=== PATIENT | female | born 1955 | race Caucasian/White ===

== ENCOUNTER 2016-12-23 12:11 | Emergency (ER) | payer SELFPAY ==
[~2016-12-23] VITALS: Ht 177.8 cm; Wt 65.0 kg
[2016-12-23 12:13] VITALS: BP 161/121; PULSE 94; RESP 25; TEMP 98.2; O2SAT 96
[2016-12-23 12:14] VITALS: BP 142/84; PULSE 91; RESP 19; TEMP 98.2; O2SAT 97
[2016-12-23] MEDS ORDERED: TETANUS/DIPHTHERIA TOXOID ADULT 0.5 ML VIAL IM ONE (13:30)
[2016-12-23] MEDS ORDERED: KETOROLAC TROMETHAMINE 60 MG/2 ML (IM) VIAL IM ONE (13:30)
[2016-12-23] MEDS ORDERED: CLIN1CAP5 PO (13:40)
[2016-12-23] MEDS ORDERED: IBUP800T23 PO (13:40)
--- NOTE | 2016-12-23 13:42 | PD ---
HPI Chief Complaint: Injury Time Seen by Provider: 13:31 Travel History International Travel<30 days: No Contact w/Intl Traveler<30days: No Traveled to known affect area: No History of Present Illness HPI 61-year-old female presents to the emergency Department with complaint of right knee pain and right ankle pain after tripping over a curb yesterday and falling for. She denies hitting her head or loss of consciousness. Denies neck pain or back pain. She said she fell forward and landed on all fours. Denies anticoagulants. Complains of a scrape to her right knee. Reports feeling numbness and tingling in her right foot. Denies loss of sensation. Reports decreased range of motion to the right knee secondary to pain. Did ambulate on the extremity yesterday after the fall, but has not today. Denies fever, chills , nausea, vomiting. Took ibuprofen last yesterday with some relief of pain. Pain is aggravated with movement and palpation. Allergies to sulfa. Denies being up-to-date on tetanus vaccination. No other modifying factors or associated signs and symptoms. PFSH Past Medical History ?: Not Social History Tobacco Use: No Allergies-Medications (Allergen,Severity, Reaction): Coded Allergies: Sulfa (Verified Allergy, Intermediate, Hives, 12/23/16) Reported Meds & Prescriptions Reported Meds & Active Scripts Active Ibuprofen 800 Mg Tab 800 Mg PO Q6HR PRN Clindamycin (Clindamycin HCl) 150 Mg Cap 450 Mg PO Q6H 10 Days Review of Systems Except as stated in HPI: all other systems reviewed are Neg Physical Exam Narrative GENERAL: Well-nourished, well-developed female patient, in no acute distress SKIN: Warm and dry. Scabbed abrasion noted to the upper right trevino; the area is surrounded by erythema and is warm to touch; consistent with cellulitis; no drainage noted. HEAD: Atraumatic. Normocephalic. EYES: Pupils equal and round. No scleral icterus. No injection or drainage. ENT: Mucosa pink and moist. Airway patent. NECK: Trachea midline. CARDIOVASCULAR: Regular rate. RESPIRATORY: No accessory muscle use. GASTROINTESTINAL: Flat. MUSCULOSKELETAL: Right knee is edematous and non-erythematous; with tenderness on palpation to the patellar, medial, lateral aspect; no obvious deformity; minimal flexion at the knee; unable to assess range of motion secondary to patient guarding and pain. Right ankle is without erythema, edema; with tenderness on palpation to the mid foot zone; no obvious deformity. Right lower extremity supple and non-tense with 2+ pedal pulse and sensory intact; less than 3 second cap refill and toes are pink and warm. No erythema. No clubbing. No cyanosis. NEUROLOGICAL: Awake and alert. Oriented 3. No obvious cranial nerve deficits. Motor grossly within normal limits. Normal speech. PSYCHIATRIC: Appropriate mood and affect; insight and judgment normal. Data Data Last Documented VS Vital Signs Date Time Temp Pulse Resp B/P Pulse Ox O2 Delivery O2 Flow Rate FiO2 12/23/16 12:14 98.2 91 19 142/84 97 Room Air Orders Ankle, Complete (Afe9liv) (12/23/16 13:24) Knee, Complete (4vws) (12/23/16 13:24) Ice/Cold Pack (12/23/16 13:24) Tetanus/Diphtheria Tox Adult (Tetanus/Di (12/23/16 13:30) Ketorolac Inj (Toradol Inj) (12/23/16 13:30) Splint Or Brace Apply/Monitor (12/23/16 15:45) Splint Or Brace Apply/Monitor (12/23/16 15:45) Crutches (12/23/16 15:45) Mandatory Outpatient Referral (12/23/16 15:46) MDM Medical Decision Making Medical Screen Exam Complete: Yes Emergency Medical Condition: Yes Medical Record Reviewed: Yes Differential Diagnosis Fall, fracture, sprain, cellulitis, abrasion Narrative Course 61-year-old female with right knee injury, right ankle injury, and an abrasion surrounded by an area of cellulitis to the right upper trevino after a mechanical fall yesterday. The patient denies hitting her head or loss of consciousness. Denies anticoagulants. Patient afebrile nontoxic appearing. Right lower extremity supple and non-tense with 2+ pedal pulse and sensory intact. Toradol ordered. Right knee x-ray, right ankle x-ray ordered. Tetanus updated in the ER. Ice pack ordered. 1544: Right knee x-ray with small effusion and no acute findings. Right ankle x-ray with no acute findings. Godwin bandage applied to knee. Velcro ankle splint applied for support. Crutches provided for support. Ibuprofen and clindamycin prescribed for home. Instructed patient to follow up with orthopedics. Outpatient management referral entered as patient does not have insurance. Patient verbalized understanding and agreement for treatment plan. Patient is medically cleared and stable for discharge. Discussed reasons to return to the emergency department. Instructed patient to follow up with primary care provider. Patient agrees with treatment plan. The patients vital signs are stable and the patient is stable for outpatient follow-up and treatment. Patient discharged home, stable and in no acute distress. Diagnosis Primary Impression: Fall Qualified Code: W19.XXXA - Fall, initial encounter Additional Impressions: Abrasion of skin with infection Strain of right knee Qualified Code: S86.911A - Strain of right knee, initial encounter Right ankle sprain Qualified Code: S93.401A - Sprain of right ankle, unspecified ligament, initial encounter Referrals: Primary Care Physician Patient Instructions: Ankle Sprain (ED), Cellulitis (ED), Fall Prevention (ED) , General Instructions, Knee Sprain (ED) Additional Instructions: Antibiotics as prescribed for skin infection; complete full course; clindamycin is on the $4 list at [facility], otherwise try [facility] Tylenol or ibuprofen as needed and as directed to reduce pain and inflammation Rest, ice, compress, and elevate extremity to decrease pain and inflammation Knee Brace and ankle brace for for support Crutches for support Avoid aggravating activity; increase activity as tolerated Follow-up with primary care provider Return to the emergency department immediately with worsening symptoms Med/Other Pt SpecificInfo: Prescription(s) given Scripts Ibuprofen 800 Mg [id number] Mg PO Q6HR PRN (PAIN) #30 TAB Ref 0 Prov:Aurelia Gonzalez 12/23/16 Clindamycin 150 Mg [id number] Mg PO Q6H 10 Days Ref 0 Prov:Aurelia Gonzalez 12/23/16 Disposition: DISCHARGE HOME Condition: Stable Aurelia Gonzalez Dec 23, 2016 13:42
--- NOTE | 2016-12-23 15:27 | RADRPT ---
EXAM DATE/TIME: 12/23/2016 14:32 [facility] COMPARISON: No previous studies available for comparison. INDICATIONS : Right ankle pain Swelling MEDICAL HISTORY : None. SURGICAL HISTORY : None. ENCOUNTER: Initial ACUITY: 1 day PAIN SCORE: 10/10 LOCATION: Right ankle FINDINGS: Three view exam was performed of the right ankle. The bony structures are in normal alignment. No e vidence of fracture, dislocation, or soft tissue swelling. The ankle mortise is intact. No radiopaq ue foreign bodies are seen. Bony mineralization is normal. CONCLUSION: 1. No acute findings. Mild degenerative change at the right ankle. Sina Winchester MD on December 23, 2016 at 15:24 Board Certified Radiologist. This report was verified electronically.
--- NOTE | 2016-12-23 15:29 | RADRPT ---
EXAM DATE/TIME: 12/23/2016 14:35 [facility] COMPARISON: No previous studies available for comparison. INDICATIONS : Right knee pain MEDICAL HISTORY : None. SURGICAL HISTORY : None. ENCOUNTER: Initial ACUITY: 1 day PAIN SCORE: 10/10 LOCATION: Right knee FINDINGS: Four view examination of the right knee demonstrates no evidence of fracture or dislocation. Bony mi neralization is normal. There is a small right knee joint effusion. CONCLUSION: 1. Small right knee joint effusion. No acute bony abnormalities. Sina Winchester MD on December 23, 2016 at 15:26 Board Certified Radiologist. This report was verified electronically.
== END 2016-12-23 16:28 | disposition home or self-care (01) ==
LOC: NEPB 12:11
DX: S93.401A Sprain of unspecified ligament of right ankle, initial encounter (principal); S80.211A Abrasion, right knee, initial encounter; S86.911A Strain of unspecified muscle(s) and tendon(s) at lower leg level, right leg, initial encounter; L03.115 Cellulitis of right lower limb; Z23 Encounter for immunization; W10.1XXA Fall (on)(from) sidewalk curb, initial encounter; Y93.9 Activity, unspecified; Y92.9 Unspecified place or not applicable; Y99.9 Unspecified external cause status
CPT/HCPCS: 73564; 73610; 90471; 90714; 96372; 99283; E0113; J1885; L1906

== ENCOUNTER 2017-01-07 13:37 | Emergency (ER) | payer SELFPAY ==
[~2017-01-07 13:37] MED LIST: CLIN1CAP5 PO; IBUP800T23 PO
[2017-01-07 13:43] VITALS: BP 118/78; PULSE 114; RESP 20; TEMP 97.6; O2SAT 95
[2017-01-07] MEDS ORDERED: diphenhydrAMINE HCL 50 MG/ML VIAL IM ONE (15:00)
[2017-01-07] MEDS ORDERED: methylPREDNISolone SOD SUCC 125 MG/2 ML VIAL IM ONE (15:00)
--- NOTE | 2017-01-07 15:22 | PD ---
HPI Chief Complaint: Allergic/Adverse Reaction Time Seen by Provider: 15:00 Travel History International Travel<30 days: No Contact w/Intl Traveler<30days: No Traveled to known affect area: No History of Present Illness HPI Patient is a 61-year-old female presenting to emergency Department for evaluation of a rash. Patient states it started on Saturday, at that time it was confined to her bilateral forearms when she woke up on Saturday her whole body was covered in hives. She denies any shortness of breath or wheezing. She thinks it could be related to clindamycin which she was taking for an infection. Patient has not taken any clindamycin since Saturday. She took 2 Benadryl last night with no significant relief of symptoms. Patient is taken any medication today as the Benadryl makes her sleepy. She also reports using a new detergent to wash her clothes and several days prior to the breakout. PFSH Past Medical History Medical History: Denies Significant Hx Past Surgical History Appendectomy: Yes Other Surgery: Yes (eye surgery) Social History Tobacco Use: No Allergies-Medications (Allergen,Severity, Reaction): Coded Allergies: Sulfa (Verified Allergy, Intermediate, Hives, 12/23/16) Reported Meds & Prescriptions Reported Meds & Active Scripts Active Ibuprofen 800 Mg Tab 800 Mg PO Q6HR PRN Clindamycin (Clindamycin HCl) 150 Mg Cap 450 Mg PO Q6H 10 Days Review of Systems Except as stated in HPI: all other systems reviewed are Neg Cardiovascular: No: Chest Pain or Discomfort Respiratory: No: Shortness of Breath Gastrointestinal: No: Abdominal Pain Skin: Positive Rash, Positive Itching, Positive Hives Physical Exam Narrative GENERAL: Well-developed, well-nourished, alert female. SKIN: Warm and dry. Scattered hyperpigmented macular papular rash, nonblanching diffusely on abdomen, anterior chest wall, bilateral upper extremities, back, and face HEAD: Atraumatic. Normocephalic. EYES: Pupils equal and round. No scleral icterus. No injection or drainage. ENT: No nasal bleeding or discharge. Mucous membranes pink and moist. NECK: Trachea midline. No JVD. CARDIOVASCULAR: Regular rate and rhythm. No murmur appreciated. RESPIRATORY: No accessory muscle use. Clear to auscultation. Breath sounds equal bilaterally. GASTROINTESTINAL: Abdomen soft, non-tender, nondistended. Hepatic and splenic margins not palpable. MUSCULOSKELETAL: No obvious deformities. No clubbing. No cyanosis. No edema. NEUROLOGICAL: Awake and alert. No obvious cranial nerve deficits. Motor grossly within normal limits. Normal speech. PSYCHIATRIC: Appropriate mood and affect; insight and judgment normal. Data Data Last Documented VS Vital Signs Date Time Temp Pulse Resp B/P Pulse Ox O2 Delivery O2 Flow Rate FiO2 01/07/17 13:43 97.6 114 20 118/78 95 Room Air Orders Methylprednisolone So Succ Inj (Solumedr (01/07/17 15:00) Diphenhydramine Inj (Benadryl Inj) (01/07/17 15:00) Complete Blood Count With Diff (01/07/17 14:55) Basic Metabolic Panel (Bmp) (01/07/17 14:55) MDM Medical Decision Making Medical Screen Exam Complete: Yes Emergency Medical Condition: Yes Interpretation(s) Vital Signs Date Time Temp Pulse Resp B/P Pulse Ox O2 Delivery O2 Flow Rate FiO2 01/07/17 13:43 97.6 114 20 118/78 95 Room Air Differential Diagnosis Viral exanthems versus allergic reaction versus contact dermatitis versus other Narrative Course Patient is a 7-year-old female presented to him or to primary for evaluation of a possible allergic reaction. He is vital signs are stable, airway patent. No wheezing noted. Reaction appears to be only affecting her skin at this time. Care of patient transferred to provider when medical bed is available. Maria C Kamara Jan 07, 2017 15:22
[2017-01-07] MEDS ORDERED: FAMOTIDINE 20 MG/2 ML VIAL IV PUSH SCH (15:45)
[2017-01-07] MEDS ORDERED: diphenhydrAMINE HCL 50 MG/ML VIAL IV PUSH ONE (15:45)
[2017-01-07] MEDS ORDERED: methylPREDNISolone SOD SUCC 125 MG/2 ML VIAL IV PUSH ONE (15:45)
[2017-01-07 16:27] VITALS: BP 143/75; PULSE 101; RESP 20; TEMP 98.8; O2SAT 96
[2017-01-07 16:55] LABS: AUTOMATED NEUTROPHIL # 4.9 TH/MM3 (1.8-7.7); BASOPHIL % 0.3 % (0.0-2.0); EOSINOPHIL # 0.1 TH/MM3 (0-0.4); HEMATOCRIT 38.1 % (35.0-46.0); LYMPH % 3.9 % (9.0-44.0); LYMPHOCYTE # 0.2 TH/MM3 (1.0-4.8); MEAN CELL VOLUME 102.1 FL (80.0-100.0); MEAN CORPUSCULAR HEMOGLOBIN 35.7 PG (27.0-34.0); MONO % 9.2 % (0.0-8.0); NEUT % 84.6 % (16.0-70.0); RED BLOOD COUNT 3.73 MIL/MM3 (4.00-5.30); RED CELL DISTRIBUTION WIDTH 13.2 % (11.6-17.2); WHITE BLOOD COUNT 5.8 TH/MM3 (4.0-11.0)
[2017-01-07 17:02] LABS: HEMO FLAGS AUTO DIFF
[2017-01-07 17:04] LABS: BICARBONATE 27.4 MEQ/L (21.0-32.0); POTASSIUM 4.1 MEQ/L (3.5-5.1)
[2017-01-07 17:34] LABS: PLATELET COUNT 92 TH/MM3 (150-450); SCAN/DIFF AUTO DIFF CONFIRMED
[2017-01-07] MEDS ORDERED: PRED20 PO (17:38)
[2017-01-07] MEDS ORDERED: ZANT150T2 PO (17:38)
[2017-01-07] MEDS ORDERED: VIST50CA PO (17:38)
--- NOTE | 2017-01-07 17:45 | PD ---
Physical Exam Date Seen by Provider: Jan 07, 2017 Time Seen by Provider: 17:41 Narrative 61-year-old female that presents to the ED for evaluation of allergic rash. Patient was seen by Maria C VIZCARRA. Please refer to her note. Patient was basically waiting on treatment as well as labs. Patient complains of an early rash to her body likely from clindamycin. Data Data Last Documented VS Vital Signs Date Time Temp Pulse Resp B/P Pulse Ox O2 Delivery O2 Flow Rate FiO2 01/07/17 16:27 98.8 101 20 143/75 96 Room Air Orders Methylprednisolone So Succ Inj (Solumedr (01/07/17 15:00) Diphenhydramine Inj (Benadryl Inj) (01/07/17 15:00) Complete Blood Count With Diff (01/07/17 14:55) Basic Metabolic Panel (Bmp) (01/07/17 14:55) Methylprednisolone So Succ Inj (Solumedr (01/07/17 15:45) Diphenhydramine Inj (Benadryl Inj) (01/07/17 15:45) Famotidine Inj (Pepcid Inj) (01/07/17 15:45) Labs Laboratory Tests Test 01/07/17 16:03 White Blood Count 5.8 TH/MM3 Red Blood Count 3.73 MIL/MM3 Hemoglobin 13.3 GM/DL Hematocrit 38.1 % Mean Corpuscular Volume 102.1 FL Mean Corpuscular Hemoglobin 35.7 PG Mean Corpuscular Hemoglobin 35.0 % Concent Red Cell Distribution Width 13.2 % Platelet Count 92 TH/MM3 Mean Platelet Volume 7.6 FL Neutrophils (%) (Auto) 84.6 % Lymphocytes (%) (Auto) 3.9 % Monocytes (%) (Auto) 9.2 % Eosinophils (%) (Auto) 2.0 % Basophils (%) (Auto) 0.3 % Neutrophils # (Auto) 4.9 TH/MM3 Lymphocytes # (Auto) 0.2 TH/MM3 Monocytes # (Auto) 0.5 TH/MM3 Eosinophils # (Auto) 0.1 TH/MM3 Basophils # (Auto) 0.0 TH/MM3 CBC Comment AUTO DIFF Differential Comment AUTO DIFF CONFIRMED Sodium Level 134 MEQ/L Potassium Level 4.1 MEQ/L Chloride Level 97 MEQ/L Carbon Dioxide Level 27.4 MEQ/L Anion Gap 10 MEQ/L Blood Urea Nitrogen 7 MG/DL Creatinine 0.69 MG/DL Estimat Glomerular Filtration 87 ML/MIN Rate Random Glucose 98 MG/DL Calcium Level 8.8 MG/DL [facility] Medical Record Reviewed: Yes Supervised Visit with RUSS: No Interpretation(s) CBC & BMP Diagram 01/07/17 16:03 Differential Diagnosis Allergic dermatitis versus reaction to medication versus less likely anaphylaxis Narrative Course 61-year-old female that presents to the ED for evaluation of unclear reaction. Patient was properly examined and was found to have signs and symptoms very consistent with a reaction to the clindamycin. Clindamycin was added to her medication allergy list. Patient was told to discontinue this medication. Patient was given Benadryl, Pepcid, Solu-Medrol here in the ED. Patient has no sign of anaphylaxis at this time. Case was discussed in my attending Dr. enriquez who evaluated the patient with me and agrees with plan. Patient will be discharged home with Zantac, Vistaril, prednisone. Told to take medications as needed. Ice or warm compresses to the areas of itch. Close follow-up with PCP. See ED for any worsening symptoms. Labs were essentially unremarkable. Diagnosis Primary Impression: Allergic reaction to drug Qualified Code: T78.40XA - Allergic reaction to drug, initial encounter Patient Instructions: General Instructions Additional Instruction: Take medications as prescribed. Never take clindamycin again. Follow-up with PCP. Ice to the areas. See ED for any worsening symptoms. Rash itself should get better in the next 3-7 days. Rash or completely go away after a week or 2. Med/Other Pt SpecificInfo: Prescription(s) given Scripts Ranitidine (Zantac)150 Mg [id number] Mg PO BID PRN (PAIN SCALE 1 TO 10) #20 TAB Prov:Dread Jensen MD 01/07/17 Hydroxyzine Pamoate (Vistaril)50 Mg Cap50 Mg PO TID PRN (ITCHING) #20 CAP Ref 0 Prov:Dread Jensen MD 01/07/17 Prednisone 20 Mg Tab20 Mg PO BID #10 TAB Prov:Dread Jensen MD 01/07/17 Disposition: 01 DISCHARGE HOME Condition: Stable Bo Lamar Jan 07, 2017 17:45
== END 2017-01-07 18:53 | disposition home or self-care (01) ==
LOC: NEPC 13:37
DX: T36.8X5A Adverse effect of other systemic antibiotics, initial encounter (principal); Y92.009 Unspecified place in unspecified non-institutional (private) residence as the place of occurrence of the external cause
CPT/HCPCS: 80048; 85025; 96374; 96375; 99283; J1200; J2930

== ENCOUNTER 2017-08-06 11:35 | Emergency (ER) | payer SELFPAY ==
[~2017-08-06] VITALS: Ht 177.8 cm; Wt 70.0 kg
[~2017-08-06 11:35] MED LIST changes: +PRED20 PO; +VIST50CA PO; +ZANT150T2 PO
[2017-08-06 11:41] VITALS: BP 120/64; PULSE 85; RESP 16; TEMP 98.4; O2SAT 99
[2017-08-06] MEDS ORDERED: ORPHENADRINE INJ 60 MG/2 ML AMP IM ONE (12:15)
[2017-08-06] MEDS ORDERED: KETOROLAC TROMETHAMINE 60 MG/2 ML (IM) VIAL IM ONE (12:15)
--- NOTE | 2017-08-06 12:19 | PD ---
HPI Chief Complaint: Back/ Neck Pain or Injury Time Seen by Provider: 12:04 Travel History International Travel<30 days: No Contact w/Intl Traveler<30days: No Traveled to known affect area: No History of Present Illness HPI 62-year-old female presents to the emergency Department with complaint of lower back pain that has been severe for about the past week. Denies new or recent injury. Back pain has been on and off for the past 3 months with worsening over the past week, and has been unable to relieve the back pain. Has history of disc herniation with surgery of L4 and L5 15 years ago. Followed neurosurgery in [place] and just recently moved here and does not have care at this time. Denies encopresis, incontinence, saddle anesthesia. Denies IV drug use or cancer. Denies fever, vomiting, abdominal pain, dysuria. Denies difficulty urinating or stooling. Reports being ambulatory. Reports occasional radiation of pain down the back of her legs, but not now. Has been taking Advil for symptom management. Pain is aggravated with movement, walking , palpation. No known relieving factors. Symptoms are moderate in severity. Has no other medical complaints. Allergies to sulfa and clindamycin. No other modifying factors or associated signs and symptoms. PFSH Past Medical History Musculoskeletal: Yes (cbp) Tetanus Vaccination: < 5 Years Influenza Vaccination: No Past Surgical History Appendectomy: Yes Other Surgery: Yes (eye surgery) Social History Alcohol Use: Yes (1 glass of wine per day) Tobacco Use: No Substance Use: No Allergies-Medications (Allergen,Severity, Reaction): Coded Allergies: Sulfa (Sulfonamide Antibiotics) (Unverified Allergy, Intermediate, Hives, 08/06/17) clindamycin (Unverified Allergy, Intermediate, rash, 08/06/17) Reported Meds & Prescriptions Reported Meds & Active Scripts Active No Active Prescriptions or Reported Medications Review of Systems Except as stated in HPI: all other systems reviewed are Neg Physical Exam Narrative GENERAL: Well-nourished, well-developed female patient, in no acute distress; afebrile, nontoxic-appearing SKIN: Warm and dry. Midline, lumbar spine surgical scar noted. HEAD: Atraumatic. Normocephalic. EYES: Pupils equal and round. No scleral icterus. No injection or drainage. ENT: Mucosa pink and moist. Airway patent. NECK: Trachea midline. CARDIOVASCULAR: Regular rate. RESPIRATORY: No accessory muscle use. GASTROINTESTINAL: Rounded. MUSCULOSKELETAL: Bilateral lower extremities supple and non-tense with 2+ pedal pulses and sensory intact; with full range of motion and 5/5 strength. 2 + DTRs bilaterally. Active dorsiflexion and extension of bilateral feet. Bilateral straight leg raise is negative for low back pain. Ambulatory in room with guarded gait. Sitting up in bed at 90. No obvious deformities. No clubbing. No cyanosis. No edema. BACK: Midline point tenderness on palpation of the lumbar spine. Tenderness on palpation of left lumbar iliosacral area. No obvious deformities. NEUROLOGICAL: Awake and alert. Oriented 3. No obvious cranial nerve deficits. Motor grossly within normal limits. Normal speech. Moves all extremities. 5/5 strength to all extremities. Sensory intact. PSYCHIATRIC: Appropriate mood and affect; insight and judgment normal. Data Data Last Documented VS Vital Signs Date Time Temp Pulse Resp B/P (MAP) Pulse Ox O2 Delivery O2 Flow Rate FiO2 08/06/17 11:41 98.4 85 16 120/64 (82) 99 Orders Orders Ketorolac Inj (Toradol Inj) (08/06/17 12:15) Orphenadrine Inj (Norflex Inj) (08/06/17 12:15) Ct Lumb Spine W/O Contrast (08/06/17 ) MDM Medical Decision Making Medical Screen Exam Complete: Yes Emergency Medical Condition: Yes Medical Record Reviewed: Yes Differential Diagnosis Acute exacerbation of chronic low back pain, disc herniation, sciatica, less likely cauda equina syndrome Narrative Course 62-year-old female with history of L4-L5 herniation with surgical repair 15 years ago, with excruciating low back pain for approximately one week. Intermittent low back pain for the past 3 months with recent worsening. Denies new or recent injury. Denies IV drug use or cancer. Denies encopresis, incontinence, saddle anesthesias. Neuro exam is unremarkable. Patient has guarded gait in the room. Midline tenderness on palpation of the lumbar spine. I spoke with Dr. Gallegos, my attending physician, and he recommended CT of the lumbar spine. Toradol, Norflex, CT lumbar spine ordered. 1316: CT lumbar spine concludes: Last 24 hours Impressions Lum[address] Spine CT 08/06/17 0000 Signed Impressions: Service Date/Time: Sunday, August 06, 2017 12:45 - CONCLUSION: 1. No acute fracture or spondylolisthesis. 2. At L4-5 is a broad-based disc protrusion and facet arthropathy resulting in moderate central canal and lateral recess stenosis. 3. Mild bilateral foraminal stenosis at L4-5-S1. Sina Winchester MD Discussed the findings with Dr. Gallegos and he recommended outpatient follow-up with neurosurgery. Lortab, Robaxin, ibuprofen prescribed for home. Instructed patient to follow up with neurosurgeon. Discussed reasons to return to the emergency department and patient verbalized understanding and agreement. Instructed patient to follow up with primary care provider. Patient verbalizes understanding and agreement with treatment plan. Patient is medically cleared and stable for discharge. Discussed reasons to return to the emergency department. Patient agrees with treatment plan. The patients vital signs are stable and the patient is stable for outpatient follow-up and treatment. Patient discharged home, stable and in no acute distress. Diagnosis Primary Impression: Low back pain Qualified Codes: M54.5 - Low back pain Referrals: Neville Izaguirre MD Neurosurgeon Primary Care Physician Patient Instructions: Acute Low Back Pain (ED), General Instructions Departure Forms: Tests/Procedures, Work Release Enter return to work date: Aug 12, 2017 Additional Instructions: Tylenol or ibuprofen as directed and as needed for pain Robaxin as prescribed and as needed for muscle spasms Heating pad and/or ice to affected area to reduce pain Avoid aggravating activities; increase activity as tolerated Follow-up with primary care provider Follow-up with neurosurgery; Dr. Izaguirre is a neurosurgeon for [place] and his information has been provided a near discharge instructions Return to emergency department immediately with worsening of symptoms Med/Other Pt SpecificInfo: Prescription(s) given Scripts Ibuprofen (Ibuprofen) 800 Mg Tab 800 MG PO Q8H Y for PAIN SCALE 1 TO 10, #30 TAB 0 Refills Prov: Aurelia GonzalezP 08/06/17 Methocarbamol (Robaxin) 500 Mg Tab 500 MG PO QID Y for MUSCLE SPASM, #30 TAB 0 Refills Prov: Aurelia GonzalezP 08/06/17 Hydrocodone-Acetaminophen (Lortab) 5-325 Mg Tab 1 TAB PO Q4H Y for PAIN, #10 TAB 0 Refills Prov: Aurelia Gonzalez 08/06/17 Disposition: 01 DISCHARGE HOME Condition: Stable Aurelia Gonzalez Aug 06, 2017 12:19
--- NOTE | 2017-08-06 13:04 | RADRPT ---
EXAM DATE/TIME: 08/06/2017 12:45 [facility] COMPARISON: No previous studies available for comparison. INDICATIONS : Low back pain for 3 months RADIATION DOSE: 35.86 CTDIvol (mGy) MEDICAL HISTORY : None SURGICAL HISTORY : None. ENCOUNTER: Initial ACUITY: 3 months PAIN SCALE: 8/10 LOCATION: low back TECHNIQUE: Volumetric scanning of the lumbar spine was performed. Multiplanar reconstructions in the sagittal, coronal and oblique axial planes were performed. Using automated exposure control and adjustment of the mA and/or kV according to patient size, radiation dose was kept as low as reasonably achievable t o obtain optimal diagnostic quality images. DICOM format image data is available electronically for review and comparison. FINDINGS: VERTEBRAE: Normal vertebral body height. ALIGNMENT: No evidence of subluxation. T12-L1: The thecal sac has a normal diameter. No evidence of disc bulge or protrusion. The neural foramina are patent bilaterally. L1-L2: The thecal sac has a normal diameter. No evidence of disc bulge or protrusion. The neural foramina are patent bilaterally. L2-L3: Disc bulge without stenosis. L3-L4: Disc bulge without significant stenosis L4-L5: Broad-based posterior disc protrusion and facet arthropathy with at least moderate central canal late ral recess stenosis and mild bilateral foraminal stenosis. L5-S1: This chest reading with mild foraminal and lateral recess stenosis. CONCLUSION: 1. No acute fracture or spondylolisthesis. 2. At L4-5 is a broad-based disc protrusion and facet arthropathy resulting in moderate central canal and lateral recess stenosis. 3. Mild bilateral foraminal stenosis at L4-5-S1. Sina Winchester MD on August 06, 2017 at 13:00 Board Certified Radiologist. This report was verified electronically.
[2017-08-06] MEDS ORDERED: IBUP800T23 PO (13:15)
[2017-08-06] MEDS ORDERED: ROBA500T PO (13:15)
[2017-08-06] MEDS ORDERED: HYDR-3533 PO (13:15)
== END 2017-08-06 13:37 | disposition home or self-care (01) ==
LOC: NEPK 11:35
DX: M48.07 Spinal stenosis, lumbosacral region (principal); M48.06 Spinal stenosis, lumbar region; Z88.2 Allergy status to sulfonamides; Z88.1 Allergy status to other antibiotic agents
CPT/HCPCS: 72131; 96372; 99285; J1885; J2360

== ENCOUNTER 2017-08-14 12:27 | Emergency (ER) | payer SELFPAY ==
[~2017-08-14] VITALS: Ht 177.8 cm; Wt 70.0 kg
[~2017-08-14 12:27] MED LIST changes: -CLIN1CAP5 PO; +HYDR-3533 PO; -PRED20 PO; +ROBA500T PO; -VIST50CA PO; -ZANT150T2 PO
[2017-08-14 12:28] VITALS: BP 115/97; PULSE 88; RESP 16; TEMP 97.6; O2SAT 99
--- NOTE | 2017-08-14 12:32 | PD ---
Physical Exam Time Seen by Provider: 12:32 Narrative 62 y/o female here for evaluation of lower back pain shooting down the legs with numbness in the feet. Symptoms started 1-2 weeks ago. Vital signs reviewed. Seen at triage desk. Awaiting bed placement. Data Data Last Documented VS Vital Signs Date Time Temp Pulse Resp B/P (MAP) Pulse Ox O2 Delivery O2 Flow Rate FiO2 08/14/17 12:28 97.6 88 16 115/97 (103) 99 Room Air [facility] Medical Record Reviewed: Yes Supervised Visit with RUSS: Asim Sheffield Aug 14, 2017 12:32
--- NOTE | 2017-08-14 14:14 | PD ---
HPI Chief Complaint: Back/ Neck Pain or Injury Time Seen by Provider: 13:47 Travel History International Travel<30 days: No Contact w/Intl Traveler<30days: No Traveled to known affect area: No History of Present Illness HPI 62-year-old female presents to the emergency Department with complaint of lower back pain x 2 weeks. Denies new or recent injury. Back pain has been on and off for the past 3 months with worsening over the past 2 week, and has been unable to relieve the back pain. I saw this patient on 03/06/20 same complaint. Has history of disc herniation with surgery of L4 and L5 15 years ago. Followed neurosurgery in [place] and just recently moved here and does not have care at this time. Denies encopresis, incontinence, saddle anesthesia. Denies IV drug use or cancer. Denies fever, vomiting, abdominal pain, dysuria. Denies difficulty urinating or stooling. Reports being ambulatory. Reports occasional radiation of pain down the back of her legs, but not now. Has been taking ibuprofen for symptom management. She was given muscle relaxers at her last visit and she has not filled the prescription or taken them. Pain is aggravated with movement, walking, palpation. Pain is decreased with lying flat and lying in a reclining chair. Symptoms are mild in severity. Has no other medical complaints. Allergies to sulfa and clindamycin. No other modifying factors or associated signs and symptoms. PFSH Past Medical History Musculoskeletal: Yes (cbp) Past Surgical History Appendectomy: Yes Other Surgery: Yes (eye surgery) Social History Alcohol Use: Yes (1 glass of wine per day) Tobacco Use: No Substance Use: No Allergies-Medications (Allergen,Severity, Reaction): Coded Allergies: Sulfa (Sulfonamide Antibiotics) (Unverified Allergy, Intermediate, Hives, 08/14/17) clindamycin (Unverified Allergy, Intermediate, rash, 08/14/17) Reported Meds & Prescriptions Reported Meds & Active Scripts Active Ibuprofen 800 Mg Tab 800 Mg PO Q8H PRN Robaxin (Methocarbamol) 500 Mg Tab 500 Mg PO QID PRN Lortab (Hydrocodone-Acetaminophen) 5-325 Mg Tab 1 Tab PO Q4H PRN Review of Systems Except as stated in HPI: all other systems reviewed are Neg Physical Exam Narrative GENERAL: Well-nourished, well-developed female patient, in no acute distress; afebrile, nontoxic-appearing SKIN: Warm and dry. HEAD: Atraumatic. Normocephalic. EYES: Pupils equal and round. No scleral icterus. No injection or drainage. ENT: Mucosa pink and moist. Airway patent. NECK: Trachea midline. CARDIOVASCULAR: Regular rate. RESPIRATORY: No accessory muscle use. GASTROINTESTINAL: Abdomen soft, non-tender, nondistended. Positive bowel sounds. No hepato-splenomegaly, or palpable masses. No guarding. MUSCULOSKELETAL: Bilateral lower extremities supple and non-tense with 2+ pedal pulses and sensory intact; with full range of motion and 5/5 strength. 2 + DTRs bilaterally. Active dorsiflexion and extension of bilateral feet. Bialteral straight leg raise is negative for low back pain. Ambulatory in room with guarded gait. Sitting up in bed at 90. No obvious deformities. No clubbing. No cyanosis. No edema. BACK: Midline point tenderness on palpation of the lumbar spine. Tenderness on palpation of bilateral lumbar iliosacral area. No obvious deformities. NEUROLOGICAL: Awake and alert. Oriented 3. No obvious cranial nerve deficits. Motor grossly within normal limits. Normal speech. Moves all extremities. 5/5 strength to all extremities. Sensory intact. PSYCHIATRIC: Appropriate mood and affect; insight and judgment normal. Data Data Last Documented VS Vital Signs Date Time Temp Pulse Resp B/P (MAP) Pulse Ox O2 Delivery O2 Flow Rate FiO2 08/14/17 17:09 97.8 78 16 120/81 (94) 99 08/14/17 12:28 Room Air Orders Orders Urinalysis - C+S If Indicated (08/14/17 13:46) Ketorolac Inj (Toradol Inj) (08/14/17 15:30) Orphenadrine Inj (Norflex Inj) (08/14/17 15:30) Labs Laboratory Tests Test 08/14/17 15:30 Urine Color YELLOW Urine Turbidity CLEAR Urine pH 7.0 Urine Specific [place] 1.015 Urine Protein TRACE mg/dL Urine Glucose (UA) NEG mg/dL Urine Ketones NEG mg/dL Urine Occult Blood NEG Urine Nitrite NEG Urine Bilirubin NEG Urine Urobilinogen 2.0 MG/DL Urine Leukocyte Esterase MOD Urine RBC 1 /hpf Urine WBC 7 /hpf Urine Squamous Epithelial Cells 1 /hpf Microscopic Urinalysis Comment CULT NOT INDICATED MDM Medical Decision Making Medical Screen Exam Complete: Yes Emergency Medical Condition: Yes Medical Record Reviewed: Yes Differential Diagnosis Chronic low back pain, sciatica, lumbar radiculopathy Narrative Course This 62-year-old female with history of chronic low back pain that is constant or 19th same complaint. Denies encopresis incontinence, saddle anesthesias. Denies IV drug use or cancer. CT of the lumbar spine was done at her last visit on August 06 and concluded . No acute fracture or spondylolisthesis. 2. At L4-5 is a broad-based disc protrusion and facet arthropathy resulting in moderate central canal and lateral recess stenosis. 3. Mild bilateral foraminal stenosis at L4-5-S1. The patient has had no change of symptoms since she was last seen. She is ambulatory in the hallway with a guarded gait. I will check a urinalysis to rule out UTI/pyelonephritis. Urinalysis ordered. Toradol and Norflex administered in the ER. 1701: Urinalysis without signs of infection. Patient has prescription for Robaxin that she did not fill and has not taken. Instructed patient to take ibuprofen or Tylenol as directed and as needed for continued back pain. Patient provided information for his health clinic. Instructed patient to follow up with neurosurgeon as she was advised from her last visit. Instructed patient to follow up with primary care provider. Patient verbalizes understanding and agreement with treatment plan. Patient is medically cleared and stable for discharge. Discussed reasons to return to the emergency department. Patient agrees with treatment plan. The patients vital signs are stable and the patient is stable for outpatient follow-up and treatment. Patient discharged home, stable and in no acute distress. Diagnosis Primary Impression: Low back pain Qualified Codes: M54.5 - Low back pain Referrals: [facility] Primary Care Physician Patient Instructions: Chronic Back Pain (ED), General Instructions Additional Instructions: Tylenol or ibuprofen as directed and as needed for pain Robaxin as prescribed and as needed for muscle spasms Heating pad and/or ice to affected area to reduce pain Avoid aggravating activities; increase activity as tolerated Follow-up with primary care provider Return to emergency department immediately with worsening of symptoms Med/Other Pt SpecificInfo: No Change to Meds, No Meds Exist/No RX given Disposition: DISCHARGE HOME Condition: Stable Aurelia Gonzalez Aug 14, 2017 14:14
[2017-08-14] MEDS ORDERED: KETOROLAC TROMETHAMINE 60 MG/2 ML (IM) VIAL IM ONE (15:30)
[2017-08-14] MEDS ORDERED: ORPHENADRINE INJ 60 MG/2 ML AMP IM ONE (15:30)
[2017-08-14 15:52] LABS: BLOOD, URINE NEG (NEG); COMMENT (UR) CULT NOT INDICATED; CULTURE IF INDICATED CULT NOT INDICATED; GLUCOSE,URINE NEG (NEG); KETONE, URINE NEG (NEG); NITRITE,URINE NEG (NEG); SQUAMOUS EPITHELIAL CELL URINE 1 /hpf (0-5); URINE COLOR YELLOW (YELLW/STRAW)
[2017-08-14 16:30] VITALS: RESP 16
[2017-08-14 17:09] VITALS: BP 120/81; TEMP 97.8
== END 2017-08-14 17:10 | disposition home or self-care (01) ==
LOC: NEPD 12:27
DX: M54.5 Low back pain (principal); M48.07 Spinal stenosis, lumbosacral region; Z79.899 Other long term (current) drug therapy; Z88.2 Allergy status to sulfonamides; Z88.8 Allergy status to other drugs, medicaments and biological substances
CPT/HCPCS: 81001; 96372; 99284; J1885; J2360

== ENCOUNTER 2018-01-22 12:40 | Inpatient (IN) | payer SELFPAY ==
[~2018-01-22] VITALS: Ht 177.8 cm; Wt 75.7 kg
[2018-01-22] VITALS (17 sets, daily range): BP systolic 66–106; BP diastolic 41–60; PULSE 85–95; RESP 14–22; TEMP 97.4–99.1; O2SAT 93–100
[~2018-01-22 12:40] MED LIST changes: +IBUP1TAB7 PO; -IBUP800T23 PO
[2018-01-22] MEDS ORDERED: SODIUM CHLOR 0.9% 1000 ML INJ 1,000 ML IV SCH (13:43)
[2018-01-22] MEDS ORDERED: MORPHINE SULFATE 4 MG/ML INJ IV PUSH ONE (13:45)
[2018-01-22] MEDS ORDERED: SODIUM CHLORIDE 0.9% FLUSH 10 ML FLUSH IV FLUSH PRN ×2 (13:45→17:15)
[2018-01-22] MEDS ORDERED: ONDANSETRON HCL 4 MG/2 ML VIAL IVP ONE (13:45)
--- NOTE | 2018-01-22 13:45 | PD ---
HPI Chief Complaint: Abdominal Pain Time Seen by Provider: 13:28 Travel History International Travel<30 days: No Contact w/Intl Traveler<30days: No Traveled to known affect area: No History of Present Illness HPI 62-year-old female presents to the emergency department for evaluation of upper abdominal pain that started on Saturday, but worsened today. Patient states she went to the [facility] and was referred to the emergency department. She rates her pain 10/10 to left upper quadrant that radiates across the abdomen and down to the right lower quadrant. On exam, the patient' s abdomen is distended. She states this started Saturday as well. When asked how much alcohol the patient drinks, she responds with "too much". She admits to drinking daily, but will not elaborate. Patient also smokes approximately three-quarter pack of cigarettes daily. She denies any illicit drug use. Patient states she has been nauseated. She was vomiting on Saturday, but has not vomited since. No diarrhea or constipation. Patient denies any chronic medical problems and takes no prescribed medications. However, she does not follow up with a primary care physician. She denies any fevers. No chest pain or shortness of breath. No exacerbating or alleviating factors. Moderate severity. PFSH Past Medical History Medical History: Denies Significant Hx Diminished Hearing: No Musculoskeletal: Yes Tetanus Vaccination: < 5 Years Influenza Vaccination: No ?: Not Past Surgical History Appendectomy: Yes Hysterectomy: Yes Other Surgery: Yes (eye surgery) Social History Alcohol Use: Yes (1 glass of wine per day) Tobacco Use: Yes (1/2 ppd) Substance Use: No Allergies-Medications (Allergen,Severity, Reaction): Coded Allergies: Sulfa (Sulfonamide Antibiotics) (Unverified Allergy, Intermediate, Hives, 01/22/18) clindamycin (Unverified Allergy, Intermediate, rash, 01/22/18) Reported Meds & Prescriptions Reported Meds & Active Scripts Active No Active Prescriptions or Reported Medications Review of Systems Except as stated in HPI: all other systems reviewed are Neg Physical Exam Narrative GENERAL: Well-nourished, well-developed female patient, afebrile. SKIN: Focused skin assessment warm/dry. HEAD: Normocephalic. EYES: No injection or drainage. NECK: Supple, trachea midline. No JVD or lymphadenopathy. CARDIOVASCULAR: Regular rate and rhythm without murmurs, gallops, or rubs. RESPIRATORY: Breath sounds equal bilaterally. No accessory muscle use. Lungs sounds clear to auscultation. GASTROINTESTINAL: Abdomen distended, tender to palpation over left upper and right upper quadrants. MUSCULOSKELETAL: No cyanosis, or edema. BACK: Nontender without obvious deformity. No CVA tenderness. Data Data Last Documented VS Vital Signs Date Time Temp Pulse Resp B/P (MAP) Pulse Ox O2 Delivery O2 Flow Rate FiO2 01/22/18 15:22 87 15 90/55 (67) 99 Room Air 01/22/18 13:21 99.1 Orders Orders Complete Blood Count With Diff (01/22/18 13:43) Comprehensive Metabolic Panel (01/22/18 13:43) Lipase (01/22/18 13:43) Lactic Acid (01/22/18 13:43) Prothrombin Time / Inr (Pt) (01/22/18 13:43) Act Partial Throm Time (Ptt) (01/22/18 13:43) Urinalysis - C+S If Indicated (01/22/18 13:43) Iv Access Insert/Monitor (01/22/18 13:43) Ecg Monitoring (01/22/18 13:43) Oximetry (01/22/18 13:43) Morphine Inj (Morphine Inj) (01/22/18 13:45) Ondansetron Inj (Zofran Inj) (01/22/18 13:45) Sodium Chlor 0.9% 1000 Ml Inj (Ns 1000 M (01/22/18 13:43) Sodium Chloride 0.9% Flush (Ns Flush) (01/22/18 13:45) Electrocardiogram (01/22/18 13:43) Ammonia (01/22/18 13:43) Chest, Single Ap (01/22/18 ) Blood Culture (01/22/18 14:27) Type And Screen (01/22/18 14:27) Red Blood Cells (Rbc) (01/22/18 14:27) Blood Product Administration (01/22/18 14:27) Sodium Chlor 0.9% 250 Ml Inj (Ns 250 Ml (01/22/18 14:30) Pantoprazole Inj (Protonix Inj) (01/22/18 14:30) Ct Abd/Pel W/O Iv Contrast (01/22/18 ) Azithromycin Inj (Zithromax Inj) (01/22/18 15:00) Ceftriaxone Inj (Rocephin Inj) (01/22/18 15:00) Lactic Acid Sepsis Protocol (01/22/18 16:14) Admit Order (Ed Use Only) (01/22/18 16:31) Labs Laboratory Tests Test 01/22/18 13:50 01/22/18 16:00 White Blood Count 15.8 TH/MM3 Red Blood Count 3.11 MIL/MM3 Hemoglobin 6.7 GM/DL Hematocrit 22.6 % Mean Corpuscular Volume 72.7 FL Mean Corpuscular Hemoglobin 21.5 PG Mean Corpuscular Hemoglobin Concent 29.6 % Red Cell Distribution Width 23.2 % Platelet Count 371 TH/MM3 Mean Platelet Volume 7.5 FL Neutrophils (%) (Auto) 88.9 % Lymphocytes (%) (Auto) 5.5 % Monocytes (%) (Auto) 5.4 % Eosinophils (%) (Auto) 0.0 % Basophils (%) (Auto) 0.2 % Neutrophils # (Auto) 14.0 TH/MM3 Lymphocytes # (Auto) 0.9 TH/MM3 Monocytes # (Auto) 0.8 TH/MM3 Eosinophils # (Auto) 0.0 TH/MM3 Basophils # (Auto) 0.0 TH/MM3 CBC Comment AUTO DIFF Differential Comment AUTO DIFF CONFIRMED Platelet Estimate NORMAL Platelet Morphology Comment NORMAL Target Cells 1+ Tear Drop Cells 1+ Ovalocytes 1+ Stomatocytes 1+ Prothrombin Time 17.1 SEC Prothromb Time International Ratio 1.7 RATIO Activated Partial Thromboplast Time 30.6 SEC Blood Urea Nitrogen 11 MG/DL Creatinine 1.58 MG/DL Random Glucose 96 MG/DL Total Protein 6.7 GM/DL Albumin 2.5 GM/DL Calcium Level 7.5 MG/DL Alkaline Phosphatase 151 U/L Aspartate Amino Transf (AST/SGOT) 122 U/L Alanine Aminotransferase (ALT/SGPT) 39 U/L Total Bilirubin 2.6 MG/DL Sodium Level 132 MEQ/L Potassium Level 3.4 MEQ/L Chloride Level 96 MEQ/L Carbon Dioxide Level 22.7 MEQ/L Anion Gap 13 MEQ/L Estimat Glomerular Filtration Rate 33 ML/MIN Lactic Acid Level 2.6 mmol/L Ammonia 12 MCMOL/L Lipase 573 U/L MDM Medical Decision Making Medical Screen Exam Complete: Yes Emergency Medical Condition: Yes Medical Record Reviewed: Yes Interpretation(s) Last Impressions Chest X-Ray 01/22/18 0000 Signed Impressions: Service Date/Time: Monday, January 22, 2018 14:39 - CONCLUSION: Left basilar atelectasis and effusion. Exam is concerning for an underlying pneumonia. Omar Alvarez MD CT abdomen/pelvis - CONCLUSION: Small shrunken fatty replaced liver with extensive ascites. Prominent gallbladder.. Differential Diagnosis liver cirrhosis vs. acute liver failure vs. pancreatitis vs. cholecystitis vs. diverticulitis Narrative Course 62-year-old female presents to the emergency department for evaluation of abdominal pain. On exam, the patient is distended and jaundice. She admits to drinking "too much" alcohol. EKG, CBC, CMP, lipase, lactic acid, ammonia level , PTT, PTT/INR, UA are ordered and pending. Chest x-ray and CT abdomen/pelvis with IV contrast is ordered and pending. Patient is given morphine 2 mg IV, Zofran 4 mg IV, normal saline 1 L IV bolus. CBC shows leukocytosis 15.8, anemia with hemoglobin 6.7, hematocrit 22.6. CMP shows creatinine 1.58, bilirubin 2.6, AST 122, click phosphatase 151. Lipase is 573. Lactic acid is 2.6. Ammonia is 12. PTT is 30.6. PT/INR is 17.1/1.7. UA is pending. CT shows Small shrunken fatty replaced liver with extensive ascites; Prominent gallbladder... Chest x-ray shows left basilar atelectasis and effusion, exam is concerning for an underlying pneumonia. Blood cultures x2, type and screen are ordered. Patient is given Protonix 40 mg IV. 2 units PRBCs are ordered and pending. Patient is given azithromycin 500 mg IV, Rocephin 1 g IV for pneumonia. Hospitalist is paged for admission. Dr. Kessler accepted admission. Sepsis Criteria SIRS Criteria (2 or more): Heart rate over 90, WBC > 59841, < 4000 or > 10% bands Sepsis Criteria (SIRS+source): Infect source susp/known Severe Sepsis (+one): Lactate >2 Diagnosis Primary Impression: GI bleed Qualified Codes: K92.2 - Gastrointestinal hemorrhage, unspecified Additional Impressions: Symptomatic anemia Pneumonia Qualified Codes: J18.1 - Lobar pneumonia, unspecified organism Sepsis Qualified Codes: A41.9 - Sepsis, unspecified organism Admitting Information Admitting Physician Requests: Admit Scripts No Active Prescriptions or Reported Meds Dalila Mazariegos Jan 22, 2018 13:45
[2018-01-22 14:17] LABS: BASOPHIL % 0.2 % (0.0-2.0); LYMPH % 5.5 % (9.0-44.0); LYMPHOCYTE # 0.9 TH/MM3 (1.0-4.8); MEAN CELL VOLUME 72.7 FL (80.0-100.0); MEAN CORPUSCULAR HEMOGLOBIN 21.5 PG (27.0-34.0); MEAN PLATELET VOLUME 7.5 FL (7.0-11.0); MONO % 5.4 % (0.0-8.0); MONOCYTE # 0.8 TH/MM3 (0-0.9); NEUT % 88.9 % (16.0-70.0); PLATELET COUNT 371 TH/MM3 (150-450); RED BLOOD COUNT 3.11 MIL/MM3 (4.00-5.30); RED CELL DISTRIBUTION WIDTH 23.2 % (11.6-17.2); WHITE BLOOD COUNT 15.8 TH/MM3 (4.0-11.0)
[2018-01-22 14:19] LABS: MEAN CORPUSCULAR HGB CONC 29.6 % (32.0-36.0)
[2018-01-22 14:23] LABS: HEMATOCRIT 22.6 % (35.0-46.0); HEMOGLOBIN 6.7 GM/DL (11.6-15.3)
[2018-01-22 14:26] LABS: INTERNATIONAL NORMALIZED RATIO 1.7 RATIO; PROTHROMBIN TIME - PATIENT 17.1 SEC (9.8-11.6)
[2018-01-22 14:28] LABS: ALBUMIN 2.5 GM/DL (3.4-5.0); ALT (GPT) 39 U/L (10-53); AST (GOT) 122 U/L (15-37); BICARBONATE 22.7 MEQ/L (21.0-32.0); BLOOD UREA NITROGEN 11 MG/DL (7-18); CALCIUM 7.5 MG/DL (8.5-10.1); CHLORIDE 96 MEQ/L (98-107); CREATININE 1.58 MG/DL (0.50-1.00); GLOMERULAR FILTRATION RATE 33 ML/MIN (>89); GLUCOSE,RANDOM 96 MG/DL (74-106); SODIUM (NA) 132 MEQ/L (136-145)
[2018-01-22] MEDS ORDERED: SODIUM CHLOR 0.9% 250 ML INJ 250 ML IV ONE (14:30)
[2018-01-22] MEDS ORDERED: PANTOPRAZOLE SODIUM 40 MG VIAL IV PUSH ONE (14:30)
[2018-01-22 14:31] LABS: ALKALINE PHOSPHATASE 151 U/L (45-117); TOTAL BILIRUBIN ADULT 2.6 MG/DL (0.2-1.0); TOTAL PROTEIN 6.7 GM/DL (6.4-8.2)
--- NOTE | 2018-01-22 14:51 | RADRPT ---
EXAM DATE/TIME: 01/22/2018 14:39 [facility] COMPARISON: KNEE RIGHT COMPLETE (4VWS), December 23, 2016, 14:35. INDICATIONS : Lower chest and upper abdomen pain. MEDICAL HISTORY : None. SURGICAL HISTORY : None. ENCOUNTER: Initial ACUITY: 2 days PAIN SCORE: 10/10 LOCATION: Bilateral chest FINDINGS: The exam demonstrates an area of atelectatic change at the left lung base. There is minimal left basi lar effusion. The right lung is clear. The heart is normal in size. The mediastinal contour is within normal limits. The visualized bony structures are grossly intact. CONCLUSION: Left basilar atelectasis and effusion. Exam is concerning for an underlying pneumonia. Omar Alvarez MD on January 22, 2018 at 14:49 Board Certified Radiologist. This report was verified electronically.
[2018-01-22 14:56] LABS: OVALOCYTES 1+ (NORMAL); STOMATOCYTES 1+ (NORMAL); TARGET CELLS 1+ (NORMAL); TEARDROP RBCS 1+ (NORMAL)
[2018-01-22] MEDS ORDERED: AZITHROMYCIN INJ 500 MG in SODIUM CHLOR 0.9% 250 ML INJ 250 ML IV ONE (15:00)
[2018-01-22] MEDS ORDERED: cefTRIAXone INJ 1,000 MG in SODIUM CHLORIDE 0.9% INJ 100 ML IV ONE (15:00)
--- NOTE | 2018-01-22 15:16 | PD ---
Physical Exam Date Seen by Provider: Jan 22, 2018 Time Seen by Provider: 15:15 Narrative I am seeing this patient with MARKOS Bender. This is a 62-year-old female history of alcohol abuse, presents today with complaints of abdominal pain with associated weakness. Patient has a history of heavy alcohol abuse and reports she drinks daily. The patient denies any previous history of alcohol abuse. She denies any hematemesis or hematochezia. Her hemoglobin was noted to be 6.7. Patient has no previous history of anemia. On rectal examination patient was heme positive. Data Data Last Documented VS Vital Signs Date Time Temp Pulse Resp B/P (MAP) Pulse Ox O2 Delivery O2 Flow Rate FiO2 01/22/18 14:01 99 Room Air 01/22/18 13:44 91 14 01/22/18 13:21 99.1 Orders Orders Complete Blood Count With Diff (01/22/18 13:43) Comprehensive Metabolic Panel (01/22/18 13:43) Lipase (01/22/18 13:43) Lactic Acid (01/22/18 13:43) Prothrombin Time / Inr (Pt) (01/22/18 13:43) Act Partial Throm Time (Ptt) (01/22/18 13:43) Urinalysis - C+S If Indicated (01/22/18 13:43) Iv Access Insert/Monitor (01/22/18 13:43) Ecg Monitoring (01/22/18 13:43) Oximetry (01/22/18 13:43) Morphine Inj (Morphine Inj) (01/22/18 13:45) Ondansetron Inj (Zofran Inj) (01/22/18 13:45) Sodium Chlor 0.9% 1000 Ml Inj (Ns 1000 M (01/22/18 13:43) Sodium Chloride 0.9% Flush (Ns Flush) (01/22/18 13:45) Electrocardiogram (01/22/18 13:43) Ammonia (01/22/18 13:43) Chest, Single Ap (01/22/18 ) Blood Culture (01/22/18 14:27) Type And Screen (01/22/18 14:27) Red Blood Cells (Rbc) (01/22/18 14:27) Blood Product Administration (01/22/18 14:27) Sodium Chlor 0.9% 250 Ml Inj (Ns 250 Ml (01/22/18 14:30) Pantoprazole Inj (Protonix Inj) (01/22/18 14:30) Ct Abd/Pel W/O Iv Contrast (01/22/18 ) Azithromycin Inj (Zithromax Inj) (01/22/18 15:00) Ceftriaxone Inj (Rocephin Inj) (01/22/18 15:00) Labs Laboratory Tests Test 01/22/18 13:50 White Blood Count 15.8 TH/MM3 Red Blood Count 3.11 MIL/MM3 Hemoglobin 6.7 GM/DL Hematocrit 22.6 % Mean Corpuscular Volume 72.7 FL Mean Corpuscular Hemoglobin 21.5 PG Mean Corpuscular Hemoglobin Concent 29.6 % Red Cell Distribution Width 23.2 % Platelet Count 371 TH/MM3 Mean Platelet Volume 7.5 FL Neutrophils (%) (Auto) 88.9 % Lymphocytes (%) (Auto) 5.5 % Monocytes (%) (Auto) 5.4 % Eosinophils (%) (Auto) 0.0 % Basophils (%) (Auto) 0.2 % Neutrophils # (Auto) 14.0 TH/MM3 Lymphocytes # (Auto) 0.9 TH/MM3 Monocytes # (Auto) 0.8 TH/MM3 Eosinophils # (Auto) 0.0 TH/MM3 Basophils # (Auto) 0.0 TH/MM3 CBC Comment AUTO DIFF Differential Comment AUTO DIFF CONFIRMED Platelet Estimate NORMAL Platelet Morphology Comment NORMAL Target Cells 1+ Tear Drop Cells 1+ Ovalocytes 1+ Stomatocytes 1+ Prothrombin Time 17.1 SEC Prothromb Time International Ratio 1.7 RATIO Activated Partial Thromboplast Time 30.6 SEC Blood Urea Nitrogen 11 MG/DL Creatinine 1.58 MG/DL Random Glucose 96 MG/DL Total Protein 6.7 GM/DL Albumin 2.5 GM/DL Calcium Level 7.5 MG/DL Alkaline Phosphatase 151 U/L Aspartate Amino Transf (AST/SGOT) 122 U/L Alanine Aminotransferase (ALT/SGPT) 39 U/L Total Bilirubin 2.6 MG/DL Sodium Level 132 MEQ/L Potassium Level 3.4 MEQ/L Chloride Level 96 MEQ/L Carbon Dioxide Level 22.7 MEQ/L Anion Gap 13 MEQ/L Estimat Glomerular Filtration Rate 33 ML/MIN Lactic Acid Level 2.6 mmol/L Ammonia 12 MCMOL/L Lipase 573 U/L [facility] Medical Record Reviewed: Yes Supervised Visit with RUSS: Yes Narrative Course 62-year-old female presents with left upper quadrant abdominal pain with associated weakness. Patient has history of heavy alcohol use. Patient is noted to have elevated BUN/creatinine. Patient also also noted to have a elevated lipase and liver enzymes. Patient appears to be hepatorenal secondary to alcohol abuse. Patient was also heme positive. She will be transfused and admitted to the hospital. Chest x-ray shows questionable left lower lobe infiltrate with a white count of 15.8. There is a call out to the hospitalist for admission. Scripts No Active Prescriptions or Reported Meds Audie Bonds MD Jan 22, 2018 15:16
--- NOTE | 2018-01-22 15:47 | RADRPT ---
EXAM DATE/TIME: 01/22/2018 15:07 [facility] COMPARISON: No previous studies available for comparison. INDICATIONS : Abominal pain ORAL CONTRAST: No oral contrast ingested. RADIATION DOSE: 6.88 CTDIvol (mGy) MEDICAL HISTORY : Pancreatitis. SURGICAL HISTORY : None. ENCOUNTER: Initial ACUITY: 4 - 6 days PAIN SCALE: 7/10 LOCATION: Left upper quadrant TECHNIQUE: Volumetric scanning of the abdomen and pelvis was performed. Using automated exposure control and ad justment of the mA and/or kV according to patient size, radiation dose was kept as low as reasonably achievable to obtain optimal diagnostic quality images. DICOM format image data is available electro nically for review and comparison. FINDINGS: Small bilateral pleural effusions with minimal bibasilar parenchymal changes. Moderate fatty replacement with small shrunken liver with marked ascites. Gallbladder prominent Pancreas and spleen unremarkable Right and left kidneys appear normal Mesenteric edema is evident. There is no free air Multiple diverticuli in sigmoid colon. Large amount of free fluid in the pelvis. Review of bone windows reveals significant degenerative changes in the lumbar spine. CONCLUSION: Small shrunken fatty replaced liver with extensive ascites. Prominent gallbladder.. Desmond Alvarez MD FACR on January 22, 2018 at 15:44 Board Certified Radiologist. This report was verified electronically.
[2018-01-22] MEDS ORDERED: NALOXONE HCL 0.4 MG/ML AMP IV PUSH PRN (17:15)
[2018-01-22] MEDS ORDERED: SODIUM CHLORID 0.9% 500 ML INJ 500 ML IV ONE (17:15)
--- NOTE | 2018-01-22 17:44 | HHI.HP ---
HPI Service [facility] Primary Care Physician No Primary Care Physician Admission Diagnosis GI bleed, symptomatic anemia, pneumonia, sepsis Diagnoses: Travel History International Travel<30 Days: No Contact w/Intl Traveler <30 Da: No Traveled to Known Affected Are: No History of Present Illness mid epigastric and left upper quadrant pain about 2-3 days had nasuea vomiting but this was a week ago- about 3 days duration, no black or red it has stopped for [facility] but she cant remeber she only has diclofenac bottle in purse had diarrhea bad after this thus doc at [facility] told her to get off antibiotics - 4 more days left no urine symtpoms has vaginal itching post antibiotics therapy never had paracentesis Review of Systems Except as stated in HPI: all other systems reviewed are Neg Past Family Social History Past Medical History RA asthma- was on prn inhalors, but never needed it Past Surgical History sinus surgery left maxilary toe sx back sx leg sx appendectomy hysterectomy lasik on left eye Allergies: Coded Allergies: Sulfa (Sulfonamide Antibiotics) (Unverified Allergy, Intermediate, Hives, 01/22/18) clindamycin (Unverified Allergy, Intermediate, rash, 01/22/18) Family History father- heart disease his entire family- dm eldest brother- juvenile dm 2nd eldest brother- dm mother- breast cancer Social History smokes half a pack to one pack a day drinks etoh about 6 glasses of wine no drugs Physical Exam Vital Signs Vital Signs Date Time Temp Pulse Resp B/P (MAP) Pulse Ox O2 Delivery O2 Flow Rate FiO2 01/22/18 17:20 97.6 89 15 66/41 99 01/22/18 17:00 87 15 83/54 (64) 99 Room Air 01/22/18 15:22 87 15 90/55 (67) 99 Room Air 01/22/18 14:01 99 Room Air 01/22/18 13:44 91 14 96/60 (72) 100 Room Air 01/22/18 13:21 99.1 95 18 86/54 (65) 99 Physical Exam GENERAL: This is a well-nourished, well-developed patient, in no apparent distress. SKIN: No rashes, ecchymoses or lesions. Cool and dry. HEAD: Atraumatic. Normocephalic. No temporal or scalp tenderness. EYES:scleral icterus. No injection or drainage. ENT: Nose without bleeding, purulent drainage or septal hematoma. Airway patent. NECK: Trachea midline. No JVD or lymphadenopathy. Supple, nontender, no meningeal signs. CARDIOVASCULAR: Regular rate and rhythm without murmurs, gallops, or rubs. RESPIRATORY: Clear to auscultation. Breath sounds equal bilaterally. No wheezes , rales, or rhonchi. GASTROINTESTINAL: Abdomen soft, tenderness at mid epigastrium, + fluid , no rebound No guarding. MUSCULOSKELETAL: Extremities without clubbing, cyanosis, or edema. No calf tenderness. NEUROLOGICAL: Awake and alert. Motor and sensory grossly within normal limits. Normal speech. Laboratory Laboratory Tests Test 01/22/18 13:50 01/22/18 16:00 White Blood Count 15.8 Red Blood Count 3.11 Hemoglobin 6.7 Hematocrit 22.6 Mean Corpuscular Volume 72.7 Mean Corpuscular Hemoglobin 21.5 Mean Corpuscular Hemoglobin Concent 29.6 Red Cell Distribution Width 23.2 Platelet Count 371 Mean Platelet Volume 7.5 Neutrophils (%) (Auto) 88.9 Lymphocytes (%) (Auto) 5.5 Monocytes (%) (Auto) 5.4 Eosinophils (%) (Auto) 0.0 Basophils (%) (Auto) 0.2 Neutrophils # (Auto) 14.0 Lymphocytes # (Auto) 0.9 Monocytes # (Auto) 0.8 Eosinophils # (Auto) 0.0 Basophils # (Auto) 0.0 CBC Comment AUTO DIFF Differential Comment AUTO DIFF CONFIRMED Platelet Estimate NORMAL Platelet Morphology Comment NORMAL Target Cells 1+ Tear Drop Cells 1+ Ovalocytes 1+ Stomatocytes 1+ Prothrombin Time 17.1 Prothromb Time International Ratio 1.7 Activated Partial Thromboplast Time 30.6 Blood Urea Nitrogen 11 Creatinine 1.58 Random Glucose 96 Total Protein 6.7 Albumin 2.5 Calcium Level 7.5 Alkaline Phosphatase 151 Aspartate Amino Transf (AST/SGOT) 122 Alanine Aminotransferase (ALT/SGPT) 39 Total Bilirubin 2.6 Sodium Level 132 Potassium Level 3.4 Chloride Level 96 Carbon Dioxide Level 22.7 Anion Gap 13 Estimat Glomerular Filtration Rate 33 Lactic Acid Level 2.6 1.9 Ammonia 12 Lipase 573 Date/Time Source Procedure Growth Status 01/22/18 14:40 Blood Peripheral Aerobic Blood Culture Pending Received 01/22/18 14:40 Blood Peripheral Anaerobic Blood Culture Pending Received Result Diagram: 01/22/18 1350 01/22/18 1350 Imaging Last 48 hours Impressions Chest X-Ray 01/22/18 0000 Signed Impressions: Service Date/Time: Monday, January 22, 2018 14:39 - CONCLUSION: Left basilar atelectasis and effusion. Exam is concerning for an underlying pneumonia. Omar Alvarez MD Abdomen/Pelvis CT 01/22/18 0000 Signed Impressions: Service Date/Time: Monday, January 22, 2018 15:07 - CONCLUSION: Small shrunken fatty replaced liver with extensive ascites. Prominent gallbladder.. Desmond Alvarez MD FACR Caprini VTE Risk Assessment Caprini VTE Risk Assessment: Mod/High Risk (score >= 2) Caprini Risk Assessment Model Point Value = 1 Point Value = 2 Point Value = 3 Point Value = 5 Age 41-60 Minor surgery BMI > 25 kg/m2 Swollen legs Varicose veins or History of unexplained or recurrent spontaneous Oral contraceptives or hormone replacement Sepsis (< 1 month) Serious lung disease, including pneumonia (< 1 month) Abnormal pulmonary function Acute myocardial infarction Congestive heart failure (< 1 month) History of inflammatory bowel disease Medical patient at bed rest Age 61-74 Arthroscopic surgery Major open surgery (> 45 min) Laparoscopic surgery (> 45 min) Malignancy Confined to bed (> 72 hours) Immobilizing plaster cast Central venous access Age >= 75 History of VTE Family history of VTE Factor V Leiden Prothrombin [id number] Lupus anticoagulant Anticardiolipin antibodies Elevated serum homocysteine Heparin-induced thrombocytopenia Other congenital or acquired thrombophilia Stroke (< 1 month) Elective arthroplasty Hip, pelvis, or leg fracture Acute spinal cord injury (< 1 month) Prophylaxis Regimen Total Risk Factor Score Risk Level Prophylaxis Regimen 0-1 Low Early ambulation 2 Moderate Order ONE of the following: *Sequential Compression Device (SCD) *Heparin 5000 units SQ BID 3-4 Higher Order ONE of the following medications: *Heparin 5000 units SQ TID *Enoxaparin/Lovenox 40 mg SQ daily (WT < 150 kg, CrCl > 30 mL/min) *Enoxaparin/Lovenox 30 mg SQ daily (WT < 150 kg, CrCl > 10-29 mL/min) *Enoxaparin/Lovenox 30 mg SQ BID (WT < 150 kg, CrCl > 30 mL/min) AND/OR *Sequential Compression Device (SCD) 5 or more Highest Order ONE of the following medications: *Heparin 5000 units SQ TID (Preferred with Epidurals) *Enoxaparin/Lovenox 40 mg SQ daily (WT < 150 kg, CrCl > 30 mL/min) *Enoxaparin/Lovenox 30 mg SQ daily (WT < 150 kg, CrCl > 10-29 mL/min) *Enoxaparin/Lovenox 30 mg SQ BID (WT < 150 kg, CrCl > 30 mL/min) AND *Sequential Compression Device (SCD) Assessment and Plan Assessment and Plan Impression: hypotension impending septic shock - pneumonia, sbp, check urine impending hemorrhagic shock gi bleed- positive guiac massive ascites possible sbp anemia- acute blood loss acute pancreatitis Plan: pt received 500cc fluid bolus total receiving her first unit of PRBC BP was 64/39 on recheck 74/46 HR 80s saturating 100% on RA admit to ICU for close monitoring / possible need of vasopressors will treat BP with Blood transfusions rather than fluids asymptomatic start on levofloaxacin and flagyl to cover for pneumonia/ sbp US guided paracentesis for therapeutic and diagnostic protonix iv drip gi consult ciwa protocol dvt prophylaxis with scd critical care 35min Discussed 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 In the case of services not specified as inpatient-only, they are appropriately provided as inpatient services in accordance with the 2-midnight benchmark. Estimated LOS (days): 4 days is the estimated time the patient will need to remain in the hospital, assuming treatment plan goals are met and no additional complications. Post-Hospital Plan: Home Sundar Kessler MD Jan 22, 2018 17:44
[2018-01-22] MEDS: metroNIDAZOLE 500 MG INJ 100 ML IV SCH (20:00)
[2018-01-22] MEDS: SODIUM CHLORIDE 0.9% FLUSH 10 ML FLUSH IV FLUSH SCH (21:00)
[2018-01-22 22:43] LABS: TOTAL PROTEIN 6.4 GM/DL (6.4-8.2)
[2018-01-22] MEDS: LEVOFLOXACIN 750 MG PREMIX INJ 150 ML IV SCH (22:56)
[2018-01-22] MEDS: PANTOPRAZOLE INJ 80 MG in SODIUM CHLORIDE 0.9% INJ 100 ML IV SCH (22:56)
[2018-01-22] MEDS ORDERED: POTASSIUM CHLORIDE 20 MEQ CONTROLLED RELEASE TAB PO ONE (23:00)
[2018-01-23] VITALS (34 sets, daily range): BP systolic 81–101; BP diastolic 53–70; PULSE 80–100; RESP 22–32; TEMP 97.5–98.3; O2SAT 90–100
[2018-01-23 00:18] LABS: HEMATOCRIT 26.9 % (35.0-46.0); HEMOGLOBIN 8.6 GM/DL (11.6-15.3)
[2018-01-23] MEDS: metroNIDAZOLE 500 MG INJ 100 ML IV SCH ×4 (03:13→20:03)
[2018-01-23] MEDS ORDERED: SODIUM CHLORID 0.9% 500 ML INJ 500 ML IV ONE (03:15)
[2018-01-23] MEDS ORDERED: PHENYLEPHRINE INJ 40 MG in DEXTROSE 5% IN WATE 500 ML INJ 496 ML IV PRN ×2 (04:30)
[2018-01-23] MEDS ORDERED: TERBUTALINE INJ 1 MG/ML AMP SQ PRN (04:30)
[2018-01-23 05:16] LABS: AUTOMATED NEUTROPHIL # 11.7 TH/MM3 (1.8-7.7); BASOPHIL # 0.1 TH/MM3 (0-0.2); BASOPHIL % 0.6 % (0.0-2.0); EOSINOPHIL % 0.1 % (0.0-4.0); HEMATOCRIT 26.6 % (35.0-46.0); HEMOGLOBIN 8.6 GM/DL (11.6-15.3); LYMPH % 5.1 % (9.0-44.0); LYMPHOCYTE # 0.7 TH/MM3 (1.0-4.8); MEAN CELL VOLUME 76.8 FL (80.0-100.0); MEAN CORPUSCULAR HEMOGLOBIN 24.7 PG (27.0-34.0); MEAN CORPUSCULAR HGB CONC 32.2 % (32.0-36.0); MEAN PLATELET VOLUME 7.4 FL (7.0-11.0); MONOCYTE # 0.8 TH/MM3 (0-0.9); NEUT % 88.2 % (16.0-70.0); PLATELET COUNT 220 TH/MM3 (150-450); RED BLOOD COUNT 3.47 MIL/MM3 (4.00-5.30); RED CELL DISTRIBUTION WIDTH 21.9 % (11.6-17.2); WHITE BLOOD COUNT 13.2 TH/MM3 (4.0-11.0)
[2018-01-23 05:44] LABS: ALBUMIN 1.8 GM/DL (3.4-5.0); BICARBONATE 22.7 MEQ/L (21.0-32.0); CALCIUM-PROTEIN CORRECTED 8.2 MG/DL (8.5-10.1); CREATININE 1.33 MG/DL (0.50-1.00); TOTAL PROTEIN 4.9 GM/DL (6.4-8.2)
[2018-01-23] MEDS ORDERED: FLUMAZENIL 0.5 MG/5 ML VIAL IV PUSH PRN (08:15)
[2018-01-23] MEDS ORDERED: LORazepam 2 MG/ML VIAL IV PUSH PRN ×2 (08:15)
[2018-01-23] MEDS ORDERED: LORazepam 1 MG TAB PO PRN (08:15)
[2018-01-23] MEDS ORDERED: LORazepam 2 MG TAB PO PRN (08:15)
[2018-01-23] MEDS: PANTOPRAZOLE INJ 80 MG in SODIUM CHLORIDE 0.9% INJ 100 ML IV SCH ×2 (08:58→17:11)
[2018-01-23] MEDS: SODIUM CHLORIDE 0.9% FLUSH 10 ML FLUSH IV FLUSH SCH ×2 (08:59→20:03)
[2018-01-23] MEDS ORDERED: LIDOCAINE HCL 1% 20 ML VIAL ONE (11:34)
--- NOTE | 2018-01-23 12:54 | RADRPT ---
EXAM DATE/TIME: 01/23/2018 07:52 [place] COMPARISON: No previous studies available for comparison. INDICATIONS : Ascites. MEDICAL HISTORY : Pancreatitis. SURGICAL HISTORY : Appendectomy. Hysterectomy. ENCOUNTER: Subsequent ACUITY: 1 day PAIN SCORE: 0/10 LOCATION: Left lower quadrant FLUID: Total volume of 6,600 cc of clear, yellow fluid was removed. Fluid was sent to lab for ordered studies. Post procedure scanning reveals no hematoma or other complication. TECHNIQUE: 1. Ultrasound guidance for abdominal paracentesis. 2. Paracentesis. The risks, benefits, and alternatives to ultrasound guided paracentesis were explained to the patient in detail including the risk of bleeding and infection. Written and verbal informed consent was obt ained. With the patient on the ultrasound table, ultrasound imaging was used to select the most appropriate approach for paracentesis. Overlying skin was prepped and draped in the usual sterile fashion and wi th a local anesthetic, a dermatotomy was made with an 11 blade scalpel. A 6 Greek [id number] ca theter was introduced into the peritoneal cavity and fluid was collected. The patient tolerated the procedure well and left the ultrasound suite in stable condition. CONCLUSION: Uncomplicated ultrasound guided paracentesis. Luis Lewis MD on January 23, 2018 at 12:53 Board Certified Radiologist. This report was verified electronically.
[2018-01-23 13:17] LABS: TOTAL PROTEIN,PERITONEAL FLUID 1.1 GM/DL
[2018-01-23 13:22] LABS: PERITONEAL RBC 51 /MM3 (0-0)
[2018-01-23 13:25] LABS: PERITONEAL HISTIOCYTES 23 %; PERITONEAL LYMPHS 40 %; PERITONEAL MESOTHELIAL 3 %; PERITONEAL MONOS 18 %; PERITONEAL POLYS(SEGS) 16 %
--- NOTE | 2018-01-23 14:36 | HHI.PR ---
Subjective Remarks Follow-up for alcoholic liver disease, ascites, epigastric, left upper quadrant abdominal pain. Patient was seen after paracentesis today. She is currently resting in bed. No active concerns. No chest pain, shortness of breath, fever or chills. Objective Vitals Vital Signs Date Time Temp Pulse Resp B/P (MAP) Pulse Ox O2 Delivery O2 Flow Rate FiO2 01/23/18 09:17 98.3 80 22 100/66 100 01/23/18 09:00 82 31 98/67 (77) 95 01/23/18 08:50 80 27 98/61 (73) 97 01/23/18 08:41 84 24 101/68 (79) 97 01/23/18 08:30 83 24 101/70 (80) 94 01/23/18 08:20 81 24 97/69 (78) 96 01/23/18 08:10 80 25 96/68 (77) 97 01/23/18 08:00 83 23 97/64 (75) 97 01/23/18 07:18 95 Nasal Cannula 2.00 01/23/18 06:00 85 01/23/18 04:00 99 01/23/18 03:59 96 Nasal Cannula 2.00 01/23/18 03:00 98.3 84 22 89/60 (70) 90 01/23/18 02:00 83 01/23/18 00:00 97.6 85 23 81/53 (62) 91 01/23/18 00:00 85 01/22/18 23:00 98.1 86 19 80/51 (61) 93 01/22/18 22:10 97.8 88 20 106/56 (73) 98 01/22/18 21:48 98.4 88 16 98/60 01/22/18 21:31 85 16 78/49 (59) 100 01/22/18 19:28 98.4 88 20 82/53 98 01/22/18 19:08 97.5 86 22 81/53 100 01/22/18 19:02 97.5 85 20 71/47 99 01/22/18 19:01 85 16 71/47 (55) 98 01/22/18 18:00 89 16 77/50 (59) 98 Room Air 01/22/18 17:35 97.4 89 17 72/44 99 01/22/18 17:20 97.6 89 15 66/41 99 01/22/18 17:00 87 15 83/54 (64) 99 Room Air 01/22/18 16:15 86 14 90/56 (67) 98 Room Air 01/22/18 15:22 87 15 90/55 (67) 99 Room Air I/O 01/22/18 01/22/18 01/22/18 01/23/18 01/23/18 01/23/18 07:00 15:00 23:00 07:00 15:00 23:00 Intake Total 1000 ml 1650 ml 275 ml 1530 ml Output Total 0 ml Balance 1000 ml 1650 ml 275 ml 1530 ml Intake IV Total 1000 ml 850 ml 250 ml 600 ml Packed Cells 800 ml 800 ml Blood Product IV Normal Saline Flush 25 ml 130 ml Output Urine Total 0 ml Stool Total 0 ml Result Diagram: 01/23/18 0455 01/23/18 0455 Imaging Last Impressions Cyst Biopsy Asp-Paracentesis US 01/23/18 0000 Signed Impressions: Service Date/Time: January 07:52 - CONCLUSION: Uncomplicated ultrasound guided paracentesis. Luis Lewis MD Chest X-Ray 01/22/18 0000 Signed Impressions: Service Date/Time: Monday, January 22, 2018 14:39 - CONCLUSION: Left basilar atelectasis and effusion. Exam is concerning for an underlying pneumonia. Omar Alvarez MD Abdomen/Pelvis CT 01/22/18 0000 Signed Impressions: Service Date/Time: Monday, January 22, 2018 15:07 - CONCLUSION: Small shrunken fatty replaced liver with extensive ascites. Prominent gallbladder.. Desmond Alvarez MD FACR Objective Remarks GENERAL: Alert, NAD. SKIN: Warm and dry. HEAD: Normocephalic. EYES: No scleral icterus. No injection or drainage. NECK: Supple, trachea midline. No JVD or lymphadenopathy. CARDIOVASCULAR: Regular rate and rhythm without murmurs, gallops, or rubs. RESPIRATORY: Breath sounds equal bilaterally. No accessory muscle use. GASTROINTESTINAL: Abdomen soft, tenderness over left and right upper quadrant, nondistended. MUSCULOSKELETAL: No cyanosis, or edema. BACK: Nontender without obvious deformity. No CVA tenderness. Procedures Paracentesis 01/23/2018. A/P Problem List: (1) Alcoholic liver disease ICD Code: K70.9 - Alcoholic liver disease, unspecified (2) Pneumonia ICD Code: J18.9 - Pneumonia, unspecified organism Status: Acute (3) Symptomatic anemia ICD Code: D64.9 - Anemia, unspecified Status: Acute Assessment and Plan Ms. Marie is a 62-year-old female with a history of alcohol abuse who presented to the emergency department on 01/22/2018 due to abdominal pain and weakness. She was found to have hemoglobin 6.7. Hemoccult was positive. Patient denied any hematemesis or hematocrit initially patient was hypotensive and required fluid resuscitation. Patient was admitted to the ICU and started on Levaquin and Flagyl. -Alcoholic liver disease -Symptomatic anemia likely related to probable GI bleed -Patient received 4 units of PRBCs. GI consulted. EGD is scheduled for tomorrow. -Patient does not have any active upper GI bleed that would require Protonix drip. -We will switch to Protonix 40 mg p.o. twice daily. -Possible pneumonia -Chest x-ray was suggestive of possible pneumonia. -There was also concern over SBP. -For pneumonia continue Levaquin. We will transfer (downgrade) patient to med -surg floor. -For SBP Levaquin or ceftriaxone should be enough. However, paracentesis does not indicate SBP. - Alcohol abuse - continue CIWA protocol. Counselled regarding alcohol cessation. Full code. SCDs. Problem Qualifiers (1) Pneumonia: Qualified Codes: J18.1 - Lobar pneumonia, unspecified organism Judit Umanzor DO Jan 23, 2018 14:36
--- NOTE | 2018-01-23 14:42 | PD.CONS ---
HPI History of Present Illness This is a 62 year old F with PMH significant for RA and asthma. Pt presented to the ER yesterday with complaints of epigastric/LUQ abdominal pain under her breast for the past week and a half, worse over the past couple days prior to admission. Pt reports a week ago she had three days of nausea and vomiting, denies hematemesis and coffee ground emesis. Also reports having diarrhea a little over a week ago after taking abx for a skin infection after a fall, she thinks possibly clindamycin. Now she has been unable to eat due to pain and has not had a BM in approx four days. Pt denies any fever, chills, sick contacts with similar symptoms. Pt was found to have elevated LFTs and lipase in the ER as well as severe anemia and she is now in ICU. Given pts history LFT elevation most likely secondary to ETOH dependence, reports 4-5 glasses of wine a night. She states she has been told in the past that her liver enzymes were elevated but was just told to cut back on the drinking. Has also been noticing some increased abdominal swelling over the past couple weeks, denies history of paracentesis. Denies history of pancreatitis, lipase on admission 573. Has never had extensive liver work up. Pt is unsure about history of anemia, no obvious source of GIB. H/H on admission 6.7/22.6, now S/P 4 U PRBCs , currently 8.6/26.6. States last EGD and colonoscopy were 15-20 years ago and she thinks both exams were normal. Denies history of GIB. Has been taking Diclofenac since a fall few weeks ago. Smokes 1/2 pack to 3/4 pack of cigarettes a day. (Toshia Schofield) PFSH Past Medical History RA asthma- was on prn inhalors, but never needed it Past Surgical History sinus surgery left maxilary toe sx back sx leg sx appendectomy hysterectomy lasik on left eye (Toshia Schofield) Coded Allergies: Sulfa (Sulfonamide Antibiotics) (Unverified Allergy, Intermediate, Hives, 01/22/18) clindamycin (Unverified Allergy, Intermediate, rash, 01/22/18) Family History father- heart disease his entire family- dm eldest brother- juvenile dm 2nd eldest brother- dm mother- breast cancer Social History smokes half a pack to one pack a day drinks etoh about 6 glasses of wine no drugs (Toshia Schofield) Review of Systems Gastrointestinal: COMPLAINS OF: Abdominal pain, Swelling of Abdomen, DENIES: Black stools, Bloody stools, Constipation, Diarrhea, Nausea, Vomiting, Difficulty Swallowing, Odynophagia, Heartburn, Hematemesis (Toshia Schofield ) GI Exam Vitals I&O Vital Signs Date Time Temp Pulse Resp B/P (MAP) Pulse Ox O2 Delivery O2 Flow Rate FiO2 01/23/18 09:17 98.3 80 22 100/66 100 01/23/18 09:00 82 31 98/67 (77) 95 01/23/18 08:50 80 27 98/61 (73) 97 01/23/18 08:41 84 24 101/68 (79) 97 01/23/18 08:30 83 24 101/70 (80) 94 01/23/18 08:20 81 24 97/69 (78) 96 01/23/18 08:10 80 25 96/68 (77) 97 01/23/18 08:00 83 23 97/64 (75) 97 01/23/18 07:18 95 Nasal Cannula 2.00 01/23/18 06:00 85 01/23/18 04:00 99 01/23/18 03:59 96 Nasal Cannula 2.00 01/23/18 03:00 98.3 84 22 89/60 (70) 90 01/23/18 02:00 83 01/23/18 00:00 97.6 85 23 81/53 (62) 91 01/23/18 00:00 85 01/22/18 23:00 98.1 86 19 80/51 (61) 93 01/22/18 22:10 97.8 88 20 106/56 (73) 98 01/22/18 21:48 98.4 88 16 98/60 01/22/18 21:31 85 16 78/49 (59) 100 01/22/18 19:28 98.4 88 20 82/53 98 01/22/18 19:08 97.5 86 22 81/53 100 01/22/18 19:02 97.5 85 20 71/47 99 01/22/18 19:01 85 16 71/47 (55) 98 01/22/18 18:00 89 16 77/50 (59) 98 Room Air 01/22/18 17:35 97.4 89 17 72/44 99 01/22/18 17:20 97.6 89 15 66/41 99 01/22/18 17:00 87 15 83/54 (64) 99 Room Air 01/22/18 16:15 86 14 90/56 (67) 98 Room Air 01/22/18 15:22 87 15 90/55 (67) 99 Room Air I/O 01/22/18 01/22/18 01/22/18 01/23/18 01/23/18 01/23/18 06:59 14:59 22:59 06:59 14:59 22:59 Intake Total 2650 ml 275 ml 1530 ml Output Total 0 ml Balance 2650 ml 275 ml 1530 ml Intake IV Total 1850 ml 250 ml 600 ml Packed Cells 800 ml 800 ml Blood Product IV Normal Saline Flush 25 ml 130 ml Output Urine Total 0 ml Stool Total 0 ml Imaging Last Impressions Cyst Biopsy Asp-Paracentesis US 01/23/18 0000 Signed Impressions: Service Date/Time: January 07:52 - CONCLUSION: Uncomplicated ultrasound guided paracentesis. Luis Lewis MD Chest X-Ray 01/22/18 0000 Signed Impressions: Service Date/Time: Monday, January 22, 2018 14:39 - CONCLUSION: Left basilar atelectasis and effusion. Exam is concerning for an underlying pneumonia. Omar Alvarez MD Abdomen/Pelvis CT 01/22/18 0000 Signed Impressions: Service Date/Time: Monday, January 22, 2018 15:07 - CONCLUSION: Small shrunken fatty replaced liver with extensive ascites. Prominent gallbladder.. Desmond Alvarez MD FACR Laboratory Test 01/22/18 16:00 01/22/18 23:36 01/23/18 04:55 01/23/18 11:50 Lactic Acid Level 1.9 mmol/L Hemoglobin 8.6 GM/DL 8.6 GM/DL Hematocrit 26.9 % 26.6 % White Blood Count 13.2 TH/MM3 Red Blood Count 3.47 MIL/MM3 Mean Corpuscular Volume 76.8 FL Mean Corpuscular Hemoglobin 24.7 PG Mean Corpuscular Hemoglobin Concent 32.2 % Red Cell Distribution Width 21.9 % Platelet Count 220 TH/MM3 Mean Platelet Volume 7.4 FL Neutrophils (%) (Auto) 88.2 % Lymphocytes (%) (Auto) 5.1 % Monocytes (%) (Auto) 6.0 % Eosinophils (%) (Auto) 0.1 % Basophils (%) (Auto) 0.6 % Neutrophils # (Auto) 11.7 TH/MM3 Lymphocytes # (Auto) 0.7 TH/MM3 Monocytes # (Auto) 0.8 TH/MM3 Eosinophils # (Auto) 0.0 TH/MM3 Basophils # (Auto) 0.1 TH/MM3 CBC Comment DIFF FINAL Differential Comment Blood Urea Nitrogen 12 MG/DL Creatinine 1.33 MG/DL Random Glucose 80 MG/DL Total Protein 4.9 GM/DL Albumin 1.8 GM/DL Calcium Level 7.0 MG/DL Alkaline Phosphatase 113 U/L Aspartate Amino Transf (AST/SGOT) 116 U/L Alanine Aminotransferase (ALT/SGPT) 32 U/L Total Bilirubin 4.0 MG/DL Sodium Level 134 MEQ/L Potassium Level 3.4 MEQ/L Chloride Level 102 MEQ/L Carbon Dioxide Level 22.7 MEQ/L Anion Gap 9 MEQ/L Estimat Glomerular Filtration Rate 41 ML/MIN Protein Corrected Calcium 8.2 MG/DL Peritoneal Fluid WBC 133 /MM3 Peritoneal Fluid RBC 51 /MM3 Peritoneal Fluid Neutrophils 16 % Peritoneal Fluid Lymphocytes 40 % Peritoneal Fluid Monocytes 18 % Peritoneal Fluid Histiocytes 23 % Peritoneal Fluid Mesothelial Cells 3 % Peritoneal Fluid Total Protein 1.1 GM/DL Peritoneal Fluid Albumin 0.5 G/DL Peritoneal Fluid LDH 37 U/L Peritoneal Fluid Glucose 91 MG/DL Date/Time Source Procedure Growth Status 01/22/18 14:40 Blood Peripheral Aerobic Blood Culture - Preliminary NO GROWTH IN 1 DAY Resulted 01/22/18 14:40 Blood Peripheral Anaerobic Blood Culture - Preliminary NO GROWTH IN 1 DAY Resulted 01/23/18 11:50 Fluid Peritoneal Fluid Gram Stain Pending Received 01/23/18 11:50 Fluid Peritoneal Fluid Body Fluid Culture Pending Received Physical Examination HEENT: Normocephalic; atraumatic (+) icterus CHEST: Even/unlabored CARDIAC: RRR ABDOMEN: Distended, soft, TTP, bowel sounds active. S/P paracentesis with 6.6 L removed EXTREMITIES: No clubbing, cyanosis, or edema. SKIN: Normal; no rash; no jaundice. COMMISSIONER OF INTERNAL REVENUE: No focal deficits; alert and oriented times three. (Toshia Schofield) Assessment and Plan Plan Assessment: - Transaminitis- likely secondary to ETOH, given history of 4-5 glasses of wine daily. Reports known history of elevated LFTs, has been told by PCP in the past to stop drinking. Has never had extensive liver work up. Labs currently: AST-116 ALT-32 T bili-4 Ammonia-12. DF-27 - Elevated lipase- denies history of pancreatitis. - Ascites- S/P Paracentesis with 6.6 L removed. SAAG-1.3 Peritoneal WBC-133. Pt on Levaquin. - Anemia- H/H 6.7/22.6 on admission, now S/P 4 U PRBCs currently 8.6/26.6. - NICOLASA- GFR 41 - Leukocytosis- WBC-13.2 Pt on Levaquin and Flagyl CT abdomen and pelvis W/O IV contrast (01/22) --> Small shrunken fatty replaced liver with extensive ascites. Prominent gallbladder Plan: EGD tomorrow Obtain consent NPO after MN Liver WEEKS Monitor H/H Notify GI of active bleeding Protonix gtt Peritoneal fluid culture pending Further recommendations to follow based on findings of above Pt has been seen and examined by myself and Dr. Jones and this note is written on his behalf (Toshia Schofield) Physician Comments Seen and examined, plan as above. EGD in AM. Thank you for the consult. (Chapis Jones MD) Toshia Schofield Jan 23, 2018 14:42 Chapis Jones MD Jan 24, 2018 06:17
[2018-01-23 16:16] LABS: % SATURATION IRON PROFILE 56.7 % (20-50); IRON (FE) 135 MCG/DL (50-170); TOTAL IRON BINDING CAPACITY 238 MCG/DL (250-450)
[2018-01-23 16:17] LABS: HEMATOCRIT 38.5 % (35.0-46.0)
[2018-01-23 16:20] LABS: FERRITIN 48 NG/ML (8-252)
[2018-01-23] MEDS: ACETAMINOPHEN 500 MG CPLT PO PRN (20:02)
[2018-01-23] MEDS: CLOTRIMAZOLE 1% VAG CREAM 45 GM TUBE VAGINAL SCH (20:03)
[2018-01-23] MEDS: LORazepam 2 MG/ML VIAL IV PUSH PRN (20:03)
[2018-01-23] MEDS: PANTOPRAZOLE SOD 40 MG DELAYED RELEASE TAB PO SCH (21:40)
--- NOTE | 2018-01-23 21:45 | EKG ---
Date Performed: 01/22/2018 Time Performed: 14:14:58 PTAGE: 62 years EKG: Sinus rhythm WITH SINUS ARRHYTHMIA ST/T-WAVE ABNORMALITY, CONSIDER ANTEROLATERAL ISCHEMIA ST T-WAVE ABNORMALITY, CONSIDER INFERIOR ISCHEMIA ABNORMAL ECG NO PREVIOUS TRACING DOCTOR: Luiz Reid Interpretating Date/Time 01/23/2018 21:44:11
[2018-01-24] VITALS (9 sets, daily range): BP systolic 89–162; BP diastolic 58–81; PULSE 84–101; RESP 23–34; TEMP 97.5–98.5; O2SAT 83–99
[2018-01-24] MEDS: PANTOPRAZOLE SOD 40 MG DELAYED RELEASE TAB PO SCH ×2 (09:08→20:01)
[2018-01-24] MEDS: SODIUM CHLORIDE 0.9% FLUSH 10 ML FLUSH IV FLUSH SCH ×2 (09:10→20:01)
--- NOTE | 2018-01-24 11:01 | GIPROC ---
[facility] [address] [facility]. [facility], [address] EGD PROCEDURE REPORT EXAM DATE: 01/24/2018 PATIENT NAME: Kathy Marie MR #: [id number] BIRTHDATE: 1955 ATTENDING: Chapis Jones MD ORDER #: [id number] CARDIO CLINICIAN: Rula Pagan Preston, Sarah, and Starr Hendrix STATUS: inpatient INDICATIONS: The patient is a 62 yr old female here for an EGD due to anemia and hematemesis PROCEDURE PERFORMED: EGD w/ biopsy MEDICATIONS: None and Per Anesthesia. TOPICAL ANESTHETIC: none CONSENT: The patient understands the risks and benefits of the procedure and understands that these risks include, but are not limited to: sedation, allergic reaction, infection, perforation and/or bleeding. Alternative means of evaluation and treatment include, among others: physical exam, x-rays, and/or surgical intervention. The patient elects to proceed with this endoscopic procedure. medical equipment was checked for proper function. Hand hygiene and appropriate measures for infection prevention was taken. After the risks, benefits and alternatives of the procedure were thoroughly explained, Informed consent was verified, confirmed and timeout was successfully executed by the treatment team. The patient was anesthetized with topical anesthesia and the Pentax [id number] endoscope was introduced through the mouth and advanced to the second portion of the duodenum. Retroflexion was performed and was normal The gastroscope was then slowly withdrawn and removed. ESOPHAGUS: There were 2 columns of small varices. Multiple biopsies were performed using cold forceps. Sample sent for histology. STOMACH: Mild portal hypertensive gastropathy was found in the entire examined stomach. DUODENUM: The duodenal mucosa appeared normal in the bulb and second portion of the duodenum. ADVERSE EVENTS: There were no complications. IMPRESSIONS: 1. 2 Columns of Esophageal Varices ( small) and no stigmata of active or recent bleeding. 2. Portal hypertensive gastropathy was found in the entire examined stomach , biopsies taken 3. Normal duodenal mucosa in the bulb and second portion of the duodenum 4. Retroflexion was performed and was normal RECOMMENDATIONS: 1. Await biopsy results. Biopsy results will not be ready for 7-10 days. If you don't hear from us in two weeks, call our office for biopsy results. 2. Follow-up: GI clinic 15 day(s) PATIENT CONDITION: stable DISPOSITION: Observation REPEAT EXAM: Return 3 months EGD Chapis Jones MD eSigned: Chapis Jones MD 01/24/2018 11:01 AM cc: PATIENT NAME: Kathy Marie MR#: [id number]
[2018-01-24] MEDS ORDERED: DO NOT ADM ANY ANTICOAGULANT DRUGS PRN (11:04)
[2018-01-24] MEDS ORDERED: SODIUM CHLOR 0.9% 1000 ML INJ 1,000 ML IV ONE ×2 (11:45)
[2018-01-24] MEDS ORDERED: SODIUM CHLOR 0.9% 1000 ML INJ 400 ML IV ONE (11:45)
[2018-01-24] MEDS ORDERED: LIDOCAINE HCL 1% PF 5 ML SYRINGE OTHER ONE (12:00)
[2018-01-24] MEDS ORDERED: PROPOFOL 200 MG/20 ML AMP IV ONE (12:00)
[2018-01-24 12:31] LABS: AUTOMATED NEUTROPHIL # 13.6 TH/MM3 (1.8-7.7); BASOPHIL # 0.1 TH/MM3 (0-0.2); BASOPHIL % 0.6 % (0.0-2.0); EOSINOPHIL % 0.1 % (0.0-4.0); HEMATOCRIT 39.7 % (35.0-46.0); HEMOGLOBIN 12.9 GM/DL (11.6-15.3); LYMPH % 5.1 % (9.0-44.0); LYMPHOCYTE # 0.8 TH/MM3 (1.0-4.8); MEAN CELL VOLUME 79.4 FL (80.0-100.0); MEAN CORPUSCULAR HEMOGLOBIN 25.7 PG (27.0-34.0); MEAN CORPUSCULAR HGB CONC 32.4 % (32.0-36.0); MEAN PLATELET VOLUME 7.2 FL (7.0-11.0); MONO % 5.9 % (0.0-8.0); MONOCYTE # 0.9 TH/MM3 (0-0.9); NEUT % 88.3 % (16.0-70.0); PLATELET COUNT 215 TH/MM3 (150-450); RED BLOOD COUNT 5.01 MIL/MM3 (4.00-5.30); RED CELL DISTRIBUTION WIDTH 21.7 % (11.6-17.2); WHITE BLOOD COUNT 15.4 TH/MM3 (4.0-11.0)
[2018-01-24] MEDS ORDERED: LACTATED RINGER'S 1000 ML INJ 1,000 ML ONE (12:31)
--- NOTE | 2018-01-24 12:40 | RADRPT ---
EXAM DATE/TIME: 01/24/2018 11:58 [facility] COMPARISON: CHEST SINGLE AP, January 22, 2018, 14:39. INDICATIONS : Short of breath, abdominal pain MEDICAL HISTORY : Pancreatitis. acites SURGICAL HISTORY : Appendectomy. Hysterectomy. ENCOUNTER: Subsequent ACUITY: 1 day PAIN SCORE: 6/10 LOCATION: Bilateral chest FINDINGS: There is bilateral mostly basilar airspace consolidation of the lungs. No pneumothorax. There is also linear atelectasis at the left base. Old right rib fracture. CONCLUSION: 1. Basilar airspace disease, slightly increased from January 22. Sina Winchester MD on January 24, 2018 at 12:34 Board Certified Radiologist. This report was verified electronically.
[2018-01-24 12:53] LABS: CALCIUM 7.4 MG/DL (8.5-10.1); CREATININE 0.86 MG/DL (0.50-1.00)
[2018-01-24 13:11] LABS: CALCIUM-PROTEIN CORRECTED 8.6 MG/DL (8.5-10.1); TOTAL PROTEIN 4.9 GM/DL (6.4-8.2)
[2018-01-24 13:57] LABS: SMOOTH MUSCLE TOTAL AUTOABS Negative (Negative)
--- NOTE | 2018-01-24 13:57 | HHI.PR ---
Subjective Remarks Follow-up for pneumonia, hypotension, and anemia, alcoholic liver disease. Patient returned from PACU after GI procedure. She feels weak but no specific concerns. Denies any chest pain, shortness of breath, fever or chills. Her blood pressure has been on the lower side. Per nurse from PACU, patient's blood pressure was 79 systolic but improved 219 after small fluid bolus of about 200 mL. Objective Vitals Vital Signs Date Time Temp Pulse Resp B/P (MAP) Pulse Ox O2 Delivery O2 Flow Rate FiO2 01/24/18 11:30 97.4 78 14 91/64 (73) 93 01/24/18 11:15 86 14 119/71 (87) 92 01/24/18 11:10 94 01/24/18 11:00 97.9 86 14 79/50 (60) 87 01/24/18 08:00 97.5 91 23 94/65 (75) 95 01/24/18 08:00 91 01/24/18 04:00 93 01/24/18 04:00 93 33 89/67 (74) 83 01/24/18 00:00 92 01/24/18 00:00 92 31 95/58 (70) 95 01/23/18 21:33 22 01/23/18 20:12 97 21 01/23/18 20:00 100 01/23/18 20:00 100 32 96/62 (73) 100 01/23/18 18:00 89 01/23/18 16:00 84 27 97 01/23/18 16:00 84 01/23/18 16:00 84 27 97 01/23/18 14:00 85 I/O 01/23/18 01/23/18 01/23/18 01/24/18 01/24/18 01/24/18 06:59 14:59 22:59 06:59 14:59 22:59 Intake Total 275 ml 1530 ml 340 ml 100 ml 200 ml Output Total 0 ml 600 ml 0 ml Balance 275 ml 1530 ml -260 ml 100 ml 200 ml Intake Oral 240 ml 100 ml IV Total 250 ml 600 ml 100 ml Packed Cells 800 ml Blood Product IV Normal Saline Flush 25 ml 130 ml Other 200 ml Output Urine Total 0 ml 600 ml 0 ml Stool Total 0 ml 0 ml # Bowel Movements 1 Result Diagram: 01/24/18 1215 01/24/18 1215 Imaging Last Impressions Chest X-Ray 01/24/18 0000 Signed Impressions: Service Date/Time: Wednesday, January 24, 2018 11:58 - CONCLUSION: 1. Basilar airspace disease, slightly increased from January 22. Sina Winchester MD Cyst Biopsy Asp-Paracentesis US 01/23/18 0000 Signed Impressions: Service Date/Time: January 07:52 - CONCLUSION: Uncomplicated ultrasound guided paracentesis. Luis Lewis MD Abdomen/Pelvis CT 01/22/18 0000 Signed Impressions: Service Date/Time: Monday, January 22, 2018 15:07 - CONCLUSION: Small shrunken fatty replaced liver with extensive ascites. Prominent gallbladder.. Desmond Alvarez MD FACR Objective Remarks GENERAL: Alert, feels somewhat weak. SKIN: Warm and dry. HEAD: Normocephalic. EYES: No scleral icterus. No injection or drainage. NECK: Supple, trachea midline. No JVD or lymphadenopathy. CARDIOVASCULAR: Regular rate and rhythm without murmurs, gallops, or rubs. RESPIRATORY: Breath sounds equal bilaterally. No accessory muscle use. GASTROINTESTINAL: Abdomen soft, tenderness over left and right upper quadrant, nondistended. MUSCULOSKELETAL: No cyanosis, or edema. BACK: Nontender without obvious deformity. No CVA tenderness. Procedures Paracentesis 01/23/2018. A/P Problem List: (1) Alcoholic liver disease ICD Code: K70.9 - Alcoholic liver disease, unspecified (2) Pneumonia ICD Code: J18.9 - Pneumonia, unspecified organism Status: Acute (3) Symptomatic anemia ICD Code: D64.9 - Anemia, unspecified Status: Acute Assessment and Plan Ms. Marie is a 62-year-old female with a history of alcohol abuse who presented to the emergency department on 01/22/2018 due to abdominal pain and weakness. She was found to have hemoglobin 6.7. Hemoccult was positive. Patient denied any hematemesis or hematocrit initially patient was hypotensive and required fluid resuscitation. Patient was admitted to the ICU and started on Levaquin and Flagyl. -Alcoholic liver disease -Symptomatic anemia likely related to probable GI bleed -Patient received 4 units of PRBCs. GI consulted. EGD completed on 2017. EGD shows columns of esophageal pheresis but no active bleeding. -Continue Protonix 40 mg p.o. twice daily. -INR 1.7 platelet indicates liver disease. -Bilateral pneumonia -Hypotension -Chest x-ray was suggestive of possible pneumonia. -Patient is status post paracentesis. Peritoneal fluid analysis does not indicate SBP. -Patient has been receiving Levaquin IV. However due to concern over pneumonia and hypotension, we will initiate ceftriaxone 2 g every 24 hours as well. -Cancel transfer to the floor. -We will obtain CBC, BMP, lactic acid, chest x-ray, urinalysis. -We will also provide fluid bolus up to 3 L. If no improvement noted, we will consider consulting critical care for pressors. - Alcohol abuse - continue CIIN protocol. Counselled regarding alcohol cessation. Full code. SCDs. Although patient's INR is 1.7 which is due to liver disease, this does not indicate patient is anticoagulated. However due to concern of her GI bleed, will hold off using any anticoagulation for DVT prophylaxis. Update: CBC returned. WBC increased from 13.2 to 15.4. Hemoglobin 12.9 (on admission it was 6.7). Lactic acid 1.8. Chest x-ray shows increased bilateral infiltrates, images reviewed by me. Urinalysis and BMP pending. Total critical care time 40 minutes. Problem Qualifiers (1) Pneumonia: Qualified Codes: J18.1 - Lobar pneumonia, unspecified organism Judit Umanzor DO Jan 24, 2018 1:56 pm
[2018-01-24 14:27] LABS: ALPHA-1-ANTITRYPSIN 229 mg/dL (100 - 190)
[2018-01-24 15:01] LABS: HEPATITIS A AB IGM NEGATIVE (NEGATIVE); HEPATITIS B CORE AB IGM NEGATIVE (NEGATIVE)
[2018-01-24] MEDS: cefTRIAXone INJ 2,000 MG in SODIUM CHLORIDE 0.9% INJ 100 ML IV SCH (17:21)
[2018-01-24] MEDS: CLOTRIMAZOLE 1% VAG CREAM 45 GM TUBE VAGINAL SCH (20:01)
[2018-01-24] MEDS: LEVOFLOXACIN 750 MG PREMIX INJ 150 ML IV SCH (20:01)
[2018-01-24 20:09] LABS: ANA SCREEN NEG (NEG)
[2018-01-24] MEDS: ACETAMINOPHEN 500 MG CPLT PO PRN (20:12)
[2018-01-24 20:33] LABS: BILIRUBIN, URINE SMALL (NEG); BLOOD, URINE NEG (NEG); GLUCOSE,URINE NEG (NEG); HYALINE CAST, URINE 18 /lpf (RARE); KETONE, URINE NEG (NEG); NITRITE,URINE NEG (NEG); SQUAMOUS EPITHELIAL CELL URINE 1 /hpf (0-5); URINE LEUKOCYTE ESTERASE NEG (NEG)
[2018-01-24 20:35] LABS: URINE COLOR DARK-YELLOW (YELLW/STRAW)
[2018-01-25] VITALS (8 sets, daily range): BP systolic 91–121; BP diastolic 62–68; PULSE 39–100; RESP 24–33; TEMP 97.8–98.8; O2SAT 92–98
[2018-01-25] MEDS: PANTOPRAZOLE SOD 40 MG DELAYED RELEASE TAB PO SCH ×2 (09:43→21:24)
[2018-01-25] MEDS: SODIUM CHLORIDE 0.9% FLUSH 10 ML FLUSH IV FLUSH SCH ×2 (09:43→21:22)
--- NOTE | 2018-01-25 11:25 | HHI.PR ---
Subjective Remarks This is a pleasant 62 y/o Female with Pneumonia, Hypotension, and anemia, alcoholic liver disease, status post Paracentesis, had to be placed a kemp cath due to Urinary obstruction, developed Oliguria and was given IV fluids. Objective Vital Signs Date Time Temp Pulse Resp B/P (MAP) Pulse Ox O2 Delivery O2 Flow Rate FiO2 01/25/18 07:44 Nasal Cannula 3.00 01/25/18 04:00 98.6 100 33 94/68 (77) 97 01/25/18 04:00 39 01/25/18 02:00 99 01/25/18 00:00 98.8 100 33 94/68 (77) 97 01/25/18 00:00 100 01/24/18 22:00 101 01/24/18 20:00 98.5 98 34 102/63 (76) 97 01/24/18 20:00 98 01/24/18 19:48 97 Nasal Cannula 3.00 01/24/18 16:00 98.0 84 28 99/66 (77) 99 01/24/18 16:00 84 01/24/18 12:00 86 01/24/18 12:00 97.5 86 26 162/81 (108) 92 01/24/18 11:30 97.4 78 14 91/64 (73) 93 I/O 01/24/18 01/24/18 01/24/18 01/25/18 01/25/18 01/25/18 07:00 15:00 23:00 07:00 15:00 23:00 Intake Total 100 ml 200 ml 3010 ml 150 ml Output Total 0 ml 425 ml 300 ml Balance 100 ml 200 ml 2585 ml -150 ml Intake Oral 100 ml 360 ml 150 ml IV Total 2650 ml Other 200 ml Output Urine Total 0 ml 425 ml 300 ml Stool Total 0 ml # Voids 1 # Bowel Movements 1 1 1 Result Diagram: 01/24/18 1215 01/24/18 1215 Imaging Last Impressions Chest X-Ray 01/24/18 0000 Signed Impressions: Service Date/Time: Wednesday, January 24, 2018 11:58 - CONCLUSION: 1. Basilar airspace disease, slightly increased from January 22. Sina Winchester MD Cyst Biopsy Asp-Paracentesis US 01/23/18 0000 Signed Impressions: Service Date/Time: January 07:52 - CONCLUSION: Uncomplicated ultrasound guided paracentesis. Luis Lewis MD Abdomen/Pelvis CT 01/22/18 0000 Signed Impressions: Service Date/Time: Monday, January 22, 2018 15:07 - CONCLUSION: Small shrunken fatty replaced liver with extensive ascites. Prominent gallbladder.. Desmond Alvarez MD FACR Procedures Paracentesis 01/23/2018. Other Results Laboratory Tests Test 01/22/18 13:50 01/23/18 04:55 01/23/18 11:50 01/23/18 15:13 Platelet Estimate NORMAL Platelet Morphology Comment NORMAL Target Cells 1+ Tear Drop Cells 1+ Ovalocytes 1+ Stomatocytes 1+ Prothrombin Time 17.1 SEC Prothromb Time International Ratio 1.7 RATIO Activated Partial Thromboplast Time 30.6 SEC Ammonia 12 MCMOL/L Lactate Dehydrogenase 189 U/L Lipase 573 U/L Blood Urea Nitrogen 12 MG/DL Creatinine 1.33 MG/DL Random Glucose 80 MG/DL Total Protein 4.9 GM/DL Albumin 1.8 GM/DL Calcium Level 7.0 MG/DL Alkaline Phosphatase 113 U/L Aspartate Amino Transf (AST/SGOT) 116 U/L Alanine Aminotransferase (ALT/SGPT) 32 U/L Total Bilirubin 4.0 MG/DL Sodium Level 134 MEQ/L Potassium Level 3.4 MEQ/L Chloride Level 102 MEQ/L Carbon Dioxide Level 22.7 MEQ/L Peritoneal Fluid WBC 133 /MM3 Peritoneal Fluid RBC 51 /MM3 Peritoneal Fluid Neutrophils 16 % Peritoneal Fluid Lymphocytes 40 % Peritoneal Fluid Monocytes 18 % Peritoneal Fluid Histiocytes 23 % Peritoneal Fluid Mesothelial Cells 3 % Peritoneal Fluid Total Protein 1.1 GM/DL Peritoneal Fluid Albumin 0.5 G/DL Peritoneal Fluid LDH 37 U/L Peritoneal Fluid Glucose 91 MG/DL Iron Level 135 MCG/DL Total Iron Binding Capacity 238 MCG/DL Percent Iron Saturation 56.7 % Ferritin 48 NG/ML [id number] 229 mg/dL Anti-Nuclear Antibody Screen NEG Anti-Smooth Muscle Antibody Negative Hepatitis A IgM Antibody NEGATIVE Hepatitis B Surface Antigen NEGATIVE Hepatitis B Core IgM Antibody NEGATIVE Hepatitis C Antibody NEGATIVE Test 01/24/18 12:15 01/24/18 17:45 White Blood Count 15.4 TH/MM3 Red Blood Count 5.01 MIL/MM3 Hemoglobin 12.9 GM/DL Hematocrit 39.7 % Mean Corpuscular Volume 79.4 FL Mean Corpuscular Hemoglobin 25.7 PG Mean Corpuscular Hemoglobin Concent 32.4 % Red Cell Distribution Width 21.7 % Platelet Count 215 TH/MM3 Mean Platelet Volume 7.2 FL Neutrophils (%) (Auto) 88.3 % Lymphocytes (%) (Auto) 5.1 % Monocytes (%) (Auto) 5.9 % Eosinophils (%) (Auto) 0.1 % Basophils (%) (Auto) 0.6 % Neutrophils # (Auto) 13.6 TH/MM3 Lymphocytes # (Auto) 0.8 TH/MM3 Monocytes # (Auto) 0.9 TH/MM3 Eosinophils # (Auto) 0.0 TH/MM3 Basophils # (Auto) 0.1 TH/MM3 CBC Comment DIFF FINAL Differential Comment Blood Urea Nitrogen 12 MG/DL Creatinine 0.86 MG/DL Random Glucose 98 MG/DL Total Protein 4.9 GM/DL Calcium Level 7.4 MG/DL Sodium Level 134 MEQ/L Potassium Level 3.4 MEQ/L Chloride Level 101 MEQ/L Carbon Dioxide Level 23.0 MEQ/L Anion Gap 10 MEQ/L Estimat Glomerular Filtration Rate 67 ML/MIN Lactic Acid Level 1.8 mmol/L Protein Corrected Calcium 8.6 MG/DL Urine Color DARK-YELLOW Urine Turbidity HAZY Urine pH 6.0 Urine Specific Hewitt 1.025 Urine Protein 30 mg/dL Urine Glucose (UA) NEG mg/dL Urine Ketones NEG mg/dL Urine Occult Blood NEG Urine Nitrite NEG Urine Bilirubin SMALL Urine Urobilinogen 2.0 MG/DL Urine Leukocyte Esterase NEG Urine WBC 1 /hpf Urine Squamous Epithelial Cells 1 /hpf Urine Hyaline Casts 18 /lpf Urine Granular Casts 3 /lpf Urine Yeast (Budding) RARE Microscopic Urinalysis Comment CULT NOT INDICATED Objective Remarks GENERAL: Alert, feels somewhat weak. SKIN: Warm and dry. HEAD: Normocephalic. EYES: No scleral icterus. No injection or drainage. NECK: Supple, trachea midline. No JVD or lymphadenopathy. CARDIOVASCULAR: Regular rate and rhythm without murmurs, gallops, or rubs. RESPIRATORY: Breath sounds equal bilaterally. No accessory muscle use. GASTROINTESTINAL: Abdomen soft, tenderness over left and right upper quadrant, nondistended. MUSCULOSKELETAL: No cyanosis, or edema. BACK: Nontender without obvious deformity. No CVA tenderness. Medications and IVs Current Medications Medications (Trade) Dose Ordered Sig/Ralph Route Start Time Stop Time Status Last Admin (NS Flush) 2 ml UNSCH PRN IV FLUSH 01/22/18 17:15 (NS Flush) 2 ml BID IV FLUSH 01/22/18 21:00 01/25/18 09:43 (Narcan Inj) 0.4 mg UNSCH PRN IV PUSH 01/22/18 17:15 Levofloxacin/ Dextrose 150 ml @ 100 mls/hr Q48H IV 01/22/18 20:00 01/24/18 20:01 Phenylephrine HCl 40 mg/Dextrose 500 ml @ 30 mls/hr TITRATE PRN IV 01/23/18 04:30 (Brethine Inj) 1 mg UNSCH PRN SQ 01/23/18 04:30 (Romazicon Inj) 0.2 mg Q1M PRN IV PUSH 01/23/18 08:15 (Ativan) 1 mg Q4H PRN PO 01/23/18 08:15 (Ativan Inj) 1 mg Q4H PRN IV PUSH 01/23/18 08:15 01/23/18 20:03 (Ativan) 2 mg Q2H PRN PO 01/23/18 08:15 (Ativan Inj) 2 mg Q2H PRN IV PUSH 01/23/18 08:15 (Ativan Inj) 2 mg Q1H PRN IV PUSH 01/23/18 08:15 (Ativan Inj) 2 mg Q15M PRN IV PUSH 01/23/18 08:15 (Tylenol) 500 mg Q6H PRN PO 01/23/18 08:30 01/24/18 20:12 (Gyne Lotrimin 7 1% Vag Cream) 1 appl HS VAGINAL 01/23/18 21:00 01/30/18 20:59 01/24/18 20:01 (Protonix) 40 mg Q12HR PO 01/23/18 21:00 01/25/18 09:43 Ceftriaxone Sodium 2000 mg/ Sodium Chloride 100 ml @ 200 mls/hr Q24H IV 01/24/18 11:45 01/24/18 17:21 A/P Assessment and Plan (1) Alcoholic liver disease ICD Code: K70.9 - Alcoholic liver disease, unspecified (2) Pneumonia ICD Code: J18.9 - Pneumonia, unspecified organism Status: Acute (3) Symptomatic anemia ICD Code: D64.9 - Anemia, unspecified Status: Acute Ms. Marie is a 62-year-old female with a history of alcohol abuse who presented to the emergency department on 01/22/2018 due to abdominal pain and weakness. She was found to have hemoglobin 6.7. Hemoccult was positive. Patient denied any hematemesis or hematocrit initially patient was hypotensive and required fluid resuscitation. Patient was admitted to the ICU and started on Levaquin and Flagyl. -Alcoholic liver disease -Symptomatic anemia likely related to probable GI bleed -Patient received 4 units of PRBCs. GI consulted. EGD completed on 2017. EGD shows columns of esophageal pheresis but no active bleeding. -Continue Protonix 40 mg p.o. twice daily. -INR 1.7 platelet indicates liver disease. status post Paracentesis -Bilateral pneumonia on Levaquin, bronchodilator, Mucolytic and incentive spirometry. -Hypotension -Chest x-ray was suggestive of possible pneumonia. -Patient is status post paracentesis. Peritoneal fluid analysis does not indicate SBP. -Patient has been receiving Levaquin IV. However due to concern over pneumonia and hypotension, we will initiate ceftriaxone 2 g every 24 hours as well. -Cancel transfer to the floor. -We will obtain CBC, BMP, lactic acid, chest x-ray, urinalysis. -urinary retention status post Kemp Cath placement -Oliguria no known reason, asked for stat CMP, Kidney Ultrasound, Lasix. Albumin. Improving. - Alcohol abuse - continue CIWA protocol. Counselled regarding alcohol cessation. Full code. SCDs. Although patient's INR is 1.7 which is due to liver disease, this does not indicate patient is anticoagulated. However due to concern of her GI bleed, will hold off using any anticoagulation for DVT prophylaxis. Update: CBC returned. WBC increased from 13.2 to 15.4. Hemoglobin 12.9 (on admission it was 6.7). Lactic acid 1.8. Chest x-ray shows increased bilateral infiltrates, images reviewed by me. Urinalysis and BMP pending. Discharge Planning Expected in the next one to two days. Prashanth Blanchard MD Jan 25, 2018 11:25
[2018-01-25] MEDS: cefTRIAXone INJ 2,000 MG in SODIUM CHLORIDE 0.9% INJ 100 ML IV SCH (12:49)
[2018-01-25] MEDS ORDERED: SODIUM CHLOR 0.9% 1000 ML INJ 1,000 ML IV ONE (14:45)
[2018-01-25 15:23] LABS: AMYLASE BODY FLUID 29 U/L; AMYLASE BODY FLUID TYPE PERITONEAL
[2018-01-25] MEDS: SODIUM CHLOR 0.9% 1000 ML INJ 1,000 ML IV SCH ×2 (15:36→21:24)
[2018-01-25] MEDS: CLOTRIMAZOLE 1% VAG CREAM 45 GM TUBE VAGINAL SCH (21:00)
[2018-01-25] MEDS: LORazepam 2 MG/ML VIAL IV PUSH PRN (21:22)
[2018-01-26] VITALS (8 sets, daily range): BP systolic 100–135; BP diastolic 68–86; PULSE 92–101; RESP 20–24; TEMP 98–98.8; O2SAT 92–96
[2018-01-26] MEDS: PANTOPRAZOLE SOD 40 MG DELAYED RELEASE TAB PO SCH ×2 (09:53→20:17)
[2018-01-26] MEDS: SODIUM CHLOR 0.9% 1000 ML INJ 1,000 ML IV SCH ×2 (09:53→18:41)
[2018-01-26] MEDS: SODIUM CHLORIDE 0.9% FLUSH 10 ML FLUSH IV FLUSH SCH ×2 (09:54→20:18)
[2018-01-26] MEDS: cefTRIAXone INJ 2,000 MG in SODIUM CHLORIDE 0.9% INJ 100 ML IV SCH (12:43)
[2018-01-26] MEDS ORDERED: SODIUM CHLORID 0.9% 500 ML INJ 500 ML IV ONE (13:30)
[2018-01-26] MEDS ORDERED: FUROSEMIDE 40 MG/4 ML VIAL IV PUSH ONE (14:00)
[2018-01-26 14:35] LABS: AUTOMATED NEUTROPHIL # 12.4 TH/MM3 (1.8-7.7); BASOPHIL # 0.1 TH/MM3 (0-0.2); BASOPHIL % 0.4 % (0.0-2.0); HEMATOCRIT 43.3 % (35.0-46.0); HEMOGLOBIN 13.8 GM/DL (11.6-15.3); LYMPH % 5.2 % (9.0-44.0); LYMPHOCYTE # 0.7 TH/MM3 (1.0-4.8); MEAN CELL VOLUME 81.8 FL (80.0-100.0); MEAN CORPUSCULAR HGB CONC 31.8 % (32.0-36.0); MEAN PLATELET VOLUME 7.3 FL (7.0-11.0); MONO % 7.5 % (0.0-8.0); MONOCYTE # 1.1 TH/MM3 (0-0.9); NEUT % 86.9 % (16.0-70.0); PLATELET COUNT 212 TH/MM3 (150-450); RED BLOOD COUNT 5.29 MIL/MM3 (4.00-5.30); RED CELL DISTRIBUTION WIDTH 22.7 % (11.6-17.2); WHITE BLOOD COUNT 14.3 TH/MM3 (4.0-11.0)
[2018-01-26] MEDS: ALBUMIN 25% INJ 50 ML IV SCH (14:46)
--- NOTE | 2018-01-26 15:15 | RADRPT ---
EXAM DATE/TIME: 01/26/2018 14:43 [facility] COMPARISON: No previous studies available for comparison. INDICATIONS : Abnormal labs. MEDICAL HISTORY : Abdomen pain. SURGICAL HISTORY : Hysterectomy. Appendectomy. Left foot surgery. Back surgery. Eye surgery. ENCOUNTER: Initial ACUITY: 1 day PAIN SCORE: 4/10 LOCATION: Bilateral flank MEASUREMENTS: RIGHT KIDNEY: 11.1 x 4.5 x 5.9 cm LEFT KIDNEY: 7.3 x 4.5 x 5.3 cm FINDINGS: RIGHT KIDNEY: Renal cortex is normal in thickness and echotexture. No hydronephrosis, stone, or mass. LEFT KIDNEY: Renal cortex is normal in thickness and echotexture. No hydronephrosis, stone, or mass. BLADDER: Decompressed by Torres. CONCLUSION: 1. Unremarkable renal ultrasound. Bladder decompressed by Torres. Ascites. Sina Winchester MD on January 26, 2018 at 15:12 Board Certified Radiologist. This report was verified electronically.
[2018-01-26 15:30] LABS: ALBUMIN 1.8 GM/DL (3.4-5.0); ALKALINE PHOSPHATASE 133 U/L (45-117); ALT (GPT) 23 U/L (10-53); AST (GOT) 92 U/L (15-37); BICARBONATE 17.6 MEQ/L (21.0-32.0); BLOOD UREA NITROGEN 9 MG/DL (7-18); CALCIUM 7.5 MG/DL (8.5-10.1); CHLORIDE 108 MEQ/L (98-107); CREATININE 0.59 MG/DL (0.50-1.00); GLOMERULAR FILTRATION RATE 104 ML/MIN (>89); GLUCOSE,RANDOM 97 MG/DL (74-106); MAGNESIUM 1.5 MG/DL (1.5-2.5); PHOSPHORUS 2.2 MG/DL (2.5-4.9); SODIUM (NA) 136 MEQ/L (136-145); TOTAL PROTEIN 5.4 GM/DL (6.4-8.2)
[2018-01-26 15:40] LABS: OVALOCYTES 1+ (NORMAL); TEARDROP RBCS 1+ (NORMAL)
--- NOTE | 2018-01-26 18:24 | HHI.PR ---
Subjective Remarks This is a pleasant 62 y/o Female with Pneumonia, Hypotension, and anemia, alcoholic liver disease, status post Paracentesis, had to be placed a kemp cath due to Urinary obstruction, developed Oliguria and was given IV fluids. 01/26; seen with nurse Miss Tadeo patient worsening her Oliguria. asked for Albumin, Lasix given IV fluids bolus given and improving condition. No nausea, vomit or diarrhea. Objective Vital Signs Date Time Temp Pulse Resp B/P (MAP) Pulse Ox O2 Delivery O2 Flow Rate FiO2 01/26/18 16:00 98.8 94 24 135/86 (102) 93 01/26/18 12:00 98.7 101 24 120/82 (95) 92 01/26/18 08:05 Nasal Cannula 01/26/18 08:00 98.6 97 24 118/82 (94) 93 01/26/18 04:50 94 01/26/18 04:00 98.0 93 24 104/69 (81) 92 01/26/18 00:00 100 01/26/18 00:00 92 20 100/68 (79) 96 01/25/18 20:00 98.4 97 121/67 (85) 95 01/25/18 20:00 95 01/25/18 19:01 93 21 I/O 01/25/18 01/25/18 01/25/18 01/26/18 01/26/18 01/26/18 07:00 15:00 23:00 07:00 15:00 23:00 Intake Total 150 ml 100 ml 1550 ml 2264 ml Output Total 300 ml 50 ml 200 ml Balance -150 ml 100 ml 1500 ml 2064 ml Intake Oral 150 ml 300 ml 920 ml IV Total 100 ml 1250 ml 1344 ml Output Urine Total 300 ml 50 ml 200 ml # Bowel Movements 1 3 3 Result Diagram: 01/26/18 1409 01/26/18 1409 Imaging Last Impressions Renal Ultrasound 01/26/18 0000 Signed Impressions: Service Date/Time: Friday, January 26, 2018 14:43 - CONCLUSION: 1. Unremarkable renal ultrasound. Bladder decompressed by Kemp. Ascites. Sina Winchester MD Chest X-Ray 01/24/18 0000 Signed Impressions: Service Date/Time: Wednesday, January 24, 2018 11:58 - CONCLUSION: 1. Basilar airspace disease, slightly increased from January 22. Sina Winchester MD Cyst Biopsy Asp-Paracentesis US 01/23/18 0000 Signed Impressions: Service Date/Time: January 07:52 - CONCLUSION: Uncomplicated ultrasound guided paracentesis. Luis Lewis MD Abdomen/Pelvis CT 01/22/18 0000 Signed Impressions: Service Date/Time: Monday, January 22, 2018 15:07 - CONCLUSION: Small shrunken fatty replaced liver with extensive ascites. Prominent gallbladder.. Desmond Alvarez MD FACR Procedures Paracentesis 01/23/2018. Other Results Laboratory Tests Test 01/22/18 13:50 01/23/18 11:50 01/23/18 15:13 01/24/18 12:15 Platelet Estimate NORMAL Platelet Morphology Comment NORMAL Target Cells 1+ Stomatocytes 1+ Prothrombin Time 17.1 SEC Prothromb Time International Ratio 1.7 RATIO Activated Partial Thromboplast Time 30.6 SEC Ammonia 12 MCMOL/L Lactate Dehydrogenase 189 U/L Lipase 573 U/L Body Fluid Amylase Source PERITONEAL Body Fluid Amylase 29 U/L Peritoneal Fluid WBC 133 /MM3 Peritoneal Fluid RBC 51 /MM3 Peritoneal Fluid Neutrophils 16 % Peritoneal Fluid Lymphocytes 40 % Peritoneal Fluid Monocytes 18 % Peritoneal Fluid Histiocytes 23 % Peritoneal Fluid Mesothelial Cells 3 % Peritoneal Fluid Total Protein 1.1 GM/DL Peritoneal Fluid Albumin 0.5 G/DL Peritoneal Fluid LDH 37 U/L Peritoneal Fluid Glucose 91 MG/DL Iron Level 135 MCG/DL Total Iron Binding Capacity 238 MCG/DL Percent Iron Saturation 56.7 % Ferritin 48 NG/ML Quhen-5-[id number] 229 mg/dL Anti-Nuclear Antibody Screen NEG Anti-Smooth Muscle Antibody Negative Hepatitis A IgM Antibody NEGATIVE Hepatitis B Surface Antigen NEGATIVE Hepatitis B Core IgM Antibody NEGATIVE Hepatitis C Antibody NEGATIVE Lactic Acid Level 1.8 mmol/L Protein Corrected Calcium 8.6 MG/DL Test 01/24/18 17:45 01/26/18 14:09 Urine Color DARK-YELLOW Urine Turbidity HAZY Urine pH 6.0 Urine Specific Cas[place] 1.025 Urine Protein 30 mg/dL Urine Glucose (UA) NEG mg/dL Urine Ketones NEG mg/dL Urine Occult Blood NEG Urine Nitrite NEG Urine Bilirubin SMALL Urine Urobilinogen 2.0 MG/DL Urine Leukocyte Esterase NEG Urine WBC 1 /hpf Urine Squamous Epithelial Cells 1 /hpf Urine Hyaline Casts 18 /lpf Urine Granular Casts 3 /lpf Urine Yeast (Budding) RARE Microscopic Urinalysis Comment CULT NOT INDICATED White Blood Count 14.3 TH/MM3 Red Blood Count 5.29 MIL/MM3 Hemoglobin 13.8 GM/DL Hematocrit 43.3 % Mean Corpuscular Volume 81.8 FL Mean Corpuscular Hemoglobin 26.0 PG Mean Corpuscular Hemoglobin Concent 31.8 % Red Cell Distribution Width 22.7 % Platelet Count 212 TH/MM3 Mean Platelet Volume 7.3 FL Neutrophils (%) (Auto) 86.9 % Lymphocytes (%) (Auto) 5.2 % Monocytes (%) (Auto) 7.5 % Eosinophils (%) (Auto) 0.0 % Basophils (%) (Auto) 0.4 % Neutrophils # (Auto) 12.4 TH/MM3 Lymphocytes # (Auto) 0.7 TH/MM3 Monocytes # (Auto) 1.1 TH/MM3 Eosinophils # (Auto) 0.0 TH/MM3 Basophils # (Auto) 0.1 TH/MM3 CBC Comment AUTO DIFF Differential Comment AUTO DIFF CONFIRMED Tear Drop Cells 1+ Ovalocytes 1+ Blood Urea Nitrogen 9 MG/DL Creatinine 0.59 MG/DL Random Glucose 97 MG/DL Total Protein 5.4 GM/DL Albumin 1.8 GM/DL Calcium Level 7.5 MG/DL Phosphorus Level 2.2 MG/DL Magnesium Level 1.5 MG/DL Alkaline Phosphatase 133 U/L Aspartate Amino Transf (AST/SGOT) 92 U/L Alanine Aminotransferase (ALT/SGPT) 23 U/L Total Bilirubin 2.0 MG/DL Sodium Level 136 MEQ/L Potassium Level 3.7 MEQ/L Chloride Level 108 MEQ/L Carbon Dioxide Level 17.6 MEQ/L Anion Gap 10 MEQ/L Estimat Glomerular Filtration Rate 104 ML/MIN Objective Remarks GENERAL: Alert, feels somewhat weak. SKIN: Warm and dry. HEAD: Normocephalic. EYES: No scleral icterus. No injection or drainage. NECK: Supple, trachea midline. No JVD or lymphadenopathy. CARDIOVASCULAR: Regular rate and rhythm without murmurs, gallops, or rubs. RESPIRATORY: Breath sounds equal bilaterally. No accessory muscle use. GASTROINTESTINAL: Abdomen soft, tenderness over left and right upper quadrant, nondistended. MUSCULOSKELETAL: No cyanosis, or edema. BACK: Nontender without obvious deformity. No CVA tenderness. Medications and IVs Current Medications Medications (Trade) Dose Ordered Sig/Ralph Route Start Time Stop Time Status Last Admin (NS Flush) 2 ml UNSCH PRN IV FLUSH 01/22/18 17:15 (NS Flush) 2 ml BID IV FLUSH 01/22/18 21:00 01/26/18 09:54 (Narcan Inj) 0.4 mg UNSCH PRN IV PUSH 01/22/18 17:15 Levofloxacin/ Dextrose 150 ml @ 100 mls/hr Q48H IV 01/22/18 20:00 01/24/18 20:01 Phenylephrine HCl 40 mg/Dextrose 500 ml @ 30 mls/hr TITRATE PRN IV 01/23/18 04:30 (Brethine Inj) 1 mg UNSCH PRN SQ 01/23/18 04:30 (Romazicon Inj) 0.2 mg Q1M PRN IV PUSH 01/23/18 08:15 (Ativan) 1 mg Q4H PRN PO 01/23/18 08:15 (Ativan Inj) 1 mg Q4H PRN IV PUSH 01/23/18 08:15 01/23/18 20:03 (Ativan) 2 mg Q2H PRN PO 01/23/18 08:15 (Ativan Inj) 2 mg Q2H PRN IV PUSH 01/23/18 08:15 01/25/18 21:22 (Ativan Inj) 2 mg Q1H PRN IV PUSH 01/23/18 08:15 (Ativan Inj) 2 mg Q15M PRN IV PUSH 01/23/18 08:15 (Tylenol) 500 mg Q6H PRN PO 01/23/18 08:30 01/24/18 20:12 (Gyne Lotrimin 7 1% Vag Cream) 1 appl HS VAGINAL 01/23/18 21:00 01/30/18 20:59 01/24/18 20:01 (Protonix) 40 mg Q12HR PO 01/23/18 21:00 01/26/18 09:53 Ceftriaxone Sodium 2000 mg/ Sodium Chloride 100 ml @ 200 mls/hr Q24H IV 01/24/18 11:45 01/26/18 12:43 Sodium Chloride 1,000 ml @ 125 mls/hr Q8H IV 01/25/18 14:45 01/26/18 09:53 Albumin Human 50 ml @ 60 mls/hr Q12H IV 01/26/18 13:30 01/26/18 14:46 A/P Assessment and Plan (1) Alcoholic liver disease ICD Code: K70.9 - Alcoholic liver disease, unspecified (2) Pneumonia ICD Code: J18.9 - Pneumonia, unspecified organism Status: Acute (3) Symptomatic anemia ICD Code: D64.9 - Anemia, unspecified Status: Acute Ms. Marie is a 62-year-old female with a history of alcohol abuse who presented to the emergency department on 01/22/2018 due to abdominal pain and weakness. She was found to have hemoglobin 6.7. Hemoccult was positive. Patient denied any hematemesis or hematocrit initially patient was hypotensive and required fluid resuscitation. Patient was admitted to the ICU and started on Levaquin and Flagyl. -Alcoholic liver disease -Symptomatic anemia likely related to probable GI bleed -Patient received 4 units of PRBCs. GI consulted. EGD completed on 2017. EGD shows columns of esophageal pheresis but no active bleeding. -Continue Protonix 40 mg p.o. twice daily. -INR 1.7 platelet indicates liver disease. status post Paracentesis -Bilateral pneumonia on Levaquin, bronchodilator, Mucolytic and incentive spirometry. -Hypotension -Chest x-ray was suggestive of possible pneumonia. -Patient is status post paracentesis. Peritoneal fluid analysis does not indicate SBP. -Patient has been receiving Levaquin IV. However due to concern over pneumonia and hypotension, we will initiate ceftriaxone 2 g every 24 hours as well. -Cancel transfer to the floor. -We will obtain CBC, BMP, lactic acid, chest x-ray, urinalysis. -urinary retention status post Kemp Cath placement -Oliguria no known reason, asked for stat CMP, Kidney Ultrasound, Lasix. Albumin. Improving. - Alcohol abuse - continue CIWA protocol. Counselled regarding alcohol cessation. Full code. SCDs. Although patient's INR is 1.7 which is due to liver disease, this does not indicate patient is anticoagulated. However due to concern of her GI bleed, will hold off using any anticoagulation for DVT prophylaxis. Update: CBC returned. WBC increased from 13.2 to 15.4. Hemoglobin 12.9 (on admission it was 6.7). Lactic acid 1.8. Chest x-ray shows increased bilateral infiltrates, images reviewed by me. Urinalysis and BMP pending. Discharge Planning Expected in the next one to two days. Prashanth Blanchard MD Jan 26, 2018 18:24
[2018-01-26] MEDS ORDERED: SODIUM CHLOR 0.9% 1000 ML INJ 1,000 ML IV ONE (18:30)
[2018-01-26] MEDS: MAGNESIUM SULFATE 1 GM PREMIX 100 ML IV SCH ×2 (18:41→20:17)
[2018-01-26] MEDS: ACETAMINOPHEN 500 MG CPLT PO PRN (18:57)
[2018-01-26] MEDS: guaiFENesin E.R. 600 MG TAB PO SCH (20:17)
[2018-01-26] MEDS: CLOTRIMAZOLE 1% VAG CREAM 45 GM TUBE VAGINAL SCH (20:18)
[2018-01-26] MEDS: LEVOFLOXACIN 750 MG PREMIX INJ 150 ML IV SCH (20:18)
[2018-01-26] MEDS: RESP: ALBUTEROL 2.5 MG/IPRATROPIUM 0.5 MG NEB (SCH) NEB (20:50)
[2018-01-27] VITALS (13 sets, daily range): BP systolic 101–127; BP diastolic 60–81; PULSE 9–121; RESP 30–48; TEMP 97.4–98.8; O2SAT 91–97
[2018-01-27] MEDS: RESP: ALBUTEROL 2.5 MG/IPRATROPIUM 0.5 MG NEB (SCH) NEB ×7 (00:32→23:45)
[2018-01-27] MEDS: ALBUMIN 25% INJ 50 ML IV SCH ×2 (01:30→14:42)
[2018-01-27] MEDS: SODIUM CHLORIDE 0.9% FLUSH 10 ML FLUSH IV FLUSH SCH ×2 (08:54→21:44)
[2018-01-27] MEDS: PANTOPRAZOLE SOD 40 MG DELAYED RELEASE TAB PO SCH ×2 (08:54→21:44)
[2018-01-27] MEDS: guaiFENesin E.R. 600 MG TAB PO SCH ×2 (08:54→21:44)
[2018-01-27 11:52] LABS: CERULOPLASMIN 26 mg/dL (18-53)
--- NOTE | 2018-01-27 11:56 | HHI.GIFU ---
Subjective Remarks Pt distended, c/o abd discomfort. No bleeding. (Jacqueline Babb) Objective Vitals I&O Vital Signs Date Time Temp Pulse Resp B/P (MAP) Pulse Ox O2 Delivery O2 Flow Rate FiO2 01/27/18 08:25 97 Nasal Cannula 2.00 01/27/18 04:00 86 01/27/18 04:00 98.0 96 38 113/77 (89) 92 01/27/18 04:00 95 36 122/79 (93) 95 01/27/18 01:00 95 Nasal Cannula 2.00 01/27/18 00:00 90 34 101/70 (80) 92 01/27/18 00:00 90 01/26/18 20:15 94 Nasal Cannula 2.00 01/26/18 20:00 95 01/26/18 16:00 98.8 94 24 135/86 (102) 93 01/26/18 12:00 98.7 101 24 120/82 (95) 92 I/O 01/26/18 01/26/18 01/26/18 01/27/18 01/27/18 01/27/18 07:00 15:00 23:00 07:00 15:00 23:00 Intake Total 2264 ml 150 ml 2450 ml 1791 ml Output Total 200 ml 1300 ml 300 ml Balance 2064 ml 150 ml 1150 ml 1491 ml Intake Oral 920 ml 600 ml 480 ml IV Total 1344 ml 150 ml 1850 ml 1311 ml Output Urine Total 200 ml 1300 ml 300 ml # Bowel Movements 3 3 0 Laboratory Laboratory Tests Test 01/26/18 14:09 White Blood Count 14.3 Red Blood Count 5.29 Hemoglobin 13.8 Hematocrit 43.3 Mean Corpuscular Volume 81.8 Mean Corpuscular Hemoglobin 26.0 Mean Corpuscular Hemoglobin Concent 31.8 Red Cell Distribution Width 22.7 Platelet Count 212 Mean Platelet Volume 7.3 Neutrophils (%) (Auto) 86.9 Lymphocytes (%) (Auto) 5.2 Monocytes (%) (Auto) 7.5 Eosinophils (%) (Auto) 0.0 Basophils (%) (Auto) 0.4 Neutrophils # (Auto) 12.4 Lymphocytes # (Auto) 0.7 Monocytes # (Auto) 1.1 Eosinophils # (Auto) 0.0 Basophils # (Auto) 0.1 CBC Comment AUTO DIFF Differential Comment AUTO DIFF CONFIRMED Tear Drop Cells 1+ Ovalocytes 1+ Blood Urea Nitrogen 9 Creatinine 0.59 Random Glucose 97 Total Protein 5.4 Albumin 1.8 Calcium Level 7.5 Phosphorus Level 2.2 Magnesium Level 1.5 Alkaline Phosphatase 133 Aspartate Amino Transf (AST/SGOT) 92 Alanine Aminotransferase (ALT/SGPT) 23 Total Bilirubin 2.0 Sodium Level 136 Potassium Level 3.7 Chloride Level 108 Carbon Dioxide Level 17.6 Anion Gap 10 Estimat Glomerular Filtration Rate 104 Date/Time Source Procedure Growth Status 01/22/18 14:40 Blood Peripheral Aerobic Blood Culture - Final NO GROWTH IN 5 DAYS Complete 01/22/18 14:40 Blood Peripheral Anaerobic Blood Culture - Final NO GROWTH IN 5 DAYS Complete 01/23/18 11:50 Fluid Peritoneal Fluid Gram Stain - Final Complete 01/23/18 11:50 Fluid Peritoneal Fluid Body Fluid Culture - Final NO GROWTH IN 72 HRS.--AEROBICALLY OR ... Complete Imaging Last Impressions Renal Ultrasound 01/26/18 0000 Signed Impressions: Service Date/Time: Friday, January 26, 2018 14:43 - CONCLUSION: 1. Unremarkable renal ultrasound. Bladder decompressed by Torres. Ascites. Sina Winchester MD Chest X-Ray 01/24/18 0000 Signed Impressions: Service Date/Time: Wednesday, January 24, 2018 11:58 - CONCLUSION: 1. Basilar airspace disease, slightly increased from January 22. Sina Winchester MD Cyst Biopsy Asp-Paracentesis US 01/23/18 0000 Signed Impressions: Service Date/Time: January 07:52 - CONCLUSION: Uncomplicated ultrasound guided paracentesis. Luis Lewis MD Abdomen/Pelvis CT 01/22/18 0000 Signed Impressions: Service Date/Time: Monday, January 22, 2018 15:07 - CONCLUSION: Small shrunken fatty replaced liver with extensive ascites. Prominent gallbladder.. Desmond Alvarez MD FACR Physical Exam HEENT: PERRL; normocephalic; atraumatic; no jaundice. CHEST: tachypneic, shallow respirations CTA CARDIAC: RRR ABDOMEN: firm, distended, diffuse TTP; no hepatosplenomegaly; bowel sounds faint EXTREMITIES: No clubbing, cyanosis, or edema. SKIN: Normal; no rash; no jaundice. HEALTH UNDERWRITER: No focal deficits; alert and oriented times three. (Jacqueline Babb) Assessment and Plan Plan Assessment: - Transaminitis- likely secondary to ETOH, given history of 4-5 glasses of wine daily. Reports known history of elevated LFTs, has been told by PCP in the past to stop drinking. Has never had extensive liver work up. Labs currently: AST-116 ALT-32 T bili-4 Ammonia-12. DF-27 - Elevated lipase- denies history of pancreatitis. - Ascites- S/P Paracentesis with 6.6 L removed. SAAG-1.3 Peritoneal WBC-133. Pt on Levaquin. - Anemia- H/H 6.7/22.6 on admission, now S/P 4 U PRBCs currently 8.6/26.6. - NICOLASA- GFR 41 - Leukocytosis- WBC-13.2 Pt on Levaquin and Flagyl CT abdomen and pelvis W/O IV contrast (01/22) --> Small shrunken fatty replaced liver with extensive ascites. Prominent gallbladder 01/27/18 - s/p EGD found small esophageal varices, no bleeding, portal gastropathy. She is c/o abd pain, is distended and somewhat tense today. renal US 01/26 showed ascites did have paracentesis 01/23/18. cx no growth 72h, cytology benign. HH improving. liver w/u so far unremarkable Plan: consider repeat paracentesis await rest of Liver WEEKS Monitor H/H Notify GI of active bleeding Protonix gtt Pt has been seen and examined by myself and Dr. Jones and this note is written on his behalf (Jacqueline Babb) Physician Comments Agree with above assessment and plan. Will follow up with you. (Chapis Jones MD) Jacqueline Babb Jan 27, 2018 11:56 Chapis Jones MD Jan 27, 2018 14:52
--- NOTE | 2018-01-27 12:10 | RADRPT ---
EXAM DATE/TIME: 01/27/2018 10:51 [facility] COMPARISON: CHEST SINGLE AP, January 24, 2018, 11:58. INDICATIONS : Short of breath MEDICAL HISTORY : None. SURGICAL HISTORY : Hysterectomy. Appendectomy. ENCOUNTER: Subsequent ACUITY: 2 days PAIN SCORE: 0/10 LOCATION: chest FINDINGS: There is mild to moderate pulmonary edema pattern with bilateral pleural effusions. Heart size enlarg ed. No pneumothorax. No acute bony abnormalities. CONCLUSION: 1. Increase in perihilar and basilar airspace disease since January 24 characteristic of pulmonary edema . Also development of small pleural effusions. Sina Winchester MD on January 27, 2018 at 12:06 Board Certified Radiologist. This report was verified electronically.
[2018-01-27] MEDS: cefTRIAXone INJ 2,000 MG in SODIUM CHLORIDE 0.9% INJ 100 ML IV SCH (12:17)
--- NOTE | 2018-01-27 14:07 | HHI.PR ---
Subjective Remarks This is a pleasant 62 y/o Female with Pneumonia, Hypotension, and anemia, alcoholic liver disease, status post Paracentesis, had to be placed a kemp cath due to Urinary obstruction, developed Oliguria and was given IV fluids. 01/26; seen with nurse Miss Tadeo patient worsening her Oliguria. asked for Albumin, Lasix given IV fluids bolus given and improving condition. 01/27: Stable in her bedroom, continue with Oliguria, asked for Urology specialist evaluation. also has new Chest X ray with worsening, compromise, probable volume overload asked for BNP awaiting for result. continue IV fluids at this time. No nausea, vomit or diarrhea. Objective Vital Signs Date Time Temp Pulse Resp B/P (MAP) Pulse Ox O2 Delivery O2 Flow Rate FiO2 01/27/18 12:00 105 01/27/18 12:00 97.6 105 41 121/78 (92) 93 01/27/18 10:00 100 01/27/18 08:25 97 Nasal Cannula 2.00 01/27/18 08:00 98 01/27/18 08:00 97.4 98 30 118/75 (89) 95 01/27/18 04:00 86 01/27/18 04:00 98.0 96 38 113/77 (89) 92 01/27/18 04:00 95 36 122/79 (93) 95 01/27/18 01:00 95 Nasal Cannula 2.00 01/27/18 00:00 90 34 101/70 (80) 92 01/27/18 00:00 90 01/26/18 20:15 94 Nasal Cannula 2.00 01/26/18 20:00 95 01/26/18 16:00 98.8 94 24 135/86 (102) 93 I/O 01/26/18 01/26/18 01/26/18 01/27/18 01/27/18 01/27/18 07:00 15:00 23:00 07:00 15:00 23:00 Intake Total 2264 ml 150 ml 2450 ml 1791 ml Output Total 200 ml 1300 ml 300 ml Balance 2064 ml 150 ml 1150 ml 1491 ml Intake Oral 920 ml 600 ml 480 ml IV Total 1344 ml 150 ml 1850 ml 1311 ml Output Urine Total 200 ml 1300 ml 300 ml # Bowel Movements 3 3 0 Result Diagram: 01/26/18 1409 01/26/18 1409 Imaging Last Impressions Chest X-Ray 01/27/18 0700 Signed Impressions: Service Date/Time: Saturday, January 27, 2018 10:51 - CONCLUSION: 1. Increase in perihilar and basilar airspace disease since January 24 characteristic of pulmonary edema. Also development of small pleural effusions. Sina Winchester MD Renal Ultrasound 01/26/18 0000 Signed Impressions: Service Date/Time: Friday, January 26, 2018 14:43 - CONCLUSION: 1. Unremarkable renal ultrasound. Bladder decompressed by Kemp. Ascites. Sina Winchester MD Cyst Biopsy Asp-Paracentesis US 01/23/18 0000 Signed Impressions: Service Date/Time: January 07:52 - CONCLUSION: Uncomplicated ultrasound guided paracentesis. Luis Lewis MD Abdomen/Pelvis CT 01/22/18 0000 Signed Impressions: Service Date/Time: Monday, January 22, 2018 15:07 - CONCLUSION: Small shrunken fatty replaced liver with extensive ascites. Prominent gallbladder.. Desmond Alvarez MD FACR Procedures Paracentesis 01/23/2018. Other Results Laboratory Tests Test 01/22/18 13:50 01/23/18 11:50 01/23/18 15:13 01/24/18 12:15 Platelet Estimate NORMAL Platelet Morphology Comment NORMAL Target Cells 1+ Stomatocytes 1+ Prothrombin Time 17.1 SEC Prothromb Time International Ratio 1.7 RATIO Activated Partial Thromboplast Time 30.6 SEC Ammonia 12 MCMOL/L Lactate Dehydrogenase 189 U/L Lipase 573 U/L Body Fluid Amylase Source PERITONEAL Body Fluid Amylase 29 U/L Peritoneal Fluid WBC 133 /MM3 Peritoneal Fluid RBC 51 /MM3 Peritoneal Fluid Neutrophils 16 % Peritoneal Fluid Lymphocytes 40 % Peritoneal Fluid Monocytes 18 % Peritoneal Fluid Histiocytes 23 % Peritoneal Fluid Mesothelial Cells 3 % Peritoneal Fluid Total Protein 1.1 GM/DL Peritoneal Fluid Albumin 0.5 G/DL Peritoneal Fluid LDH 37 U/L Peritoneal Fluid Glucose 91 MG/DL Iron Level 135 MCG/DL Total Iron Binding Capacity 238 MCG/DL Percent Iron Saturation 56.7 % Ferritin 48 NG/ML [id number] 229 mg/dL Ceruloplasmin 26 mg/dL Anti-Nuclear Antibody Screen NEG Anti-Smooth Muscle Antibody Negative Hepatitis A IgM Antibody NEGATIVE Hepatitis B Surface Antigen NEGATIVE Hepatitis B Core IgM Antibody NEGATIVE Hepatitis C Antibody NEGATIVE Lactic Acid Level 1.8 mmol/L Protein Corrected Calcium 8.6 MG/DL Test 01/24/18 17:45 01/26/18 14:09 Urine Color DARK-YELLOW Urine Turbidity HAZY Urine pH 6.0 Urine Specific [place] 1.025 Urine Protein 30 mg/dL Urine Glucose (UA) NEG mg/dL Urine Ketones NEG mg/dL Urine Occult Blood NEG Urine Nitrite NEG Urine Bilirubin SMALL Urine Urobilinogen 2.0 MG/DL Urine Leukocyte Esterase NEG Urine WBC 1 /hpf Urine Squamous Epithelial Cells 1 /hpf Urine Hyaline Casts 18 /lpf Urine Granular Casts 3 /lpf Urine Yeast (Budding) RARE Microscopic Urinalysis Comment CULT NOT INDICATED White Blood Count 14.3 TH/MM3 Red Blood Count 5.29 MIL/MM3 Hemoglobin 13.8 GM/DL Hematocrit 43.3 % Mean Corpuscular Volume 81.8 FL Mean Corpuscular Hemoglobin 26.0 PG Mean Corpuscular Hemoglobin Concent 31.8 % Red Cell Distribution Width 22.7 % Platelet Count 212 TH/MM3 Mean Platelet Volume 7.3 FL Neutrophils (%) (Auto) 86.9 % Lymphocytes (%) (Auto) 5.2 % Monocytes (%) (Auto) 7.5 % Eosinophils (%) (Auto) 0.0 % Basophils (%) (Auto) 0.4 % Neutrophils # (Auto) 12.4 TH/MM3 Lymphocytes # (Auto) 0.7 TH/MM3 Monocytes # (Auto) 1.1 TH/MM3 Eosinophils # (Auto) 0.0 TH/MM3 Basophils # (Auto) 0.1 TH/MM3 CBC Comment AUTO DIFF Differential Comment AUTO DIFF CONFIRMED Tear Drop Cells 1+ Ovalocytes 1+ Blood Urea Nitrogen 9 MG/DL Creatinine 0.59 MG/DL Random Glucose 97 MG/DL Total Protein 5.4 GM/DL Albumin 1.8 GM/DL Calcium Level 7.5 MG/DL Phosphorus Level 2.2 MG/DL Magnesium Level 1.5 MG/DL Alkaline Phosphatase 133 U/L Aspartate Amino Transf (AST/SGOT) 92 U/L Alanine Aminotransferase (ALT/SGPT) 23 U/L Total Bilirubin 2.0 MG/DL Sodium Level 136 MEQ/L Potassium Level 3.7 MEQ/L Chloride Level 108 MEQ/L Carbon Dioxide Level 17.6 MEQ/L Anion Gap 10 MEQ/L Estimat Glomerular Filtration Rate 104 ML/MIN Objective Remarks GENERAL: Alert, feels somewhat weak. SKIN: Warm and dry. HEAD: Normocephalic. EYES: No scleral icterus. No injection or drainage. NECK: Supple, trachea midline. No JVD or lymphadenopathy. CARDIOVASCULAR: Regular rate and rhythm without murmurs, gallops, or rubs. RESPIRATORY: Decreased breath sounds bilateral, no wheezing or crackles. GASTROINTESTINAL: Abdomen soft, tenderness over left and right upper quadrant, nondistended. MUSCULOSKELETAL: No cyanosis, or edema. BACK: Nontender without obvious deformity. No CVA tenderness. Medications and IVs Current Medications Medications (Trade) Dose Ordered Sig/Ralph Route Start Time Stop Time Status Last Admin (NS Flush) 2 ml UNSCH PRN IV FLUSH 01/22/18 17:15 01/27/18 08:54 (NS Flush) 2 ml BID IV FLUSH 01/22/18 21:00 01/27/18 08:54 (Narcan Inj) 0.4 mg UNSCH PRN IV PUSH 01/22/18 17:15 Levofloxacin/ Dextrose 150 ml @ 100 mls/hr Q48H IV 01/22/18 20:00 01/26/18 20:18 Phenylephrine HCl 40 mg/Dextrose 500 ml @ 30 mls/hr TITRATE PRN IV 01/23/18 04:30 (Brethine Inj) 1 mg UNSCH PRN SQ 01/23/18 04:30 (Romazicon Inj) 0.2 mg Q1M PRN IV PUSH 01/23/18 08:15 (Ativan) 1 mg Q4H PRN PO 01/23/18 08:15 (Ativan Inj) 1 mg Q4H PRN IV PUSH 01/23/18 08:15 01/23/18 20:03 (Ativan) 2 mg Q2H PRN PO 01/23/18 08:15 01/26/18 20:17 (Ativan Inj) 2 mg Q2H PRN IV PUSH 01/23/18 08:15 01/25/18 21:22 (Ativan Inj) 2 mg Q1H PRN IV PUSH 01/23/18 08:15 (Ativan Inj) 2 mg Q15M PRN IV PUSH 01/23/18 08:15 (Tylenol) 500 mg Q6H PRN PO 01/23/18 08:30 01/26/18 18:57 (Gyne Lotrimin 7 1% Vag Cream) 1 appl HS VAGINAL 01/23/18 21:00 01/30/18 20:59 01/26/18 20:18 (Protonix) 40 mg Q12HR PO 01/23/18 21:00 01/27/18 08:54 Ceftriaxone Sodium 2000 mg/ Sodium Chloride 100 ml @ 200 mls/hr Q24H IV 01/24/18 11:45 01/27/18 12:17 Sodium Chloride 1,000 ml @ 125 mls/hr Q8H IV 01/25/18 14:45 01/26/18 18:41 Albumin Human 50 ml @ 60 mls/hr Q12H IV 01/26/18 13:30 01/27/18 01:30 (Duoneb Neb) 1 ampule Q4HR NEB NEB 01/26/18 20:00 01/27/18 11:31 (Mucinex Er) 600 mg BID PO 01/26/18 21:00 01/27/18 08:54 (Flomax) 0.4 mg DAILY PO 01/27/18 14:15 UNV A/P Assessment and Plan (1) Alcoholic liver disease ICD Code: K70.9 - Alcoholic liver disease, unspecified (2) Pneumonia ICD Code: J18.9 - Pneumonia, unspecified organism Status: Acute (3) Symptomatic anemia ICD Code: D64.9 - Anemia, unspecified Status: Acute Ms. Marie is a 62-year-old female with a history of alcohol abuse who presented to the emergency department on 01/22/2018 due to abdominal pain and weakness. She was found to have hemoglobin 6.7. Hemoccult was positive. Patient denied any hematemesis or hematocrit initially patient was hypotensive and required fluid resuscitation. Patient was admitted to the ICU and started on Levaquin and Flagyl. -Alcoholic liver disease -Symptomatic anemia likely related to probable GI bleed -Patient received 4 units of PRBCs. GI consulted. EGD completed on 2017. EGD shows columns of esophageal pheresis but no active bleeding. -Continue Protonix 40 mg p.o. twice daily. -INR 1.7 platelet indicates liver disease. status post Paracentesis last hemoglobin 13.3 -Bilateral pneumonia on Levaquin, bronchodilator, Mucolytic and incentive spirometry. worsening imaging studies may be related to worsening pneumonia asked for BNP she is been having IV fluids bolus. will follow results. -Hypotension stable but had the need to continue IV fluids bolus. today will place on hold IV fluids due to -Chest x-ray was suggestive of possible pneumonia. -Patient is status post paracentesis. Peritoneal fluid analysis does not indicate SBP. -Patient has been receiving Levaquin IV. However due to concern over pneumonia and hypotension, we will initiate ceftriaxone 2 g every 24 hours as well. -Cancel transfer to the floor. -urinary retention status post Kemp Cath placement Urology specialist consult. -Oliguria no known reason, asked for stat CMP, Kidney Ultrasound, Lasix. Albumin. asked for Urology specialist consult. - Alcohol abuse - continue CIWA protocol. Counselled regarding alcohol cessation. Full code. SCDs. Although patient's INR is 1.7 which is due to liver disease, this does not indicate patient is anticoagulated. However due to concern of her GI bleed, will hold off using any anticoagulation for DVT prophylaxis. Discharge Planning Continue present care patient worsening condition. Prashanth Blanchard MD Jan 27, 2018 14:07
[2018-01-27] MEDS: TAMSULOSIN HCL 0.4 MG CAP PO SCH (14:42)
[2018-01-27] MEDS: SODIUM CHLOR 0.9% 1000 ML INJ 1,000 ML IV SCH (14:45)
[2018-01-27] MEDS: CLOTRIMAZOLE 1% VAG CREAM 45 GM TUBE VAGINAL SCH (21:00)
[2018-01-27] MEDS: LORazepam 2 MG/ML VIAL IV PUSH PRN (21:55)
[2018-01-27] MEDS ORDERED: FUROSEMIDE 40 MG/4 ML VIAL IV PUSH ONE (23:15)
[2018-01-27] MEDS ORDERED: MORPHINE SULFATE 2 MG/ML INJ IV PUSH ONE (23:15)
[2018-01-28] VITALS (19 sets, daily range): BP systolic 100–124; BP diastolic 68–82; PULSE 92–119; RESP 16–47; TEMP 97.3–98.8; O2SAT 91–100
[2018-01-28] MEDS: LORazepam 2 MG/ML VIAL IV PUSH PRN ×3 (02:22→12:27)
[2018-01-28] MEDS: ALBUMIN 25% INJ 50 ML IV SCH ×2 (02:22→12:28)
[2018-01-28] MEDS: RESP: ALBUTEROL 2.5 MG/IPRATROPIUM 0.5 MG NEB (SCH) NEB ×7 (03:48→23:37)
[2018-01-28 07:05] LABS: AUTOMATED NEUTROPHIL # 9.8 TH/MM3 (1.8-7.7); BASOPHIL # 0.1 TH/MM3 (0-0.2); BASOPHIL % 0.5 % (0.0-2.0); EOSINOPHIL % 0.1 % (0.0-4.0); HEMATOCRIT 35.7 % (35.0-46.0); HEMOGLOBIN 11.5 GM/DL (11.6-15.3); LYMPH % 5.8 % (9.0-44.0); LYMPHOCYTE # 0.7 TH/MM3 (1.0-4.8); MEAN CELL VOLUME 82.3 FL (80.0-100.0); MEAN CORPUSCULAR HEMOGLOBIN 26.4 PG (27.0-34.0); MEAN PLATELET VOLUME 7.6 FL (7.0-11.0); MONOCYTE # 0.9 TH/MM3 (0-0.9); NEUT % 85.6 % (16.0-70.0); PLATELET COUNT 183 TH/MM3 (150-450); RED BLOOD COUNT 4.34 MIL/MM3 (4.00-5.30); RED CELL DISTRIBUTION WIDTH 22.9 % (11.6-17.2); WHITE BLOOD COUNT 11.4 TH/MM3 (4.0-11.0)
[2018-01-28 07:28] LABS: BICARBONATE 18.6 MEQ/L (21.0-32.0); CALCIUM 7.9 MG/DL (8.5-10.1); CREATININE 0.75 MG/DL (0.50-1.00); MAGNESIUM 1.6 MG/DL (1.5-2.5)
[2018-01-28 07:29] LABS: PHOSPHORUS 2.9 MG/DL (2.5-4.9)
[2018-01-28] MEDS: TAMSULOSIN HCL 0.4 MG CAP PO SCH ×2 (09:00→10:45)
[2018-01-28] MEDS: PANTOPRAZOLE SOD 40 MG DELAYED RELEASE TAB PO SCH ×2 (09:00→10:45)
[2018-01-28] MEDS: SODIUM CHLORIDE 0.9% FLUSH 10 ML FLUSH IV FLUSH SCH ×3 (10:45→20:34)
[2018-01-28] MEDS: guaiFENesin E.R. 600 MG TAB PO SCH (10:45)
--- NOTE | 2018-01-28 11:31 | PD.CONS ---
HPI Service Urology Consult Requested By Dr. Gaurang Bassett Reason for Consult Urinary retention Primary Care Physician No Primary Care Physician Diagnosis: (1) Alcoholic liver disease ICD Code: K70.9 - Alcoholic liver disease, unspecified (2) Pneumonia ICD Code: J18.9 - Pneumonia, unspecified organism (3) Symptomatic anemia ICD Code: D64.9 - Anemia, unspecified History of Present Illness 62-year-old female with history of alcohol abuse who was admitted with nausea, vomiting epigastric and left upper quadrant pain. Patient presented to the emergency room and was noted to be markedly hypotensive and anemic. A CT scan study of the abdomen was performed that demonstrated a small shrunken liver with fatty replacement as well as generalized ascites. Patient underwent ultrasound-guided paracentesis and a Torres catheter was placed with evacuation of only 30 cc of urine. Patient was admitted to the intensive care unit for aggressive medical management. Since being in the intensive care unit the patient has had improvement in her urine output and was given a voiding trial which was unsuccessful. A Torres catheter was replaced and a urology consult ordered. Patient has not been ambulatory since her admission. Upon further questioning, she denied any problems urinating prior to her present hospitalization. History was limited as the patient is presently on BiPAP. Review of Systems ROS Limitations: Speech Impaired Except as stated in HPI: all other systems reviewed are Neg Past Family Social History Past Medical History Alcohol abuse Asthma Rheumatoid arthritis Past Surgical History Status post sinus surgery Status post hysterectomy Status post appendectomy Status post back surgery Status post LASIK procedure left eye Reported Medications Refer to EMR Allergies: Coded Allergies: Sulfa (Sulfonamide Antibiotics) (Unverified Allergy, Intermediate, Hives, 01/22/18) clindamycin (Unverified Allergy, Intermediate, rash, 01/22/18) Active Ordered Medications Refer to EMR Family History Heart disease Diabetes mellitus Breast CA Social History Chronic alcohol use Smoker one half pack per day Denies illicit drug abuse Physical Exam Vital Signs Date Time Temp Pulse Resp B/P (MAP) Pulse Ox O2 Delivery O2 Flow Rate FiO2 01/28/18 10:00 108 33 107/77 (87) 94 01/28/18 10:00 108 01/28/18 08:10 94 40 01/28/18 08:00 97.7 102 38 100/70 (80) 91 01/28/18 08:00 102 01/28/18 06:00 103 01/28/18 04:41 93 50 01/28/18 04:00 98.5 109 28 106/74 (85) 94 01/28/18 04:00 109 01/28/18 02:00 119 01/28/18 02:00 95 50 01/28/18 00:00 98.8 118 36 111/73 (86) 92 01/28/18 00:00 118 01/27/18 22:10 92 Venturi Mask 6.00 50 01/27/18 22:00 117 01/27/18 20:49 93 Nasal Cannula 5.00 01/27/18 20:00 107 01/27/18 20:00 98.8 107 36 108/60 (76) 93 01/27/18 16:00 121 01/27/18 16:00 98.0 121 48 127/81 (96) 91 01/27/18 14:00 115 01/27/18 12:00 105 01/27/18 12:00 97.6 105 41 121/78 (92) 93 Physical Exam GENERAL: Appears stated age, not in any acute distress SKIN: No rashes, ecchymoses or lesions. Cool and dry. HEAD: Atraumatic. Normocephalic. No temporal or scalp tenderness. EYES: Pupils equal round and reactive. Extraocular motions intact. No scleral icterus. No injection or drainage. ENT: Nose without bleeding, purulent drainage or septal hematoma. NECK: Trachea midline. No JVD or lymphadenopathy. Supple, nontender, no meningeal signs. GASTROINTESTINAL: Abdomen soft, non-tender, nondistended. No hepato-splenomegaly , or palpable masses. No guarding. GENITOURINARY: Bladder not distended, indwelling Torres catheter draining clear yellow urine MUSCULOSKELETAL: Extremities without clubbing, cyanosis, or edema. No joint tenderness, effusion, or edema noted. NEUROLOGICAL: Awake and alert. Cranial nerves II through XII intact. Motor and sensory grossly within normal limits. Lab results reviewed: Yes Laboratory Tests Test 01/27/18 17:55 01/28/18 06:30 B-Type Natriuretic Peptide 105 White Blood Count 11.4 Red Blood Count 4.34 Hemoglobin 11.5 Hematocrit 35.7 Mean Corpuscular Volume 82.3 Mean Corpuscular Hemoglobin 26.4 Mean Corpuscular Hemoglobin Concent 32.0 Red Cell Distribution Width 22.9 Platelet Count 183 Mean Platelet Volume 7.6 Neutrophils (%) (Auto) 85.6 Lymphocytes (%) (Auto) 5.8 Monocytes (%) (Auto) 8.0 Eosinophils (%) (Auto) 0.1 Basophils (%) (Auto) 0.5 Neutrophils # (Auto) 9.8 Lymphocytes # (Auto) 0.7 Monocytes # (Auto) 0.9 Eosinophils # (Auto) 0.0 Basophils # (Auto) 0.1 CBC Comment DIFF FINAL Differential Comment Blood Urea Nitrogen 8 Creatinine 0.75 Random Glucose 122 Calcium Level 7.9 Phosphorus Level 2.9 Magnesium Level 1.6 Sodium Level 140 Potassium Level 3.2 Chloride Level 110 Carbon Dioxide Level 18.6 Anion Gap 11 Estimat Glomerular Filtration Rate 79 Date/Time Source Procedure Growth Status 01/22/18 14:40 Blood Peripheral Aerobic Blood Culture - Final NO GROWTH IN 5 DAYS Complete 01/22/18 14:40 Blood Peripheral Anaerobic Blood Culture - Final NO GROWTH IN 5 DAYS Complete 01/23/18 11:50 Fluid Peritoneal Fluid Gram Stain - Final Complete 01/23/18 11:50 Fluid Peritoneal Fluid Body Fluid Culture - Final NO GROWTH IN 72 HRS.--AEROBICALLY OR ... Complete Result Diagram: 01/28/18 0630 01/28/18 0630 Personally reviewed images: Yes Imaging Last Impressions Chest X-Ray 01/27/18 0700 Signed Impressions: Service Date/Time: Saturday, January 27, 2018 10:51 - CONCLUSION: 1. Increase in perihilar and basilar airspace disease since January 24 characteristic of pulmonary edema. Also development of small pleural effusions. Sina Winchester MD Renal Ultrasound 01/26/18 0000 Signed Impressions: Service Date/Time: Friday, January 26, 2018 14:43 - CONCLUSION: 1. Unremarkable renal ultrasound. Bladder decompressed by Torres. Ascites. Sina Winchester MD Cyst Biopsy Asp-Paracentesis US 01/23/18 0000 Signed Impressions: Service Date/Time: January 07:52 - CONCLUSION: Uncomplicated ultrasound guided paracentesis. Luis Lewis MD Abdomen/Pelvis CT 01/22/18 0000 Signed Impressions: Service Date/Time: Monday, January 22, 2018 15:07 - CONCLUSION: Small shrunken fatty replaced liver with extensive ascites. Prominent gallbladder.. Desmond Alvarez MD FACR Assessment and Plan Assessment and Plan Urologic impression: 1. Resolving oliguria 2. Urinary retention of likely transient nature. Recommendations: 1. Continue with Torres catheter to gravity drainage 2. Discontinue Torres catheter for voiding trial when overall medical condition improved and patient ambulating 3. Will be available as needed during present hospitalization Problem Qualifiers (1) Pneumonia: Qualified Codes: J18.1 - Lobar pneumonia, unspecified organism Tanner Mcgill MD Jan 28, 2018 11:31
--- NOTE | 2018-01-28 11:44 | HHI.GIFU ---
Subjective Remarks Pt now on bipap. Indicates abd pain has improved. (Jacqueline Bbab) Objective Vitals I&O Vital Signs Date Time Temp Pulse Resp B/P (MAP) Pulse Ox O2 Delivery O2 Flow Rate FiO2 01/28/18 10:00 108 33 107/77 (87) 94 01/28/18 10:00 108 01/28/18 08:10 94 40 01/28/18 08:00 97.7 102 38 100/70 (80) 91 01/28/18 08:00 102 01/28/18 06:00 103 01/28/18 04:41 93 50 01/28/18 04:00 98.5 109 28 106/74 (85) 94 01/28/18 04:00 109 01/28/18 02:00 119 01/28/18 02:00 95 50 01/28/18 00:00 98.8 118 36 111/73 (86) 92 01/28/18 00:00 118 01/27/18 22:10 92 Venturi Mask 6.00 50 01/27/18 22:00 117 01/27/18 20:49 93 Nasal Cannula 5.00 01/27/18 20:00 107 01/27/18 20:00 98.8 107 36 108/60 (76) 93 01/27/18 16:00 121 01/27/18 16:00 98.0 121 48 127/81 (96) 91 01/27/18 14:00 115 01/27/18 12:00 105 01/27/18 12:00 97.6 105 41 121/78 (92) 93 I/O 01/27/18 01/27/18 01/27/18 01/28/18 01/28/18 01/28/18 07:00 15:00 23:00 07:00 15:00 23:00 Intake Total 1791 ml 230 ml 454 ml Output Total 300 ml 300 ml 775 ml Balance 1491 ml -70 ml -321 ml Intake Oral 480 ml 230 ml IV Total 1311 ml 454 ml Output Urine Total 300 ml 300 ml 775 ml # Bowel Movements 0 1 0 Laboratory Laboratory Tests Test 01/27/18 17:55 01/28/18 06:30 B-Type Natriuretic Peptide 105 White Blood Count 11.4 Red Blood Count 4.34 Hemoglobin 11.5 Hematocrit 35.7 Mean Corpuscular Volume 82.3 Mean Corpuscular Hemoglobin 26.4 Mean Corpuscular Hemoglobin Concent 32.0 Red Cell Distribution Width 22.9 Platelet Count 183 Mean Platelet Volume 7.6 Neutrophils (%) (Auto) 85.6 Lymphocytes (%) (Auto) 5.8 Monocytes (%) (Auto) 8.0 Eosinophils (%) (Auto) 0.1 Basophils (%) (Auto) 0.5 Neutrophils # (Auto) 9.8 Lymphocytes # (Auto) 0.7 Monocytes # (Auto) 0.9 Eosinophils # (Auto) 0.0 Basophils # (Auto) 0.1 CBC Comment DIFF FINAL Differential Comment Blood Urea Nitrogen 8 Creatinine 0.75 Random Glucose 122 Calcium Level 7.9 Phosphorus Level 2.9 Magnesium Level 1.6 Sodium Level 140 Potassium Level 3.2 Chloride Level 110 Carbon Dioxide Level 18.6 Anion Gap 11 Estimat Glomerular Filtration Rate 79 Date/Time Source Procedure Growth Status 01/22/18 14:40 Blood Peripheral Aerobic Blood Culture - Final NO GROWTH IN 5 DAYS Complete 01/22/18 14:40 Blood Peripheral Anaerobic Blood Culture - Final NO GROWTH IN 5 DAYS Complete 01/23/18 11:50 Fluid Peritoneal Fluid Gram Stain - Final Complete 01/23/18 11:50 Fluid Peritoneal Fluid Body Fluid Culture - Final NO GROWTH IN 72 HRS.--AEROBICALLY OR ... Complete Imaging Last Impressions Chest X-Ray 01/27/18 0700 Signed Impressions: Service Date/Time: Saturday, January 27, 2018 10:51 - CONCLUSION: 1. Increase in perihilar and basilar airspace disease since January 24 characteristic of pulmonary edema. Also development of small pleural effusions. Sina Winchester MD Renal Ultrasound 01/26/18 0000 Signed Impressions: Service Date/Time: Friday, January 26, 2018 14:43 - CONCLUSION: 1. Unremarkable renal ultrasound. Bladder decompressed by Torres. Ascites. Sina Winchester MD Cyst Biopsy Asp-Paracentesis US 01/23/18 0000 Signed Impressions: Service Date/Time: January 07:52 - CONCLUSION: Uncomplicated ultrasound guided paracentesis. Luis Lewis MD Abdomen/Pelvis CT 01/22/18 0000 Signed Impressions: Service Date/Time: Monday, January 22, 2018 15:07 - CONCLUSION: Small shrunken fatty replaced liver with extensive ascites. Prominent gallbladder.. Desmond Alvarez MD FACR Physical Exam HEENT: PERRL; normocephalic; atraumatic; no jaundice. CHEST: diminished. on bipap CARDIAC: tachy ABDOMEN: semifirm, distended,nontender; no hepatosplenomegaly; bowel sounds faint EXTREMITIES: No clubbing, cyanosis, or edema. SKIN: Normal; no rash; no jaundice. HORTICULTURAL SPECIALTY GROWER: alert (Jacqueline Babb) Assessment and Plan Plan Assessment: - Transaminitis- likely secondary to ETOH, given history of 4-5 glasses of wine daily. Reports known history of elevated LFTs, has been told by PCP in the past to stop drinking. Has never had extensive liver work up. Labs currently: AST-116 ALT-32 T bili-4 Ammonia-12. DF-27 - Elevated lipase- denies history of pancreatitis. - Ascites- S/P Paracentesis with 6.6 L removed. SAAG-1.3 Peritoneal WBC-133. Pt on Levaquin. - Anemia- H/H 6.7/22.6 on admission, now S/P 4 U PRBCs currently 8.6/26.6. - NICOLASA- GFR 41 - Leukocytosis- WBC-13.2 Pt on Levaquin and Flagyl CT abdomen and pelvis W/O IV contrast (01/22) --> Small shrunken fatty replaced liver with extensive ascites. Prominent gallbladder 01/27/18 - s/p EGD found small esophageal varices, no bleeding, portal gastropathy. She is c/o abd pain, is distended and somewhat tense today. renal US 01/26 showed ascites did have paracentesis 01/23/18. cx no growth 72h, cytology benign. HH improving. liver w/u so far unremarkable 01/28/18 abd pain improved. HH mild decrease today, hgb 11.5 no obvious bleeding. pt on bipap now. liver w/u unremarkable thus far gastric antrum path benign Plan: await AMA Monitor H/H Notify GI of active bleeding no etoh Protonix Pt has been seen and examined by myself and Dr. Jones and this note is written on his behalf (Jacqueline Babb) Physician Comments Seen and examined, plan as above. Further recommendations to follow. (Chapis Jones MD) Jacqueline Babb Jan 28, 2018 11:44 Chapis Jones MD Jan 28, 2018 13:40
[2018-01-28] MEDS: cefTRIAXone INJ 2,000 MG in SODIUM CHLORIDE 0.9% INJ 100 ML IV SCH (12:28)
[2018-01-28] MEDS ORDERED: Vancomycin Consult Pharmacy 1 EA OTHER SCH (14:00)
[2018-01-28] MEDS: MAGNESIUM SULFATE 1 GM PREMIX 100 ML IV SCH ×4 (14:06→20:33)
[2018-01-28] MEDS: POTASSIUM CHLOR 20 MEQ PREMIX 100 ML IV SCH ×2 (14:06→16:03)
[2018-01-28] MEDS ORDERED: SODIUM CHLORID 0.9% 500 ML INJ 500 ML IV ONE ×2 (14:15→21:00)
--- NOTE | 2018-01-28 14:18 | HHI.PR ---
Subjective Remarks This is a pleasant 62 y/o Female with Pneumonia, Hypotension, and anemia, alcoholic liver disease, status post Paracentesis, had to be placed a kemp cath due to Urinary obstruction, developed Oliguria and was given IV fluids. 01/26; seen with nurse Miss Tadeo patient worsening her Oliguria. asked for Albumin, Lasix given IV fluids bolus given and improving condition. 01/27: Stable in her bedroom, continue with Oliguria, asked for Urology specialist evaluation. also has new Chest X ray with worsening, compromise, probable volume overload asked for BNP awaiting for result. continue IV fluids at this time. 01/28: Patient seen in her bedroom, worsening respiratory bearden, she has worsening imaging studies but her BNP was 105, has also newly diagnosed Atrial fibrillation, will get new Chest X ray, at this time on BiPAP not eating or drinking today given again IV fluid bolus, continue Normal saline at 100 ml per hour. was seen by Urology specialist recommended to continue Kemp cath. follow lactic acid, asked for youth care specialist consult and medical lab specialist consult. has Leukocytosis but improving in reference to January 26 2018, will start Cardizem Drip. switch antibiotics to Vancomycin, Levofloxacin and Cefepime. Seen during the afternoon with Doctor Sujata dhillon, the patient currently in sinus rhythm, nurse asked for client solutions specialist Evaluation and was intubated. Objective Vital Signs Date Time Temp Pulse Resp B/P (MAP) Pulse Ox O2 Delivery O2 Flow Rate FiO2 01/28/18 12:18 97 40 01/28/18 12:00 98.2 110 33 114/79 (91) 95 01/28/18 12:00 110 01/28/18 10:00 108 33 107/77 (87) 94 01/28/18 10:00 108 01/28/18 08:10 94 40 01/28/18 08:00 97.7 102 38 100/70 (80) 91 01/28/18 08:00 102 01/28/18 06:00 103 01/28/18 04:41 93 50 01/28/18 04:00 98.5 109 28 106/74 (85) 94 01/28/18 04:00 109 01/28/18 02:00 119 01/28/18 02:00 95 50 01/28/18 00:00 98.8 118 36 111/73 (86) 92 01/28/18 00:00 118 01/27/18 22:10 92 Venturi Mask 6.00 50 01/27/18 22:00 117 01/27/18 20:49 93 Nasal Cannula 5.00 01/27/18 20:00 107 01/27/18 20:00 98.8 107 36 108/60 (76) 93 01/27/18 16:00 121 01/27/18 16:00 98.0 121 48 127/81 (96) 91 I/O 01/27/18 01/27/18 01/27/18 01/28/18 01/28/18 01/28/18 06:59 14:59 22:59 06:59 14:59 22:59 Intake Total 1791 ml 230 ml 454 ml 100 ml Output Total 300 ml 300 ml 775 ml Balance 1491 ml -70 ml -321 ml 100 ml Intake Oral 480 ml 230 ml IV Total 1311 ml 454 ml 100 ml Output Urine Total 300 ml 300 ml 775 ml # Bowel Movements 0 1 0 Result Diagram: 01/28/18 0630 01/28/18 0630 Imaging Last Impressions Chest X-Ray 01/27/18 0700 Signed Impressions: Service Date/Time: Saturday, January 27, 2018 10:51 - CONCLUSION: 1. Increase in perihilar and basilar airspace disease since January 24 characteristic of pulmonary edema. Also development of small pleural effusions. Sina Winchester MD Renal Ultrasound 01/26/18 0000 Signed Impressions: Service Date/Time: Friday, January 26, 2018 14:43 - CONCLUSION: 1. Unremarkable renal ultrasound. Bladder decompressed by Kemp. Ascites. Sina Winchester MD Cyst Biopsy Asp-Paracentesis US 01/23/18 0000 Signed Impressions: Service Date/Time: January 07:52 - CONCLUSION: Uncomplicated ultrasound guided paracentesis. Luis Lewis MD Abdomen/Pelvis CT 01/22/18 0000 Signed Impressions: Service Date/Time: Monday, January 22, 2018 15:07 - CONCLUSION: Small shrunken fatty replaced liver with extensive ascites. Prominent gallbladder.. Desmond Alvarez MD FACR Procedures Paracentesis 01/23/2018. Other Results Laboratory Tests Test 01/22/18 13:50 01/23/18 11:50 01/23/18 15:13 01/24/18 12:15 Platelet Estimate NORMAL Platelet Morphology Comment NORMAL Target Cells 1+ Stomatocytes 1+ Prothrombin Time 17.1 SEC Prothromb Time International Ratio 1.7 RATIO Activated Partial Thromboplast Time 30.6 SEC Ammonia 12 MCMOL/L Lactate Dehydrogenase 189 U/L Lipase 573 U/L Body Fluid Amylase Source PERITONEAL Body Fluid Amylase 29 U/L Peritoneal Fluid WBC 133 /MM3 Peritoneal Fluid RBC 51 /MM3 Peritoneal Fluid Neutrophils 16 % Peritoneal Fluid Lymphocytes 40 % Peritoneal Fluid Monocytes 18 % Peritoneal Fluid Histiocytes 23 % Peritoneal Fluid Mesothelial Cells 3 % Peritoneal Fluid Total Protein 1.1 GM/DL Peritoneal Fluid Albumin 0.5 G/DL Peritoneal Fluid LDH 37 U/L Peritoneal Fluid Glucose 91 MG/DL Iron Level 135 MCG/DL Total Iron Binding Capacity 238 MCG/DL Percent Iron Saturation 56.7 % Ferritin 48 NG/ML Ndego-2-Jtmmzigssmn 229 mg/dL Ceruloplasmin 26 mg/dL Anti-Nuclear Antibody Screen NEG Anti-Smooth Muscle Antibody Negative Hepatitis A IgM Antibody NEGATIVE Hepatitis B Surface Antigen NEGATIVE Hepatitis B Core IgM Antibody NEGATIVE Hepatitis C Antibody NEGATIVE Lactic Acid Level 1.8 mmol/L Protein Corrected Calcium 8.6 MG/DL Test 01/24/18 17:45 01/26/18 14:09 01/27/18 17:55 01/28/18 06:30 Urine Color DARK-YELLOW Urine Turbidity HAZY Urine pH 6.0 Urine Specific [place] 1.025 Urine Protein 30 mg/dL Urine Glucose (UA) NEG mg/dL Urine Ketones NEG mg/dL Urine Occult Blood NEG Urine Nitrite NEG Urine Bilirubin SMALL Urine Urobilinogen 2.0 MG/DL Urine Leukocyte Esterase NEG Urine WBC 1 /hpf Urine Squamous Epithelial Cells 1 /hpf Urine Hyaline Casts 18 /lpf Urine Granular Casts 3 /lpf Urine Yeast (Budding) RARE Microscopic Urinalysis Comment CULT NOT INDICATED Tear Drop Cells 1+ Ovalocytes 1+ Blood Urea Nitrogen 9 MG/DL 8 MG/DL Creatinine 0.59 MG/DL 0.75 MG/DL Random Glucose 97 MG/DL 122 MG/DL Total Protein 5.4 GM/DL Albumin 1.8 GM/DL Calcium Level 7.5 MG/DL 7.9 MG/DL Phosphorus Level 2.2 MG/DL 2.9 MG/DL Magnesium Level 1.5 MG/DL 1.6 MG/DL Alkaline Phosphatase 133 U/L Aspartate Amino Transf (AST/SGOT) 92 U/L Alanine Aminotransferase (ALT/SGPT) 23 U/L Total Bilirubin 2.0 MG/DL Sodium Level 136 MEQ/L 140 MEQ/L Potassium Level 3.7 MEQ/L 3.2 MEQ/L Chloride Level 108 MEQ/L 110 MEQ/L Carbon Dioxide Level 17.6 MEQ/L 18.6 MEQ/L B-Type Natriuretic Peptide 105 PG/ML White Blood Count 11.4 TH/MM3 Red Blood Count 4.34 MIL/MM3 Hemoglobin 11.5 GM/DL Hematocrit 35.7 % Mean Corpuscular Volume 82.3 FL Mean Corpuscular Hemoglobin 26.4 PG Mean Corpuscular Hemoglobin Concent 32.0 % Red Cell Distribution Width 22.9 % Platelet Count 183 TH/MM3 Mean Platelet Volume 7.6 FL Neutrophils (%) (Auto) 85.6 % Lymphocytes (%) (Auto) 5.8 % Monocytes (%) (Auto) 8.0 % Eosinophils (%) (Auto) 0.1 % Basophils (%) (Auto) 0.5 % Neutrophils # (Auto) 9.8 TH/MM3 Lymphocytes # (Auto) 0.7 TH/MM3 Monocytes # (Auto) 0.9 TH/MM3 Eosinophils # (Auto) 0.0 TH/MM3 Basophils # (Auto) 0.1 TH/MM3 CBC Comment DIFF FINAL Differential Comment Anion Gap 11 MEQ/L Estimat Glomerular Filtration Rate 79 ML/MIN Objective Remarks GENERAL: Alert, feels somewhat weak, respiratory distress SKIN: Warm and dry. HEAD: Normocephalic. EYES: No scleral icterus. No injection or drainage. NECK: Supple, trachea midline. No JVD or lymphadenopathy. CARDIOVASCULAR: Regular rate and rhythm without murmurs, gallops, or rubs. RESPIRATORY: Decreased breath sounds bilateral, no wheezing or crackles. GASTROINTESTINAL: Abdomen soft, tenderness over left and right upper quadrant, nondistended. MUSCULOSKELETAL: No cyanosis, or edema. BACK: Nontender without obvious deformity. No CVA tenderness. Medications and IVs Current Medications Medications (Trade) Dose Ordered Sig/Ralph Route Start Time Stop Time Status Last Admin (NS Flush) 2 ml UNSCH PRN IV FLUSH 01/22/18 17:15 01/27/18 08:54 (NS Flush) 2 ml BID IV FLUSH 01/22/18 21:00 3/13/18 10:45 (Narcan Inj) 0.4 mg UNSCH PRN IV PUSH 01/22/18 17:15 Levofloxacin/ Dextrose 150 ml @ 100 mls/hr Q48H IV 01/22/18 20:00 01/26/18 20:18 Phenylephrine HCl 40 mg/Dextrose 500 ml @ 30 mls/hr TITRATE PRN IV 01/23/18 04:30 (Brethine Inj) 1 mg UNSCH PRN SQ 01/23/18 04:30 (Romazicon Inj) 0.2 mg Q1M PRN IV PUSH 01/23/18 08:15 (Ativan) 1 mg Q4H PRN PO 01/23/18 08:15 (Ativan Inj) 1 mg Q4H PRN IV PUSH 01/23/18 08:15 01/28/18 12:27 (Ativan) 2 mg Q2H PRN PO 01/23/18 08:15 01/26/18 20:17 (Ativan Inj) 2 mg Q2H PRN IV PUSH 01/23/18 08:15 01/28/18 07:53 (Ativan Inj) 2 mg Q1H PRN IV PUSH 01/23/18 08:15 (Ativan Inj) 2 mg Q15M PRN IV PUSH 01/23/18 08:15 (Tylenol) 500 mg Q6H PRN PO 01/23/18 08:30 01/26/18 18:57 (Gyne Lotrimin 7 1% Vag Cream) 1 appl HS VAGINAL 01/23/18 21:00 01/30/18 20:59 01/26/18 20:18 (Protonix) 40 mg Q12HR PO 01/23/18 21:00 01/27/18 21:44 Ceftriaxone Sodium 2000 mg/ Sodium Chloride 100 ml @ 200 mls/hr Q24H IV 01/24/18 11:45 01/28/18 12:28 Albumin Human 50 ml @ 60 mls/hr Q12H IV 01/26/18 13:30 01/28/18 12:28 (Duoneb Neb) 1 ampule Q4HR NEB NEB 01/26/18 20:00 01/28/18 08:14 (Mucinex Er) 600 mg BID PO 01/26/18 21:00 01/28/18 10:45 (Flomax) 0.4 mg DAILY PO 01/27/18 14:15 01/27/18 14:42 (Roxicodone) 5 mg Q6H PRN PO 01/27/18 15:45 01/27/18 21:45 Magnesium Sulfate/ Dextrose 100 ml @ 100 mls/hr Q1H IV 01/28/18 14:00 01/28/18 15:59 UNV Potassium Chloride 100 ml @ 50 mls/hr Q2H IV 01/28/18 14:00 01/28/18 17:59 UNV A/P Assessment and Plan (1) Alcoholic liver disease ICD Code: K70.9 - Alcoholic liver disease, unspecified (2) Pneumonia ICD Code: J18.9 - Pneumonia, unspecified organism Status: Acute (3) Symptomatic anemia ICD Code: D64.9 - Anemia, unspecified Status: Acute Ms. Marie is a 62-year-old female with a history of alcohol abuse who presented to the emergency department on 01/22/2018 due to abdominal pain and weakness. She was found to have hemoglobin 6.7. Hemoccult was positive. Patient denied any hematemesis or hematocrit initially patient was hypotensive and required fluid resuscitation. Patient was admitted to the ICU and started on Levaquin and Flagyl. -Alcoholic liver disease -Symptomatic anemia likely related to probable GI bleed -Patient received 4 units of PRBCs. GI consulted. EGD completed on 2017. EGD shows columns of esophageal pheresis but no active bleeding. -Continue Protonix 40 mg p.o. twice daily. -INR 1.7 platelet indicates liver disease. status post Paracentesis last hemoglobin 11.5 -Bilateral pneumonia on Levaquin, bronchodilator, Mucolytic and incentive spirometry. worsening imaging studies may be related to worsening pneumonia BNP 105 continued IV fluids given 1000 ml of normal saline. youth care specialist consult -Respiratory insufficiency status post Intubation by client solutions specialist. -Hypotension stable but had the need to continue IV fluids bolus. today will place on hold IV fluids due to -Chest x-ray was suggestive of possible pneumonia. -Patient is status post paracentesis. Peritoneal fluid analysis does not indicate SBP. -Patient has been receiving Levaquin IV. However due to concern over pneumonia and hypotension, switch antibiotics to Cefepime, Vancomycin Levaquin. -urinary retention status post Kemp Cath placement Urology specialist agree with Kemp cath and Flomax. -Oliguria status post Renal Ultrasound no pathology found, increased IV fluids and following. - Alcohol abuse - continue CIWA protocol. Counselled regarding alcohol cessation. Full code. SCDs. Although patient's INR is 1.7 which is due to liver disease, this does not indicate patient is anticoagulated. However due to concern of her GI bleed, will hold off using any anticoagulation for DVT prophylaxis. Discharge Planning Transferred to client solutions specialist Prashanth Blanchard MD Jan 28, 2018 14:18
[2018-01-28] MEDS ORDERED: VANCOMYCIN INJ 1,250 MG in SODIUM CHLOR 0.9% 250 ML INJ 250 ML IV ONE (15:00)
--- NOTE | 2018-01-28 15:11 | RADRPT ---
EXAM DATE/TIME: 01/28/2018 14:20 [place] COMPARISON: January 24, 2018 INDICATIONS : <<Pneumonia.>> MEDICAL HISTORY : Pancreatitis. ascites SURGICAL HISTORY : Hysterectomy. Appendectomy. ENCOUNTER: Initial ACUITY: 4 - 6 days PAIN SCORE: Non-responsive. LOCATION: Bilateral chest FINDINGS: A single view of the chest demonstrates bilateral mostly basilar airspace disease with pleural effusi ons. No pneumothorax. CONCLUSION: 1. Increasing basilar airspace disease and pleural effusion since January 24. Sina Winchester MD on January 28, 2018 at 14:49 Board Certified Radiologist. This report was verified electronically.
[2018-01-28] MEDS: CEFEPIME INJ 1,000 MG in SODIUM CHLORIDE 0.9% INJ 100 ML IV SCH ×2 (15:51→20:35)
[2018-01-28] MEDS: SODIUM CHLOR 0.9% 1000 ML INJ 1,000 ML IV SCH (15:51)
[2018-01-28] MEDS ORDERED: DILTIAZEM 125 MG/NS 100 ML IV PRN ×2 (16:00)
[2018-01-28] MEDS: VANCOMYCIN INJ 1,250 MG in SODIUM CHLOR 0.9% 250 ML INJ 250 ML IV SCH (16:00)
[2018-01-28] MEDS ORDERED: ROCURONIUM INJ 50 MG/5 ML VIAL ONE (16:09)
[2018-01-28] MEDS ORDERED: PROPOFOL 500 MG/50 ML INJ 50 ML ONE (16:13)
[2018-01-28] MEDS ORDERED: TERBUTALINE INJ 1 MG/ML AMP SQ PRN (16:15)
[2018-01-28] MEDS ORDERED: SODIUM CHLOR 0.9% 1000 ML INJ 1,000 ML IV ONE (16:15)
[2018-01-28] MEDS ORDERED: MIDAZOLAM 100 MG/100 ML INJ 100 ML IV PRN (16:15)
[2018-01-28] MEDS ORDERED: ROCURONIUM INJ 50 MG/5 ML VIAL IV ONE ×2 (16:15→18:30)
[2018-01-28] MEDS ORDERED: ETOMIDATE 40 MG/20 ML VIAL IV PUSH ONE (16:15)
[2018-01-28] MEDS ORDERED: SODIUM CHLORIDE 0.9% FLUSH 10 ML FLUSH IV FLUSH PRN (17:00)
--- NOTE | 2018-01-28 17:07 | PD.PROCEDR ---
Central Line Procedure REASON FOR PROCEDURE Central venous access PROCEDURE PERFORMED Central line placement: Left IJ CVL CONSENT Informed consent for procedure was not obtaining consent emergently due to lack of peripheral IV access in a intubated critically ill patient. The risks and benefits of the procedure were discussed to include but limited to bleeding, clot formation, infection, and even . ANESTHESIA Local injection of 1% Lidocaine DESCRIPTION OF THE PROCEDURE The patient was placed in supine, mild Trendelenburg position. The area was exposed and cleansed with ChloraPrep, times two. Large sterile drape was used to cover the patient, with the site exposed, under sterile conditions including cap, face mask, sterile gown, and sterile gloves. On single attempt, the introducer needle was inserted with negative pressure in syringe and venous flash was obtained. The guide wire was then advanced without any restriction and the needle was removed. The dilator was used without any complications. Using Seldinger technique the antibiotic coated triple lumen catheter was advanced over the guide wire to a depth of 20 centimeters. The guide wire was removed. All ports were aspirated with dark venous blood return and flushed easily with sterile saline. All ports were capped. Antibiotic disc was placed around central line at puncture site. The central line was secured to the skin with two interrupted 2.0 silk sutures. The area was bandaged with sterile see- through central line bandage. RADIOLOGICAL DATA Ultrasound guidance was used to locate left internal jugular vein. Doppler/ color flow was used to confirm venous flow. COMPLICATIONS: No apparent complications ESTIMATED BLOOD LOSS: Less than 1 cc. Garland Gregorio MD Jan 28, 2018 17:07
--- NOTE | 2018-01-28 17:08 | PD.PROCEDR ---
Procedure Note Procedure DATE: 01/28/2018 PROCEDURE: Orotracheal intubation INDICATION: Acute hypercapnic and hypoxic respiratory failure DETAILS OF PROCEDURE The patient was placed in optimal position and preoxygenated with 100% FiO2 via bag valve mask. At the start oxygen saturation was 100 %. The patient was administered 20 mg etomidate IV and 50 mg rocuronium IV. I entered the oropharynx with a size 4 GVL glidescope blade and obtained a grade 2 view of the airway. On single attempt a size 8.0 cuffed endotracheal tube was passed through the vocal cords. Correct tube location was confirmed with end tidal CO2 detector and by auscultating over bilateral lung arredondo. The endotracheal tube was secured with adhesive tape at a depth of 23 cm at the lips. The patient was connected to the ventilator. The patient tolerated the procedure well without any apparent complications. Oxygen saturations were maintained greater than 95% all times. STAT chest x-ray pending at time of dictation. Garland Gregorio MD Jan 28, 2018 17:08
[2018-01-28] MEDS ORDERED: ACETAMINOPHEN 650 MG/20.3 ML UDC OG-TUBE PRN (17:15)
[2018-01-28] MEDS ORDERED: GLUCAGON 1 MG/ML VIAL OTHER PRN (17:15)
[2018-01-28] MEDS ORDERED: RESP: ALBUTEROL 2.5 MG/3 ML NEB (PRN) NEB (17:15)
[2018-01-28] MEDS ORDERED: DEXTROSE 50% IN WATER 50 ML VIAL(D50) IV PUSH PRN (17:15)
--- NOTE | 2018-01-28 17:15 | PD.CONS ---
[facility] Service Critical Care Medicine Consult Requested By Dr. Merlos Reason for Consult Acute hypoxic hypercapnic respiratory failure Primary Care Physician No Primary Care Physician History of Present Illness This is a 62-year-old female. Date of admission 01/22/2018.. Date of consultation 01/28/2018. Past medical history includes EtOH, tobacco abuse, asthma and rheumatoid arthritis?. Patient presents to [facility] with a history of abdominal pain. Prior to admission diabetes and states placement on nonnarcotic pain medication antibiotics unknown type. Patient was admitted with gross abdominal ascites, likely community acquired pneumonia and GI bleeding. She was hypotensive and anemic. Patient is placed on broad-spectrum antibiotics including ceftriaxone and Levaquin. She was seen in consultation by gastroneurology performed an EGD of which revealed 2 columns of esophageal varices without active bleeding. Portal hypertension/gastropathy. Patient was placed on pantoprazole 40 mg IV twice daily. Patient seen by urology for urinary retention. Recommended placement of Torres catheter. Patient has had decreased urine output over the past 48 hours and has been in A. fib with RVR. Magnesium potassium both her lobes are currently BX sacrectomy currently notes sinus tachycardia. Patient was placed on BiPAP 12/5 at 40% with rates respirations in the 40s. Decision made to early intubated for impending respiratory failure with coarse crackles present bilaterally. Post intubation, large right pleural effusion and clopidogrel in place. Attempted to contact Birgit Santiago [phone] Sister with primary contact information. Voicemail that set up. Did not answer phone. Review of Systems ROS Limitations: Intubated Past Family Social History Allergies: Coded Allergies: Sulfa (Sulfonamide Antibiotics) (Unverified Allergy, Intermediate, Hives, 01/22/18) clindamycin (Unverified Allergy, Intermediate, rash, 01/22/18) Past Medical History 6 glasses of wine daily Ongoing tobaccoism Abdominal ascites Asthma Rheumatoid arthritis Past Surgical History Left eye Lasik Appendectomy Hysterectomy Left foot/toe/leg Laminectomy Left maxillary sinus surgery Reported Medications None Active Ordered Medications Reviewed in EMR Family History Father with heart disease and diabetes. Mother with breast cancer. Siblings with diabetes. Social History One half pack per day tobacco. 1-6 glasses of wine daily documented. No documentation of illicit drug use. Physical Exam Vital Signs Vital Signs Date Time Temp Pulse Resp B/P (MAP) Pulse Ox O2 Delivery O2 Flow Rate FiO2 01/28/18 14:00 111 01/28/18 12:18 97 40 01/28/18 12:00 98.2 110 33 114/79 (91) 95 01/28/18 12:00 110 01/28/18 10:00 108 33 107/77 (87) 94 01/28/18 10:00 108 01/28/18 08:10 94 40 01/28/18 08:00 97.7 102 38 100/70 (80) 91 01/28/18 08:00 102 01/28/18 06:00 103 01/28/18 04:41 93 50 01/28/18 04:00 98.5 109 28 106/74 (85) 94 01/28/18 04:00 109 01/28/18 02:00 119 01/28/18 02:00 95 50 01/28/18 00:00 98.8 118 36 111/73 (86) 92 01/28/18 00:00 118 01/27/18 22:10 92 Venturi Mask 6.00 50 01/27/18 22:00 117 01/27/18 20:49 93 Nasal Cannula 5.00 01/27/18 20:00 107 01/27/18 20:00 98.8 107 36 108/60 (76) 93 Physical Exam GENERAL: 62-year-old female currently orotracheally intubated SKIN: Warm and dry. No rash HEAD: Atraumatic. Normocephalic. EYES: Pupils equal and round. No scleral icterus. No injection or drainage. ENT: No nasal bleeding or discharge. Mucous membranes pink and moist. NECK: Trachea midline. No JVD. CARDIOVASCULAR: Tachycardic, RR. S1, S2 no S4. Without murmurs RESPIRATORY: Coarse crackles appreciated throughout lung arredondo right greater than left. No wheezing. Positive accessory muscle use prior to intubation GASTROINTESTINAL: Abdomen grossly distended, tender to palpation epigastric/ right upper quadrant. Unable to palpate hepatic or splenic margins due to gross distention MUSCULOSKELETAL: Extremities trace lower extremity edema. No obvious deformities. NEUROLOGICAL: Cranial nerves II through XII appear grossly intact prior to intubation. Moves all 4 extremities. Both 1-2 word sentences. Laboratory Laboratory Tests Test 01/27/18 17:55 01/28/18 06:30 01/28/18 15:53 B-Type Natriuretic Peptide 105 White Blood Count 11.4 Red Blood Count 4.34 Hemoglobin 11.5 Hematocrit 35.7 Mean Corpuscular Volume 82.3 Mean Corpuscular Hemoglobin 26.4 Mean Corpuscular Hemoglobin Concent 32.0 Red Cell Distribution Width 22.9 Platelet Count 183 Mean Platelet Volume 7.6 Neutrophils (%) (Auto) 85.6 Lymphocytes (%) (Auto) 5.8 Monocytes (%) (Auto) 8.0 Eosinophils (%) (Auto) 0.1 Basophils (%) (Auto) 0.5 Neutrophils # (Auto) 9.8 Lymphocytes # (Auto) 0.7 Monocytes # (Auto) 0.9 Eosinophils # (Auto) 0.0 Basophils # (Auto) 0.1 CBC Comment DIFF FINAL Differential Comment Blood Urea Nitrogen 8 Creatinine 0.75 Random Glucose 122 Calcium Level 7.9 Phosphorus Level 2.9 Magnesium Level 1.6 Sodium Level 140 Potassium Level 3.2 Chloride Level 110 Carbon Dioxide Level 18.6 Anion Gap 11 Estimat Glomerular Filtration Rate 79 Blood Gas Puncture Site RT BRACHIAL Blood Gas Patient Temperature 98.6 Blood Gas HCO3 16 Blood Gas Base Excess -6.9 Blood Gas Oxygen Saturation 89 Arterial Blood pH 7.44 Arterial Blood Partial Pressure CO2 24 Arterial Blood Partial Pressure O2 62 Arterial Blood Oxygen Content 14.4 Arterial Blood Carboxyhemoglobin 1.2 Arterial Blood Methemoglobin 1.1 Blood Gas Hemoglobin 11.5 Oxygen Delivery Device BIPAP Blood Gas Ventilator Setting EPAP 5/IPAP 12 Blood Gas Inspired Oxygen 40 Date/Time Source Procedure Growth Status 01/22/18 14:40 Blood Peripheral Aerobic Blood Culture - Final NO GROWTH IN 5 DAYS Complete 01/22/18 14:40 Blood Peripheral Anaerobic Blood Culture - Final NO GROWTH IN 5 DAYS Complete 01/23/18 11:50 Fluid Peritoneal Fluid Gram Stain - Final Complete 01/23/18 11:50 Fluid Peritoneal Fluid Body Fluid Culture - Final NO GROWTH IN 72 HRS.--AEROBICALLY OR ... Complete 01/28/18 14:47 Urine Clean Catch Streptococcus pneumoniae Antigen (M Pending Received Result Diagram: 01/28/1830 01/28/1830 Imaging Last Impressions Chest X-Ray 01/28/18 0000 Signed Impressions: Service Date/Time: Sunday, January 28, 2018 14:20 - CONCLUSION: 1. Increasing basilar airspace disease and pleural effusion since January 24. Sina Winchester MD Renal Ultrasound 01/26/18 0000 Signed Impressions: Service Date/Time: Friday, January 26, 2018 14:43 - CONCLUSION: 1. Unremarkable renal ultrasound. Bladder decompressed by Torres. Ascites. Sina Winchester MD Cyst Biopsy Asp-Paracentesis US 01/23/18 0000 Signed Impressions: Service Date/Time: January 07:52 - CONCLUSION: Uncomplicated ultrasound guided paracentesis. Luis Lewis MD Abdomen/Pelvis CT 01/22/18 0000 Signed Impressions: Service Date/Time: Monday, January 22, 2018 15:07 - CONCLUSION: Small shrunken fatty replaced liver with extensive ascites. Prominent gallbladder.. Desmond Alvarez MD FACR Septic Shock Reassessment Septic shock perfusion: reassessment completed Assessment and Plan Assessment and Plan Neuro/Psych: EtOH Patient placed on propofol/fentanyl drips for sedation/analgesia while intubated Goal RASS -2 Daily sedation vacation Thiamine, multivitamin folate daily Acetaminophen 650 mg by tube every 6 hours as needed fever CV: A. fib with RVR currently normal sinus rhythm Seen in consultation by Dr. Glass -cardiology 2D echocardiogram pending We will place on low-dose beta-angely metoprolol tartrate 25 mg twice daily Resp: Acute hypercapnic Hypoxic respiratory failure Bilateral pleural effusions Community acquired pneumonia PRVC 16/450/1/5/100 Ventilator bundle Albuterol/ipratropium aerosols every 4 hours with albuterol aerosols every 2 hours as needed dyspnea Budesonide 0.5/2 1 inhalation twice daily Likely will need chest tube right-sided secondary to large pleural effusion GI: Esophageal varices Portal gastropathy Elevated transaminases Pancreatitis Hypoalbuminemia CT abdomen/pelvis revealed shrunken liver, gross abdominal ascites. Status post paracentesis through 6.6 L and 01/23. White blood cell count 133. We will need paracentesis urgently now. Recheck transaminases and ammonia level ogt TO liws Lansoprazole 30 mg twice daily Docusate sodium/senna/1 tablet twice daily for bowel regimen Hepatitis panel negative. OMI, ASMA negative. Elevated alpha-1 antitrypsin. Negative ceruloplasmin : Urinary retention Evaluated by urology. Maintain Torres catheter Continue tamsulosin 0.4 mg by tube daily if able Endo: Sliding scale insulin with Accu-Cheks every 4 hours to maintain euglycemia with Novulin R Renal: Creatinine currently within normal limits Monitor urine output Accurate I's and O's Heme: Leukocytosis Normocytic anemia Elevated INR Monitor CBC daily. Follow trends. Follow coags pending ID: Severe sepsis Currently on vancomycin, cefepime and metronidazole Pertinent cultures 01/28 -urine Legionella pneumococcal antigen pending 01/23 -peritoneal fluid -no growth 01/22 -blood cultures 2 -no growth FEN: Hypokalemia Hypo-magnesium Replace electrolytes as clinically indicated per ICU electrolyte protocol MSK: PT evaluate and treat Access -Left IJ CVL day #1 placed 01/28 Prophylaxis -GI -pantoprazole -DVT -SCD/holding pharmacological prophylaxis in light of elevated INR/upper GI bleed Critical Care: The total critical care time was 35 minutes. Time to perform other separately billable procedures was not included in the critical care time. Code Status Full code Discussed Condition With Patient. Care plan discussed and all questions answered. Garland Gregorio MD Jan 28, 2018 17:15
[2018-01-28] MEDS ORDERED: THIAMINE INJ 100 MG in SODIUM CHLORIDE 0.9% INJ 100 ML IV ONE (17:30)
--- NOTE | 2018-01-28 17:37 | MB ---
cc: Maal Medeiros MD DATE OF CONSULT: REASON FOR CONSULTATION: Respiratory failure. HISTORY OF PRESENT ILLNESS: Ms. Marie is a 62-year-old female who was admitted with hypotension, sepsis and GI bleed. The patient drinks alcohol excessively, had acute pancreatitis upon presentation, felt to be in alcohol withdrawal with worsening respiratory distress. The patient is in the process of intubation to initiate mechanical ventilation as I am walking into her room. PAST MEDICAL HISTORY: That of rheumatoid arthritis, bronchial asthma, previous sinus surgery, back surgery, previous appendectomy, hysterectomy and Lasik left eye surgery. SOCIAL HISTORY: The patient smokes half to 1 pack of cigarettes a day and drinks 6 glasses of wine a day. Does not use drugs. No TB. No industrial exposure. FAMILY HISTORY: Noncontributory. SYSTEM REVIEW: A 12-point review of systems as per HPI and past history, otherwise negative. PHYSICAL EXAMINATION: GENERAL: Sedated for intubation at present. VITAL SIGNS: Temperature 98, pulse 90, respiration 18, blood pressure 114/80. HEENT: Unremarkable, Eyes without icterus. NECK: Without adenopathy or thyroid enlargement. CHEST: Few scattered rhonchi bilaterally. CARDIAC: PMI not appreciated. S1, S2 audible. No murmur, no rub. ABDOMEN: Lax, normal bowel sounds. EXTREMITIES: No clubbing, cyanosis or edema. LABORATORY DATA: White count 11,000, hemoglobin 11, hematocrit 35, platelets 183,000. Sodium 140, potassium 3.2, BUN 8, creatinine 0.7. ABG, pH 7.44, PCO2 of 24, PO2 of 62 on 40% inspired oxygen fraction. RADIOLOGIC DATA: Chest x-ray with bibasilar atelectasis, pneumonia, effusions. IMPRESSION: 1. Respiratory failure. 2. Sepsis. 3. Gastrointestinal bleed. 4. Alcohol withdrawal. PLAN: The patient will be intubated and mechanically ventilated. Arterial blood gases to be followed and the weaning process initiated when possible. Therapy for alcohol withdrawal will be undertaken as well as therapy for the patient's underlying sepsis. Will follow her course along with you and depending on progress, proceed further. I do thank you for asking me to partake in Ms. Marie' care. Mala Medeiros MD WWW/TRU , 04:42 PM , 05:36 PM
--- NOTE | 2018-01-28 17:39 | RADRPT ---
EXAM DATE/TIME: 01/28/2018 17:15 [facility] COMPARISON: CHEST SINGLE AP, January 28, 2018, 14:20. INDICATIONS : Short of breath. Central line placement. MEDICAL HISTORY : Pancreatitis. ascites SURGICAL HISTORY : Hysterectomy. Appendectomy ENCOUNTER: Subsequent ACUITY: 1 week PAIN SCORE: 0/10 LOCATION: Bilateral chest FINDINGS: The heart is mildly enlarged. There are bilateral effusions. Endotracheal tube and left jugular centr al line are in satisfactory position. There is diffuse infiltrate throughout the right lung. There is consolidation at the left lung base. CONCLUSION: 1. Support equipment satisfactory position. 2. Bilateral effusions. 3. Diffuse infiltrate throughout the right lung. 4. Consolidation in the left lower lobe. Omar Alvarez MD on January 28, 2018 at 17:36 Board Certified Radiologist. This report was verified electronically.
[2018-01-28 17:42] LABS: INTERNATIONAL NORMALIZED RATIO 1.7 RATIO; PROTHROMBIN TIME - PATIENT 17.5 SEC (9.8-11.6)
[2018-01-28] MEDS ORDERED: POTASSIUM PHOSPHATE INJ 30 MMOL in SODIUM CHLOR 0.9% 250 ML INJ 250 ML IV PRN (17:44)
[2018-01-28] MEDS ORDERED: POTASSIUM PHOSPHATE MONOBASIC 500 MG TAB PO/TUBE PRN (17:44)
[2018-01-28] MEDS ORDERED: POTASSIUM PHOSPHATE MONOBASIC 500 MG TAB PO PRN (17:45)
[2018-01-28] MEDS ORDERED: POTASSIUM CHLOR 20 MEQ PREMIX 100 ML IV PRN (17:45)
[2018-01-28] MEDS ORDERED: SODIUM PHOSPHATE INJ 30 MMOL in SODIUM CHLOR 0.9% 250 ML INJ 240 ML IV PRN (17:45)
[2018-01-28] MEDS ORDERED: MAGNESIUM SULFATE INJ 4 GM in SODIUM CHLORIDE 0.9% INJ 92 ML IV PRN (17:45)
[2018-01-28] MEDS ORDERED: MAGNESIUM OXIDE 400 MG TAB PO PRN (17:45)
[2018-01-28] MEDS ORDERED: MAGNESIUM SULFATE INJ 2 GM in SODIUM CHLORIDE 0.9% INJ 96 ML IV PRN (17:45)
[2018-01-28] MEDS ORDERED: POTASSIUM CHLOR 40 MEQ PREMIX 100 ML IV PRN ×2 (17:45)
[2018-01-28] MEDS ORDERED: POTASSIUM CHLORIDE 25 MEQ EFFERVESCENT TAB PO PRN (17:45)
[2018-01-28] MEDS ORDERED: ALBUMIN 5% INJ 250 ML IV ONE (18:18)
[2018-01-28 19:00] LABS: AMORPHOUS SEDIMENT, URINE RARE; BILIRUBIN, URINE NEG (NEG); BLOOD, URINE MOD (NEG); GLUCOSE,URINE NEG (NEG); HYALINE CAST, URINE 15 /lpf (RARE); KETONE, URINE NEG (NEG); MUCUS URINE FEW /lpf (OCC); NITRITE,URINE NEG (NEG); SQUAMOUS EPITHELIAL CELL URINE 1 /hpf (0-5); URINE COLOR YELLOW (YELLW/STRAW); URINE LEUKOCYTE ESTERASE LARGE (NEG)
--- NOTE | 2018-01-28 19:11 | PD.PROCEDR ---
Procedure Note Procedure Date of procedure: 01/28/2018 Procedure: Left lower quadrant paracentesis, ultrasound-guided Indication: Abdominal ascites Operators: Garland Gregorio M.D. Details of procedure: Informed consent was obtained from patient prior to intubation. The patient was laid supine. Ascites was localized with ultrasound device. The left lower quadrant was cleaned with ChloraPrep twice. Regional sterile drapes were applied. Other barrier precautions included sterile gloves and face mask. 1% lidocaine was used for local anesthesia. A skin incision was made with a scalpel blade. Arrow-Dutta Pleura-Seal Thoracentesis Kit was used. An 8 Fr Catheter over 18 gauge introducer needle was inserted into the peritoneal space with return of clear yellow fluid. The needle was removed. Approximately 6000 mL of fluid was removed and sent for analysis and cultures. The catheter was removed and hemostasis was achieved by direct pressure. The site was cleansed with an alcohol swab and a Band-Aid was applied. Estimated blood loss: 2 cc Complications: None immediately apparent. Garland Gregorio MD Jan 28, 2018 19:11
--- NOTE | 2018-01-28 19:46 | PD.PROCEDR ---
Procedure Note Procedure DATE: 01/28/2018 PROCEDURE: Right femoral arterial catheter placement INDICATION: Hemodynamic access DETAILS OF PROCEDURE The patient was placed in supine position. The skin was cleansed with Chloraprep. Additional barrier precautions included large sterile drape, sterile gloves, sterile gown, face mask, and hat. 1% lidocaine was used for local anesthesia. Under direct ultrasound guidance and on the initial attempt, the artery was accessed with an introducer needle. The guide wire was advanced. Using Seldinger technique 20 gauge arterial catheter was placed. The guide wire was removed. The catheter was connected to a transducer line and flushed with saline. The video monitor displayed normal arterial wave forms. The catheter was secured with 2-0 silk. A sterile dressing with antibiotic disc was applied. ESTIMATED BLOOD LOSS: minimal COMPLICATIONS: None Garland Gregorio MD Jan 28, 2018 19:46
[2018-01-28] MEDS ORDERED: POTASSIUM CHLOR 20 MEQ PREMIX 100 ML IV ONE (20:00)
[2018-01-28] MEDS ORDERED: SODIUM BICARBONATE 8.4% INJ 50 MEQ/50 ML SYR IV PUSH ONE (20:00)
[2018-01-28] MEDS: INSULIN NovoLIN REGULAR SUPPLEMENTAL SCALE SQ SCH (20:00)
[2018-01-28] MEDS: CHLORHEXIDINE 0.12% (ORAL KIT) 15 ML CUP MT SCH (20:00)
--- NOTE | 2018-01-28 20:10 | PD.PROCEDR ---
Procedure Note Procedure DATE: 01/28/2018 Fiberoptic bronchoscopy diagnostic and therapeutic with bronchoalveolar lavage INDICATION: Acute hypoxemic respiratory failure CONSENT Informed consent for procedure was not obtaining considered emergent due to high FiO2 requirements DESCRIPTION OF THE PROCEDURE The patient was placed in supine position. Patient is on AC mode ventilation 18/500/5/100. On fentanyl drip at 250 mcg an hour, propofol drip at 25 mcg/kg/ min. Patient received 50 mg rocuronium IV. I entered the 8.0 ET tube with flexible bronchoscopy. The clemente was sharp. The bronchoscope was advanced into the left lower lobe or an alveolar lavage patient was taken in suction colectomy Lukens trap and was sent off to microbiology. The left upper lobe was evaluated without mucus. Mucosa was normal. Suction trauma was noted with suctioning from left lower lobe was lavaged again until cessation of bleeding. Scope was retracted to the clinic in the right upper, middle lobes were evaluated. No significant mucus is identified. The mucosa was normal. No lesions were identified. The scope was withdrawn and the procedure stopped ESTIMATED BLOOD LOSS: Minimal COMPLICATIONS: No apparent complications. STAT chest x-ray pending at time of dictation Garland Gregorio MD Jan 28, 2018 20:10
[2018-01-28] MEDS: RESP: BUDESONIDE 0.5 MG/2 ML NEB NEB SCH (20:24)
[2018-01-28] MEDS: methylPREDNISolone SOD SUCC 40 MG/1 ML VIAL IV PUSH SCH (20:34)
[2018-01-28] MEDS: LANSOPRAZOLE SOLUTAB 30 MG TAB NG SCH (20:35)
[2018-01-28] MEDS: CLOTRIMAZOLE 1% VAG CREAM 45 GM TUBE VAGINAL SCH (20:35)
[2018-01-28] MEDS: ARTIFICIAL TEARS OPTH SOLN 15 ML BTL EACH EYE SCH (20:35)
[2018-01-28] MEDS: PROPOFOL 1000 MG/100 ML INJ 100 ML IV PRN (20:37)
--- NOTE | 2018-01-28 20:49 | RADRPT ---
EXAM DATE/TIME: 01/28/2018 20:14 [facility] COMPARISON: CHEST SINGLE AP, January 28, 2018, 17:15. INDICATIONS : Post bronchoscopy. MEDICAL HISTORY : Pancreatitis. ascites SURGICAL HISTORY : Hysterectomy. Appendectomy ENCOUNTER: Subsequent ACUITY: 1 week PAIN SCORE: Non-responsive. LOCATION: Bilateral chest FINDINGS: Diffuse right and mostly perihilar left parenchymal consolidation again noted and both sides are slig htly improved in the interim. Small, bilateral pleural effusions are likely. I don't see a pneumothor ax. Heart size stable, within normal limits. Endotracheal tube tip is approximately 3 cm above the clemente. There is a nasogastric tube with tip ju st below the GE junction. Left internal jugular central venous catheters present with tip in the supe rior vena cava. CONCLUSION: Slightly improved parenchymal consolidation. No pneumothorax. Austen Mora MD on January 28, 2018 at 20:46 Board Certified Radiologist. This report was verified electronically.
[2018-01-28] MEDS ORDERED: ALBUMIN 5% INJ 500 ML IV ONE (21:00)
[2018-01-28 23:54] LABS: MITOCHONDRIAL ABS LESS THAN 20.0 U (<=20.0)
[2018-01-29] VITALS (18 sets, daily range): BP systolic 86–121; BP diastolic 50–70; PULSE 71–88; RESP 16–17; TEMP 96.5–97.9; O2SAT 94–100
[2018-01-29 00:19] LABS: TOTAL PROTEIN,PERITONEAL FLUID 1.2 GM/DL
[2018-01-29 00:51] LABS: PERITONEAL RBC 348 /MM3 (0-0)
[2018-01-29 01:57] LABS: PERITONEAL BASO 1 %; PERITONEAL HISTIOCYTES 12 %; PERITONEAL LYMPHS 53 %; PERITONEAL MESOTHELIAL 5 %; PERITONEAL MONOS 6 %; PERITONEAL POLYS(SEGS) 23 %
[2018-01-29] MEDS: VANCOMYCIN INJ 1,250 MG in SODIUM CHLOR 0.9% 250 ML INJ 250 ML IV SCH ×2 (02:25→15:06)
[2018-01-29] MEDS: fentaNYL DRIP 250 ML IV PRN ×2 (02:25→18:36)
[2018-01-29] MEDS: NOREPINEPHRINE INJ 4 MG in SODIUM CHLOR 0.9% 250 ML INJ 246 ML IV PRN ×2 (02:26→19:03)
[2018-01-29] MEDS: SODIUM CHLOR 0.9% 1000 ML INJ 1,000 ML IV SCH ×2 (02:27→18:36)
[2018-01-29] MEDS: RESP: ALBUTEROL 2.5 MG/IPRATROPIUM 0.5 MG NEB (SCH) NEB ×5 (03:28→19:52)
[2018-01-29] MEDS: INSULIN NovoLIN REGULAR SUPPLEMENTAL SCALE SQ SCH ×6 (04:00→20:00)
[2018-01-29 05:14] LABS: AUTOMATED NEUTROPHIL # 12.3 TH/MM3 (1.8-7.7); BASOPHIL % 0.2 % (0.0-2.0); HEMATOCRIT 32.6 % (35.0-46.0); HEMOGLOBIN 10.5 GM/DL (11.6-15.3); LYMPH % 3.2 % (9.0-44.0); LYMPHOCYTE # 0.4 TH/MM3 (1.0-4.8); MEAN CORPUSCULAR HEMOGLOBIN 26.3 PG (27.0-34.0); MEAN CORPUSCULAR HGB CONC 32.1 % (32.0-36.0); MEAN PLATELET VOLUME 7.3 FL (7.0-11.0); MONO % 2.1 % (0.0-8.0); MONOCYTE # 0.3 TH/MM3 (0-0.9); NEUT % 94.5 % (16.0-70.0); PLATELET COUNT 193 TH/MM3 (150-450); RED BLOOD COUNT 3.97 MIL/MM3 (4.00-5.30); RED CELL DISTRIBUTION WIDTH 22.9 % (11.6-17.2)
[2018-01-29] MEDS: ARTIFICIAL TEARS OPTH SOLN 15 ML BTL EACH EYE SCH ×3 (05:51→22:20)
[2018-01-29] MEDS: CEFEPIME INJ 1,000 MG in SODIUM CHLORIDE 0.9% INJ 100 ML IV SCH (05:52)
[2018-01-29] MEDS: TAMSULOSIN HCL 0.4 MG CAP PO SCH (07:57)
[2018-01-29] MEDS: LACTULOSE SYRUP 20 GM/30 ML CUP PO SCH ×4 (08:20→22:20)
[2018-01-29] MEDS: FOLIC ACID 1 MG TAB PO SCH (08:20)
[2018-01-29] MEDS: MULTIVITAMIN TAB PO SCH (08:20)
[2018-01-29] MEDS: LANSOPRAZOLE SOLUTAB 30 MG TAB NG SCH ×2 (08:20→22:20)
[2018-01-29] MEDS: methylPREDNISolone SOD SUCC 40 MG/1 ML VIAL IV PUSH SCH ×2 (08:21→22:20)
[2018-01-29] MEDS: SODIUM CHLORIDE 0.9% FLUSH 10 ML FLUSH IV FLUSH SCH ×3 (08:21→22:21)
[2018-01-29] MEDS: CHLORHEXIDINE 0.12% (ORAL KIT) 15 ML CUP MT SCH ×2 (08:22→22:19)
[2018-01-29 08:45] LABS: ALBUMIN 2.6 GM/DL (3.4-5.0); ALKALINE PHOSPHATASE 72 U/L (45-117); ALT (GPT) 12 U/L (10-53); AST (GOT) 49 U/L (15-37); BICARBONATE 18.6 MEQ/L (21.0-32.0); BLOOD UREA NITROGEN 6 MG/DL (7-18); CALCIUM 7.6 MG/DL (8.5-10.1); CHLORIDE 115 MEQ/L (98-107); GLOMERULAR FILTRATION RATE 162 ML/MIN (>89); GLUCOSE,RANDOM 156 MG/DL (74-106); MAGNESIUM 1.9 MG/DL (1.5-2.5); PHOSPHORUS 2.2 MG/DL (2.5-4.9); SODIUM (NA) 143 MEQ/L (136-145); TOTAL BILIRUBIN ADULT 1.7 MG/DL (0.2-1.0); TOTAL PROTEIN 4.7 GM/DL (6.4-8.2)
[2018-01-29] MEDS: RESP: BUDESONIDE 0.5 MG/2 ML NEB NEB SCH ×2 (08:49→19:52)
[2018-01-29] MEDS ORDERED: LANSOPRAZOLE SOLUTAB 30 MG TAB NG SCH (09:00)
[2018-01-29] MEDS ORDERED: THIAMINE INJ 100 MG in SODIUM CHLORIDE 0.9% INJ 100 ML IV SCH (09:00)
--- NOTE | 2018-01-29 12:02 | PD.PROCEDR ---
Procedure Note Procedure Date of procedure: 01/29/2018 Procedure: Right sided 10 Irish pigtail catheter placement, ultrasound-guided Indication: Right pleural effusion Operators: Garland Gregorio M.D. Details of procedure: Informed consent was obtained. The patient was laid supine with head of bed elevated approximately 30. The pleural effusion was localized with ultrasound device. The lateral chest wall was cleaned with ChloraPrep twice. Regional sterile drapes were applied. Other barrier precautions included sterile gloves and face mask. 1% lidocaine was used for local anesthesia. \16 gauge introducer needle was inserted into the pleural space with return of clear yellow fluid. 10 cc of fluid was removed and sent for analysis and cultures. Site was dilated and a 10 Irish pigtail catheter was advanced into the right chest cavity without complication. Sutured into place and stay fix applied. Estimated blood loss: 1 cc Complications: None immediately apparent. Stat chest x-ray was ordered. Garland Gregorio MD Jan 29, 2018 12:02
[2018-01-29] MEDS: PROPOFOL 1000 MG/100 ML INJ 100 ML IV PRN ×2 (12:22→22:21)
--- NOTE | 2018-01-29 12:36 | RADRPT ---
EXAM DATE/TIME: 01/29/2018 12:02 [facility] COMPARISON: CHEST SINGLE AP, January 28, 2018, 20:14. INDICATIONS : Post right side chest tube placement. MEDICAL HISTORY : Pancreatitis. ascites SURGICAL HISTORY : Hysterectomy. Appendectomy ENCOUNTER: Subsequent ACUITY: 1 week PAIN SCORE: Non-responsive. LOCATION: Right chest FINDINGS: Interval placement of right chest catheter with pigtail loop projected at the upper medial right ches t. There is a residual subtle millimeter pneumothorax at the apex. Towards the right. Endotracheal tu be tip is 3.6 cm above f the clemente. Left internal jugular catheter tip projects over the distal supe rior vena cava. Persistent consolidation in the left lower lung with loss of delineation of the hemid iaphragm. CONCLUSION: Right chest catheter in place. Right apical 7 mm pneumothorax. Lang Rizvi MD on January 29, 2018 at 12:32 Board Certified Radiologist. This report was verified electronically.
--- NOTE | 2018-01-29 13:22 | HHI.CCPN ---
Subjective Remarks/Hospital Course This is a 62-year-old female. Date of admission 01/22/2018.. Date of consultation 01/28/2018. Past medical history includes EtOH, tobacco abuse, asthma and rheumatoid arthritis?. Patient presents to [facility] with a history of abdominal pain. Prior to admission diabetes and states placement on nonnarcotic pain medication antibiotics unknown type. Patient was admitted with gross abdominal ascites, likely community acquired pneumonia and GI bleeding. She was hypotensive and anemic. Patient is placed on broad-spectrum antibiotics including ceftriaxone and Levaquin. She was seen in consultation by gastroenterology performed an EGD of 01/25 which revealed 2 columns of esophageal varices without active bleeding. Portal hypertension/gastropathy. Patient was placed on pantoprazole 40 mg IV twice daily. Patient seen by urology for urinary retention. Recommended placement of Torres catheter. Patient has had decreased urine output over the past 48 hours and has been in A. fib with RVR. Magnesium potassium both her lobes are currently BX sacrectomy currently notes sinus tachycardia. Patient was placed on BiPAP 12/5 at 40% with rates respirations in the 40s. Decision made to early intubated for impending respiratory failure with coarse crackles present bilaterally. Post intubation, large right pleural effusion and clopidogrel in place. Attempted to contact Birgit Santiago [phone] Sister with primary contact information. Voicemail that set up. Did not answer phone. Subjective 01/29: Afebrile. Placement of right #10 Togolese pigtail catheter for large right- sided pleural effusion. Small residual pneumothorax right apical noted. Repeat chest x-ray 1800 hrs. Potassium phosphorus has been replaced. We will recheck potassium this evening. Objective Vital Signs Date Time Temp Pulse Resp B/P (MAP) Pulse Ox O2 Delivery O2 Flow Rate FiO2 01/29/18 12:00 97.6 74 17 108/70 (83) 100 121/67 (85) 01/29/18 12:00 60 01/27/18 22:10 Venturi Mask 6.00 Intake and Output 01/29/18 01/29/18 01/30/18 08:00 16:00 00:00 Intake Total 2083.5 ml 101 ml Output Total 200 ml Balance 1883.5 ml 101 ml Result Diagram: 01/29/18 0453 01/29/18 0645 Other Results Microbiology Date/Time Source Procedure Growth Status 01/29/18 08:19 Blood Peripheral Aerobic Blood Culture Pending Received 01/29/18 08:19 Blood Peripheral Anaerobic Blood Culture Pending Received 01/29/18 12:35 Fluid Pleural Fluid Gram Stain Pending Received 01/29/18 12:35 Fluid Pleural Fluid Body Fluid Culture Pending Received 01/28/18 20:20 Bronchial Washings Left Lower Lobe Fungal Smear - Final NO FUNGAL ELEMENTS SEEN. Resulted 01/28/18 20:20 Bronchial Washings Left Lower Lobe Fungal Culture Pending Resulted 01/28/18 18:30 Urine Catheterized Urine Urine Culture Pending Received Imaging Last Impressions Chest X-Ray 01/29/18 0000 Signed Impressions: Service Date/Time: Monday, January 29, 2018 12:02 - CONCLUSION: Right chest catheter in place. Right apical 7 mm pneumothorax. Lang Rizvi MD Renal Ultrasound 01/26/18 0000 Signed Impressions: Service Date/Time: Friday, January 26, 2018 14:43 - CONCLUSION: 1. Unremarkable renal ultrasound. Bladder decompressed by Torres. Ascites. Sina Winchester MD Cyst Biopsy Asp-Paracentesis US 01/23/18 0000 Signed Impressions: Service Date/Time: January 07:52 - CONCLUSION: Uncomplicated ultrasound guided paracentesis. Luis Lewis MD Abdomen/Pelvis CT 01/22/18 0000 Signed Impressions: Service Date/Time: Monday, January 22, 2018 15:07 - CONCLUSION: Small shrunken fatty replaced liver with extensive ascites. Prominent gallbladder.. Desmond Alvarez MD FACR Procedures Paracentesis 01/23/2018. 01/28/18 Right #10 Togolese chest tube 01/29 Objective Remarks GENERAL: 62-year-old female currently orotracheally intubated SKIN: Warm and dry. No rash HEAD: Atraumatic. Normocephalic. EYES: Pupils equal and round. No scleral icterus. No injection or drainage. ENT: No nasal bleeding or discharge. Mucous membranes pink and moist. NECK: Trachea midline. No JVD. CARDIOVASCULAR: Tachycardic, RR. S1, S2 no S4. Without murmurs RESPIRATORY: Coarse crackles appreciated throughout lung arredondo right greater than left. No wheezing. Positive accessory muscle use prior to intubation GASTROINTESTINAL: Abdomen grossly distended, tender to palpation epigastric/ right upper quadrant. Unable to palpate hepatic or splenic margins due to gross distention MUSCULOSKELETAL: Extremities trace lower extremity edema. No obvious deformities. NEUROLOGICAL: Cranial nerves II through XII appear grossly intact prior to intubation. Moves all 4 extremities. Both 1-2 word sentences. Urinary Catheter: Yes Assessment to: Continue Torres insert reason: Prolonged Immobilization Vascular Central Line Catheter: Yes Assessment to: Continue Date of Insertion: Jan 28, 2018 Line: Central Venous Catheter Side: Left Location: Internal, Jugular A/P Assessment and Plan Neuro/Psych: EtOH Patient placed on propofol drip at 15 mcg/kg/min/fentanyl drips 150 mcg an hour for sedation/analgesia while intubated Goal RASS -2 Daily sedation vacation Thiamine 100 mg IV, multivitamin 1 tablet daily and 1 mg folate daily Acetaminophen 650 mg by tube every 6 hours as needed fever CV: A. fib with RVR currently normal sinus rhythm Currently on norepinephrine at 4 mcg/min to maintain mean arterial pressure greater than equal to 92% Seen in consultation by Dr. Glass -cardiology 2D echocardiogram pending We will place on low-dose beta-angely once off vasopressors Resp: Acute hypercapnic Hypoxic respiratory failure Bilateral pleural effusions Community acquired pneumonia PRVC 16/450/1/5/100 Ventilator bundle Albuterol/ipratropium aerosols every 4 hours with albuterol aerosols every 2 hours as needed dyspnea Budesonide 0.5/2 1 inhalation twice daily 01/29 placement of #10 Togolese chest tube right-sided secondary to large pleural effusion GI: Esophageal varices Portal gastropathy Elevated transaminases Pancreatitis Hypoalbuminemia Hyperammonia CT abdomen/pelvis revealed shrunken liver, gross abdominal ascites. Status post paracentesis through 6.6 L and 01/23. White blood cell count 133. We will need paracentesis urgently now. Recheck transaminases and ammonia level ogt TO liws Lansoprazole 30 mg twice daily Docusate sodium/senna/1 tablet twice daily for bowel regimen Lactulose 30 cc every 6 hours for elevated ammonia. Recheck in a.m. Hepatitis panel negative. OMI, ASMA negative. Elevated alpha-1 antitrypsin. Negative ceruloplasmin Start tube feedings with Neutra hep 40 cc an hour : Urinary retention Evaluated by urology. Maintain Torres catheter Continue tamsulosin 0.4 mg by tube daily if able Endo: Sliding scale insulin with Accu-Cheks every 4 hours to maintain euglycemia with Novulin R Renal: Creatinine currently within normal limits Monitor urine output Accurate I's and O's Heme: Leukocytosis Normocytic anemia Elevated INR Monitor CBC daily. Follow trends. Follow coags pending ID: Severe sepsis Currently on vancomycin, cefepime and metronidazole Pertinent cultures 01/29 -pleural fluid pending 01/28 -blood cultures 2 and UA pending 01/28 -urine Legionella pneumococcal antigen pending 01/23 in 01/28-peritoneal fluid -no growth 01/22 -blood cultures 2 -no growth FEN: Hypokalemia Hypophosphatemia Replace electrolytes as clinically indicated per ICU electrolyte protocol MSK: PT evaluate and treat Access -Left IJ CVL day #2 placed 3 -Right femoral arterial line day #2 placed 01/28 Prophylaxis -GI -lansoprazole -DVT -SCD/holding pharmacological prophylaxis in light of elevated INR/upper GI bleed Critical Care: The total critical care time was 35 minutes. Time to perform other separately billable procedures was not included in the critical care time. Garland Gregorio MD Jan 29, 2018 13:22
[2018-01-29 13:41] LABS: TOTAL PROTEIN,PLEURAL FLUID 1.3 GM/DL
[2018-01-29] MEDS: CEFEPIME INJ 2,000 MG in SODIUM CHLORIDE 0.9% INJ 100 ML IV SCH ×2 (13:55→22:21)
[2018-01-29] MEDS: MAGNESIUM SULFATE 1 GM PREMIX 100 ML IV SCH ×2 (14:02→15:09)
--- NOTE | 2018-01-29 14:36 | HHI.GIFU ---
Subjective Remarks Pt now intubated, s/p pigtail cath, s/p paracentesis, s/p bronch. (Jacqueline Babb) Objective Vitals I&O Vital Signs Date Time Temp Pulse Resp B/P (MAP) Pulse Ox O2 Delivery O2 Flow Rate FiO2 01/29/18 14:00 71 01/29/18 12:00 97.6 74 17 108/70 (83) 100 121/67 (85) 01/29/18 12:00 74 108/70 (83) 121/67 (85) 01/29/18 12:00 60 01/29/18 12:00 74 01/29/18 11:59 100 100 01/29/18 11:00 74 107/54 01/29/18 10:00 76 01/29/18 09:00 74 108/58 01/29/18 08:45 95 40 01/29/18 08:00 75 01/29/18 08:00 97.5 75 16 89/65 (73) 97 105/57 (73) 01/29/18 08:00 60 01/29/18 07:10 76 105/59 01/29/18 06:00 83 107/61 01/29/18 06:00 83 01/29/18 04:11 95 60 01/29/18 04:00 60 01/29/18 04:00 85 01/29/18 04:00 97.9 85 16 86/63 (71) 95 99/54 (69) 01/29/18 02:26 85 106/54 01/29/18 02:00 85 01/29/18 01:03 96 60 01/29/18 00:00 88 01/29/18 00:00 60 01/29/18 00:00 97.6 88 16 96/50 (65) 96 01/28/18 22:00 92 01/28/18 20:40 100 60 01/28/18 20:21 100 70 01/28/18 20:00 97.3 108 16 123/82 (96) 100 124/68 (86) 01/28/18 20:00 100 01/28/18 20:00 108 01/28/18 19:50 100 100 01/28/18 18:00 117 01/28/18 16:20 100 100 3/13/18 16:20 80 01/28/18 16:00 98.1 109 47 121/69 (86) 94 01/28/18 16:00 109 I/O 01/28/18 01/28/18 01/28/18 01/29/18 01/29/18 01/29/18 07:00 15:00 23:00 07:00 15:00 23:00 Intake Total 454 ml 240 ml 2131 ml 2133.5 ml 641 ml Output Total 775 ml 250 ml 200 ml Balance -321 ml 240 ml 1881 ml 1933.5 ml 641 ml Intake Oral 30 ml IV Total 454 ml 240 ml 2101 ml 2133.5 ml 641 ml Output Urine Total 775 ml 250 ml 200 ml # Bowel Movements 0 0 0 Laboratory Laboratory Tests Test 01/28/18 15:53 01/28/18 16:57 01/28/18 17:05 01/28/18 17:50 Blood Gas Puncture Site RT BRACHIAL RT BRACHIAL Blood Gas Patient Temperature 98.6 98.6 Blood Gas HCO3 16 Blood Gas Base Excess -6.9 Blood Gas Oxygen Saturation 89 Arterial Blood pH 7.44 Arterial Blood Partial Pressure CO2 24 Arterial Blood Partial Pressure O2 62 Arterial Blood Oxygen Content 14.4 Arterial Blood Carboxyhemoglobin 1.2 Arterial Blood Methemoglobin 1.1 Blood Gas Hemoglobin 11.5 Oxygen Delivery Device BIPAP VENTILATOR Blood Gas Ventilator Setting EPAP 5/IPAP 12 PRVC/AC 610/16 Blood Gas Inspired Oxygen 40 100 Prothrombin Time 17.5 Prothromb Time International Ratio 1.7 Activated Partial Thromboplast Time 38.3 Fibrinogen 367 Lactic Acid Level 2.0 Ammonia 32 Lactate Dehydrogenase 227 Venous Blood pH 7.31 Venous Blood Partial Pressure CO2 37 Venous Blood Partial Pressure O2 40 Venous Blood HCO3 18 Venous Blood Oxygen Saturation 60 Venous Blood Oxygen Content 10.3 Venous Blood Base Excess -7.0 Test 01/28/18 18:05 01/28/18 18:30 01/28/18 20:20 01/28/18 20:23 Peritoneal Fluid WBC 20 Peritoneal Fluid RBC 348 Peritoneal Fluid Neutrophils 23 Peritoneal Fluid Lymphocytes 53 Peritoneal Fluid Monocytes 6 Peritoneal Fluid Basophils 1 Peritoneal Fluid Histiocytes 12 Peritoneal Fluid Mesothelial Cells 5 Peritoneal Fluid Total Protein 1.2 Peritoneal Fluid Albumin 0.6 Peritoneal Fluid LDH 36 Urine Color YELLOW Urine Turbidity HAZY Urine pH 5.0 Urine Specific Sumner 1.015 Urine Protein TRACE Urine Glucose (UA) NEG Urine Ketones NEG Urine Occult Blood MOD Urine Nitrite NEG Urine Bilirubin NEG Urine Urobilinogen LESS THAN 2.0 Urine Leukocyte Esterase LARGE Urine RBC 69 Urine WBC 57 Urine Squamous Epithelial Cells 1 Urine Amorphous Sediment RARE Urine Hyaline Casts 15 Urine Mucus FEW Urine Yeast (Budding) FEW Microscopic Urinalysis Comment CATH-CULTURE IND Bronchial Fluid Other Cells 5 Bronchoalveolar Lavage WBC 28 Bronchoalveolar Lavage RBC 27 Bronchoalveolar Lavage Neutrophils 42 Bronchoalveolar Lavage Lymphocytes 53 Lavage Fluid Total Volume 25.0 Lavage Fluid Total WBC Count 0.700 Blood Gas Puncture Site ART LINE Blood Gas Patient Temperature 98.6 Blood Gas HCO3 17 Blood Gas Base Excess -7.1 Blood Gas Oxygen Saturation 95 Arterial Blood pH 7.38 Arterial Blood Partial Pressure CO2 30 Arterial Blood Partial Pressure O2 102 Arterial Blood Oxygen Content 13.7 Arterial Blood Carboxyhemoglobin 1.0 Arterial Blood Methemoglobin 1.1 Blood Gas Hemoglobin 10.1 Oxygen Delivery Device VENTILATOR Blood Gas Ventilator Setting PRVC/AC 16/600/ Blood Gas Inspired Oxygen 70 Test 01/29/18 04:53 01/29/18 05:35 01/29/18 06:45 01/29/18 12:35 White Blood Count 13.0 Red Blood Count 3.97 Hemoglobin 10.5 Hematocrit 32.6 Mean Corpuscular Volume 82.0 Mean Corpuscular Hemoglobin 26.3 Mean Corpuscular Hemoglobin Concent 32.1 Red Cell Distribution Width 22.9 Platelet Count 193 Mean Platelet Volume 7.3 Neutrophils (%) (Auto) 94.5 Lymphocytes (%) (Auto) 3.2 Monocytes (%) (Auto) 2.1 Eosinophils (%) (Auto) 0.0 Basophils (%) (Auto) 0.2 Neutrophils # (Auto) 12.3 Lymphocytes # (Auto) 0.4 Monocytes # (Auto) 0.3 Eosinophils # (Auto) 0.0 Basophils # (Auto) 0.0 CBC Comment DIFF FINAL Differential Comment Lactic Acid Level 1.8 Ammonia 65 Blood Gas Puncture Site ART LINE Blood Gas Patient Temperature 98.6 Blood Gas HCO3 17 Blood Gas Base Excess -6.4 Blood Gas Oxygen Saturation 94 Arterial Blood pH 7.41 Arterial Blood Partial Pressure CO2 28 Arterial Blood Partial Pressure O2 79 Arterial Blood Oxygen Content 13.1 Arterial Blood Carboxyhemoglobin 1.3 Arterial Blood Methemoglobin 0.5 Blood Gas Hemoglobin 9.8 Oxygen Delivery Device VENTILATOR Blood Gas Ventilator Setting PRVC/AC 16/600/ Blood Gas Inspired Oxygen 70 Blood Urea Nitrogen 6 Creatinine 0.40 Random Glucose 156 Total Protein 4.7 Albumin 2.6 Calcium Level 7.6 Phosphorus Level 2.2 Magnesium Level 1.9 Alkaline Phosphatase 72 Aspartate Amino Transf (AST/SGOT) 49 Alanine Aminotransferase (ALT/SGPT) 12 Total Bilirubin 1.7 Sodium Level 143 Potassium Level 3.3 Chloride Level 115 Carbon Dioxide Level 18.6 Anion Gap 9 Estimat Glomerular Filtration Rate 162 Amylase Level 30 Lipase 99 Thyroid Stimulating Hormone 3rd Gen 3.410 Pleural Fluid pH 8.5 Pleural Fluid Total Protein 1.3 Pleural Fluid LDH 81 Pleural Fluid Glucose 167 Date/Time Source Procedure Growth Status 01/29/18 08:19 Blood Peripheral Aerobic Blood Culture Pending Received 01/29/18 08:19 Blood Peripheral Anaerobic Blood Culture Pending Received 01/29/18 12:35 Fluid Pleural Fluid Gram Stain Pending Received 01/29/18 12:35 Fluid Pleural Fluid Body Fluid Culture Pending Received 01/28/18 20:20 Bronchial Washings Left Lower Lobe Fungal Smear - Final NO FUNGAL ELEMENTS SEEN. Resulted 01/28/18 20:20 Bronchial Washings Left Lower Lobe Fungal Culture Pending Resulted 01/28/18 18:30 Urine Catheterized Urine Urine Culture - Preliminary Elma Albicans Resulted Imaging Last Impressions Chest X-Ray 01/29/18 0000 Signed Impressions: Service Date/Time: Monday, January 29, 2018 12:02 - CONCLUSION: Right chest catheter in place. Right apical 7 mm pneumothorax. Lang Rizvi MD Renal Ultrasound 01/26/18 0000 Signed Impressions: Service Date/Time: Friday, January 26, 2018 14:43 - CONCLUSION: 1. Unremarkable renal ultrasound. Bladder decompressed by Torres. Ascites. Sina Winchester MD Cyst Biopsy Asp-Paracentesis US 01/23/18 0000 Signed Impressions: Service Date/Time: January 07:52 - CONCLUSION: Uncomplicated ultrasound guided paracentesis. Luis Lewis MD Abdomen/Pelvis CT 01/22/18 0000 Signed Impressions: Service Date/Time: Monday, January 22, 2018 15:07 - CONCLUSION: Small shrunken fatty replaced liver with extensive ascites. Prominent gallbladder.. Desmond Alvarez MD FACR Physical Exam HEENT: normocephalic; atraumatic; no jaundice. intubated CHEST: diminished. CARDIAC:RRR ABDOMEN: soft, mildly distended, bowel sounds faint EXTREMITIES: No clubbing, cyanosis, or edema. SKIN: Normal; no rash; no jaundice. BAND MANAGER: sedate don vent (Jacqueline Babb) Assessment and Plan Plan Assessment: - Transaminitis- likely secondary to ETOH, given history of 4-5 glasses of wine daily. Reports known history of elevated LFTs, has been told by PCP in the past to stop drinking. Has never had extensive liver work up. Labs currently: AST-116 ALT-32 T bili-4 Ammonia-12. DF-27 - Elevated lipase- denies history of pancreatitis. - Ascites- S/P Paracentesis with 6.6 L removed. SAAG-1.3 Peritoneal WBC-133. Pt on Levaquin. - Anemia- H/H 6.7/22.6 on admission, now S/P 4 U PRBCs currently 8.6/26.6. - NICOLASA- GFR 41 - Leukocytosis- WBC-13.2 Pt on Levaquin and Flagyl CT abdomen and pelvis W/O IV contrast (01/22) --> Small shrunken fatty replaced liver with extensive ascites. Prominent gallbladder 01/27/18 - s/p EGD found small esophageal varices, no bleeding, portal gastropathy. She is c/o abd pain, is distended and somewhat tense today. renal US 01/26 showed ascites did have paracentesis 01/23/18. cx no growth 72h, cytology benign. HH improving. liver w/u so far unremarkable 01/28/18 abd pain improved. HH mild decrease today, hgb 11.5 no obvious bleeding. pt on bipap now. liver w/u unremarkable thus far gastric antrum path benign 01/29/18 mild drop HH. per RN there was some clots after intubation and OGT placement but that has resolved. No obvious blood in stool. liver w/u unremarkable Plan: Monitor H/H Notify GI of active bleeding no etoh Protonix GI will sign off, please reconsult if needed Pt has been seen and examined by myself and Dr. Jones and this note is written on his behalf (Jacqueline Babb) Physician Comments Agree with above plan. Please notify us if needed again. (Karen,Mohammad Jacqueline Romero Jan 29, 2018 14:36 Chapis Jones MD Jan 29, 2018 15:25
--- NOTE | 2018-01-29 14:56 | RADRPT ---
EXAM DATE/TIME: 01/29/2018 13:41 [place] COMPARISON: No previous studies available for comparison. INDICATIONS : Evaluate pneumothorax. MEDICAL HISTORY : None. SURGICAL HISTORY : None. ENCOUNTER: Subsequent ACUITY: 1 week PAIN SCORE: Non-responsive. LOCATION: chest FINDINGS: A single view of the chest demonstrates endotracheal tube in good position. NG enters stomach. Left c entral line in superior vena cava. Small caliber right chest tube without significant pneumothorax. A basilar airspace disease, left greater than right is slightly improved. CONCLUSION: 1. Slight improvement in airspace disease since earlier exam. Small caliber right chest tube present without evidence for pneumothorax on the current exam. Sina Winchester MD on January 29, 2018 at 14:53 Board Certified Radiologist. This report was verified electronically.
[2018-01-29 16:26] LABS: PLEURAL FLUID HISTIOCYTES 1 %; PLEURAL FLUID LYMPHS 48 %; PLEURAL FLUID MESOTHELIAL 2 %; PLEURAL FLUID MONOS 32 %; PLEURAL FLUID POLYS (SEGS) 17 %
[2018-01-29 16:27] LABS: PLEURAL FLUID RBC 283 /MM3 (0-0); PLEURAL FLUID WBC 48 /MM3 (0-10)
--- NOTE | 2018-01-29 17:01 | HHI.PR ---
Subjective Remarks SEDATED ON THE VENTILATOR Objective Vital Signs Date Time Temp Pulse Resp B/P (MAP) Pulse Ox O2 Delivery O2 Flow Rate FiO2 01/29/18 16:06 74 86/58 01/29/18 16:00 60 01/29/18 16:00 74 01/29/18 16:00 97.7 74 16 86/58 (67) 94 95/55 (68) 01/29/18 15:47 95 40 01/29/18 15:45 60 01/29/18 14:30 60 01/29/18 14:02 71 117/66 01/29/18 14:00 71 01/29/18 12:22 75 110/58 01/29/18 12:00 97.6 74 17 108/70 (83) 100 121/67 (85) 01/29/18 12:00 74 108/70 (83) 121/67 (85) 01/29/18 12:00 60 01/29/18 12:00 74 01/29/18 11:59 100 100 01/29/18 11:00 74 107/54 01/29/18 10:00 76 01/29/18 09:00 74 108/58 01/29/18 08:45 95 40 01/29/18 08:00 75 01/29/18 08:00 97.5 75 16 89/65 (73) 97 105/57 (73) 01/29/18 08:00 60 01/29/18 07:10 76 105/59 01/29/18 06:00 83 107/61 01/29/18 06:00 83 01/29/18 04:11 95 60 01/29/18 04:00 60 01/29/18 04:00 85 01/29/18 04:00 97.9 85 16 86/63 (71) 95 99/54 (69) 01/29/18 02:26 85 106/54 01/29/18 02:00 85 01/29/18 01:03 96 60 01/29/18 00:00 88 01/29/18 00:00 60 01/29/18 00:00 97.6 88 16 96/50 (65) 96 01/28/18 22:00 92 01/28/18 20:40 100 60 01/28/18 20:21 100 70 01/28/18 20:00 97.3 108 16 123/82 (96) 100 124/68 (86) 01/28/18 20:00 100 01/28/18 20:00 108 01/28/18 19:50 100 100 01/28/18 18:00 117 I/O 01/28/18 01/28/18 01/28/18 01/29/18 01/29/18 01/29/18 07:00 15:00 23:00 07:00 15:00 23:00 Intake Total 454 ml 240 ml 2131 ml 2133.5 ml 741 ml 100 ml Output Total 775 ml 250 ml 200 ml Balance -321 ml 240 ml 1881 ml 1933.5 ml 741 ml 100 ml Intake Oral 30 ml IV Total 454 ml 240 ml 2101 ml 2133.5 ml 741 ml 100 ml Output Urine Total 775 ml 250 ml 200 ml # Bowel Movements 0 0 0 Result Diagram: 01/29/18 0453 01/29/18 0645 Procedures Paracentesis 01/23/2018. Objective Remarks GENERAL: SKIN: Warm and dry. HEAD: Atraumatic. Normocephalic. EYES: Pupils equal and round. No scleral icterus. No injection or drainage. ENT: No nasal bleeding or discharge. Mucous membranes pink and moist. NECK: Trachea midline. No JVD. CARDIOVASCULAR: Regular rate and rhythm. RESPIRATORY: No accessory muscle use. Clear to auscultation. Breath sounds equal bilaterally. GASTROINTESTINAL: Abdomen soft, non-tender, nondistended. Hepatic and splenic margins not palpable. MUSCULOSKELETAL: Extremities without clubbing, cyanosis, or edema. No obvious deformities. NEUROLOGICAL: Awake and alert. No obvious cranial nerve deficits. Motor grossly within normal limits. Five out of 5 muscle strength in the arms and legs. Normal speech. PSYCHIATRIC: Appropriate mood and affect; insight and judgment normal. Assessment and Plan Assessment and Plan IMPRESSION RESPIRATORY FAILURE SEPSIS GI BLEED ETOH WITHDRAWAL PLAN VENT SUPPORT WEAN TOLERATED Mala Medeiros MD Jan 29, 2018 17:00
[2018-01-29] MEDS: metroNIDAZOLE 500 MG TAB PO SCH (17:27)
--- NOTE | 2018-01-29 18:23 | ECHRPT ---
Indication: Persistent atrial fibrillation CONCLUSIONS The left ventricular systolic function is low normal with an estimated ejection fraction in the rang e of 50- 55%. Wall thickness is normal. Normal left ventricular size. There is mild tricuspid regurgitation. The estimated pulmonary arterial pressure is 46 mmHg. Mild mitral valve regurgitation. BP: 86 / 63 HR: 85 Rhythm: Other MEASUREMENTS (Male / Female) Normal Values Technical Quality:Good 2D ECHO LV Diastolic Diameter PLAX 4.6 cm 4.2 - 5.9 / 3.9 - 5.3 cm LV Systolic Diameter PLAX 3.5 cm IVS Diastolic Thickness 0.8 cm 0.6 - 1.0 / 0.6 - 0.9 cm LVPW Diastolic Thickness 0.8 cm 0.6 - 1.0 / 0.6 - 0.9 cm LV Relative Wall Thickness 0.3 LVOT Diameter 2.1 cm M-MODE Aortic Root Diameter MM 2.8 cm LA Systolic Diameter MM 4.0 cm LA Ao Ratio MM 1.4 AV Cusp Separation MM 2.1 cm DOPPLER AV Peak Velocity 126.0 cm/s AV Peak Gradient 6.4 mmHg LVOT Peak Velocity 108.0 cm/s LVOT Peak Gradient 4.7 mmHg AV Area Cont Eq pk 3.0 cm MR Peak Velocity 419.0 cm/s MR Peak Gradient 70.2 mmHg Mitral E Point Velocity 94.3 cm/s Mitral A Point Velocity 72.6 cm/s Mitral E to A Ratio 1.3 LV E' Lateral Velocity 12.1 cm/s Mitral E to LV E' Lateral Ratio 7.8 LV E' Septal Velocity 12.2 cm/s Mitral E to LV E' Septal Ratio 7.7 TR Peak Velocity 300.0 cm/s TR Peak Gradient 36.0 mmHg Right Atrial Pressure 10.0 mmHg Pulmonary Artery Systolic Pressu 46.0 mmHg Right Ventricular Systolic Press 46.0 mmHg PV Peak Velocity 78.7 cm/s PV Peak Gradient 2.5 mmHg FINDINGS LEFT VENTRICLE The left ventricular systolic function is low normal with an estimated ejection fraction in the rang e of 50- 55%. Wall thickness is normal. Normal left ventricular size. RIGHT VENTRICLE Normal right ventricular size and systolic function. LEFT ATRIUM The left atrial size is normal. RIGHT ATRIUM The right atrial size is normal. ATRIAL SEPTUM Normal atrial septal thickness without atrial level shunting by limited color doppler interrogation. AORTA The aortic root and proximal ascending aorta are normal in size on limited imaging. MITRAL VALVE Mild mitral valve regurgitation. AORTIC VALVE Trileaflet aortic valve. No aortic valve stenosis or regurgitation. TRICUSPID VALVE There is mild tricuspid regurgitation. The estimated pulmonary arterial pressure is 46 mmHg. PULMONARY VALVE No pulmonary valve regurgitation or stenosis. VESSELS The inferior vena cava is normal in size. PERICARDIUM No pericardial effusion. Danis Ernst MD, FACC (Electronically Signed) Final Date:29 January 2018 18:22
[2018-01-29] MEDS: CLOTRIMAZOLE 1% VAG CREAM 45 GM TUBE VAGINAL SCH (22:20)
[2018-01-30] VITALS (19 sets, daily range): BP systolic 81–109; BP diastolic 52–65; PULSE 72–91; RESP 8–16; TEMP 96.9–98.7; O2SAT 83–100
[2018-01-30] MEDS: RESP: ALBUTEROL 2.5 MG/IPRATROPIUM 0.5 MG NEB (SCH) NEB ×5 (00:04→15:39)
[2018-01-30] MEDS: metroNIDAZOLE 500 MG TAB PO SCH ×4 (00:19→17:40)
[2018-01-30] MEDS ORDERED: PHARMACY ORDERED LAB ONE (03:45)
[2018-01-30] MEDS: INSULIN NovoLIN REGULAR SUPPLEMENTAL SCALE SQ SCH ×6 (04:00→20:00)
--- NOTE | 2018-01-30 04:03 | RADRPT ---
EXAM DATE/TIME: 01/30/2018 02:39 [place] COMPARISON: CHEST SINGLE AP, January 29, 2018, 13:41. INDICATIONS : Shortness of breath, possible pulmonary disease. MEDICAL HISTORY : None. SURGICAL HISTORY : None. ENCOUNTER: Subsequent ACUITY: 1 week PAIN SCORE: Non-responsive. LOCATION: Bilateral chest FINDINGS: Bibasilar pulmonary consolidations more pronounced on the left than the right. These are stable. Hear t is normal in size. Right thoracostomy tube. No pneumothorax. Endotracheal tube tip 3 cm from the ca brianna. Tip of the nasogastric tube in the body the stomach. Left-sided central line. No pneumothorax. CONCLUSION: Unchanged bibasilar infiltrates. Lang Pena Jr., MD on January 30, 2018 at 4:01 Board Certified Radiologist. This report was verified electronically.
[2018-01-30 04:30] LABS: AUTOMATED NEUTROPHIL # 13.5 TH/MM3 (1.8-7.7); BASOPHIL % 0.1 % (0.0-2.0); HEMATOCRIT 33.4 % (35.0-46.0); HEMOGLOBIN 10.6 GM/DL (11.6-15.3); LYMPH % 3.9 % (9.0-44.0); LYMPHOCYTE # 0.6 TH/MM3 (1.0-4.8); MEAN CELL VOLUME 81.8 FL (80.0-100.0); MEAN CORPUSCULAR HEMOGLOBIN 25.9 PG (27.0-34.0); MEAN CORPUSCULAR HGB CONC 31.7 % (32.0-36.0); MEAN PLATELET VOLUME 7.8 FL (7.0-11.0); MONO % 3.8 % (0.0-8.0); MONOCYTE # 0.6 TH/MM3 (0-0.9); NEUT % 92.2 % (16.0-70.0); PLATELET COUNT 195 TH/MM3 (150-450); RED BLOOD COUNT 4.08 MIL/MM3 (4.00-5.30); RED CELL DISTRIBUTION WIDTH 23.5 % (11.6-17.2); WHITE BLOOD COUNT 14.6 TH/MM3 (4.0-11.0)
[2018-01-30 04:39] LABS: INTERNATIONAL NORMALIZED RATIO 1.7 RATIO; PROTHROMBIN TIME - PATIENT 16.7 SEC (9.8-11.6)
[2018-01-30 05:00] LABS: ALBUMIN 2.3 GM/DL (3.4-5.0); BICARBONATE 19.3 MEQ/L (21.0-32.0); CREATININE 0.42 MG/DL (0.50-1.00); DIRECT BILIRUBIN ADULT 0.8 MG/DL (0.0-0.2); PHOSPHORUS 2.9 MG/DL (2.5-4.9)
[2018-01-30 05:18] LABS: INDIRECT BILIRUBIN 0.5 MG/DL (0.0-0.8); TOTAL BILIRUBIN ADULT 1.3 MG/DL (0.2-1.0); TOTAL PROTEIN 4.6 GM/DL (6.4-8.2)
[2018-01-30] MEDS: VANCOMYCIN INJ 1,250 MG in SODIUM CHLOR 0.9% 250 ML INJ 250 ML IV SCH ×2 (05:20→17:40)
[2018-01-30] MEDS: ARTIFICIAL TEARS OPTH SOLN 15 ML BTL EACH EYE SCH ×3 (05:22→22:14)
[2018-01-30] MEDS: CEFEPIME INJ 2,000 MG in SODIUM CHLORIDE 0.9% INJ 100 ML IV SCH ×3 (05:30→22:14)
[2018-01-30] MEDS: SODIUM CHLOR 0.9% 1000 ML INJ 1,000 ML IV SCH (05:33)
--- NOTE | 2018-01-30 06:21 | PD.CARD.PN ---
Subjective Subjective Remarks Progress note 01/29/2018 Intubated, sedated, no recurrent AF Objective Medications Current Medications Medications (Trade) Dose Ordered Sig/Ralph Route Start Time Stop Time Status Last Admin (NS Flush) 2 ml UNSCH PRN IV FLUSH 01/22/18 17:15 01/27/18 08:54 (NS Flush) 2 ml BID IV FLUSH 01/22/18 21:00 01/29/18 22:21 (Narcan Inj) 0.4 mg UNSCH PRN IV PUSH 01/22/18 17:15 (Brethine Inj) 1 mg UNSCH PRN SQ 01/23/18 04:30 (Gyne Lotrimin 7 1% Vag Cream) 1 appl HS VAGINAL 01/23/18 21:00 01/30/18 20:59 01/29/18 22:20 (Duoneb Neb) 1 ampule Q4HR NEB NEB 01/26/18 20:00 01/30/18 04:14 (Flomax) 0.4 mg DAILY PO 01/27/18 14:15 01/27/18 14:42 Pharmacy Profile Note 0 ml @ 0 mls/hr UNSCH OTHER 01/28/18 14:00 Sodium Chloride 1,000 ml @ 100 mls/hr Q10H IV 01/28/18 14:15 01/30/18 05:33 Vancomycin HCl 1250 mg/Sodium Chloride 262.5 ml @ 262.5 mls/ hr Q12H IV 01/28/18 16:00 01/30/18 05:20 Diltiazem HCl 125 mg/Sodium Chloride 125 ml @ 5 mls/hr TITRATE PRN IV 01/28/18 16:00 (Peridex 0.12% Liq) 15 ml BID@08,20 MT 01/28/18 20:00 01/29/18 22:19 Propofol 100 ml @ 2.475 mls/ hr TITRATE PRN IV 01/28/18 16:15 01/29/18 22:21 Midazolam HCl 100 ml @ 2 mls/hr TITRATE PRN IV 01/28/18 16:15 Fentanyl Citrate 250 ml @ 5 mls/hr TITRATE PRN IV 01/28/18 16:15 01/29/18 18:36 (Tears Naturale Opth Soln) 1 drop Q8HR EACH EYE 01/28/18 22:00 01/30/18 05:22 Norepinephrine Bitartrate 4 mg/ Sodium Chloride 250 ml @ 7.5 mls/hr TITRATE PRN IV 01/28/18 16:15 01/29/18 19:03 (Brethine Inj) 1 mg UNSCH PRN SQ 01/28/18 16:15 (NS Flush) DAILY IV FLUSH 01/28/18 17:00 01/29/18 08:21 (NS Flush) UNSCH PRN IV FLUSH 01/28/18 17:00 (Albuterol Neb) 2.5 mg Q2HR NEB PRN NEB 01/28/18 17:15 (Tylenol 650 Mg/ 20 ml Liq) 650 mg Q6H PRN OG-TUBE 01/28/18 17:15 (Pulmicort Respule Neb) 0.5 mg Q12HR NEB NEB 01/28/18 20:00 01/29/18 19:52 (SoluMEDROL INJ) 40 mg Q12HR IV PUSH 01/28/18 21:00 01/29/18 22:20 (D50w (Vial) Inj) 50 ml UNSCH PRN IV PUSH 01/28/18 17:15 (Glucagon Inj) 1 mg UNSCH PRN OTHER 01/28/18 17:15 (NovoLIN R SUPPLEMENTAL SCALE) 1 Q4HR SQ 01/28/18 20:00 (Prevacid Odt) 30 mg BID NG 01/28/18 21:00 01/29/18 22:20 Thiamine HCl 100 mg/Sodium Chloride 101 ml @ 101 mls/hr DAILY IV 01/29/18 09:00 01/29/18 08:22 (Folate) 1 mg DAILY PO 01/29/18 09:00 01/29/18 08:20 (Theragran) 1 tab DAILY PO 01/29/18 09:00 01/29/18 08:20 Potassium Chloride 100 ml @ 50 mls/hr Q2H PRN IV 01/28/18 17:45 Potassium Chloride 100 ml @ 50 mls/hr Q2H PRN IV 01/28/18 17:45 (K-Lyte Cl Eff) 50 meq UNSCH PRN PO 01/28/18 17:45 Potassium Chloride 100 ml @ 25 mls/hr UNSCH PRN IV 01/28/18 17:45 Potassium Chloride 100 ml @ 50 mls/hr Q2H PRN IV 01/28/18 17:45 Magnesium Sulfate 4 gm/Sodium Chloride 100 ml @ 50 mls/hr UNSCH PRN IV 01/28/18 17:45 (Mag-Ox) 800 mg UNSCH PRN PO 01/28/18 17:45 Magnesium Sulfate 2 gm/Sodium Chloride 100 ml @ 50 mls/hr UNSCH PRN IV 01/28/18 17:45 (K-Phos) 2,000 mg Q4H PRN PO 01/28/18 17:45 Sodium Phosphate 30 mmol/Sodium Chloride 250 ml @ 42 mls/hr UNSCH PRN IV 01/28/18 17:45 (K-Phos) 2,000 mg UNSCH PRN PO/TUBE 01/28/18 17:44 Potassium Phosphate 30 mmol/ Sodium Chloride 260 ml @ 42 mls/hr UNSCH PRN IV 01/28/18 17:44 (Lactulose Liq) 30 ml QID PO 01/29/18 09:00 01/29/18 22:20 (Flagyl) 500 mg Q6HR PO 01/29/18 18:00 01/30/18 05:30 Cefepime HCl 2000 mg/Sodium Chloride 100 ml @ 200 mls/hr Q8H IV 01/29/18 14:00 01/30/18 05:30 Vital Signs / I&O Vital Signs Date Time Temp Pulse Resp B/P (MAP) Pulse Ox O2 Delivery O2 Flow Rate FiO2 01/30/18 04:15 99 40 01/30/18 02:00 77 01/30/18 00:05 98 40 01/30/18 00:00 73 01/30/18 00:00 96.9 73 16 99/65 (76) 99 106/57 (73) 01/30/18 00:00 40 01/29/18 22:00 75 01/29/18 20:00 96.5 73 16 105/68 (80) 100 117/64 (81) 01/29/18 20:00 73 01/29/18 20:00 40 01/29/18 19:52 99 40 01/29/18 19:03 73 115/64 01/29/18 18:00 74 01/29/18 18:00 74 90/55 (67) 114/63 (80) 01/29/18 16:06 74 86/58 01/29/18 16:00 60 01/29/18 16:00 74 01/29/18 16:00 97.7 74 16 86/58 (67) 94 95/55 (68) 01/29/18 15:47 95 40 01/29/18 15:45 60 01/29/18 14:30 60 01/29/18 14:02 71 117/66 01/29/18 14:00 71 01/29/18 12:22 75 110/58 01/29/18 12:00 97.6 74 17 108/70 (83) 100 121/67 (85) 01/29/18 12:00 74 108/70 (83) 121/67 (85) 01/29/18 12:00 60 01/29/18 12:00 74 01/29/18 11:59 100 100 01/29/18 11:00 74 107/54 01/29/18 10:00 76 01/29/18 09:00 74 108/58 01/29/18 08:45 95 40 01/29/18 08:00 75 01/29/18 08:00 97.5 75 16 89/65 (73) 97 105/57 (73) 01/29/18 08:00 60 01/29/18 07:10 76 105/59 I/O 01/29/18 01/29/18 01/29/18 01/30/18 01/30/18 01/30/18 07:00 15:00 23:00 07:00 15:00 23:00 Intake Total 2133.5 ml 741 ml 1590 ml Output Total 200 ml 1750 ml Balance 1933.5 ml 741 ml -160 ml IV Total 2133.5 ml 741 ml 1590 ml Output Urine Total 200 ml 700 ml Gastric Drainage Total 300 ml Chest Tube Drainage Total 750 ml # Bowel Movements 0 0 Physical Exam GENERAL: Intubated, on the vent SKIN: Warm and dry. HEAD: Normocephalic. EYES: No scleral icterus. No injection or drainage. NECK: Supple, trachea midline. No JVD or lymphadenopathy. CARDIOVASCULAR: Regular rate and rhythm without murmurs, gallops, or rubs. RESPIRATORY: Breath sounds equal bilaterally. No accessory muscle use. GASTROINTESTINAL: Abdomen soft, non-tender, nondistended. MUSCULOSKELETAL: No cyanosis, or edema. . Laboratory Laboratory Tests Test 01/29/18 06:45 01/29/18 12:35 01/29/18 18:30 01/30/18 04:16 Blood Urea Nitrogen 6 MG/DL 8 MG/DL Creatinine 0.40 MG/DL 0.42 MG/DL Random Glucose 156 MG/DL 132 MG/DL Total Protein 4.7 GM/DL 4.6 GM/DL Albumin 2.6 GM/DL 2.3 GM/DL Calcium Level 7.6 MG/DL 8.0 MG/DL Phosphorus Level 2.2 MG/DL 2.9 MG/DL Magnesium Level 1.9 MG/DL 2.0 MG/DL Alkaline Phosphatase 72 U/L 77 U/L Aspartate Amino Transf (AST/SGOT) 49 U/L 60 U/L Alanine Aminotransferase (ALT/SGPT) 12 U/L 16 U/L Total Bilirubin 1.7 MG/DL 1.3 MG/DL Sodium Level 143 MEQ/L 146 MEQ/L Potassium Level 3.3 MEQ/L 3.7 MEQ/L 3.7 MEQ/L Chloride Level 115 MEQ/L 117 MEQ/L Carbon Dioxide Level 18.6 MEQ/L 19.3 MEQ/L Anion Gap 9 MEQ/L 10 MEQ/L Estimat Glomerular Filtration Rate 162 ML/MIN 153 ML/MIN Amylase Level 30 U/L Lipase 99 U/L Thyroid Stimulating Hormone 3rd Gen 3.410 uIU/ML Pleural Fluid pH 8.5 Pleural Fluid WBC 48 /MM3 Pleural Fluid RBC 283 /MM3 Pleural Fluid Neutrophils 17 % Pleural Fluid Lymphocytes 48 % Pleural Fluid Monocytes 32 % Pleural Fluid Histiocytes 1 % Pleural Fluid Mesothelial Cells 2 % Pleural Fluid Total Protein 1.3 GM/DL Pleural Fluid LDH 81 U/L Pleural Fluid Glucose 167 MG/DL White Blood Count 14.6 TH/MM3 Red Blood Count 4.08 MIL/MM3 Hemoglobin 10.6 GM/DL Hematocrit 33.4 % Mean Corpuscular Volume 81.8 FL Mean Corpuscular Hemoglobin 25.9 PG Mean Corpuscular Hemoglobin Concent 31.7 % Red Cell Distribution Width 23.5 % Platelet Count 195 TH/MM3 Mean Platelet Volume 7.8 FL Neutrophils (%) (Auto) 92.2 % Lymphocytes (%) (Auto) 3.9 % Monocytes (%) (Auto) 3.8 % Eosinophils (%) (Auto) 0.0 % Basophils (%) (Auto) 0.1 % Neutrophils # (Auto) 13.5 TH/MM3 Lymphocytes # (Auto) 0.6 TH/MM3 Monocytes # (Auto) 0.6 TH/MM3 Eosinophils # (Auto) 0.0 TH/MM3 Basophils # (Auto) 0.0 TH/MM3 CBC Comment DIFF FINAL Differential Comment Prothrombin Time 16.7 SEC Prothromb Time International Ratio 1.7 RATIO Activated Partial Thromboplast Time 40.5 SEC Fibrinogen 296 mg/dL Direct Bilirubin 0.8 MG/DL Lactic Acid Level 1.4 mmol/L Indirect Bilirubin 0.5 MG/DL Ammonia 41 MCMOL/L Total Creatine Kinase 65 U/L Vancomycin Level Trough 14.7 MCG/ML Imaging Last 24 hours Impressions Chest X-Ray 01/30/18 0600 Signed Impressions: Service Date/Time: January 02:39 - CONCLUSION: Unchanged bibasilar infiltrates. Lang Pena Jr., MD Chest X-Ray 01/29/18 1800 Signed Impressions: Service Date/Time: Monday, January 29, 2018 13:41 - CONCLUSION: 1. Slight improvement in airspace disease since earlier exam. Small caliber right chest tube present without evidence for pneumothorax on the current exam. Sina Winchester MD Assessment and Plan Problem List: (1) Atrial fibrillation ICD Codes: I48.91 - Unspecified atrial fibrillation (2) GI bleed ICD Codes: K92.2 - Gastrointestinal hemorrhage, unspecified Status: Acute (3) Alcoholic liver disease ICD Codes: K70.9 - Alcoholic liver disease, unspecified (4) Esophageal varices ICD Codes: I85.00 - Esophageal varices without bleeding (5) Respiratory failure ICD Codes: J96.90 - Respiratory failure, unspecified, unspecified whether with hypoxia or hypercapnia (6) Sepsis ICD Codes: A41.9 - Sepsis, unspecified organism Status: Acute Assessment and Plan No recurrent a fib. Continue current program. Remains intubated on the vent. No new cardiac issues. Problem Qualifiers (1) GI bleed: Qualified Codes: K92.2 - Gastrointestinal hemorrhage, unspecified (2) Sepsis: Qualified Codes: A41.9 - Sepsis, unspecified organism Danis Ernst MD Jan 30, 2018 06:21
[2018-01-30] MEDS ORDERED: FUROSEMIDE 40 MG/4 ML VIAL IV PUSH ONE (07:45)
--- NOTE | 2018-01-30 07:52 | HHI.CCPN ---
Subjective Remarks/Hospital Course This is a 62-year-old female. Date of admission 01/22/2018.. Date of consultation 01/28/2018. Past medical history includes EtOH, tobacco abuse, asthma and rheumatoid arthritis?. Patient presents to [facility] with a history of abdominal pain. Prior to admission diabetes and states placement on nonnarcotic pain medication antibiotics unknown type. Patient was admitted with gross abdominal ascites, likely community acquired pneumonia and GI bleeding. She was hypotensive and anemic. Patient is placed on broad-spectrum antibiotics including ceftriaxone and Levaquin. She was seen in consultation by gastroenterology performed an EGD of 01/25 which revealed 2 columns of esophageal varices without active bleeding. Portal hypertension/gastropathy. Patient was placed on pantoprazole 40 mg IV twice daily. Patient seen by urology for urinary retention. Recommended placement of Torres catheter. Patient has had decreased urine output over the past 48 hours and has been in A. fib with RVR. Magnesium potassium both her lobes are currently BX sacrectomy currently notes sinus tachycardia. Patient was placed on BiPAP 12/5 at 40% with rates respirations in the 40s. Decision made to early intubated for impending respiratory failure with coarse crackles present bilaterally. Post intubation, large right pleural effusion and clopidogrel in place. Attempted to contact Birgit Santiago [phone] Sister with primary contact information. Voicemail that set up. Did not answer phone. Subjective 01/29: Afebrile. Placement of right #10 [place] pigtail catheter for large right- sided pleural effusion. Small residual pneumothorax right apical noted. Repeat chest x-ray 1800 hrs. Potassium phosphorus has been replaced. We will recheck potassium this evening. 01/30 Patient is sedated with Diprivan, Fentanyl and intubated. Afebrile. On Levophed 2 mics. Objective Vital Signs Date Time Temp Pulse Resp B/P (MAP) Pulse Ox O2 Delivery O2 Flow Rate FiO2 01/30/18 04:15 99 40 01/30/18 02:00 77 01/30/18 00:00 96.9 16 99/65 (76) 106/57 (73) 01/27/18 22:10 Venturi Mask 6.00 Result Diagram: 01/30/18 0416 01/30/18 0416 Other Results Laboratory Tests Test 01/29/18 12:35 01/29/18 18:30 01/30/18 04:16 Pleural Fluid pH 8.5 Pleural Fluid WBC 48 /MM3 Pleural Fluid RBC 283 /MM3 Pleural Fluid Neutrophils 17 % Pleural Fluid Lymphocytes 48 % Pleural Fluid Monocytes 32 % Pleural Fluid Histiocytes 1 % Pleural Fluid Mesothelial Cells 2 % Pleural Fluid Total Protein 1.3 GM/DL Pleural Fluid LDH 81 U/L Pleural Fluid Glucose 167 MG/DL Potassium Level 3.7 MEQ/L 3.7 MEQ/L White Blood Count 14.6 TH/MM3 Red Blood Count 4.08 MIL/MM3 Hemoglobin 10.6 GM/DL Hematocrit 33.4 % Mean Corpuscular Volume 81.8 FL Mean Corpuscular Hemoglobin 25.9 PG Mean Corpuscular Hemoglobin Concent 31.7 % Red Cell Distribution Width 23.5 % Platelet Count 195 TH/MM3 Mean Platelet Volume 7.8 FL Neutrophils (%) (Auto) 92.2 % Lymphocytes (%) (Auto) 3.9 % Monocytes (%) (Auto) 3.8 % Eosinophils (%) (Auto) 0.0 % Basophils (%) (Auto) 0.1 % Neutrophils # (Auto) 13.5 TH/MM3 Lymphocytes # (Auto) 0.6 TH/MM3 Monocytes # (Auto) 0.6 TH/MM3 Eosinophils # (Auto) 0.0 TH/MM3 Basophils # (Auto) 0.0 TH/MM3 CBC Comment DIFF FINAL Differential Comment Prothrombin Time 16.7 SEC Prothromb Time International Ratio 1.7 RATIO Activated Partial Thromboplast Time 40.5 SEC Fibrinogen 296 mg/dL Blood Urea Nitrogen 8 MG/DL Creatinine 0.42 MG/DL Random Glucose 132 MG/DL Total Protein 4.6 GM/DL Albumin 2.3 GM/DL Calcium Level 8.0 MG/DL Phosphorus Level 2.9 MG/DL Magnesium Level 2.0 MG/DL Alkaline Phosphatase 77 U/L Aspartate Amino Transf (AST/SGOT) 60 U/L Alanine Aminotransferase (ALT/SGPT) 16 U/L Total Bilirubin 1.3 MG/DL Direct Bilirubin 0.8 MG/DL Sodium Level 146 MEQ/L Chloride Level 117 MEQ/L Carbon Dioxide Level 19.3 MEQ/L Anion Gap 10 MEQ/L Estimat Glomerular Filtration Rate 153 ML/MIN Lactic Acid Level 1.4 mmol/L Indirect Bilirubin 0.5 MG/DL Ammonia 41 MCMOL/L Total Creatine Kinase 65 U/L Vancomycin Level Trough 14.7 MCG/ML Imaging Last Impressions Chest X-Ray 01/30/18 0600 Signed Impressions: Service Date/Time: January 02:39 - CONCLUSION: Unchanged bibasilar infiltrates. Lang Pena Jr., MD Renal Ultrasound 01/26/18 0000 Signed Impressions: Service Date/Time: Friday, January 26, 2018 14:43 - CONCLUSION: 1. Unremarkable renal ultrasound. Bladder decompressed by Torres. Ascites. Sina Winchester MD Cyst Biopsy Asp-Paracentesis US 01/23/18 0000 Signed Impressions: Service Date/Time: January 07:52 - CONCLUSION: Uncomplicated ultrasound guided paracentesis. Luis Lewis MD Abdomen/Pelvis CT 01/22/18 0000 Signed Impressions: Service Date/Time: Monday, January 22, 2018 15:07 - CONCLUSION: Small shrunken fatty replaced liver with extensive ascites. Prominent gallbladder.. Desmond Alvarez MD FACR Procedures Paracentesis 01/23/2018. 01/28/18 Right #10 [place] chest tube 01/29 Objective Remarks GENERAL: 62-year-old female currently orotracheally intubated SKIN: Warm and dry. No rash HEAD: Atraumatic. Normocephalic. EYES: Pupils equal and round. No scleral icterus. No injection or drainage. ENT: No nasal bleeding or discharge. Mucous membranes pink and moist. NECK: Trachea midline. No JVD. CARDIOVASCULAR: Tachycardic, RR. S1, S2 no S4. Without murmurs RESPIRATORY: Coarse crackles appreciated throughout lung arredondo right greater than left. No wheezing. Positive accessory muscle use prior to intubation GASTROINTESTINAL: Abdomen grossly distended, tender to palpation epigastric/ right upper quadrant. Unable to palpate hepatic or splenic margins due to gross distention MUSCULOSKELETAL: Extremities trace lower extremity edema. No obvious deformities. NEUROLOGICAL: Cranial nerves II through XII appear grossly intact prior to intubation. Moves all 4 extremities. Both 1-2 word sentences. Date of Insertion: Jan 28, 2018 Line: Central Venous Catheter Side: Left Location: Internal, Jugular A/P Assessment and Plan Neuro/Psych: EtOH On Diprivan/Fentanyl infusion for sedation/analgesia while intubated Goal RASS -2 Daily sedation vacation Thiamine 100 mg , multivitamin 1 tablet daily and 1 mg folate daily Acetaminophen 650 mg by tube every 6 hours as needed fever CV: A. fib with RVR currently normal sinus rhythm Wean off Levophed - on 2 mics keep MAP>65mmHg. Lactic acid 1.4 Seen in consultation by Dr. Ernst -cardiology Echo showed EF 50-55% Resp: Acute hypercapnic Hypoxic respiratory failure Bilateral pleural effusions Community acquired pneumonia PRVC 16/600/1.3/5/40% Ventilator bundle. Check ABG, decrease TV 450 Albuterol/ipratropium aerosols every 4 hours with albuterol aerosols every 2 hours as needed dyspnea Budesonide 0.5/2 1 inhalation twice daily On Solumederol 40mg Q12 01/29 placement of #10 [place] chest tube right-sided for effusion. Monitor CT drainage- drained 750ml in 24 hrs GI: Esophageal varices Portal gastropathy Elevated transaminases Pancreatitis Hypoalbuminemia Hyperammonia CT abdomen/pelvis revealed shrunken liver, gross abdominal ascites. Status post paracentesis 6.6 L removed on 01/23. 6L removed on 01/28 Lansoprazole 30 mg twice daily Docusate sodium/senna/1 tablet twice daily for bowel regimen Lactulose 30 cc every 6 hours for elevated ammonia trending down Hepatitis panel negative. OMI, ASMA negative. Elevated alpha-1 antitrypsin. Negative ceruloplasmin Start tube feedings with Neutra hep 40 cc an hour : Urinary retention Evaluated by urology. Maintain Torres catheter Continue tamsulosin 0.4 mg by tube daily if able Monitor renal function, electrolytes replacement as needed Diurese with Lasix, d/c IVF Endo: Sliding scale insulin with Accu-Cheks every 4 hours to maintain euglycemia with Novulin R Heme: Leukocytosis Normocytic anemia Elevated INR Monitor CBC , coags- INR 1.7 today ID: Severe sepsis Currently on vancomycin, cefepime and metronidazole, add Diflucan Pertinent cultures 01/29 -pleural fluid pending 01/28 Urine cx: C. Albicans 01/28 -blood cultures 2 and UA pending 01/28 -urine Legionella pneumococcal antigen pending 01/23, 01/28-peritoneal fluid -no growth 01/22 -blood cultures 2 -no growth MSK: PT evaluate and treat Access -Left IJ CVL d placed 01/28 -Right femoral arterial line placed 01/28 Prophylaxis -GI -lansoprazole -DVT -SCD/holding pharmacological prophylaxis in light of elevated INR/upper GI bleed Critical Care: The total critical care time was 30 minutes. Time to perform other separately billable procedures was not included in the critical care time. Alberto Kolb MD Jan 30, 2018 07:52
[2018-01-30] MEDS: FREE WATER G-TUBE SCH ×2 (08:00→16:00)
[2018-01-30] MEDS: SODIUM CHLORIDE 0.9% FLUSH 10 ML FLUSH IV FLUSH SCH ×2 (08:45→20:26)
[2018-01-30] MEDS: methylPREDNISolone SOD SUCC 40 MG/1 ML VIAL IV PUSH SCH ×2 (08:45→20:25)
[2018-01-30] MEDS: FOLIC ACID 1 MG TAB PO SCH (08:46)
[2018-01-30] MEDS: FLUCONAZOLE 100 MG TAB PO SCH (08:46)
[2018-01-30] MEDS: LANSOPRAZOLE SOLUTAB 30 MG TAB NG SCH ×2 (08:46→20:25)
[2018-01-30] MEDS: LACTULOSE SYRUP 20 GM/30 ML CUP PO SCH ×4 (08:46→20:24)
[2018-01-30] MEDS: THIAMINE HCL 100 MG TAB PO SCH (08:47)
[2018-01-30] MEDS: MULTIVITAMIN TAB PO SCH (08:47)
[2018-01-30] MEDS: RESP: BUDESONIDE 0.5 MG/2 ML NEB NEB SCH ×2 (08:54→20:50)
[2018-01-30] MEDS: TAMSULOSIN HCL 0.4 MG CAP PO SCH (09:00)
[2018-01-30] MEDS: fentaNYL DRIP 250 ML IV PRN (09:12)
--- NOTE | 2018-01-30 15:09 | HHI.PR ---
Subjective Remarks SEDATED ON THE VENTILATOR Objective Vital Signs Date Time Temp Pulse Resp B/P (MAP) Pulse Ox O2 Delivery O2 Flow Rate FiO2 01/30/18 14:00 90 01/30/18 12:00 91 93/62 (72) 100/53 (69) 01/30/18 12:00 91 01/30/18 12:00 98.0 91 8 93/62 (72) 100 100/53 (69) 01/30/18 12:00 40 01/30/18 10:00 89 01/30/18 08:54 40 01/30/18 08:54 100 40 01/30/18 08:00 78 01/30/18 08:00 40 01/30/18 08:00 97.8 78 16 104/58 (73) 83 109/57 (74) 01/30/18 06:00 82 01/30/18 04:15 99 40 01/30/18 04:00 72 01/30/18 04:00 40 01/30/18 04:00 97.9 72 16 99/63 (75) 99 99/54 (69) 01/30/18 02:00 77 01/30/18 00:05 98 40 01/30/18 00:00 73 01/30/18 00:00 96.9 73 16 99/65 (76) 99 106/57 (73) 01/30/18 00:00 40 01/29/18 22:00 75 01/29/18 20:00 96.5 73 16 105/68 (80) 100 117/64 (81) 01/29/18 20:00 73 01/29/18 20:00 40 01/29/18 19:52 99 40 01/29/18 19:03 73 115/64 01/29/18 18:00 74 01/29/18 18:00 74 90/55 (67) 114/63 (80) 01/29/18 16:06 74 86/58 01/29/18 16:00 60 01/29/18 16:00 74 01/29/18 16:00 97.7 74 16 86/58 (67) 94 95/55 (68) 01/29/18 15:47 95 40 01/29/18 15:45 60 I/O 01/29/18 01/29/18 01/29/18 01/30/1818 3/15/18 07:00 15:00 23:00 07:00 15:00 23:00 Intake Total 2133.5 ml 741 ml 1590 ml 3441.5 ml Output Total 200 ml 1750 ml 1585 ml Balance 1933.5 ml 741 ml -160 ml 1856.5 ml IV Total 2133.5 ml 741 ml 1590 ml 3441.5 ml Output Urine Total 200 ml 700 ml 350 ml Gastric Drainage Total 300 ml 300 ml Chest Tube Drainage Total 750 ml 125 ml Drainage Total 810 ml # Bowel Movements 0 0 0 Result Diagram: 01/30/1841501/30/18 0416 Procedures Paracentesis 01/23/2018. Objective Remarks GENERAL: SKIN: Warm and dry. HEAD: Atraumatic. Normocephalic. EYES: Pupils equal and round. No scleral icterus. No injection or drainage. ENT: No nasal bleeding or discharge. Mucous membranes pink and moist. NECK: Trachea midline. No JVD. CARDIOVASCULAR: Regular rate and rhythm. RESPIRATORY: No accessory muscle use. Clear to auscultation. Breath sounds equal bilaterally. GASTROINTESTINAL: Abdomen soft, non-tender, nondistended. Hepatic and splenic margins not palpable. MUSCULOSKELETAL: Extremities without clubbing, cyanosis, or edema. No obvious deformities. NEUROLOGICAL: Awake and alert. No obvious cranial nerve deficits. Motor grossly within normal limits. Five out of 5 muscle strength in the arms and legs. Normal speech. PSYCHIATRIC: Appropriate mood and affect; insight and judgment normal. Assessment and Plan Assessment and Plan IMPRESSION RESPIRATORY FAILURE SEPSIS GI BLEED ETOH WITHDRAWAL PLAN VENT SUPPORT WEAN TOLERATED Mala Medeiros MD Jan 30, 2018 15:09
--- NOTE | 2018-01-30 19:10 | PD.CARD.PN ---
Subjective Subjective Remarks Progress note 01/30/2018 Intubated, sedated, stays in SR Objective Medications Current Medications Medications (Trade) Dose Ordered Sig/Ralph Route Start Time Stop Time Status Last Admin (NS Flush) 2 ml UNSCH PRN IV FLUSH 01/22/18 17:15 01/27/18 08:54 (NS Flush) 2 ml BID IV FLUSH 01/22/18 21:00 01/30/18 08:45 (Narcan Inj) 0.4 mg UNSCH PRN IV PUSH 01/22/18 17:15 (Brethine Inj) 1 mg UNSCH PRN SQ 01/23/18 04:30 (Gyne Lotrimin 7 1% Vag Cream) 1 appl HS VAGINAL 01/23/18 21:00 01/30/18 20:59 01/29/18 22:20 (Duoneb Neb) 1 ampule Q4HR NEB NEB 01/26/18 20:00 01/30/18 15:39 (Flomax) 0.4 mg DAILY PO 01/27/18 14:15 01/27/18 14:42 Pharmacy Profile Note 0 ml @ 0 mls/hr UNSCH OTHER 01/28/18 14:00 Vancomycin HCl 1250 mg/Sodium Chloride 262.5 ml @ 262.5 mls/ hr Q12H IV 01/28/18 16:00 01/30/18 17:40 (Peridex 0.12% Liq) 15 ml BID@08,20 MT 01/28/18 20:00 01/29/18 22:19 Propofol 100 ml @ 2.475 mls/ hr TITRATE PRN IV 01/28/18 16:15 01/29/18 22:21 Midazolam HCl 100 ml @ 2 mls/hr TITRATE PRN IV 01/28/18 16:15 Fentanyl Citrate 250 ml @ 5 mls/hr TITRATE PRN IV 01/28/18 16:15 01/30/18 09:12 (Tears Naturale Opth Soln) 1 drop Q8HR EACH EYE 01/28/18 22:00 01/30/18 05:22 Norepinephrine Bitartrate 4 mg/ Sodium Chloride 250 ml @ 7.5 mls/hr TITRATE PRN IV 01/28/18 16:15 01/29/18 19:03 (Brethine Inj) 1 mg UNSCH PRN SQ 01/28/18 16:15 (NS Flush) DAILY IV FLUSH 01/28/18 17:00 01/29/18 08:21 (NS Flush) UNSCH PRN IV FLUSH 01/28/18 17:00 (Albuterol Neb) 2.5 mg Q2HR NEB PRN NEB 01/28/18 17:15 (Tylenol 650 Mg/ 20 ml Liq) 650 mg Q6H PRN OG-TUBE 01/28/18 17:15 (Pulmicort Respule Neb) 0.5 mg Q12HR NEB NEB 01/28/18 20:00 01/30/18 08:54 (SoluMEDROL INJ) 40 mg Q12HR IV PUSH 01/28/18 21:00 01/30/18 08:45 (D50w (Vial) Inj) 50 ml UNSCH PRN IV PUSH 01/28/18 17:15 (Glucagon Inj) 1 mg UNSCH PRN OTHER 01/28/18 17:15 (NovoLIN R SUPPLEMENTAL SCALE) 1 Q4HR SQ 01/28/18 20:00 (Prevacid Odt) 30 mg BID NG 01/28/18 21:00 01/30/18 08:46 (Folate) 1 mg DAILY PO 01/29/18 09:00 01/30/18 08:46 (Theragran) 1 tab DAILY PO 01/29/18 09:00 01/30/18 08:47 Potassium Chloride 100 ml @ 50 mls/hr Q2H PRN IV 01/28/18 17:45 Potassium Chloride 100 ml @ 50 mls/hr Q2H PRN IV 01/28/18 17:45 (K-Lyte Cl Eff) 50 meq UNSCH PRN PO 01/28/18 17:45 Potassium Chloride 100 ml @ 25 mls/hr UNSCH PRN IV 01/28/18 17:45 Potassium Chloride 100 ml @ 50 mls/hr Q2H PRN IV 01/28/18 17:45 Magnesium Sulfate 4 gm/Sodium Chloride 100 ml @ 50 mls/hr UNSCH PRN IV 01/28/18 17:45 (Mag-Ox) 800 mg UNSCH PRN PO 01/28/18 17:45 Magnesium Sulfate 2 gm/Sodium Chloride 100 ml @ 50 mls/hr UNSCH PRN IV 01/28/18 17:45 (K-Phos) 2,000 mg Q4H PRN PO 01/28/18 17:45 Sodium Phosphate 30 mmol/Sodium Chloride 250 ml @ 42 mls/hr UNSCH PRN IV 01/28/18 17:45 (K-Phos) 2,000 mg UNSCH PRN PO/TUBE 01/28/18 17:44 Potassium Phosphate 30 mmol/ Sodium Chloride 260 ml @ 42 mls/hr UNSCH PRN IV 01/28/18 17:44 (Lactulose Liq) 30 ml QID PO 01/29/18 09:00 01/30/18 17:40 (Flagyl) 500 mg Q6HR PO 01/29/18 18:00 01/30/18 17:40 Cefepime HCl 2000 mg/Sodium Chloride 100 ml @ 200 mls/hr Q8H IV 01/29/18 14:00 01/30/18 14:24 (Vitamin B1) 100 mg DAILY PO 01/30/18 09:00 01/30/18 08:47 (Free Water) 250 ml Q8H G-TUBE 01/30/18 08:00 01/30/18 16:00 (Diflucan) 100 mg DAILY PO 01/30/18 09:00 01/30/18 08:46 Miscellaneous Information SPECIFIC LAB TO BE DRAWN:VANCOMYCIN TROUGH DATE TO... ONCE ONCE .XX 02/01/18 03:45 02/01/18 03:46 Vital Signs / I&O Vital Signs Date Time Temp Pulse Resp B/P (MAP) Pulse Ox O2 Delivery O2 Flow Rate FiO2 01/30/18 18:00 79 88/57 (67) 86/54 (65) 01/30/18 18:00 79 01/30/18 17:13 99 40 01/30/18 16:00 86 01/30/18 16:00 98.5 86 16 81/54 (63) 98 91/55 (67) 01/30/18 16:00 40 01/30/18 15:32 99 40 01/30/18 14:00 90 01/30/18 12:00 91 93/62 (72) 100/53 (69) 01/30/18 12:00 91 01/30/18 12:00 98.0 91 8 93/62 (72) 100 100/53 (69) 01/30/18 12:00 40 01/30/18 10:00 89 01/30/18 08:54 40 01/30/18 08:54 100 40 01/30/18 08:00 78 01/30/18 08:00 40 01/30/18 08:00 97.8 78 16 104/58 (73) 83 109/57 (74) 01/30/18 08:00 78 109/57 01/30/18 07:00 74 103/54 01/30/18 06:00 82 01/30/18 04:15 99 40 01/30/18 04:00 72 01/30/18 04:00 40 01/30/18 04:00 97.9 72 16 99/63 (75) 99 99/54 (69) 01/30/18 02:00 77 01/30/18 00:05 98 40 01/30/18 00:00 73 01/30/18 00:00 96.9 73 16 99/65 (76) 99 106/57 (73) 01/30/18 00:00 40 01/29/18 22:00 75 01/29/18 20:00 96.5 73 16 105/68 (80) 100 117/64 (81) 01/29/18 20:00 73 01/29/18 20:00 40 01/29/18 19:52 99 40 I/O 01/29/18 01/29/18 01/29/18 01/30/18 01/30/18 01/30/18 06:59 14:59 22:59 06:59 14:59 22:59 Intake Total 2133.5 ml 741 ml 1590 ml 3441.5 ml 224.725 ml 648.00 ml Output Total 200 ml 1750 ml 1585 ml 1625 ml Balance 1933.5 ml 741 ml -160 ml 1856.5 ml 224.725 ml -977.00 ml Intake Oral 0 ml IV Total 2133.5 ml 741 ml 1590 ml 3441.5 ml 224.725 ml 271.00 ml Tube Feeding 127 ml Other 250 ml Output Urine Total 200 ml 700 ml 350 ml 1300 ml Gastric Drainage Total 300 ml 300 ml Chest Tube Drainage Total 750 ml 125 ml 75 ml Drainage Total 810 ml 250 ml # Bowel Movements 0 0 0 0 Physical Exam GENERAL: Intubated, on the vent SKIN: Warm and dry. HEAD: Normocephalic. EYES: No scleral icterus. No injection or drainage. NECK: Supple, trachea midline. No JVD or lymphadenopathy. CARDIOVASCULAR: Regular rate and rhythm without murmurs, gallops, or rubs. RESPIRATORY: Breath sounds equal bilaterally. No accessory muscle use. GASTROINTESTINAL: Abdomen soft, non-tender, nondistended. MUSCULOSKELETAL: No cyanosis, or edema. . Laboratory Laboratory Tests Test 01/30/18 04:16 01/30/18 08:42 White Blood Count 14.6 TH/MM3 Red Blood Count 4.08 MIL/MM3 Hemoglobin 10.6 GM/DL Hematocrit 33.4 % Mean Corpuscular Volume 81.8 FL Mean Corpuscular Hemoglobin 25.9 PG Mean Corpuscular Hemoglobin Concent 31.7 % Red Cell Distribution Width 23.5 % Platelet Count 195 TH/MM3 Mean Platelet Volume 7.8 FL Neutrophils (%) (Auto) 92.2 % Lymphocytes (%) (Auto) 3.9 % Monocytes (%) (Auto) 3.8 % Eosinophils (%) (Auto) 0.0 % Basophils (%) (Auto) 0.1 % Neutrophils # (Auto) 13.5 TH/MM3 Lymphocytes # (Auto) 0.6 TH/MM3 Monocytes # (Auto) 0.6 TH/MM3 Eosinophils # (Auto) 0.0 TH/MM3 Basophils # (Auto) 0.0 TH/MM3 CBC Comment DIFF FINAL Differential Comment Prothrombin Time 16.7 SEC Prothromb Time International Ratio 1.7 RATIO Activated Partial Thromboplast Time 40.5 SEC Fibrinogen 296 mg/dL Blood Urea Nitrogen 8 MG/DL Creatinine 0.42 MG/DL Random Glucose 132 MG/DL Total Protein 4.6 GM/DL Albumin 2.3 GM/DL Calcium Level 8.0 MG/DL Phosphorus Level 2.9 MG/DL Magnesium Level 2.0 MG/DL Alkaline Phosphatase 77 U/L Aspartate Amino Transf (AST/SGOT) 60 U/L Alanine Aminotransferase (ALT/SGPT) 16 U/L Total Bilirubin 1.3 MG/DL Direct Bilirubin 0.8 MG/DL Sodium Level 146 MEQ/L Potassium Level 3.7 MEQ/L Chloride Level 117 MEQ/L Carbon Dioxide Level 19.3 MEQ/L Anion Gap 10 MEQ/L Estimat Glomerular Filtration Rate 153 ML/MIN Lactic Acid Level 1.4 mmol/L Indirect Bilirubin 0.5 MG/DL Ammonia 41 MCMOL/L Total Creatine Kinase 65 U/L Vancomycin Level Trough 14.7 MCG/ML Blood Gas Puncture Site ART LINE Blood Gas Patient Temperature 98.6 Blood Gas HCO3 17 mmol/L Blood Gas Base Excess -7.5 mmol/L Blood Gas Oxygen Saturation 94 % Arterial Blood pH 7.35 Arterial Blood Partial Pressure CO2 31 mmHg Arterial Blood Partial Pressure O2 93 mmHg Arterial Blood Oxygen Content 13.4 Vol % Arterial Blood Carboxyhemoglobin 1.0 % Arterial Blood Methemoglobin 1.2 % Blood Gas Hemoglobin 10.0 G/DL Oxygen Delivery Device VENTILATOR Blood Gas Ventilator Setting Blood Gas Inspired Oxygen 40 % Imaging Last 24 hours Impressions Chest X-Ray 01/30/18 0600 Signed Impressions: Service Date/Time: January 02:39 - CONCLUSION: Unchanged bibasilar infiltrates. Lang Pena Jr., MD Assessment and Plan Problem List: (1) Atrial fibrillation ICD Codes: I48.91 - Unspecified atrial fibrillation (2) GI bleed ICD Codes: K92.2 - Gastrointestinal hemorrhage, unspecified Status: Acute (3) Alcoholic liver disease ICD Codes: K70.9 - Alcoholic liver disease, unspecified (4) Esophageal varices ICD Codes: I85.00 - Esophageal varices without bleeding (5) Respiratory failure ICD Codes: J96.90 - Respiratory failure, unspecified, unspecified whether with hypoxia or hypercapnia (6) Sepsis ICD Codes: A41.9 - Sepsis, unspecified organism Status: Acute Assessment and Plan Stays in , has had no recurrent a fib. Continue current program with ICU care. Remains intubated on the vent, wean as tolerated. Continue tx for sepsis. GI eval in progress. Problem Qualifiers (1) GI bleed: Qualified Codes: K92.2 - Gastrointestinal hemorrhage, unspecified (2) Sepsis: Qualified Codes: A41.9 - Sepsis, unspecified organism Danis Ernst MD Jan 30, 2018 19:10
[2018-01-30] MEDS: CHLORHEXIDINE 0.12% (ORAL KIT) 15 ML CUP MT SCH (20:29)
[2018-01-31] VITALS (20 sets, daily range): BP systolic 88–111; BP diastolic 51–70; PULSE 73–99; RESP 7–18; TEMP 96.8–98.3; O2SAT 94–100
[2018-01-31] MEDS: INSULIN NovoLIN REGULAR SUPPLEMENTAL SCALE SQ SCH ×7 (00:13→23:56)
[2018-01-31] MEDS: metroNIDAZOLE 500 MG TAB PO SCH ×5 (00:13→23:56)
[2018-01-31] MEDS: PROPOFOL 1000 MG/100 ML INJ 100 ML IV PRN (03:52)
[2018-01-31] MEDS: VANCOMYCIN INJ 1,250 MG in SODIUM CHLOR 0.9% 250 ML INJ 250 ML IV SCH (05:03)
[2018-01-31 06:08] LABS: AUTOMATED NEUTROPHIL # 11.8 TH/MM3 (1.8-7.7); HEMATOCRIT 33.3 % (35.0-46.0); HEMOGLOBIN 10.4 GM/DL (11.6-15.3); LYMPH % 2.8 % (9.0-44.0); LYMPHOCYTE # 0.4 TH/MM3 (1.0-4.8); MEAN CELL VOLUME 84.1 FL (80.0-100.0); MEAN CORPUSCULAR HEMOGLOBIN 26.2 PG (27.0-34.0); MEAN CORPUSCULAR HGB CONC 31.2 % (32.0-36.0); MEAN PLATELET VOLUME 7.7 FL (7.0-11.0); MONO % 5.6 % (0.0-8.0); MONOCYTE # 0.7 TH/MM3 (0-0.9); NEUT % 91.6 % (16.0-70.0); PLATELET COUNT 183 TH/MM3 (150-450); RED BLOOD COUNT 3.96 MIL/MM3 (4.00-5.30); RED CELL DISTRIBUTION WIDTH 23.5 % (11.6-17.2); WHITE BLOOD COUNT 12.9 TH/MM3 (4.0-11.0)
[2018-01-31 06:15] LABS: INTERNATIONAL NORMALIZED RATIO 1.6 RATIO; PROTHROMBIN TIME - PATIENT 15.9 SEC (9.8-11.6)
[2018-01-31] MEDS: ARTIFICIAL TEARS OPTH SOLN 15 ML BTL EACH EYE SCH ×3 (06:18→20:27)
[2018-01-31] MEDS: CEFEPIME INJ 2,000 MG in SODIUM CHLORIDE 0.9% INJ 100 ML IV SCH ×3 (06:18→21:59)
[2018-01-31 06:29] LABS: ALBUMIN 2.1 GM/DL (3.4-5.0); ALT (GPT) 17 U/L (10-53); AST (GOT) 68 U/L (15-37); BICARBONATE 21.4 MEQ/L (21.0-32.0); BLOOD UREA NITROGEN 14 MG/DL (7-18); CALCIUM 8.5 MG/DL (8.5-10.1); CHLORIDE 119 MEQ/L (98-107); CREATININE 0.72 MG/DL (0.50-1.00); GLOMERULAR FILTRATION RATE 82 ML/MIN (>89); GLUCOSE,RANDOM 141 MG/DL (74-106); PHOSPHORUS 3.4 MG/DL (2.5-4.9); SODIUM (NA) 149 MEQ/L (136-145)
[2018-01-31 06:32] LABS: ALKALINE PHOSPHATASE 90 U/L (45-117); TOTAL BILIRUBIN ADULT 1.1 MG/DL (0.2-1.0); TOTAL PROTEIN 4.7 GM/DL (6.4-8.2)
--- NOTE | 2018-01-31 07:30 | HHI.PR ---
Subjective Remarks SEDATED ON THE VENTILATOR Objective Vital Signs Date Time Temp Pulse Resp B/P (MAP) Pulse Ox O2 Delivery O2 Flow Rate FiO2 01/31/18 06:00 73 88/62 (71) 101/58 (72) 01/31/18 06:00 73 01/31/18 04:00 40 01/31/18 04:00 82 01/31/18 04:00 98.3 82 16 98/63 (75) 95 105/56 (72) 01/31/18 03:17 94 40 01/31/18 02:00 75 01/31/18 01:21 95 40 01/31/18 00:00 97.9 80 16 92/64 (73) 97 101/53 (69) 01/31/18 00:00 80 01/31/18 00:00 40 01/30/18 23:08 96 40 01/30/18 22:00 86 01/30/18 20:50 98 40 01/30/18 20:00 98.7 79 16 82/56 (65) 98 90/52 (65) 01/30/18 20:00 40 01/30/18 20:00 79 01/30/18 18:00 79 88/57 (67) 86/54 (65) 01/30/18 18:00 79 01/30/18 17:13 99 40 01/30/18 16:00 86 01/30/18 16:00 98.5 86 16 81/54 (63) 98 91/55 (67) 01/30/18 16:00 40 01/30/18 15:32 99 40 01/30/18 14:00 90 01/30/18 12:00 91 93/62 (72) 100/53 (69) 01/30/18 12:00 91 01/30/18 12:00 98.0 91 8 93/62 (72) 100 100/53 (69) 01/30/18 12:00 40 01/30/18 10:00 89 01/30/18 08:54 40 01/30/18 08:54 100 40 01/30/18 08:00 78 01/30/18 08:00 40 01/30/18 08:00 97.8 78 16 104/58 (73) 83 109/57 (74) 01/30/18 08:00 78 109/57 I/O 01/30/18 01/30/18 01/30/18 01/31/18 01/31/18 01/31/18 07:00 15:00 23:00 07:00 15:00 23:00 Intake Total 3465.20 ml 215.975 ml 733.05 ml 982.5 ml Output Total 1585 ml 1625 ml 970 ml Balance 1880.20 ml 215.975 ml -891.95 ml 12.5 ml Intake Oral 0 ml IV Total 3465.20 ml 215.975 ml 356.05 ml 462.5 ml Tube Feeding 127 ml 270 ml Other 250 ml 250 ml Output Urine Total 350 ml 1300 ml 250 ml Gastric Drainage Total 300 ml Chest Tube Drainage Total 125 ml 75 ml 20 ml Drainage Total 810 ml 250 ml 700 ml # Bowel Movements 0 0 1 Result Diagram: 01/31/18 0600 01/31/18 0600 Procedures Paracentesis 01/23/2018. Objective Remarks GENERAL: SKIN: Warm and dry. HEAD: Atraumatic. Normocephalic. EYES: Pupils equal and round. No scleral icterus. No injection or drainage. ENT: No nasal bleeding or discharge. Mucous membranes pink and moist. NECK: Trachea midline. No JVD. CARDIOVASCULAR: Regular rate and rhythm. RESPIRATORY: No accessory muscle use. Clear to auscultation. Breath sounds equal bilaterally. GASTROINTESTINAL: Abdomen soft, non-tender, nondistended. Hepatic and splenic margins not palpable. MUSCULOSKELETAL: Extremities without clubbing, cyanosis, or edema. No obvious deformities. NEUROLOGICAL: Awake and alert. No obvious cranial nerve deficits. Motor grossly within normal limits. Five out of 5 muscle strength in the arms and legs. Normal speech. PSYCHIATRIC: Appropriate mood and affect; insight and judgment normal. Assessment and Plan Assessment and Plan IMPRESSION RESPIRATORY FAILURE SEPSIS GI BLEED ETOH WITHDRAWAL PLAN VENT SUPPORT PULMONARY TOILET WEAN TOLERATED Mala Medeiros MD Jan 31, 2018 07:30
[2018-01-31 07:34] LABS: ACANTHOCYTES OCC (NORMAL); KERATOCYTES OCC (NORMAL)
[2018-01-31] MEDS: RESP: BUDESONIDE 0.5 MG/2 ML NEB NEB SCH ×2 (07:52→19:07)
[2018-01-31] MEDS: CHLORHEXIDINE 0.12% (ORAL KIT) 15 ML CUP MT SCH ×2 (08:00→20:00)
[2018-01-31] MEDS: FREE WATER G-TUBE SCH ×2 (08:00)
[2018-01-31] MEDS: methylPREDNISolone SOD SUCC 40 MG/1 ML VIAL IV PUSH SCH ×2 (08:33→20:26)
[2018-01-31] MEDS: SODIUM CHLORIDE 0.9% FLUSH 10 ML FLUSH IV FLUSH SCH ×3 (08:33→20:27)
[2018-01-31] MEDS: TAMSULOSIN HCL 0.4 MG CAP PO SCH (08:34)
[2018-01-31] MEDS: FLUCONAZOLE 100 MG TAB PO SCH (08:34)
[2018-01-31] MEDS: LANSOPRAZOLE SOLUTAB 30 MG TAB NG SCH ×2 (08:34→20:27)
[2018-01-31] MEDS: FOLIC ACID 1 MG TAB PO SCH (08:34)
[2018-01-31] MEDS: LACTULOSE SYRUP 20 GM/30 ML CUP PO SCH ×4 (08:34→20:27)
[2018-01-31] MEDS: THIAMINE HCL 100 MG TAB PO SCH (08:35)
[2018-01-31] MEDS: MULTIVITAMIN TAB PO SCH (08:35)
--- NOTE | 2018-01-31 09:21 | HHI.CCPN ---
Subjective Remarks/Hospital Course This is a 62-year-old female. Date of admission 01/22/2018.. Date of consultation 01/28/2018. Past medical history includes EtOH, tobacco abuse, asthma and rheumatoid arthritis?. Patient presents to [facility] with a history of abdominal pain. Prior to admission diabetes and states placement on nonnarcotic pain medication antibiotics unknown type. Patient was admitted with gross abdominal ascites, likely community acquired pneumonia and GI bleeding. She was hypotensive and anemic. Patient is placed on broad-spectrum antibiotics including ceftriaxone and Levaquin. She was seen in consultation by gastroenterology performed an EGD of 01/25 which revealed 2 columns of esophageal varices without active bleeding. Portal hypertension/gastropathy. Patient was placed on pantoprazole 40 mg IV twice daily. Patient seen by urology for urinary retention. Recommended placement of Torres catheter. Patient has had decreased urine output over the past 48 hours and has been in A. fib with RVR. Magnesium potassium both her lobes are currently BX sacrectomy currently notes sinus tachycardia. Patient was placed on BiPAP 12/5 at 40% with rates respirations in the 40s. Decision made to early intubated for impending respiratory failure with coarse crackles present bilaterally. Post intubation, large right pleural effusion and clopidogrel in place. Attempted to contact Birgit Santiago [phone] Sister with primary contact information. Voicemail that set up. Did not answer phone. Subjective 01/29: Afebrile. Placement of right #10 Macanese pigtail catheter for large right- sided pleural effusion. Small residual pneumothorax right apical noted. Repeat chest x-ray 1800 hrs. Potassium phosphorus has been replaced. We will recheck potassium this evening. 01/30 Patient is sedated with Diprivan, Fentanyl and intubated. Afebrile. On Levophed 2 mics. 01/31 No events overnight. Off Levophed. Remains sedated and intubated. Tolerated CPAP for several hrs yesterday Objective Vital Signs Date Time Temp Pulse Resp B/P (MAP) Pulse Ox O2 Delivery O2 Flow Rate FiO2 01/31/18 07:55 40 01/31/18 07:55 100 01/31/18 06:00 73 88/62 (71) 101/58 (72) 01/31/18 04:00 98.3 16 01/27/18 22:10 Venturi Mask 6.00 Intake and Output 01/31/18 01/31/18 02/01/18 08:00 16:00 00:00 Intake Total 982.5 ml Output Total 970 ml Balance 12.5 ml Result Diagram: 01/31/18 0600 01/31/18 0600 Other Results Laboratory Tests Test 01/31/18 06:00 White Blood Count 12.9 TH/MM3 Red Blood Count 3.96 MIL/MM3 Hemoglobin 10.4 GM/DL Hematocrit 33.3 % Mean Corpuscular Volume 84.1 FL Mean Corpuscular Hemoglobin 26.2 PG Mean Corpuscular Hemoglobin Concent 31.2 % Red Cell Distribution Width 23.5 % Platelet Count 183 TH/MM3 Mean Platelet Volume 7.7 FL Neutrophils (%) (Auto) 91.6 % Lymphocytes (%) (Auto) 2.8 % Monocytes (%) (Auto) 5.6 % Eosinophils (%) (Auto) 0.0 % Basophils (%) (Auto) 0.0 % Neutrophils # (Auto) 11.8 TH/MM3 Lymphocytes # (Auto) 0.4 TH/MM3 Monocytes # (Auto) 0.7 TH/MM3 Eosinophils # (Auto) 0.0 TH/MM3 Basophils # (Auto) 0.0 TH/MM3 CBC Comment AUTO DIFF Differential Comment AUTO DIFF CONFIRMED Platelet Estimate NORMAL Platelet Morphology Comment ENLARGED Acanthocytes OCC Keratocytes OCC Prothrombin Time 15.9 SEC Prothromb Time International Ratio 1.6 RATIO Blood Urea Nitrogen 14 MG/DL Creatinine 0.72 MG/DL Random Glucose 141 MG/DL Total Protein 4.7 GM/DL Albumin 2.1 GM/DL Calcium Level 8.5 MG/DL Phosphorus Level 3.4 MG/DL Magnesium Level 2.0 MG/DL Alkaline Phosphatase 90 U/L Aspartate Amino Transf (AST/SGOT) 68 U/L Alanine Aminotransferase (ALT/SGPT) 17 U/L Total Bilirubin 1.1 MG/DL Sodium Level 149 MEQ/L Potassium Level 3.5 MEQ/L Chloride Level 119 MEQ/L Carbon Dioxide Level 21.4 MEQ/L Anion Gap 9 MEQ/L Estimat Glomerular Filtration Rate 82 ML/MIN Imaging Last Impressions Chest X-Ray 01/30/18 0600 Signed Impressions: Service Date/Time: January 02:39 - CONCLUSION: Unchanged bibasilar infiltrates. Lang Pena Jr., MD Renal Ultrasound 01/26/18 0000 Signed Impressions: Service Date/Time: Friday, January 26, 2018 14:43 - CONCLUSION: 1. Unremarkable renal ultrasound. Bladder decompressed by Torres. Ascites. Sina Winchester MD Cyst Biopsy Asp-Paracentesis US 01/23/18 0000 Signed Impressions: Service Date/Time: January 07:52 - CONCLUSION: Uncomplicated ultrasound guided paracentesis. Luis Lewis MD Abdomen/Pelvis CT 01/22/18 0000 Signed Impressions: Service Date/Time: Monday, January 22, 2018 15:07 - CONCLUSION: Small shrunken fatty replaced liver with extensive ascites. Prominent gallbladder.. Desmond Alvarez MD FACR Procedures Paracentesis 01/23/2018. 01/28/18 Right #10 Macanese chest tube 01/29 Objective Remarks GENERAL: 62-year-old female currently orotracheally intubated SKIN: Warm and dry. No rash HEAD: Atraumatic. Normocephalic. EYES: Pupils equal and round. No scleral icterus. No injection or drainage. ENT: No nasal bleeding or discharge. Mucous membranes pink and moist. NECK: Trachea midline. No JVD. CARDIOVASCULAR: Tachycardic, RR. S1, S2 no S4. Without murmurs RESPIRATORY: Coarse crackles appreciated throughout lung arredondo right greater than left. No wheezing. Positive accessory muscle use prior to intubation GASTROINTESTINAL: Abdomen grossly distended, tender to palpation epigastric/ right upper quadrant. Unable to palpate hepatic or splenic margins due to gross distention MUSCULOSKELETAL: Extremities trace lower extremity edema. No obvious deformities. NEUROLOGICAL: Cranial nerves II through XII appear grossly intact prior to intubation. Moves all 4 extremities. Both 1-2 word sentences. Date of Insertion: Jan 28, 2018 Line: Central Venous Catheter Side: Left Location: Internal, Jugular A/P Assessment and Plan Neuro/Psych: EtOH On Diprivan/Fentanyl infusion for sedation/analgesia while intubated Goal RASS -2 Daily sedation vacation Psych eval for depression once extubated Thiamine 100 mg , multivitamin 1 tablet daily and 1 mg folate daily Acetaminophen 650 mg by tube every 6 hours as needed fever CV: A. fib with RVR currently normal sinus rhythm Off Levophed, monitor HR and BP keep MAP>65mmHg. Lactic acid 1.4 Seen in consultation by Dr. Ernst -cardiology Echo showed EF 50-55% Resp: Acute hypercapnic Hypoxic respiratory failure Bilateral pleural effusions Community acquired pneumonia Continue with vent support keep sats >92% Ventilator bundle. Check CXR Albuterol/ipratropium aerosols every 4 hours with albuterol aerosols every 2 hours as needed dyspnea Budesonide 0.5/2 1 inhalation twice daily On Solumederol 40mg Q12 01/29 placement of #10 Macanese chest tube right-sided for effusion. Monitor CT drainage GI: Esophageal varices Portal gastropathy Elevated transaminases Pancreatitis Hypoalbuminemia Hyperammonia CT abdomen/pelvis revealed shrunken liver, gross abdominal ascites. Status post paracentesis 6.6 L removed on 01/23. 6L removed on 01/28. Monitor drainage in collection bag. Lansoprazole 30 mg twice daily Docusate sodium/senna/1 tablet twice daily for bowel regimen Lactulose 30 cc every 6 hours for elevated ammonia trending down Hepatitis panel negative. OMI, ASMA negative. Elevated alpha-1 antitrypsin. Negative ceruloplasmin On tube feedings with Neutra hep 40 cc an hour : Urinary retention Monitor renal function, electrolytes replacement as needed Change Free water 250ml Q6 monitor sodium level. Diurese with Lasix 40mg x1, Endo: Sliding scale insulin with Accu-Cheks every 4 hours to maintain euglycemia with Novulin R Heme: Leukocytosis Normocytic anemia Elevated INR Monitor CBC , coags- INR 1.6 today ID: Severe sepsis Currently on vancomycin, cefepime and metronidazole, Diflucan. Monitor for signs of infections ( Fever, WBC) WBC is trending down. d/c Vanco Pertinent cultures 01/29 -pleural fluid pending 01/28 Urine cx: C. Albicans 01/28 -blood cultures 2 and UA pending 01/28 -urine Legionella pneumococcal antigen pending 01/23, 01/28-peritoneal fluid -no growth 01/22 -blood cultures 2 -no growth MSK: PT evaluate and treat Access -Left IJ CVL d placed 01/28 -Right femoral arterial line placed 01/28 Prophylaxis -GI -lansoprazole -DVT -SCD/holding pharmacological prophylaxis in light of elevated INR/upper GI bleed Level 3 Alberto Kolb MD Jan 31, 2018 09:20
[2018-01-31] MEDS ORDERED: FUROSEMIDE 40 MG/4 ML VIAL IV PUSH ONE (09:30)
--- NOTE | 2018-01-31 10:14 | RADRPT ---
EXAM DATE/TIME: 01/31/2018 09:28 [facility] COMPARISON: CHEST SINGLE AP, January 30, 2018, 2:39. INDICATIONS : Respiratory diseases MEDICAL HISTORY : Abdomen pain. SURGICAL HISTORY : Hysterectomy. Appendectomy. Left foot surgery. Back surgery. Eye surgery. ENCOUNTER: Subsequent ACUITY: 4 - 6 days PAIN SCORE: 6/10 LOCATION: Bilateral chest FINDINGS: The endotracheal tube, right-sided small chest tube and left internal jugular central line are stable . The nasogastric tube has its tip in the proximal stomach and side-port in the distal esophagus. No recurrent pneumothorax is noted. Mild perihilar infiltrates are again noted. The heart is stable. CONCLUSION: Mild perihilar infiltrates. Nasogastric tube tip in the proximal stomach and side-por t in the distal esophagus. Ham Brito MD on January 31, 2018 at 10:10 Board Certified Radiologist. This report was verified electronically.
[2018-01-31] MEDS ORDERED: FREE WATER G-TUBE SCH (14:00)
--- NOTE | 2018-01-31 17:36 | PD.CARD.PN ---
Subjective Subjective Remarks Extubated, denies CP or SOB, stays in SR Objective Medications Current Medications Medications (Trade) Dose Ordered Sig/Ralph Route Start Time Stop Time Status Last Admin (NS Flush) 2 ml UNSCH PRN IV FLUSH 01/22/18 17:15 01/27/18 08:54 (NS Flush) 2 ml BID IV FLUSH 01/22/18 21:00 01/31/18 08:33 (Narcan Inj) 0.4 mg UNSCH PRN IV PUSH 01/22/18 17:15 (Brethine Inj) 1 mg UNSCH PRN SQ 01/23/18 04:30 (Peridex 0.12% Liq) 15 ml BID@08,20 MT 01/28/18 20:00 01/31/18 08:00 (Tears Naturale Opth Soln) 1 drop Q8HR EACH EYE 01/28/18 22:00 01/31/18 06:18 (Brethine Inj) 1 mg UNSCH PRN SQ 01/28/18 16:15 (NS Flush) DAILY IV FLUSH 01/28/18 17:00 01/31/18 09:43 (NS Flush) UNSCH PRN IV FLUSH 01/28/18 17:00 (Albuterol Neb) 2.5 mg Q2HR NEB PRN NEB 01/28/18 17:15 01/31/18 07:52 (Tylenol 650 Mg/ 20 ml Liq) 650 mg Q6H PRN OG-TUBE 01/28/18 17:15 (Pulmicort Respule Neb) 0.5 mg Q12HR NEB NEB 01/28/18 20:00 01/31/18 07:52 (SoluMEDROL INJ) 40 mg Q12HR IV PUSH 01/28/18 21:00 01/31/18 08:33 (D50w (Vial) Inj) 50 ml UNSCH PRN IV PUSH 01/28/18 17:15 (Glucagon Inj) 1 mg UNSCH PRN OTHER 01/28/18 17:15 (NovoLIN R SUPPLEMENTAL SCALE) 1 Q4HR SQ 01/28/18 20:00 01/31/18 00:13 (Prevacid Odt) 30 mg BID NG 01/28/18 21:00 01/31/18 08:34 (Folate) 1 mg DAILY PO 01/29/18 09:00 01/31/18 08:34 (Theragran) 1 tab DAILY PO 01/29/18 09:00 01/31/18 08:35 Potassium Chloride 100 ml @ 50 mls/hr Q2H PRN IV 01/28/18 17:45 Potassium Chloride 100 ml @ 50 mls/hr Q2H PRN IV 01/28/18 17:45 (K-Lyte Cl Eff) 50 meq UNSCH PRN PO 01/28/18 17:45 Potassium Chloride 100 ml @ 25 mls/hr UNSCH PRN IV 01/28/18 17:45 Potassium Chloride 100 ml @ 50 mls/hr Q2H PRN IV 01/28/18 17:45 Magnesium Sulfate 4 gm/Sodium Chloride 100 ml @ 50 mls/hr UNSCH PRN IV 01/28/18 17:45 (Mag-Ox) 800 mg UNSCH PRN PO 01/28/18 17:45 Magnesium Sulfate 2 gm/Sodium Chloride 100 ml @ 50 mls/hr UNSCH PRN IV 01/28/18 17:45 (K-Phos) 2,000 mg Q4H PRN PO 01/28/18 17:45 Sodium Phosphate 30 mmol/Sodium Chloride 250 ml @ 42 mls/hr UNSCH PRN IV 01/28/18 17:45 (K-Phos) 2,000 mg UNSCH PRN PO/TUBE 01/28/18 17:44 Potassium Phosphate 30 mmol/ Sodium Chloride 260 ml @ 42 mls/hr UNSCH PRN IV 01/28/18 17:44 (Lactulose Liq) 30 ml QID PO 01/29/18 09:00 01/31/18 12:16 (Flagyl) 500 mg Q6HR PO 01/29/18 18:00 01/31/18 14:09 Cefepime HCl 2000 mg/Sodium Chloride 100 ml @ 200 mls/hr Q8H IV 01/29/18 14:00 01/31/18 14:09 (Vitamin B1) 100 mg DAILY PO 01/30/18 09:00 01/31/18 08:35 (Diflucan) 100 mg DAILY PO 01/30/18 09:00 01/31/18 08:34 (Duoneb Neb) 1 ampule Q6HR WHILE AWAKE NEB NEB 01/31/18 20:00 Vital Signs / I&O Vital Signs Date Time Temp Pulse Resp B/P (MAP) Pulse Ox O2 Delivery O2 Flow Rate FiO2 01/31/18 15:26 96 Nasal Cannula 4.00 01/31/18 15:25 95 Nasal Cannula 4 01/31/18 12:56 98 40 01/31/18 12:00 92 01/31/18 12:00 92 96/67 (77) 109/57 (74) 01/31/18 12:00 40 01/31/18 10:00 92 01/31/18 09:33 98 40 01/31/18 08:00 81 01/31/18 08:00 40 01/31/18 08:00 96.8 81 17 101/60 (74) 110/57 (74) 01/31/18 07:55 40 01/31/18 07:55 100 40 01/31/18 06:00 73 88/62 (71) 101/58 (72) 01/31/18 06:00 73 01/31/18 04:00 40 01/31/18 04:00 82 01/31/18 04:00 98.3 82 16 98/63 (75) 95 105/56 (72) 01/31/18 03:17 94 40 01/31/18 02:00 75 01/31/18 01:21 95 40 01/31/18 00:00 97.9 80 16 92/64 (73) 97 101/53 (69) 01/31/18 00:00 80 01/31/18 00:00 40 01/30/18 23:08 96 40 01/30/18 22:00 86 01/30/18 20:50 98 40 01/30/18 20:00 98.7 79 16 82/56 (65) 98 90/52 (65) 01/30/18 20:00 40 01/30/18 20:00 79 01/30/18 18:00 79 88/57 (67) 86/54 (65) 01/30/18 18:00 79 I/O 01/30/18 01/30/18 01/30/18 01/31/18 01/31/18 01/31/18 07:00 15:00 23:00 07:00 15:00 23:00 Intake Total 3465.20 ml 215.975 ml 733.05 ml 982.5 ml Output Total 1585 ml 1625 ml 970 ml Balance 1880.20 ml 215.975 ml -891.95 ml 12.5 ml Intake Oral 0 ml IV Total 3465.20 ml 215.975 ml 356.05 ml 462.5 ml Tube Feeding 127 ml 270 ml Other 250 ml 250 ml Output Urine Total 350 ml 1300 ml 250 ml Gastric Drainage Total 300 ml Chest Tube Drainage Total 125 ml 75 ml 20 ml Drainage Total 810 ml 250 ml 700 ml # Bowel Movements 0 0 1 Physical Exam GENERAL: In NAD. SKIN: Warm and dry. HEAD: Normocephalic. EYES: No scleral icterus. No injection or drainage. NECK: Supple, trachea midline. No JVD or lymphadenopathy. CARDIOVASCULAR: Regular rate and rhythm without murmurs, gallops, or rubs. RESPIRATORY: Breath sounds equal bilaterally. No accessory muscle use. GASTROINTESTINAL: Abdomen soft, non-tender, nondistended. MUSCULOSKELETAL: No cyanosis, or edema. . Laboratory Laboratory Tests Test 01/31/18 06:00 White Blood Count 12.9 TH/MM3 Red Blood Count 3.96 MIL/MM3 Hemoglobin 10.4 GM/DL Hematocrit 33.3 % Mean Corpuscular Volume 84.1 FL Mean Corpuscular Hemoglobin 26.2 PG Mean Corpuscular Hemoglobin Concent 31.2 % Red Cell Distribution Width 23.5 % Platelet Count 183 TH/MM3 Mean Platelet Volume 7.7 FL Neutrophils (%) (Auto) 91.6 % Lymphocytes (%) (Auto) 2.8 % Monocytes (%) (Auto) 5.6 % Eosinophils (%) (Auto) 0.0 % Basophils (%) (Auto) 0.0 % Neutrophils # (Auto) 11.8 TH/MM3 Lymphocytes # (Auto) 0.4 TH/MM3 Monocytes # (Auto) 0.7 TH/MM3 Eosinophils # (Auto) 0.0 TH/MM3 Basophils # (Auto) 0.0 TH/MM3 CBC Comment AUTO DIFF Differential Comment AUTO DIFF CONFIRMED Platelet Estimate NORMAL Platelet Morphology Comment ENLARGED Acanthocytes OCC Keratocytes OCC Prothrombin Time 15.9 SEC Prothromb Time International Ratio 1.6 RATIO Blood Urea Nitrogen 14 MG/DL Creatinine 0.72 MG/DL Random Glucose 141 MG/DL Total Protein 4.7 GM/DL Albumin 2.1 GM/DL Calcium Level 8.5 MG/DL Phosphorus Level 3.4 MG/DL Magnesium Level 2.0 MG/DL Alkaline Phosphatase 90 U/L Aspartate Amino Transf (AST/SGOT) 68 U/L Alanine Aminotransferase (ALT/SGPT) 17 U/L Total Bilirubin 1.1 MG/DL Sodium Level 149 MEQ/L Potassium Level 3.5 MEQ/L Chloride Level 119 MEQ/L Carbon Dioxide Level 21.4 MEQ/L Anion Gap 9 MEQ/L Estimat Glomerular Filtration Rate 82 ML/MIN Imaging Last 24 hours Impressions Chest X-Ray 01/31/18 0000 Signed Impressions: Service Date/Time: Wednesday, January 31, 2018 09:28 - CONCLUSION: Mild perihilar infiltrates. Nasogastric tube tip in the proximal stomach and side-port in the distal esophagus. Ham Brito MD Assessment and Plan Problem List: (1) Atrial fibrillation ICD Codes: I48.91 - Unspecified atrial fibrillation (2) GI bleed ICD Codes: K92.2 - Gastrointestinal hemorrhage, unspecified Status: Acute (3) Alcoholic liver disease ICD Codes: K70.9 - Alcoholic liver disease, unspecified (4) Esophageal varices ICD Codes: I85.00 - Esophageal varices without bleeding (5) Respiratory failure ICD Codes: J96.90 - Respiratory failure, unspecified, unspecified whether with hypoxia or hypercapnia (6) Sepsis ICD Codes: A41.9 - Sepsis, unspecified organism Status: Acute Assessment and Plan Successfully extubated. Stays in SR, no recurrent a fib. Continue current program with ICU care. Continue tx for sepsis. GI eval in progress. No new cardiac issues. Problem Qualifiers (1) GI bleed: Qualified Codes: K92.2 - Gastrointestinal hemorrhage, unspecified (2) Sepsis: Qualified Codes: A41.9 - Sepsis, unspecified organism Danis Ernst MD Jan 31, 2018 17:36
[2018-01-31] MEDS: RESP: ALBUTEROL 2.5 MG/IPRATROPIUM 0.5 MG NEB (SCH) NEB (19:07)
[2018-02-01] VITALS (16 sets, daily range): BP systolic 103–135; BP diastolic 66–84; PULSE 92–104; RESP 13–25; TEMP 97.8–98.6; O2SAT 95–98
[2018-02-01] MEDS ORDERED: PHARMACY ORDERED LAB ONE (03:45)
[2018-02-01] MEDS: INSULIN NovoLIN REGULAR SUPPLEMENTAL SCALE SQ SCH ×5 (04:00→20:00)
[2018-02-01] MEDS: CEFEPIME INJ 2,000 MG in SODIUM CHLORIDE 0.9% INJ 100 ML IV SCH ×3 (04:54→21:21)
[2018-02-01] MEDS: metroNIDAZOLE 500 MG TAB PO SCH ×3 (04:55→18:39)
[2018-02-01] MEDS: ARTIFICIAL TEARS OPTH SOLN 15 ML BTL EACH EYE SCH ×3 (04:55→21:21)
[2018-02-01 07:14] LABS: AUTOMATED NEUTROPHIL # 17.1 TH/MM3 (1.8-7.7); HEMATOCRIT 35.2 % (35.0-46.0); HEMOGLOBIN 10.8 GM/DL (11.6-15.3); LYMPH % 2.6 % (9.0-44.0); LYMPHOCYTE # 0.5 TH/MM3 (1.0-4.8); MEAN CELL VOLUME 83.7 FL (80.0-100.0); MEAN CORPUSCULAR HEMOGLOBIN 25.8 PG (27.0-34.0); MEAN CORPUSCULAR HGB CONC 30.8 % (32.0-36.0); MEAN PLATELET VOLUME 8.1 FL (7.0-11.0); MONO % 4.9 % (0.0-8.0); MONOCYTE # 0.9 TH/MM3 (0-0.9); NEUT % 92.5 % (16.0-70.0); PLATELET COUNT 178 TH/MM3 (150-450); WHITE BLOOD COUNT 18.5 TH/MM3 (4.0-11.0)
[2018-02-01 07:47] LABS: BICARBONATE 22.3 MEQ/L (21.0-32.0); CALCIUM 9.1 MG/DL (8.5-10.1); CREATININE 0.8 MG/DL (0.50-1.00); PHOSPHORUS 2.2 MG/DL (2.5-4.9)
[2018-02-01] MEDS: CHLORHEXIDINE 0.12% (ORAL KIT) 15 ML CUP MT SCH ×2 (08:00→20:00)
[2018-02-01] MEDS: FLUCONAZOLE 100 MG TAB PO SCH (08:27)
[2018-02-01] MEDS: LACTULOSE SYRUP 20 GM/30 ML CUP PO SCH ×4 (08:27→21:21)
[2018-02-01] MEDS: SODIUM CHLORIDE 0.9% FLUSH 10 ML FLUSH IV FLUSH SCH ×3 (08:27→21:00)
[2018-02-01] MEDS: methylPREDNISolone SOD SUCC 40 MG/1 ML VIAL IV PUSH SCH (08:27)
[2018-02-01] MEDS: FOLIC ACID 1 MG TAB PO SCH (08:27)
[2018-02-01] MEDS: MULTIVITAMIN TAB PO SCH (08:27)
[2018-02-01] MEDS: LANSOPRAZOLE SOLUTAB 30 MG TAB NG SCH ×2 (08:27→21:22)
[2018-02-01] MEDS: THIAMINE HCL 100 MG TAB PO SCH (08:27)
[2018-02-01] MEDS: RESP: BUDESONIDE 0.5 MG/2 ML NEB NEB SCH ×2 (08:32→21:03)
[2018-02-01] MEDS: RESP: ALBUTEROL 2.5 MG/IPRATROPIUM 0.5 MG NEB (SCH) NEB ×3 (08:32→21:02)
[2018-02-01 08:51] LABS: KERATOCYTES OCC (NORMAL)
--- NOTE | 2018-02-01 09:36 | RADRPT ---
EXAM DATE/TIME: 02/01/2018 08:50 [facility] COMPARISON: CHEST SINGLE AP, January 31, 2018, 9:28. INDICATIONS : Post right chest tube removal. MEDICAL HISTORY : None. SURGICAL HISTORY : Hysterectomy. Appendectomy. ENCOUNTER: Subsequent ACUITY: 1 week PAIN SCORE: Non-responsive. LOCATION: Bilateral chest FINDINGS: Interval removal of a right-sided chest tube and endotracheal tube as well as the nasogastric tube. T he lungs are well-inflated and clear. No evidence of residual pneumothorax on the right. Questionable left-sided small pleural effusion. Nondisplaced right-sided lateral fourth rib fracture. CONCLUSION: Removal of lines and tubes with improved lung exam. No evidence of residual pneumothorax. Deanna Feldman MD on February 01, 2018 at 9:32 Board Certified Radiologist. This report was verified electronically.
--- NOTE | 2018-02-01 10:51 | HHI.CCPN ---
Subjective Remarks/Hospital Course This is a 62-year-old female. Date of admission 01/22/2018.. Date of consultation 01/28/2018. Past medical history includes EtOH, tobacco abuse, asthma and rheumatoid arthritis?. Patient presents to [facility] with a history of abdominal pain. Prior to admission diabetes and states placement on nonnarcotic pain medication antibiotics unknown type. Patient was admitted with gross abdominal ascites, likely community acquired pneumonia and GI bleeding. She was hypotensive and anemic. Patient is placed on broad-spectrum antibiotics including ceftriaxone and Levaquin. She was seen in consultation by gastroenterology performed an EGD of 01/25 which revealed 2 columns of esophageal varices without active bleeding. Portal hypertension/gastropathy. Patient was placed on pantoprazole 40 mg IV twice daily. Patient seen by urology for urinary retention. Recommended placement of Torres catheter. Patient has had decreased urine output over the past 48 hours and has been in A. fib with RVR. Magnesium potassium both her lobes are currently BX sacrectomy currently notes sinus tachycardia. Patient was placed on BiPAP 12/5 at 40% with rates respirations in the 40s. Decision made to early intubated for impending respiratory failure with coarse crackles present bilaterally. Post intubation, large right pleural effusion and clopidogrel in place. Attempted to contact Birgit Santiago [phone] Sister with primary contact information. Voicemail that set up. Did not answer phone. Subjective 01/29: Afebrile. Placement of right #10 Zimbabwean pigtail catheter for large right- sided pleural effusion. Small residual pneumothorax right apical noted. Repeat chest x-ray 1800 hrs. Potassium phosphorus has been replaced. We will recheck potassium this evening. 01/30 Patient is sedated with Diprivan, Fentanyl and intubated. Afebrile. On Levophed 2 mics. 01/31 No events overnight. Off Levophed. Remains sedated and intubated. Tolerated CPAP for several hrs yesterday 02/01: Afebrile .The patient self extubated, yesterday. Tolerating O2 at 3 L nasal cannula O2 saturation 97%. The patient remains confused, patient pulled out right chest tube this a.m.. Chest x-ray reveals no pneumothorax adequate oxygenation on 3 L nasal cannula. Objective Vital Signs Date Time Temp Pulse Resp B/P (MAP) Pulse Ox O2 Delivery O2 Flow Rate FiO2 02/01/18 08:32 96 Nasal Cannula 3.00 02/01/18 06:00 92 02/01/18 04:00 97.9 18 135/81 (99) 01/31/18 16:00 40 Intake and Output 02/01/18 02/01/18 02/02/18 08:00 16:00 00:00 Intake Total 100 ml Output Total 700 ml Balance -600 ml Result Diagram: 02/01/18 0500 02/01/18 0500 Other Results Microbiology Date/Time Source Procedure Growth Status 01/29/18 12:35 Fluid Pleural Fluid Gram Stain - Final Complete 01/29/18 12:35 Fluid Pleural Fluid Body Fluid Culture - Final NO GROWTH IN 72 HRS.--AEROBICALLY OR ... Complete Imaging Last Impressions Chest X-Ray 02/01/18 0000 Signed Impressions: Service Date/Time: Thursday, February 01, 2018 08:50 - CONCLUSION: Removal of lines and tubes with improved lung exam. No evidence of residual pneumothorax. Deanna Feldman MD Renal Ultrasound 01/26/18 0000 Signed Impressions: Service Date/Time: Friday, January 26, 2018 14:43 - CONCLUSION: 1. Unremarkable renal ultrasound. Bladder decompressed by Torres. Ascites. Sina Winchester MD Cyst Biopsy Asp-Paracentesis US 01/23/18 0000 Signed Impressions: Service Date/Time: January 07:52 - CONCLUSION: Uncomplicated ultrasound guided paracentesis. Luis Lewis MD Abdomen/Pelvis CT 01/22/18 0000 Signed Impressions: Service Date/Time: Monday, January 22, 2018 15:07 - CONCLUSION: Small shrunken fatty replaced liver with extensive ascites. Prominent gallbladder.. Desmond Alvarez MD FACR Last Impressions Chest X-Ray 01/30/18 0600 Signed Impressions: Service Date/Time: January 02:39 - CONCLUSION: Unchanged bibasilar infiltrates. Lang Pena Jr., MD Renal Ultrasound 01/26/18 0000 Signed Impressions: Service Date/Time: Friday, January 26, 2018 14:43 - CONCLUSION: 1. Unremarkable renal ultrasound. Bladder decompressed by Torres. Ascites. Sina Winchester MD Cyst Biopsy Asp-Paracentesis US 01/23/18 0000 Signed Impressions: Service Date/Time: January 07:52 - CONCLUSION: Uncomplicated ultrasound guided paracentesis. Luis Lewis MD Abdomen/Pelvis CT 01/22/18 0000 Signed Impressions: Service Date/Time: Monday, January 22, 2018 15:07 - CONCLUSION: Small shrunken fatty replaced liver with extensive ascites. Prominent gallbladder.. Desmond Alvarez MD FACR Procedures Paracentesis 01/23/2018. 01/28/18 Right #10 Zimbabwean chest tube 01/29 Objective Remarks GENERAL: This is a well-developed well-nourished 62-year-old female looking older than stated age , confused SKIN: Warm and dry. No rash HEAD: Atraumatic. Normocephalic. EYES: Pupils equal and round. No scleral icterus. No injection or drainage. ENT: No nasal bleeding or discharge. Mucous membranes pink and moist. NECK: Trachea midline. No JVD. CARDIOVASCULAR: Tachycardic, RR. S1, S2 no S4. Without murmurs RESPIRATORY: Bilateral chest excursion. Clear to auscultation bilaterally. No wheezing. GASTROINTESTINAL: Abdomen grossly distended, tender to palpation epigastric/ right upper quadrant. Unable to palpate hepatic or splenic margins due to gross distention MUSCULOSKELETAL: Extremities trace lower extremity edema. No obvious deformities. NEUROLOGICAL: Cranial nerves II through XII appear grossly intact prior to intubation. Moves all 4 extremities. Date of Insertion: Jan 28, 2018 Line: Central Venous Catheter Side: Left Location: Internal, Jugular A/P Assessment and Plan Neuro/Psych: EtOH Sedation discontinued 02/01 Psych eval for depression once extubated Thiamine 100 mg , multivitamin 1 tablet daily and 1 mg folate daily Acetaminophen 650 mg by tube every 6 hours as needed fever Consult psychiatry CV: A. fib with RVR currently normal sinus rhythm Off Levophed, monitor HR and BP keep MAP>65mmHg. Lactic acid 1.4 Seen in consultation by Dr. Ernst -cardiology Echo showed EF 50-55% Telemetry sinus rhythm Resp: Acute hypercapnic Hypoxic respiratory failure Bilateral pleural effusions Community acquired pneumonia Continue with vent support keep sats >92% Ventilator bundle. Check CXR Albuterol/ipratropium aerosols every 4 hours with albuterol aerosols every 2 hours as needed dyspnea Budesonide 0.5/2 1 inhalation twice daily On Solumederol 40mg Q12 01/29 placement of #10 Zimbabwean chest tube right-sided for effusion.02/01- Removed by patient 02/01 -patient removed right chest tube.post removal CXR- Interval removal of a right-sided chest tube and endotracheal tube as well as the nasogastric tube. The lungs are well-inflated and clear. No evidence of residual pneumothorax on the right. Questionable left-sided small pleural effusion. Nondisplaced right- sided lateral fourth rib fracture. See antibiotics below GI: Esophageal varices Portal gastropathy Elevated transaminases Pancreatitis Hypoalbuminemia Hyperammonia CT abdomen/pelvis revealed shrunken liver, gross abdominal ascites. Status post paracentesis 6.6 L removed on 01/23. 6L removed on 01/28. Monitor drainage in collection bag. Lansoprazole 30 mg twice daily Docusate sodium/senna/1 tablet twice daily for bowel regimen Lactulose 30 cc every 6 hours for elevated ammonia trending down Hepatitis panel negative. OMI, ASMA negative. Elevated alpha-1 antitrypsin. Negative ceruloplasmin 01/31-formal swallow evaluation successful, patient placed on nectar thickened liquids : Urinary retention Monitor renal function, electrolytes replacement as needed Diuresed with Lasix 40mg x 1 Endo: Sliding scale insulin with Accu-Cheks every 4 hours to maintain euglycemia with Novulin R Heme: Persistent Leukocytosis Normocytic anemia Elevated INR Monitor CBC , coags- INR 1.6 on 02/01 no active signs of bleeding WBC elevation-Continue to monitor, Torres, central line, arterial line discontinued Repeat INR ID: Severe sepsis Currently on vancomycin, cefepime and metronidazole, Diflucan. Monitor for signs of infections ( Fever, WBC) WBC is trending down. d/c Vanco Pertinent cultures 01/29 -pleural fluid pending 01/28 Urine cx: C. Albicans 01/28 -blood cultures 2 and UA pending 01/28 -urine Legionella pneumococcal antigen pending 01/23, 01/28-peritoneal fluid -no growth 01/22 -blood cultures 2 -no growth MSK: PT evaluate and treat Access -Left IJ CVL d placed 01/28 -Right femoral arterial line placed 01/28 Prophylaxis -GI -lansoprazole -DVT -SCD/holding pharmacological prophylaxis in light of elevated INR/upper GI bleed Level 2 Discussed with SEBD TEACHER at bedside. Plan transfer to [facility] [place]. Physician Ciarra Cardoso MD Feb 01, 2018 10:51
--- NOTE | 2018-02-01 14:33 | PD.PSY.CON ---
Provisional Diagnosis Admission Date Jan 22, 2018 at 16:33 [place]. 1. Delirium, multifactorial [place]. Deferred History of Present Illness Service Psychiatry Consult Requested By Dr. Kolb Reason for Consult Depression Primary Care Physician No Primary Care Physician HPI Ms. Marie is a 62-year-old female with no known past psychiatric history besides history of EtOH presently admitted to the [facility]. Patient presented initially with complaints of abdominal pain on 01/22 and was found to have cirrhosis with ascites. She became hypotensive shortly and was admitted to the [facility]. She was also found to be anemic, possibly from GIB, and was found to have PNA. Psychiatry has been consulted for depression. Reviewing the electronic medical record, I see no previous psychiatric contact within our system. Patient seen and examined. Chart reviewed. Sister Radha is at the bedside and remains for the interview with patient's permission. On my examination today, the patient presents as encephalopathic. She is disoriented and has focus/attention deficits on exam. She endorses some visual hallucinations but no auditory hallucinations. No paranoia or other delusions. She denies any SI or HI. Reports that she is sleeping fairly well. No mood symptoms. She denies depression. Psychiatric interview is limited because of patient's acute confusional state. Patient is unable to provide any past historical details because of her acute confusional state, and I have obtained these from patient's sister. Radha notes that the patient has no previous psychiatric history. No history of suicide attempts. There is no family history of mental illness. She is unsure regarding the patient's history of substance use. She does think that the patient may have been somewhat depressed prior to admission. Review of Systems ROS Limitations: Poor Historian Except as stated in HPI: all other systems reviewed are Neg Past Family Social History Coded Allergies: Sulfa (Sulfonamide Antibiotics) (Unverified Allergy, Intermediate, Hives, 01/22/18) clindamycin (Unverified Allergy, Intermediate, rash, 01/22/18) Past Medical History See electronic medical record No Active Prescriptions or Reported Meds Current Medications Medications (Trade) Dose Ordered Sig/Ralph Route Start Time Stop Time Status Last Admin (NS Flush) 2 ml UNSCH PRN IV FLUSH 01/22/18 17:15 01/27/18 08:54 (NS Flush) 2 ml BID IV FLUSH 01/22/18 21:00 02/01/18 08:27 (Narcan Inj) 0.4 mg UNSCH PRN IV PUSH 01/22/18 17:15 (Brethine Inj) 1 mg UNSCH PRN SQ 01/23/18 04:30 (Peridex 0.12% Liq) 15 ml BID@08,20 MT 01/28/18 20:00 02/01/18 08:00 (Tears Naturale Opth Soln) 1 drop Q8HR EACH EYE 01/28/18 22:00 02/01/18 04:55 (Brethine Inj) 1 mg UNSCH PRN SQ 01/28/18 16:15 (NS Flush) DAILY IV FLUSH 01/28/18 17:00 01/31/18 09:43 (NS Flush) UNSCH PRN IV FLUSH 01/28/18 17:00 (Albuterol Neb) 2.5 mg Q2HR NEB PRN NEB 01/28/18 17:15 01/31/18 07:52 (Tylenol 650 Mg/ 20 ml Liq) 650 mg Q6H PRN OG-TUBE 01/28/18 17:15 (Pulmicort Respule Neb) 0.5 mg Q12HR NEB NEB 01/28/18 20:00 02/01/18 08:32 (D50w (Vial) Inj) 50 ml UNSCH PRN IV PUSH 01/28/18 17:15 (Glucagon Inj) 1 mg UNSCH PRN OTHER 01/28/18 17:15 (NovoLIN R SUPPLEMENTAL SCALE) 1 Q4HR SQ 01/28/18 20:00 01/31/18 00:13 (Prevacid Odt) 30 mg BID NG 01/28/18 21:00 02/01/18 08:27 (Folate) 1 mg DAILY PO 01/29/18 09:00 02/01/18 08:27 (Theragran) 1 tab DAILY PO 01/29/18 09:00 02/01/18 08:27 Potassium Chloride 100 ml @ 50 mls/hr Q2H PRN IV 01/28/18 17:45 Potassium Chloride 100 ml @ 50 mls/hr Q2H PRN IV 01/28/18 17:45 (K-Lyte Cl Eff) 50 meq UNSCH PRN PO 01/28/18 17:45 Potassium Chloride 100 ml @ 25 mls/hr UNSCH PRN IV 01/28/18 17:45 Potassium Chloride 100 ml @ 50 mls/hr Q2H PRN IV 01/28/18 17:45 Magnesium Sulfate 4 gm/Sodium Chloride 100 ml @ 50 mls/hr UNSCH PRN IV 01/28/18 17:45 (Mag-Ox) 800 mg UNSCH PRN PO 01/28/18 17:45 Magnesium Sulfate 2 gm/Sodium Chloride 100 ml @ 50 mls/hr UNSCH PRN IV 01/28/18 17:45 (K-Phos) 2,000 mg Q4H PRN PO 01/28/18 17:45 Sodium Phosphate 30 mmol/Sodium Chloride 250 ml @ 42 mls/hr UNSCH PRN IV 01/28/18 17:45 (K-Phos) 2,000 mg UNSCH PRN PO/TUBE 01/28/18 17:44 Potassium Phosphate 30 mmol/ Sodium Chloride 260 ml @ 42 mls/hr UNSCH PRN IV 01/28/18 17:44 02/01/18 10:50 (Lactulose Liq) 30 ml QID PO 01/29/18 09:00 01/31/18 12:16 (Flagyl) 500 mg Q6HR PO 01/29/18 18:00 01/31/18 14:09 Cefepime HCl 2000 mg/Sodium Chloride 100 ml @ 200 mls/hr Q8H IV 01/29/18 14:00 02/01/18 04:54 (Vitamin B1) 100 mg DAILY PO 01/30/18 09:00 02/01/18 08:27 (Diflucan) 100 mg DAILY PO 01/30/18 09:00 02/01/18 08:27 (Duoneb Neb) 1 ampule Q6HR WHILE AWAKE NEB NEB 01/31/18 20:00 02/01/18 14:23 (SoluMEDROL INJ) 40 mg DAILY IV PUSH 02/02/18 09:00 Patient's Strengths (min. 2) Supportive sister. Verbally fluent. Physical Exam Physical exam completed by primary team. On my examination today, the patient appears to be in no acute physical distress. No motor abnormalities noted. She does appear fairly gaunt and ill appearing. No signs of any withdrawal noted. Labs and vitals reviewed: Vital Signs Vital Signs Date Time Temp Pulse Resp B/P (MAP) Pulse Ox O2 Delivery O2 Flow Rate FiO2 02/01/18 12:00 94 02/01/18 12:00 25 127/69 (88) 96 02/01/18 08:32 Nasal Cannula 3.00 02/01/18 08:00 97.9 01/31/18 16:00 40 I/O 02/01/18 02/01/18 02/02/18 08:00 16:00 00:00 Intake Total 100 ml Output Total 700 ml Balance -600 ml Lab Results Item Value Date Time White Blood Count 18.5 TH/MM3 H 02/01/18 0500 Hemoglobin 10.8 GM/DL L 02/01/18 0500 Platelet Count 178 TH/MM3 02/01/18 0500 Sodium Level 151 MEQ/L H 02/01/18 0500 Potassium Level 3.1 MEQ/L L 02/01/18 0500 Chloride Level 120 MEQ/L H 02/01/18 0500 Carbon Dioxide Level 22.3 MEQ/L 02/01/18 0500 Blood Urea Nitrogen 19 MG/DL H 02/01/18 0500 Creatinine 0.80 MG/DL 02/01/18 0500 Estimat Glomerular Filtration Rate 73 ML/MIN L 02/01/18 0500 Phosphorus Level 2.2 MG/DL L # 02/01/18 0500 Magnesium Level 2.0 MG/DL 02/01/18 0500 Ammonia 41 MCMOL/L H 01/30/18 0416 Aspartate Amino Transf (AST/SGOT) 68 U/L H 01/31/18 0600 Alanine Aminotransferase (ALT/SGPT) 17 U/L 01/31/18 0600 Alkaline Phosphatase 90 U/L 01/31/18 0600 Thyroid Stimulating Hormone 3rd Gen 3.410 uIU/ML 01/29/18 0645 Anti-Nuclear Antibody Screen NEG 01/23/18 1513 Hepatitis A IgM Antibody NEGATIVE 01/23/18 1513 Hepatitis B Surface Antigen NEGATIVE 01/23/18 1513 Hepatitis B Core IgM Antibody NEGATIVE 01/23/18 1513 Hepatitis C Antibody NEGATIVE 01/23/18 1513 Blood Cx from 01/29 negative Urine Cx from 01/28 grew out C. Albicans No head imaging on file. Most recent EKG reveals sinus rhythm with sinus arrhythmia with a QTC of 432 ms , not prolonged. Mental Status Examination Appearance: Disheveled, Other (ill-appearing) Consciousness: Somnolent (but arousable) Orientation: Person Motor Activity: Other (no motor abnormalities noted) Speech: Hesitant Language: Other (rambling) Fund of Knowledge: Inadequate Attention and Concentration: Easily Distracted Memory: Impaired (registration is 3 out of 3 and recall is 0 out of 3 at 3 minutes) Mood: Other (not depressed, calm) Affect: Blunt Thought Process & Associations: Other (circumstantial, at times tangential) Thought Content: Appropriate Hallucination Type: Auditory (denies), Visual (occasional) Delusion Type: None Suicidal Ideation: No Suicidal Plan: No Suicidal Intention: No Homicidal Ideation: No Homicidal Plan: No Homicidal Intention: No Insight: Poor Judgment: Poor Mental Status Exam Remarks Unable to spell world backwards. Able to name 2 items and repeat a phrase. Gives the last 3 presidents as Trump, Trump and Trump. Assessment & Plan Problem List: (1) Delirium due to another medical condition ICD Codes: F05 - Delirium due to known physiological condition (2) Sepsis ICD Codes: A41.9 - Sepsis, unspecified organism Status: Acute Assessment & Plan 62-year-old female with psychiatric history as noted above presently admitted to the [facility]. Psychiatry is consulted for depression. On my examination today, the patient is delirious with deficits in orientation and attention/ concentration. Delirium is likely multifactorial with contributions from her several acute medical issues. In addition to correcting underlying causes as able, I recommend the following: --Could consider adding low-dose antipsychotic such as Zyprexa 2.5mg qHS for delirium. This could be increased to 5mg HS in a few days if well tolerated. --Would recommend limiting use of opiates, anticholinergics, antihistamines and benzodiazepines as all can worsen mental status. --Frequent reorientation and early mobilization as able. --Assistive devices like eyeglasses and hearing aids at bedside for patient use. --Aggressive treatment of any urinary retention or constipation. --I have provided psychoeducation to patient and sister regarding delirium. --Patient may have some underlying mood issues, but she is presently too confused for valid inquiry into these issues. Psychiatry can certainly reassess when she is clearer thinking, and she would likely benefit from an outpatient mental health referral on discharge. Psychiatry will follow up after the weekend. Thank you very much for this consultation. Please call or page with questions. Discharge Planning Per primary team. Patient does not meet BA criteria and does not presently require inpatient psychiatric admission. Problem Qualifiers (1) Sepsis: Qualified Codes: A41.9 - Sepsis, unspecified organism Kunal Howard MD Feb 01, 2018 14:33
[2018-02-01 15:46] LABS: INTERNATIONAL NORMALIZED RATIO 1.7 RATIO; PROTHROMBIN TIME - PATIENT 17.1 SEC (9.8-11.6)
[2018-02-02] VITALS (16 sets, daily range): BP systolic 94–152; BP diastolic 62–80; PULSE 78–93; RESP 14–29; TEMP 97.9–98.6; O2SAT 93–100
[2018-02-02] MEDS: INSULIN NovoLIN REGULAR SUPPLEMENTAL SCALE SQ SCH ×6 (03:30→20:00)
[2018-02-02] MEDS: POTASSIUM CHLOR 20 MEQ PREMIX 100 ML IV PRN ×3 (03:30→08:52)
[2018-02-02] MEDS: CEFEPIME INJ 2,000 MG in SODIUM CHLORIDE 0.9% INJ 100 ML IV SCH ×3 (04:57→21:07)
[2018-02-02] MEDS: metroNIDAZOLE 500 MG TAB PO SCH ×4 (04:58→17:57)
[2018-02-02] MEDS: ARTIFICIAL TEARS OPTH SOLN 15 ML BTL EACH EYE SCH ×3 (04:58→21:07)
[2018-02-02] MEDS: CHLORHEXIDINE 0.12% (ORAL KIT) 15 ML CUP MT SCH ×2 (08:00→20:00)
[2018-02-02] MEDS: SODIUM CHLORIDE 0.9% FLUSH 10 ML FLUSH IV FLUSH SCH ×4 (08:48→21:00)
[2018-02-02] MEDS: THIAMINE HCL 100 MG TAB PO SCH (08:51)
[2018-02-02] MEDS: LANSOPRAZOLE SOLUTAB 30 MG TAB NG SCH ×2 (08:51→21:08)
[2018-02-02] MEDS: MULTIVITAMIN TAB PO SCH (08:51)
[2018-02-02] MEDS: FLUCONAZOLE 100 MG TAB PO SCH (08:51)
[2018-02-02] MEDS: FOLIC ACID 1 MG TAB PO SCH (08:51)
[2018-02-02] MEDS: LACTULOSE SYRUP 20 GM/30 ML CUP PO SCH ×4 (08:51→21:07)
[2018-02-02] MEDS ORDERED: methylPREDNISolone SOD SUCC 40 MG/1 ML VIAL IV PUSH SCH (09:00)
[2018-02-02] MEDS: RESP: BUDESONIDE 0.5 MG/2 ML NEB NEB SCH ×2 (09:01→20:48)
[2018-02-02] MEDS: RESP: ALBUTEROL 2.5 MG/IPRATROPIUM 0.5 MG NEB (SCH) NEB ×3 (09:01→20:48)
[2018-02-02 09:51] LABS: AUTOMATED NEUTROPHIL # 19.4 TH/MM3 (1.8-7.7); BASOPHIL % 0.2 % (0.0-2.0); EOSINOPHIL % 0.1 % (0.0-4.0); HEMOGLOBIN 13.6 GM/DL (11.6-15.3); LYMPH % 6.6 % (9.0-44.0); LYMPHOCYTE # 1.4 TH/MM3 (1.0-4.8); MEAN CELL VOLUME 83.7 FL (80.0-100.0); MEAN CORPUSCULAR HEMOGLOBIN 25.9 PG (27.0-34.0); MEAN CORPUSCULAR HGB CONC 30.9 % (32.0-36.0); MEAN PLATELET VOLUME 8.4 FL (7.0-11.0); MONO % 4.2 % (0.0-8.0); MONOCYTE # 0.9 TH/MM3 (0-0.9); NEUT % 88.9 % (16.0-70.0); PLATELET COUNT 210 TH/MM3 (150-450); RED BLOOD COUNT 5.26 MIL/MM3 (4.00-5.30); RED CELL DISTRIBUTION WIDTH 24.2 % (11.6-17.2); WHITE BLOOD COUNT 21.8 TH/MM3 (4.0-11.0)
[2018-02-02 10:19] LABS: BICARBONATE 20.1 MEQ/L (21.0-32.0); CALCIUM 9.9 MG/DL (8.5-10.1); CREATININE 0.83 MG/DL (0.50-1.00); MAGNESIUM 1.9 MG/DL (1.5-2.5); PHOSPHORUS 2.9 MG/DL (2.5-4.9)
--- NOTE | 2018-02-02 15:14 | PD.CARD.PN ---
Subjective Subjective Remarks No CP or SOB, stays in SR, feels much better Objective Medications Current Medications Medications (Trade) Dose Ordered Sig/Ralph Route Start Time Stop Time Status Last Admin (NS Flush) 2 ml UNSCH PRN IV FLUSH 01/22/18 17:15 01/27/18 08:54 (NS Flush) 2 ml BID IV FLUSH 01/22/18 21:00 02/02/18 08:51 (Narcan Inj) 0.4 mg UNSCH PRN IV PUSH 01/22/18 17:15 (Brethine Inj) 1 mg UNSCH PRN SQ 01/23/18 04:30 (Peridex 0.12% Liq) 15 ml BID@08,20 MT 01/28/18 20:00 02/01/18 08:00 (Tears Naturale Opth Soln) 1 drop Q8HR EACH EYE 01/28/18 22:00 02/02/18 14:24 (Brethine Inj) 1 mg UNSCH PRN SQ 01/28/18 16:15 (NS Flush) DAILY IV FLUSH 01/28/18 17:00 02/02/18 09:00 (NS Flush) UNSCH PRN IV FLUSH 01/28/18 17:00 (Albuterol Neb) 2.5 mg Q2HR NEB PRN NEB 01/28/18 17:15 01/31/18 07:52 (Tylenol 650 Mg/ 20 ml Liq) 650 mg Q6H PRN OG-TUBE 01/28/18 17:15 (Pulmicort Respule Neb) 0.5 mg Q12HR NEB NEB 01/28/18 20:00 02/02/18 09:01 (D50w (Vial) Inj) 50 ml UNSCH PRN IV PUSH 01/28/18 17:15 (Glucagon Inj) 1 mg UNSCH PRN OTHER 01/28/18 17:15 (NovoLIN R SUPPLEMENTAL SCALE) 1 Q4HR SQ 01/28/18 20:00 02/02/18 12:00 (Prevacid Odt) 30 mg BID NG 01/28/18 21:00 02/02/18 08:51 (Folate) 1 mg DAILY PO 01/29/18 09:00 02/02/18 08:51 (Theragran) 1 tab DAILY PO 01/29/18 09:00 02/02/18 08:51 Potassium Chloride 100 ml @ 50 mls/hr Q2H PRN IV 01/28/18 17:45 Potassium Chloride 100 ml @ 50 mls/hr Q2H PRN IV 01/28/18 17:45 02/02/18 08:52 (K-Lyte Cl Eff) 50 meq UNSCH PRN PO 01/28/18 17:45 Potassium Chloride 100 ml @ 25 mls/hr UNSCH PRN IV 01/28/18 17:45 Potassium Chloride 100 ml @ 50 mls/hr Q2H PRN IV 01/28/18 17:45 Magnesium Sulfate 4 gm/Sodium Chloride 100 ml @ 50 mls/hr UNSCH PRN IV 01/28/18 17:45 (Mag-Ox) 800 mg UNSCH PRN PO 01/28/18 17:45 Magnesium Sulfate 2 gm/Sodium Chloride 100 ml @ 50 mls/hr UNSCH PRN IV 01/28/18 17:45 (K-Phos) 2,000 mg Q4H PRN PO 01/28/18 17:45 Sodium Phosphate 30 mmol/Sodium Chloride 250 ml @ 42 mls/hr UNSCH PRN IV 01/28/18 17:45 (K-Phos) 2,000 mg UNSCH PRN PO/TUBE 01/28/18 17:44 Potassium Phosphate 30 mmol/ Sodium Chloride 260 ml @ 42 mls/hr UNSCH PRN IV 01/28/18 17:44 02/01/18 10:50 (Lactulose Liq) 30 ml QID PO 01/29/18 09:00 02/02/18 12:34 (Flagyl) 500 mg Q6HR PO 01/29/18 18:00 02/02/18 12:34 Cefepime HCl 2000 mg/Sodium Chloride 100 ml @ 200 mls/hr Q8H IV 01/29/18 14:00 02/02/18 14:25 (Vitamin B1) 100 mg DAILY PO 01/30/18 09:00 02/02/18 08:51 (Diflucan) 100 mg DAILY PO 01/30/18 09:00 02/02/18 08:51 (Duoneb Neb) 1 ampule Q6HR WHILE AWAKE NEB NEB 01/31/18 20:00 02/02/18 12:11 (Deltasone) 20 mg BID PO 02/02/18 21:00 Vital Signs / I&O Vital Signs Date Time Temp Pulse Resp B/P (MAP) Pulse Ox O2 Delivery O2 Flow Rate FiO2 02/02/18 10:00 89 21 95/68 (77) 99 02/02/18 10:00 89 21 95/68 (77) 99 02/02/18 10:00 89 02/02/18 09:02 98 Nasal Cannula 2.00 02/02/18 09:00 83 20 114/62 (79) 100 02/02/18 09:00 83 20 114/62 (79) 100 02/02/18 09:00 83 02/02/18 08:00 78 23 106/66 (79) 98 02/02/18 08:00 78 02/02/18 08:00 98.6 78 23 106/66 (79) 98 02/02/18 04:00 98.0 93 29 121/74 (90) 96 02/02/18 00:00 98.3 92 14 112/68 (83) 97 02/01/18 21:02 96 Nasal Cannula 3.00 02/01/18 20:00 98.4 93 15 127/84 (98) 96 02/01/18 19:00 97 02/01/18 18:00 96 02/01/18 17:00 98 16 107/68 (81) 95 02/01/18 17:00 98 02/01/18 16:00 98.6 97 15 118/77 (91) 96 02/01/18 16:00 97 I/O 02/01/18 02/01/18 02/01/18 02/02/18 02/02/18 02/02/18 07:00 15:00 23:00 07:00 15:00 23:00 Intake Total 100 ml 928 ml 199 ml Output Total 700 ml 550 ml 1200 ml Balance -600 ml 378 ml -1001 ml Intake Oral 0 ml 480 ml IV Total 100 ml 448 ml 199 ml Output Urine Total 500 ml 300 ml 500 ml Chest Tube Drainage Total 0 ml Drainage Total 200 ml 250 ml 700 ml # Bowel Movements 3 4 3 Physical Exam GENERAL: In NAD. SKIN: Warm and dry. HEAD: Normocephalic. EYES: No scleral icterus. No injection or drainage. NECK: Supple, trachea midline. No JVD or lymphadenopathy. CARDIOVASCULAR: Regular rate and rhythm without murmurs, gallops, or rubs. RESPIRATORY: Breath sounds equal bilaterally. No accessory muscle use. GASTROINTESTINAL: Abdomen soft, non-tender, nondistended. MUSCULOSKELETAL: No cyanosis, or edema. . Laboratory Laboratory Tests Test 02/02/18 01:53 02/02/18 09:27 02/02/18 13:46 Potassium Level 3.1 MEQ/L 5.6 MEQ/L 3.9 MEQ/L White Blood Count 21.8 TH/MM3 Red Blood Count 5.26 MIL/MM3 Hemoglobin 13.6 GM/DL Hematocrit 44.0 % Mean Corpuscular Volume 83.7 FL Mean Corpuscular Hemoglobin 25.9 PG Mean Corpuscular Hemoglobin Concent 30.9 % Red Cell Distribution Width 24.2 % Platelet Count 210 TH/MM3 Mean Platelet Volume 8.4 FL Neutrophils (%) (Auto) 88.9 % Lymphocytes (%) (Auto) 6.6 % Monocytes (%) (Auto) 4.2 % Eosinophils (%) (Auto) 0.1 % Basophils (%) (Auto) 0.2 % Neutrophils # (Auto) 19.4 TH/MM3 Lymphocytes # (Auto) 1.4 TH/MM3 Monocytes # (Auto) 0.9 TH/MM3 Eosinophils # (Auto) 0.0 TH/MM3 Basophils # (Auto) 0.0 TH/MM3 CBC Comment DIFF FINAL Differential Comment Fibrinogen 233 mg/dL Blood Urea Nitrogen 18 MG/DL Creatinine 0.83 MG/DL Random Glucose 84 MG/DL Calcium Level 9.9 MG/DL Phosphorus Level 2.9 MG/DL Magnesium Level 1.9 MG/DL Sodium Level 147 MEQ/L Chloride Level 119 MEQ/L Carbon Dioxide Level 20.1 MEQ/L Anion Gap 8 MEQ/L Estimat Glomerular Filtration Rate 70 ML/MIN Ammonia 12 MCMOL/L Assessment and Plan Problem List: (1) Atrial fibrillation ICD Codes: I48.91 - Unspecified atrial fibrillation (2) GI bleed ICD Codes: K92.2 - Gastrointestinal hemorrhage, unspecified Status: Acute (3) Alcoholic liver disease ICD Codes: K70.9 - Alcoholic liver disease, unspecified (4) Esophageal varices ICD Codes: I85.00 - Esophageal varices without bleeding (5) Respiratory failure ICD Codes: J96.90 - Respiratory failure, unspecified, unspecified whether with hypoxia or hypercapnia (6) Sepsis ICD Codes: A41.9 - Sepsis, unspecified organism Status: Acute Assessment and Plan Overall improved. Stays in SR, no recurrent a fib. Continue current program with ICU care. GI eval in progress. No new cardiac issues. Counseled to stop smoking and drinking ETOH. Anticipate transfer to floor with tele. Problem Qualifiers (1) GI bleed: Qualified Codes: K92.2 - Gastrointestinal hemorrhage, unspecified (2) Sepsis: Qualified Codes: A41.9 - Sepsis, unspecified organism Danis Ernst MD Feb 02, 2018 15:14
--- NOTE | 2018-02-02 15:46 | MB ---
cc: Danis Ernst MD DATE OF CONSULT: 01/28/2018 HISTORY OF PRESENT ILLNESS: Ms. Marie is a 62-year-old female with a history of alcohol abuse, who presented with respiratory failure, acute pancreatitis, alcohol withdrawal. She was intubated and placed on the ventilator. She was also found to have ascites and paracentesis is planned. PAST MEDICAL/SURGICAL HISTORY: Significant for asthma, sinus surgery, back surgery, appendectomy, hysterectomy, LASIK eye surgery. MEDICATIONS: 1. Prednisone. 2. Thiamine. 3. Diflucan. 4. Flagyl. 5. Cefepime. 6. Folic acid. 7. Lactulose. 8. Artificial Tears. 9. Prevacid. 10. Pulmicort. 11. Insulin. ALLERGIES: NONE. SOCIAL HISTORY: The patient smokes 1 pack a day. She drinks alcohol heavily. FAMILY HISTORY: Negative for heart disease. REVIEW OF SYSTEMS: Otherwise negative. PHYSICAL EXAMINATION: VITAL SIGNS: Blood pressure 115/80, pulse 95. GENERAL: The patient is intubated and sedated. HEENT: Negative, 2+ carotid upstoke, brisk. LUNGS: With few rhonchi. HEART: Regular with no murmur, gallop or rub. ABDOMEN: Soft. EXTREMITIES: No edema, 2+ pulses. NEUROLOGIC: Grossly nonfocal. EKG showed atrial fibrillation with rapid ventricular response. Telemetry now shows sinus arrhythmia. LABORATORY DATA: Hemoglobin 11. Potassium 3.2, creatinine 0.7 DIAGNOSES: 1. Respiratory failure. 2. Paroxysmal atrial fibrillation with rapid ventricular response. 3. Sepsis. 4. Gastrointestinal bleeding. 5. Alcohol withdrawal. 6. Ascites. DISPOSITION: Ms. Marie will be monitored in the ICU. We will continue current program. She will undergo paracentesis as planned. Her ventilator will be weaned as tolerated and she will be closely monitored. She is currently back in sinus rhythm. I will follow her for cardiology during her hospitalization. MD SIM Shah/QUYEN , 02:32 PM , 03:44 PM [facility]
[2018-02-02] MEDS: predniSONE 20 MG TAB PO SCH (21:08)
--- NOTE | 2018-02-02 22:32 | HHI.PR ---
Subjective Remarks This is a 62-year-old female. Date of admission 01/22/2018.. Date of consultation 01/28/2018. Past medical history includes EtOH, tobacco abuse, asthma and rheumatoid arthritis?. Patient presents to [facility] with a history of abdominal pain. Prior to admission diabetes and states placement on nonnarcotic pain medication antibiotics unknown type. Patient was admitted with gross abdominal ascites, likely community acquired pneumonia and GI bleeding. She was hypotensive and anemic. Patient is placed on broad-spectrum antibiotics including ceftriaxone and Levaquin. She was seen in consultation by gastroenterology performed an EGD of 01/25 which revealed 2 columns of esophageal varices without active bleeding. Portal hypertension/gastropathy. Patient was placed on pantoprazole 40 mg IV twice daily. Patient seen by urology for urinary retention. Recommended placement of Torres catheter. Patient has had decreased urine output over the past 48 hours and has been in A. fib with RVR. Magnesium potassium both her lobes are currently BX sacrectomy currently notes sinus tachycardia. Patient was placed on BiPAP 12/5 at 40% with rates respirations in the 40s. Decision made to early intubated for impending respiratory failure with coarse crackles present bilaterally. Post intubation, large right pleural effusion and clopidogrel in place. Attempted to contact Birgit Santiago [phone] Sister with primary contact information. Voicemail that set up. Did not answer phone. Subjective 01/29: Afebrile. Placement of right #10 [place] pigtail catheter for large right- sided pleural effusion. Small residual pneumothorax right apical noted. Repeat chest x-ray 1800 hrs. Potassium phosphorus has been replaced. We will recheck potassium this evening. 01/30 Patient is sedated with Diprivan, Fentanyl and intubated. Afebrile. On Levophed 2 mics. 01/31 No events overnight. Off Levophed. Remains sedated and intubated. Tolerated CPAP for several hrs yesterday 02/01: Afebrile .The patient self extubated, yesterday. Tolerating O2 at 3 L nasal cannula O2 saturation 97%. The patient remains confused, patient pulled out right chest tube this a.m.. Chest x-ray reveals no pneumothorax adequate oxygenation on 3 L nasal cannula. 02/02 = Patient says she is feeling all right. She is disoriented 3. No acute issues per nursing Objective Vital Signs Date Time Temp Pulse Resp B/P (MAP) Pulse Ox O2 Delivery O2 Flow Rate FiO2 02/02/18 19:00 92 02/02/18 18:00 93 02/02/18 16:00 93 17 94/67 (76) 98 02/02/18 16:00 93 02/02/18 15:00 91 02/02/18 15:00 91 24 116/68 (84) 97 02/02/18 14:00 93 19 97/65 (76) 97 02/02/18 14:00 93 02/02/18 13:00 88 02/02/18 13:00 88 21 103/66 (78) 96 02/02/18 12:01 87 02/02/18 12:01 87 29 152/78 (102) 94 02/02/18 12:00 97.9 87 22 93 02/02/18 12:00 87 02/02/18 10:00 89 21 95/68 (77) 99 02/02/18 10:00 89 21 95/68 (77) 99 02/02/18 10:00 89 02/02/18 09:02 98 Nasal Cannula 2.00 02/02/18 09:00 83 20 114/62 (79) 100 02/02/18 09:00 83 20 114/62 (79) 100 02/02/18 09:00 83 02/02/18 08:00 78 23 106/66 (79) 98 02/02/18 08:00 78 02/02/18 08:00 98.6 78 23 106/66 (79) 98 02/02/18 04:00 98.0 93 29 121/74 (90) 96 02/02/18 00:00 98.3 92 14 112/68 (83) 97 I/O 02/01/18 02/01/18 02/01/18 02/02/18 02/02/18 02/02/18 07:00 15:00 23:00 07:00 15:00 23:00 Intake Total 100 ml 928 ml 199 ml 100 ml 1300 ml Output Total 700 ml 550 ml 1200 ml 300 ml Balance -600 ml 378 ml -1001 ml 100 ml 1000 ml Intake Oral 0 ml 480 ml 1200 ml IV Total 100 ml 448 ml 199 ml 100 ml 100 ml Output Urine Total 500 ml 300 ml 500 ml Chest Tube Drainage Total 0 ml Drainage Total 200 ml 250 ml 700 ml 300 ml # Voids 5 # Bowel Movements 3 4 3 2 Result Diagram: 02/02/18 0927 02/02/18 1346 Procedures Paracentesis 01/23/2018. Objective Remarks GENERAL: sitting up in bed. Appears frontal. Disoriented 3. Pleasant in conversation however SKIN: Warm and dry. HEAD: Normocephalic. EYES: No scleral icterus. No injection or drainage. NECK: Supple, trachea midline. No JVD or lymphadenopathy. CARDIOVASCULAR: Regular rate and rhythm without murmurs, gallops, or rubs. RESPIRATORY: Breath sounds equal bilaterally. No accessory muscle use. GASTROINTESTINAL: Abdomen soft, non-tender, nondistended. MUSCULOSKELETAL: No cyanosis, or edema. BACK: Nontender without obvious deformity. No CVA tenderness. A/P Assessment and Plan Neuro/Psych: //EtOH Sedation discontinued 02/01 Psych eval for depression once extubated Thiamine 100 mg , multivitamin 1 tablet daily and 1 mg folate daily Acetaminophen 650 mg by tube every 6 hours as needed fever Consult psychiatry. Appreciate assistance CV: //Rossy fib with RVR currently normal sinus rhythm Off Levophed, monitor HR and BP keep MAP>65mmHg. Lactic acid 1.4 Seen in consultation by Dr. Ernst -cardiology Echo showed EF 50-55% Telemetry sinus rhythm Resp: //Acute hypercapnic Hypoxic respiratory failure //Bilateral pleural effusions //Community acquired pneumonia Continue with vent support keep sats >92% Ventilator bundle. Check CXR Albuterol/ipratropium aerosols every 4 hours with albuterol aerosols every 2 hours as needed dyspnea Budesonide 0.5/2 1 inhalation twice daily On Solumederol 40mg Q12 01/29 placement of #10 [place] chest tube right-sided for effusion.02/01- Removed by patient 02/01 -patient removed right chest tube.post removal CXR- Interval removal of a right-sided chest tube and endotracheal tube as well as the nasogastric tube. The lungs are well-inflated and clear. No evidence of residual pneumothorax on the right. Questionable left-sided small pleural effusion. Nondisplaced right- sided lateral fourth rib fracture. See antibiotics below = X-ray stable. Continue antibiotics. Continue nebs GI: //Esophageal varices //Portal gastropathy //Elevated transaminases //Pancreatitis //Hypoalbuminemia //Hyperammonia CT abdomen/pelvis revealed shrunken liver, gross abdominal ascites. Status post paracentesis 6.6 L removed on 01/23. 6L removed on 01/28. Monitor drainage in collection bag. Lansoprazole 30 mg twice daily Docusate sodium/senna/1 tablet twice daily for bowel regimen Lactulose 30 cc every 6 hours for elevated ammonia trending down Hepatitis panel negative. OMI, ASMA negative. Elevated alpha-1 antitrypsin. Negative ceruloplasmin 01/31-formal swallow evaluation successful, patient placed on nectar thickened liquids : //Urinary retention Monitor renal function, electrolytes replacement as needed Diuresed with Lasix 40mg x 1 = Continue Torres. Plan removal tomorrow with voiding trials Endo: Discontinue Sliding scale insulin with Accu-Cheks Heme: //Persistent Leukocytosis //Normocytic anemia //Elevated INR Monitor CBC , coags- INR 1.6 on 02/01 no active signs of bleeding WBC elevation-Continue to monitor, Torres, central line, arterial line discontinued Repeat INR ID: //Severe sepsis Currently on vancomycin, cefepime and metronidazole, Diflucan. Monitor for signs of infections ( Fever, WBC) WBC is trending down. d/c Vanco Pertinent cultures 01/29 -pleural fluid pending 01/28 Urine cx: C. Albicans 01/28 -blood cultures 2 and UA pending 01/28 -urine Legionella pneumococcal antigen pending 01/23, 01/28-peritoneal fluid -no growth 01/22 -blood cultures 2 -no growth MSK: PT evaluate and treat Access -Left IJ CVL d placed 01/28 -Right femoral arterial line placed 01/28 Prophylaxis -GI -lansoprazole -DVT -SCD/holding pharmacological prophylaxis in light of elevated INR/upper GI bleed Discharge Planning transfer to floor with telemetry. Zacarias Henry MD Feb 02, 2018 22:32
[2018-02-03] VITALS (8 sets, daily range): BP systolic 110–128; BP diastolic 71–89; PULSE 71–92; RESP 16–20; TEMP 95.3–96.7; O2SAT 91–96
[2018-02-03] MEDS: metroNIDAZOLE 500 MG TAB PO SCH ×4 (00:14→16:20)
[2018-02-03] MEDS: ARTIFICIAL TEARS OPTH SOLN 15 ML BTL EACH EYE SCH ×3 (00:14→22:00)
[2018-02-03] MEDS: CEFEPIME INJ 2,000 MG in SODIUM CHLORIDE 0.9% INJ 100 ML IV SCH (04:38)
[2018-02-03] MEDS: CHLORHEXIDINE 0.12% (ORAL KIT) 15 ML CUP MT SCH ×2 (07:07→19:35)
[2018-02-03] MEDS: RESP: BUDESONIDE 0.5 MG/2 ML NEB NEB SCH ×2 (07:36→21:11)
[2018-02-03] MEDS: RESP: ALBUTEROL 2.5 MG/IPRATROPIUM 0.5 MG NEB (SCH) NEB ×3 (07:37→21:09)
[2018-02-03] MEDS: predniSONE 20 MG TAB PO SCH ×2 (08:49→22:09)
[2018-02-03] MEDS: LANSOPRAZOLE SOLUTAB 30 MG TAB NG SCH ×2 (08:49→22:12)
[2018-02-03] MEDS: MULTIVITAMIN TAB PO SCH (08:49)
[2018-02-03] MEDS: THIAMINE HCL 100 MG TAB PO SCH (08:49)
[2018-02-03] MEDS: LACTULOSE SYRUP 20 GM/30 ML CUP PO SCH ×4 (08:49→22:11)
[2018-02-03] MEDS: FLUCONAZOLE 100 MG TAB PO SCH (08:49)
[2018-02-03] MEDS: FOLIC ACID 1 MG TAB PO SCH (08:49)
[2018-02-03] MEDS: SODIUM CHLORIDE 0.9% FLUSH 10 ML FLUSH IV FLUSH SCH ×3 (08:49→22:12)
--- NOTE | 2018-02-03 11:22 | HHI.PR ---
Subjective Remarks Follow-up encephalopathy and pneumonia. She is alert and oriented denies fever , chills, cough shortness of breath. Seen with sister. Discussed with nursing Objective Vitals Vital Signs Date Time Temp Pulse Resp B/P (MAP) Pulse Ox O2 Delivery O2 Flow Rate FiO2 02/03/18 07:41 93 02/03/18 04:00 96.7 90 16 120/86 (97) 91 02/03/18 03:53 79 02/03/18 00:04 96.0 92 18 127/89 (102) 94 02/02/18 20:48 98 21 02/02/18 20:00 98.3 91 19 124/80 (95) 98 02/02/18 19:00 92 02/02/18 18:00 93 02/02/18 16:00 93 17 94/67 (76) 98 02/02/18 16:00 93 02/02/18 15:00 91 02/02/18 15:00 91 24 116/68 (84) 97 02/02/18 14:00 93 19 97/65 (76) 97 02/02/18 14:00 93 02/02/18 13:00 88 02/02/18 13:00 88 21 103/66 (78) 96 02/02/18 12:01 87 02/02/18 12:01 87 29 152/78 (102) 94 02/02/18 12:00 97.9 87 22 93 02/02/18 12:00 87 I/O 02/02/18 02/02/18 02/02/18 02/03/18 02/03/18 02/03/18 06:59 14:59 22:59 06:59 14:59 22:59 Intake Total 199 ml 100 ml 1300 ml 240 ml Output Total 1200 ml 300 ml 600 ml Balance -1001 ml 100 ml 1000 ml -360 ml Intake Oral 1200 ml 240 ml IV Total 199 ml 100 ml 100 ml Output Urine Total 500 ml Drainage Total 700 ml 300 ml 600 ml # Voids 5 0 # Bowel Movements 3 2 0 Result Diagram: 02/02/18 0927 02/02/18 1346 Imaging Last Impressions Chest X-Ray 02/01/18 0000 Signed Impressions: Service Date/Time: Thursday, February 01, 2018 08:50 - CONCLUSION: Removal of lines and tubes with improved lung exam. No evidence of residual pneumothorax. Deanna Feldman MD Renal Ultrasound 01/26/18 0000 Signed Impressions: Service Date/Time: Friday, January 26, 2018 14:43 - CONCLUSION: 1. Unremarkable renal ultrasound. Bladder decompressed by Torres. Ascites. Sina Winchester MD Cyst Biopsy Asp-Paracentesis US 01/23/18 0000 Signed Impressions: Service Date/Time: January 07:52 - CONCLUSION: Uncomplicated ultrasound guided paracentesis. Luis Lewis MD Abdomen/Pelvis CT 01/22/18 0000 Signed Impressions: Service Date/Time: Monday, January 22, 2018 15:07 - CONCLUSION: Small shrunken fatty replaced liver with extensive ascites. Prominent gallbladder.. Desmond Alvarez MD FACR Objective Remarks GENERAL: Well-developed, well-nourished in no distress SKIN: Warm and dry. CARDIOVASCULAR: Regular rate and rhythm without murmurs, gallops, or rubs. RESPIRATORY: Breath sounds equal bilaterally. No accessory muscle use. GASTROINTESTINAL: Abdomen soft, non-tender, nondistended. MUSCULOSKELETAL: No cyanosis, or edema. BACK: Nontender without obvious deformity. No CVA tenderness. Procedures Paracentesis 01/23/2018. 01/28/18 Right #10 [place] chest tube 01/29 Bronchoscopy, EGD, arterial line placement Date of Insertion: Jan 28, 2018 Line: Central Venous Catheter Side: Left Location: Internal, Jugular A/P Problem List: (1) Alcoholic liver disease ICD Code: K70.9 - Alcoholic liver disease, unspecified (2) Pneumonia ICD Code: J18.9 - Pneumonia, unspecified organism Status: Acute (3) Symptomatic anemia ICD Code: D64.9 - Anemia, unspecified Status: Acute Assessment and Plan Neuro/Psych: Encephalopathy likely metabolic which is improving. Continue CIWA protocol. Patient has been consult status post psychiatry evaluation/ CV: Paroxysmal A. fib with RVR currently normal sinus rhythm. EF 50%. Status post cardiology evaluation. Monitor on telemetry. Not a candidate for anticoagulation secondary to GI bleed Resp: Acute hypercapnic Hypoxic respiratory failure. Resolved. Oxygen walk test Bilateral pleural effusions. Stable status post chest tube placement and removal Community acquired pneumonia. Stable Continue oxygen keep saturation at the 92%, nebulizations, taper steroids and de -escalate antibiotic switch to p.o. Augmentin discontinue cefepime. Flagyl still February 05 and Diflucan until February 09 secondary to UTI GI: Esophageal varices Portal gastropathy Elevated transaminases likely from alcoholic liver disease. Improving Pancreatitis Hypoalbuminemia Hyperammonia CT abdomen/pelvis revealed shrunken liver, gross abdominal ascites. Status post paracentesis 6.6 L removed on 01/23. 6L removed on 01/28. Monitor drainage in collection bag still significant will discuss with gastroenterology. Consider diuretics and beta-angely Lansoprazole 30 mg twice daily Lactulose 30 cc every 6 hours for elevated ammonia trending down Hepatitis panel negative. OMI, ASMA negative. Elevated alpha-1 antitrypsin. Negative ceruloplasmin 01/31-formal swallow evaluation successful, patient placed on nectar thickened liquids : Urinary retention. Resolved Heme: Persistent Leukocytosis due to steroid Normocytic anemia. Improved Elevated INR secondary to liver disease Monitor CBC , coags- INR 1.6 on 02/01 no active signs of bleeding WBC elevation-Continue to monitor, Torres, central line, arterial line discontinued Repeat INR ID: Severe sepsis. Resolved Antibiotics the escalated see above PT evaluate and treat Prophylaxis -GI -lansoprazole -DVT -SCD/holding pharmacological prophylaxis in light of elevated INR/upper GI bleed Discharge Planning HHC vs rehab Problem Qualifiers (1) Pneumonia: Qualified Codes: J18.1 - Lobar pneumonia, unspecified organism Eddi Almanzar MD Feb 03, 2018 11:22
[2018-02-03] MEDS: AMOXICILLIN/CLAVULANATE K 875 MG TAB PO SCH ×2 (12:00→21:00)
[2018-02-03] MEDS ORDERED: METR-1 PO (13:52)
[2018-02-03] MEDS ORDERED: THIA100 PO (13:52)
[2018-02-03] MEDS ORDERED: BUDE.5I NEB (13:52)
[2018-02-03] MEDS ORDERED: Lactulose Liq PO (13:52)
[2018-02-03] MEDS ORDERED: DIFL100T PO (13:52)
[2018-02-03] MEDS ORDERED: PRED20 PO (13:52)
[2018-02-03] MEDS ORDERED: AMOX875T2 PO (13:52)
[2018-02-03] MEDS ORDERED: PREV30TA3 NG (13:52)
--- NOTE | 2018-02-03 13:54 | HHI.DCPOC ---
Discharge Care Plan Diagnosis: (1) GI bleed (2) Alcoholic liver disease Your Health Problems Are: Difficulty with ADL Exercise Tolerance Goals to Promote Your Health * To prevent worsening of your condition and complications * To maintain your health at the optimal level Directions to Meet Your Goals Take your medications as prescribed Follow your dietary instruction Follow activity as directed Keep your appointments as scheduled Take your immunizations and boosters as scheduled If your symptoms worsen call your PCP, if no PCP go to Urgent Care Center or Emergency Room Smoking is Dangerous to Your Health. Avoid second hand smoke Call the 24-hour hour crisis hotline for domestic abuse at Eddi Almanzar MD Feb 03, 2018 13:54
--- NOTE | 2018-02-03 13:55 | HHI.FF ---
Face to Face Verification Diagnosis: (1) Alcoholic liver disease Physical Therapy Order: Evaluate and Treat, Improve ambulation, Strength and gait training Home Health Nursing Order: Medical education Signs/symptoms of disease process Medication education-adverse effect Nursing assessment with vital signs I have seen patient Kathy Marie on 02/03/18. My clinical findings support the need for the requested home health care services because: Patient has SOB Deconditioned w/ increased weakness I certify that my clinical findings support that this patient is homebound because: Unsafe to leave home unassisted Need for psychosocial assistance Eddi Almanzar MD Feb 03, 2018 13:55
--- NOTE | 2018-02-03 15:43 | HHI.GIFU ---
Subjective Remarks GI reconsulted for drainage from paracentesis site. per RN 700 cc last night and 300 cc today. Pt has no complaints, resting in bed. (Jacqueline Babb) Objective Vitals I&O Vital Signs Date Time Temp Pulse Resp B/P (MAP) Pulse Ox O2 Delivery O2 Flow Rate FiO2 02/03/18 12:00 95.3 71 18 110/71 (84) 94 02/03/18 08:00 96.2 77 16 128/80 (96) 94 02/03/18 07:41 93 02/03/18 04:00 96.7 90 16 120/86 (97) 91 02/03/18 03:53 79 02/03/18 00:04 96.0 92 18 127/89 (102) 94 02/02/18 20:48 98 21 02/02/18 20:00 98.3 91 19 124/80 (95) 98 02/02/18 19:00 92 02/02/18 18:00 93 02/02/18 16:00 93 17 94/67 (76) 98 02/02/18 16:00 93 I/O 02/02/18 02/02/18 02/02/18 02/03/18 02/03/18 02/03/18 07:00 15:00 23:00 07:00 15:00 23:00 Intake Total 199 ml 100 ml 1300 ml 240 ml Output Total 1200 ml 300 ml 600 ml Balance -1001 ml 100 ml 1000 ml -360 ml Intake Oral 1200 ml 240 ml IV Total 199 ml 100 ml 100 ml Output Urine Total 500 ml Drainage Total 700 ml 300 ml 600 ml # Voids 5 0 # Bowel Movements 3 2 0 Laboratory Laboratory Tests Test 02/03/18 11:45 Date/Time Source Procedure Growth Status 01/29/18 08:19 Blood Peripheral Aerobic Blood Culture - Final NO GROWTH IN 5 DAYS Complete 01/29/18 08:19 Blood Peripheral Anaerobic Blood Culture - Final NO GROWTH IN 5 DAYS Complete 01/29/18 12:35 Fluid Pleural Fluid Gram Stain - Final Complete 01/29/18 12:35 Fluid Pleural Fluid Body Fluid Culture - Final NO GROWTH IN 72 HRS.--AEROBICALLY OR ... Complete 01/28/18 20:20 Bronchial Washings Left Lower Lobe Fungal Smear - Final NO FUNGAL ELEMENTS SEEN. Resulted 01/28/18 20:20 Bronchial Washings Left Lower Lobe Fungal Culture Pending Resulted 01/28/18 18:30 Urine Catheterized Urine Urine Culture - Final Elma Albicans Complete Imaging Last Impressions Chest X-Ray 02/01/18 0000 Signed Impressions: Service Date/Time: Thursday, February 01, 2018 08:50 - CONCLUSION: Removal of lines and tubes with improved lung exam. No evidence of residual pneumothorax. Deanna Fledman MD Renal Ultrasound 01/26/18 0000 Signed Impressions: Service Date/Time: Friday, January 26, 2018 14:43 - CONCLUSION: 1. Unremarkable renal ultrasound. Bladder decompressed by Torres. Ascites. Sina Winchester MD Cyst Biopsy Asp-Paracentesis US 01/23/18 0000 Signed Impressions: Service Date/Time: January 07:52 - CONCLUSION: Uncomplicated ultrasound guided paracentesis. Luis Lewis MD Abdomen/Pelvis CT 01/22/18 0000 Signed Impressions: Service Date/Time: Monday, January 22, 2018 15:07 - CONCLUSION: Small shrunken fatty replaced liver with extensive ascites. Prominent gallbladder.. Desmond Alvarez MD FACR Physical Exam HEENT: normocephalic; atraumatic; no jaundice. CHEST: diminished. CARDIAC:RRR ABDOMEN: soft, mildly distended, bowel sounds faint ostomy bag left quadrant with serous fluid EXTREMITIES: No clubbing, cyanosis, or edema. SKIN: pale; no rash; no jaundice. [employer]: lethargic, mildly confused (Jacqueline Babb DIE FITTER) Assessment and Plan Plan Assessment: - Transaminitis- likely secondary to ETOH, given history of 4-5 glasses of wine daily. Reports known history of elevated LFTs, has been told by PCP in the past to stop drinking. Has never had extensive liver work up. Labs currently: AST-116 ALT-32 T bili-4 Ammonia-12. DF-27 - Elevated lipase- denies history of pancreatitis. - Ascites- S/P Paracentesis with 6.6 L removed. SAAG-1.3 Peritoneal WBC-133. Pt on Levaquin. - Anemia- H/H 6.7/22.6 on admission, now S/P 4 U PRBCs currently 8.6/26.6. - NICOLASA- GFR 41 - Leukocytosis- WBC-13.2 Pt on Levaquin and Flagyl CT abdomen and pelvis W/O IV contrast (01/22) --> Small shrunken fatty replaced liver with extensive ascites. Prominent gallbladder 01/27/18 - s/p EGD found small esophageal varices, no bleeding, portal gastropathy. She is c/o abd pain, is distended and somewhat tense today. renal US 01/26 showed ascites did have paracentesis 01/23/18. cx no growth 72h, cytology benign. HH improving. liver w/u so far unremarkable 01/28/18 abd pain improved. HH mild decrease today, hgb 11.5 no obvious bleeding. pt on bipap now. liver w/u unremarkable thus far gastric antrum path benign 01/29/18 mild drop HH. per RN there was some clots after intubation and OGT placement but that has resolved. No obvious blood in stool. liver w/u unremarkable 02/02/18 GI reconsulted for continued leakage from paracentesis site. 700cc last night, 300cc today. no obvious bleeding. HH improving plan for d/c to rehab soon. d/w RN Plan: encourage pt to lay on left side Monitor H/H Notify GI of active bleeding no etoh Protonix further recs after Dr Pascal sees pt Pt has been seen and examined by myself and Dr. Pascal and this note is written on her behalf (Jacqueline Babb) Physician Comments seen, examined agree with above close monitoring, if not better reconsult ir for repeat paracentesis, catheter placement (Laura Pascal MD) Jacqueline Babb Feb 03, 2018 15:43 Laura Pascal MD Feb 03, 2018 18:45
--- NOTE | 2018-02-03 16:48 | HHI.PR ---
Subjective Remarks ALWERT NO SOB Objective Vital Signs Date Time Temp Pulse Resp B/P (MAP) Pulse Ox O2 Delivery O2 Flow Rate FiO2 02/03/18 12:00 95.3 71 18 110/71 (84) 94 02/03/18 08:00 96.2 77 16 128/80 (96) 94 02/03/18 07:41 93 02/03/18 04:00 96.7 90 16 120/86 (97) 91 02/03/18 03:53 79 02/03/18 00:04 96.0 92 18 127/89 (102) 94 02/02/18 20:48 98 21 02/02/18 20:00 98.3 91 19 124/80 (95) 98 02/02/18 19:00 92 02/02/18 18:00 93 I/O 02/02/18 02/02/18 02/02/18 02/03/18 02/03/18 02/03/18 07:00 15:00 23:00 07:00 15:00 23:00 Intake Total 199 ml 100 ml 1300 ml 240 ml Output Total 1200 ml 300 ml 600 ml Balance -1001 ml 100 ml 1000 ml -360 ml Intake Oral 1200 ml 240 ml IV Total 199 ml 100 ml 100 ml Output Urine Total 500 ml Drainage Total 700 ml 300 ml 600 ml # Voids 5 0 # Bowel Movements 3 2 0 Result Diagram: 02/02/18 0927 02/02/18 1346 Procedures Paracentesis 01/23/2018. Objective Remarks GENERAL: SKIN: Warm and dry. HEAD: Atraumatic. Normocephalic. EYES: Pupils equal and round. No scleral icterus. No injection or drainage. ENT: No nasal bleeding or discharge. Mucous membranes pink and moist. NECK: Trachea midline. No JVD. CARDIOVASCULAR: Regular rate and rhythm. RESPIRATORY: No accessory muscle use. Clear to auscultation. Breath sounds equal bilaterally. GASTROINTESTINAL: Abdomen soft, non-tender, nondistended. Hepatic and splenic margins not palpable. MUSCULOSKELETAL: Extremities without clubbing, cyanosis, or edema. No obvious deformities. NEUROLOGICAL: Awake and alert. No obvious cranial nerve deficits. Motor grossly within normal limits. Five out of 5 muscle strength in the arms and legs. Normal speech. PSYCHIATRIC: Appropriate mood and affect; insight and judgment normal. Assessment and Plan Assessment and Plan IMPRESSION RESPIRATORY FAILURE, RESOLVED PNA/ SEPSIS, RESOLVED PLAN O2 NEEDEDT PULMONARY TOILET INCREASE ACTIVITY Mala Medeiros MD Feb 03, 2018 16:48
--- NOTE | 2018-02-03 19:12 | PD.CARD.PN ---
Subjective Subjective Remarks No CP or SOB, stays in SR, feels much better, getting ready to get out of bed and walk with PT Objective Medications Current Medications Medications (Trade) Dose Ordered Sig/Ralph Route Start Time Stop Time Status Last Admin (NS Flush) 2 ml UNSCH PRN IV FLUSH 01/22/18 17:15 01/27/18 08:54 (NS Flush) 2 ml BID IV FLUSH 01/22/18 21:00 02/03/18 08:49 (Narcan Inj) 0.4 mg UNSCH PRN IV PUSH 01/22/18 17:15 (Brethine Inj) 1 mg UNSCH PRN SQ 01/23/18 04:30 (Peridex 0.12% Liq) 15 ml BID@08,20 MT 01/28/18 20:00 02/01/18 08:00 (Tears Naturale Opth Soln) 1 drop Q8HR EACH EYE 01/28/18 22:00 02/03/18 12:03 (Brethine Inj) 1 mg UNSCH PRN SQ 01/28/18 16:15 (NS Flush) DAILY IV FLUSH 01/28/18 17:00 02/02/18 09:00 (NS Flush) UNSCH PRN IV FLUSH 01/28/18 17:00 (Albuterol Neb) 2.5 mg Q2HR NEB PRN NEB 01/28/18 17:15 01/31/18 07:52 (Tylenol 650 Mg/ 20 ml Liq) 650 mg Q6H PRN OG-TUBE 01/28/18 17:15 (Pulmicort Respule Neb) 0.5 mg Q12HR NEB NEB 01/28/18 20:00 02/02/18 20:48 (D50w (Vial) Inj) 50 ml UNSCH PRN IV PUSH 01/28/18 17:15 (Glucagon Inj) 1 mg UNSCH PRN OTHER 01/28/18 17:15 (Prevacid Odt) 30 mg BID NG 01/28/18 21:00 02/03/18 08:49 (Folate) 1 mg DAILY PO 01/29/18 09:00 02/03/18 08:49 (Theragran) 1 tab DAILY PO 01/29/18 09:00 02/03/18 08:49 (Lactulose Liq) 30 ml QID PO 01/29/18 09:00 02/03/18 16:26 (Flagyl) 500 mg Q6HR PO 01/29/18 18:00 02/05/18 17:59 02/03/18 16:20 (Vitamin B1) 100 mg DAILY PO 01/30/18 09:00 02/03/18 08:49 (Diflucan) 100 mg DAILY PO 01/30/18 09:00 02/09/18 08:59 02/03/18 08:49 (Duoneb Neb) 1 ampule Q6HR WHILE AWAKE NEB NEB 01/31/18 20:00 02/03/18 12:22 (Deltasone) 20 mg BID PO 02/02/18 21:00 02/03/18 08:49 (Augmentin) 875 mg Q12HR PO 02/03/18 12:00 02/05/18 11:59 02/03/18 12:00 Vital Signs / I&O Vital Signs Date Time Temp Pulse Resp B/P (MAP) Pulse Ox O2 Delivery O2 Flow Rate FiO2 02/03/18 16:00 95.8 81 20 116/73 (87) 96 02/03/18 12:00 95.3 71 18 110/71 (84) 94 02/03/18 08:00 96.2 77 16 128/80 (96) 94 02/03/18 07:41 93 02/03/18 04:00 96.7 90 16 120/86 (97) 91 02/03/18 03:53 79 02/03/18 00:04 96.0 92 18 127/89 (102) 94 02/02/18 20:48 98 21 02/02/18 20:00 98.3 91 19 124/80 (95) 98 I/O 02/02/18 02/02/18 02/02/18 02/03/18 02/03/18 02/03/18 07:00 15:00 23:00 07:00 15:00 23:00 Intake Total 199 ml 100 ml 1300 ml 240 ml 1200 ml Output Total 1200 ml 300 ml 600 ml Balance -1001 ml 100 ml 1000 ml -360 ml 1200 ml Intake Oral 1200 ml 240 ml 1200 ml IV Total 199 ml 100 ml 100 ml Output Urine Total 500 ml Drainage Total 700 ml 300 ml 600 ml # Voids 5 0 # Bowel Movements 3 2 0 2 Physical Exam GENERAL: In NAD. SKIN: Warm and dry. HEAD: Normocephalic. EYES: No scleral icterus. No injection or drainage. NECK: Supple, trachea midline. No JVD or lymphadenopathy. CARDIOVASCULAR: Regular rate and rhythm without murmurs, gallops, or rubs. RESPIRATORY: Breath sounds equal bilaterally. No accessory muscle use. GASTROINTESTINAL: Abdomen soft, non-tender, nondistended. MUSCULOSKELETAL: No cyanosis, or edema. . Laboratory Laboratory Tests Test 02/03/18 11:45 Assessment and Plan Problem List: (1) Atrial fibrillation ICD Codes: I48.91 - Unspecified atrial fibrillation (2) GI bleed ICD Codes: K92.2 - Gastrointestinal hemorrhage, unspecified Status: Acute (3) Alcoholic liver disease ICD Codes: K70.9 - Alcoholic liver disease, unspecified (4) Esophageal varices ICD Codes: I85.00 - Esophageal varices without bleeding (5) Respiratory failure ICD Codes: J96.90 - Respiratory failure, unspecified, unspecified whether with hypoxia or hypercapnia (6) Sepsis ICD Codes: A41.9 - Sepsis, unspecified organism Status: Acute Assessment and Plan No new cardiac issues. Overall improved. Stays in SR, no recurrent a fib. Continue current program. Counseled again to stop smoking and drinking ETOH. Increase activity, PT. Problem Qualifiers (1) GI bleed: Qualified Codes: K92.2 - Gastrointestinal hemorrhage, unspecified (2) Sepsis: Qualified Codes: A41.9 - Sepsis, unspecified organism Danis Ernst MD Feb 03, 2018 19:12
[2018-02-04] VITALS (7 sets, daily range): BP systolic 106–134; BP diastolic 69–80; PULSE 73–88; RESP 16–18; TEMP 95.8–97.4; O2SAT 92–100
[2018-02-04] MEDS: metroNIDAZOLE 500 MG TAB PO SCH ×4 (05:47→18:38)
[2018-02-04] MEDS: ARTIFICIAL TEARS OPTH SOLN 15 ML BTL EACH EYE SCH ×3 (05:47→21:57)
[2018-02-04] MEDS: RESP: ALBUTEROL 2.5 MG/IPRATROPIUM 0.5 MG NEB (SCH) NEB ×3 (08:00→12:52)
[2018-02-04] MEDS: RESP: BUDESONIDE 0.5 MG/2 ML NEB NEB SCH ×2 (08:00→08:09)
[2018-02-04] MEDS: CHLORHEXIDINE 0.12% (ORAL KIT) 15 ML CUP MT SCH ×2 (08:00→19:33)
[2018-02-04] MEDS: FLUCONAZOLE 100 MG TAB PO SCH (09:00)
[2018-02-04] MEDS: SODIUM CHLORIDE 0.9% FLUSH 10 ML FLUSH IV FLUSH SCH ×3 (09:00→21:53)
[2018-02-04] MEDS: LACTULOSE SYRUP 20 GM/30 ML CUP PO SCH ×4 (13:00→21:50)
[2018-02-04] MEDS: MULTIVITAMIN TAB PO SCH (13:34)
[2018-02-04] MEDS: AMOXICILLIN/CLAVULANATE K 875 MG TAB PO SCH ×2 (13:34→21:49)
[2018-02-04] MEDS: predniSONE 20 MG TAB PO SCH ×2 (13:34→21:49)
[2018-02-04] MEDS: FOLIC ACID 1 MG TAB PO SCH (13:34)
[2018-02-04] MEDS: THIAMINE HCL 100 MG TAB PO SCH (13:35)
[2018-02-04] MEDS: LANSOPRAZOLE SOLUTAB 30 MG TAB NG SCH ×2 (13:35→21:49)
--- NOTE | 2018-02-04 13:42 | HHI.PR ---
Subjective Remarks Follow-up ascites. Continues to have significant peritoneal fluid drainage. Will request paracentesis by IR. Discussed with nursing and sister Objective Vitals Vital Signs Date Time Temp Pulse Resp B/P (MAP) Pulse Ox O2 Delivery O2 Flow Rate FiO2 02/04/18 12:00 96.2 82 18 106/71 (83) 100 02/04/18 08:00 95.8 81 18 114/72 (86) 93 02/04/18 04:00 96.6 73 18 107/69 (82) 92 02/04/18 00:00 96.0 78 18 112/69 (83) 93 02/03/18 20:00 96.3 84 18 119/79 (92) 94 02/03/18 16:00 95.8 81 20 116/73 (87) 96 I/O 02/03/18 02/03/18 02/03/18 02/04/18 02/04/18 02/04/18 07:00 15:00 23:00 07:00 15:00 23:00 Intake Total 240 ml 1200 ml Output Total 600 ml 950 ml Balance -360 ml 1200 ml -950 ml Intake Oral 240 ml 1200 ml Drainage Total 600 ml 950 ml # Voids 0 # Bowel Movements 0 2 1 Result Diagram: 02/02/18 0927 02/02/18 1346 Imaging Last Impressions Chest X-Ray 02/01/18 0000 Signed Impressions: Service Date/Time: Thursday, February 01, 2018 08:50 - CONCLUSION: Removal of lines and tubes with improved lung exam. No evidence of residual pneumothorax. Deanna Feldman MD Renal Ultrasound 01/26/18 0000 Signed Impressions: Service Date/Time: Friday, January 26, 2018 14:43 - CONCLUSION: 1. Unremarkable renal ultrasound. Bladder decompressed by Torres. Ascites. Sina Winchester MD Cyst Biopsy Asp-Paracentesis US 01/23/18 0000 Signed Impressions: Service Date/Time: January 07:52 - CONCLUSION: Uncomplicated ultrasound guided paracentesis. Luis Lewis MD Abdomen/Pelvis CT 01/22/18 0000 Signed Impressions: Service Date/Time: Monday, January 22, 2018 15:07 - CONCLUSION: Small shrunken fatty replaced liver with extensive ascites. Prominent gallbladder.. Desmond Alvarez MD FACR Objective Remarks GENERAL: Well-developed, well-nourished in no distress SKIN: Warm and dry. CARDIOVASCULAR: Regular rate and rhythm without murmurs, gallops, or rubs. RESPIRATORY: Breath sounds equal bilaterally. No accessory muscle use. GASTROINTESTINAL: Abdomen soft, non-tender with drainage bag containing ascitic fluid MUSCULOSKELETAL: No cyanosis, or edema. BACK: Nontender without obvious deformity. No CVA tenderness. Procedures Paracentesis 01/23/2018. 01/28/18 Right #10 Swazi chest tube 01/29 Bronchoscopy, EGD, arterial line placement Date of Insertion: Jan 28, 2018 Line: Central Venous Catheter Side: Left Location: Internal, Jugular A/P Problem List: (1) Alcoholic liver disease ICD Code: K70.9 - Alcoholic liver disease, unspecified (2) Pneumonia ICD Code: J18.9 - Pneumonia, unspecified organism Status: Acute (3) Symptomatic anemia ICD Code: D64.9 - Anemia, unspecified Status: Acute Assessment and Plan Neuro/Psych: Encephalopathy likely metabolic which is improving. Continue CIWA protocol. Patient has been consult status post psychiatry evaluation/ CV: Paroxysmal A. fib with RVR currently normal sinus rhythm. EF 50%. Status post cardiology evaluation. Monitor on telemetry. Not a candidate for anticoagulation secondary to GI bleed Resp: Acute hypercapnic Hypoxic respiratory failure. Resolved. Passed Oxygen walk test Bilateral pleural effusions. Stable status post chest tube placement and removal Community acquired pneumonia. Stable Continue oxygen keep saturation at the 92%, nebulizations, taper steroids and de -escalate antibiotic switch to p.o. Augmentin discontinue cefepime. Flagyl still February 05 and Diflucan until February 09 secondary to UTI GI: Esophageal varices Portal gastropathy Elevated transaminases likely from alcoholic liver disease. Improving Pancreatitis Hypoalbuminemia Hyperammonia CT abdomen/pelvis revealed shrunken liver, gross abdominal ascites. Status post paracentesis 6.6 L removed on 01/23. 6L removed on 01/28. Monitor drainage in collection bag still significant will consult IR for therapeutic paracentesis. Consider diuretics and beta-angely Lansoprazole 30 mg twice daily Lactulose 30 cc every 6 hours for elevated ammonia trending down Hepatitis panel negative. OMI, ASMA negative. Elevated alpha-1 antitrypsin. Negative ceruloplasmin 01/31-formal swallow evaluation successful, patient placed on nectar thickened liquids : Urinary retention. Resolved Heme: Persistent Leukocytosis due to steroid Normocytic anemia. Improved Elevated INR secondary to liver disease Monitor CBC , coags- INR 1.6 on 02/01 no active signs of bleeding WBC elevation-Continue to monitor, Torres, central line, arterial line discontinued Repeat INR ID: Severe sepsis. Resolved Antibiotics the escalated see above PT evaluate and treat Prophylaxis -GI -lansoprazole -DVT -SCD/holding pharmacological prophylaxis in light of elevated INR/upper GI bleed Discharge Planning HHC vs rehab when ready Problem Qualifiers (1) Pneumonia: Qualified Codes: J18.1 - Lobar pneumonia, unspecified organism Eddi Almanzar MD Feb 04, 2018 13:42
--- NOTE | 2018-02-04 14:15 | HHI.GIFU ---
Subjective Remarks Pt OOB to chair. She thinks she is having less drainage. (Jacqueline Babb FULFILLMENT SPECIALIST) Objective Vitals I&O Vital Signs Date Time Temp Pulse Resp B/P (MAP) Pulse Ox O2 Delivery O2 Flow Rate FiO2 02/04/18 12:00 96.2 82 18 106/71 (83) 100 02/04/18 08:00 95.8 81 18 114/72 (86) 93 02/04/18 04:00 96.6 73 18 107/69 (82) 92 02/04/18 00:00 96.0 78 18 112/69 (83) 93 02/03/18 20:00 96.3 84 18 119/79 (92) 94 02/03/18 16:00 95.8 81 20 116/73 (87) 96 I/O 02/03/18 02/03/18 02/03/18 02/04/18 02/04/18 02/04/18 07:00 15:00 23:00 07:00 15:00 23:00 Intake Total 240 ml 1200 ml Output Total 600 ml 950 ml Balance -360 ml 1200 ml -950 ml Intake Oral 240 ml 1200 ml Drainage Total 600 ml 950 ml # Voids 0 # Bowel Movements 0 2 1 Laboratory Date/Time Source Procedure Growth Status 01/29/18 08:19 Blood Peripheral Aerobic Blood Culture - Final NO GROWTH IN 5 DAYS Complete 01/29/18 08:19 Blood Peripheral Anaerobic Blood Culture - Final NO GROWTH IN 5 DAYS Complete 01/29/18 12:35 Fluid Pleural Fluid Gram Stain - Final Complete 01/29/18 12:35 Fluid Pleural Fluid Body Fluid Culture - Final NO GROWTH IN 72 HRS.--AEROBICALLY OR ... Complete 01/28/18 20:20 Bronchial Washings Left Lower Lobe Fungal Smear - Final NO FUNGAL ELEMENTS SEEN. Resulted 01/28/18 20:20 Bronchial Washings Left Lower Lobe Fungal Culture - Preliminary Resulted 01/28/18 18:30 Urine Catheterized Urine Urine Culture - Final Elma Albicans Complete Imaging Last Impressions Chest X-Ray 02/01/18 0000 Signed Impressions: Service Date/Time: Thursday, February 01, 2018 08:50 - CONCLUSION: Removal of lines and tubes with improved lung exam. No evidence of residual pneumothorax. Deanna Feldman MD Renal Ultrasound 01/26/18 0000 Signed Impressions: Service Date/Time: Friday, January 26, 2018 14:43 - CONCLUSION: 1. Unremarkable renal ultrasound. Bladder decompressed by Torres. Ascites. Sina Winchester MD Cyst Biopsy Asp-Paracentesis US 01/23/18 0000 Signed Impressions: Service Date/Time: January 07:52 - CONCLUSION: Uncomplicated ultrasound guided paracentesis. Luis Lewis MD Abdomen/Pelvis CT 01/22/18 0000 Signed Impressions: Service Date/Time: Monday, January 22, 2018 15:07 - CONCLUSION: Small shrunken fatty replaced liver with extensive ascites. Prominent gallbladder.. Desmond Alvarez MD FACR Physical Exam HEENT: normocephalic; atraumatic; no jaundice. CHEST: diminished. CARDIAC:RRR ABDOMEN: semifirm, distended, bowel sounds faint ostomy bag left quadrant with serous fluid EXTREMITIES: No clubbing, cyanosis, or edema. SKIN: pale; no rash; no jaundice. FIBERGLASS GRINDER: lethargic, mildly confused (Jacqueline Babb FULFILLMENT SPECIALIST) Assessment and Plan Plan Assessment: - Transaminitis- likely secondary to ETOH, given history of 4-5 glasses of wine daily. Reports known history of elevated LFTs, has been told by PCP in the past to stop drinking. Has never had extensive liver work up. Labs currently: AST-116 ALT-32 T bili-4 Ammonia-12. DF-27 - Elevated lipase- denies history of pancreatitis. - Ascites- S/P Paracentesis with 6.6 L removed. SAAG-1.3 Peritoneal WBC-133. Pt on Levaquin. - Anemia- H/H 6.7/22.6 on admission, now S/P 4 U PRBCs currently 8.6/26.6. - NICOLASA- GFR 41 - Leukocytosis- WBC-13.2 Pt on Levaquin and Flagyl CT abdomen and pelvis W/O IV contrast (01/22) --> Small shrunken fatty replaced liver with extensive ascites. Prominent gallbladder 01/27/18 - s/p EGD found small esophageal varices, no bleeding, portal gastropathy. She is c/o abd pain, is distended and somewhat tense today. renal US 01/26 showed ascites did have paracentesis 01/23/18. cx no growth 72h, cytology benign. HH improving. liver w/u so far unremarkable 01/28/18 abd pain improved. HH mild decrease today, hgb 11.5 no obvious bleeding. pt on bipap now. liver w/u unremarkable thus far gastric antrum path benign 01/29/18 mild drop HH. per RN there was some clots after intubation and OGT placement but that has resolved. No obvious blood in stool. liver w/u unremarkable 02/02/18 GI reconsulted for continued leakage from paracentesis site. 700cc last night, 300cc today. no obvious bleeding. HH improving plan for d/c to rehab soon. d/w RN 02/04/18 still with drainage from paracentesis site. serous fluid. WBC up today 21.8. no fever. Plan: encourage pt to lay on left side Monitor CBC Notify GI of active bleeding no etoh Protonix consider IR consult for paracentesis drainage Pt has been seen and examined by myself and Dr. Pascal and this note is written on her behalf (Jacqueline Babb) Jacqueline Babb Feb 04, 2018 14:15 Laura Pascal MD Feb 04, 2018 16:08
--- NOTE | 2018-02-04 15:28 | PD.CARD.PN ---
Subjective Subjective Remarks No CP or SOB, stays in SR, ambulating with PT Objective Medications Current Medications Medications (Trade) Dose Ordered Sig/Ralph Route Start Time Stop Time Status Last Admin (NS Flush) 2 ml UNSCH PRN IV FLUSH 01/22/18 17:15 01/27/18 08:54 (NS Flush) 2 ml BID IV FLUSH 01/22/18 21:00 02/03/18 22:12 (Narcan Inj) 0.4 mg UNSCH PRN IV PUSH 01/22/18 17:15 (Brethine Inj) 1 mg UNSCH PRN SQ 01/23/18 04:30 (Peridex 0.12% Liq) 15 ml BID@08,20 MT 01/28/18 20:00 02/01/18 08:00 (Tears Naturale Opth Soln) 1 drop Q8HR EACH EYE 01/28/18 22:00 02/03/18 12:03 (Brethine Inj) 1 mg UNSCH PRN SQ 01/28/18 16:15 (NS Flush) DAILY IV FLUSH 01/28/18 17:00 02/04/18 09:00 (NS Flush) UNSCH PRN IV FLUSH 01/28/18 17:00 (Albuterol Neb) 2.5 mg Q2HR NEB PRN NEB 01/28/18 17:15 01/31/18 07:52 (Tylenol 650 Mg/ 20 ml Liq) 650 mg Q6H PRN OG-TUBE 01/28/18 17:15 (Pulmicort Respule Neb) 0.5 mg Q12HR NEB NEB 01/28/18 20:00 02/02/18 20:48 (D50w (Vial) Inj) 50 ml UNSCH PRN IV PUSH 01/28/18 17:15 (Glucagon Inj) 1 mg UNSCH PRN OTHER 01/28/18 17:15 (Prevacid Odt) 30 mg BID NG 01/28/18 21:00 02/04/18 13:35 (Folate) 1 mg DAILY PO 01/29/18 09:00 02/04/18 13:34 (Theragran) 1 tab DAILY PO 01/29/18 09:00 02/04/18 13:34 (Lactulose Liq) 30 ml QID PO 01/29/18 09:00 02/04/18 13:37 (Flagyl) 500 mg Q6HR PO 01/29/18 18:00 02/05/18 17:59 02/03/18 16:20 (Vitamin B1) 100 mg DAILY PO 01/30/18 09:00 02/04/18 13:35 (Diflucan) 100 mg DAILY PO 01/30/18 09:00 02/09/18 08:59 02/03/18 08:49 (Deltasone) 20 mg BID PO 02/02/18 21:00 02/04/18 13:34 (Augmentin) 875 mg Q12HR PO 02/03/18 12:00 02/05/18 11:59 02/04/18 13:34 (Duoneb Neb) 1 ampule Q6HR WHILE AWAKE NEB NEB 02/04/18 14:00 02/04/18 12:52 Vital Signs / I&O Vital Signs Date Time Temp Pulse Resp B/P (MAP) Pulse Ox O2 Delivery O2 Flow Rate FiO2 02/04/18 12:00 96.2 82 18 106/71 (83) 100 02/04/18 08:00 95.8 81 18 114/72 (86) 93 02/04/18 04:00 96.6 73 18 107/69 (82) 92 02/04/18 00:00 96.0 78 18 112/69 (83) 93 02/03/18 20:00 96.3 84 18 119/79 (92) 94 02/03/18 16:00 95.8 81 20 116/73 (87) 96 I/O 02/03/18 02/03/18 02/03/18 02/04/18 02/04/18 02/04/18 07:00 15:00 23:00 07:00 15:00 23:00 Intake Total 240 ml 1200 ml Output Total 600 ml 950 ml Balance -360 ml 1200 ml -950 ml Intake Oral 240 ml 1200 ml Drainage Total 600 ml 950 ml # Voids 0 # Bowel Movements 0 2 1 Physical Exam GENERAL: In NAD. SKIN: Warm and dry. HEAD: Normocephalic. EYES: No scleral icterus. No injection or drainage. NECK: Supple, trachea midline. No JVD or lymphadenopathy. CARDIOVASCULAR: Regular rate and rhythm without murmurs, gallops, or rubs. RESPIRATORY: Breath sounds equal bilaterally. No accessory muscle use. GASTROINTESTINAL: Abdomen soft, non-tender, nondistended. MUSCULOSKELETAL: No cyanosis, or edema. . Assessment and Plan Problem List: (1) Atrial fibrillation ICD Codes: I48.91 - Unspecified atrial fibrillation (2) GI bleed ICD Codes: K92.2 - Gastrointestinal hemorrhage, unspecified Status: Acute (3) Alcoholic liver disease ICD Codes: K70.9 - Alcoholic liver disease, unspecified (4) Esophageal varices ICD Codes: I85.00 - Esophageal varices without bleeding (5) Respiratory failure ICD Codes: J96.90 - Respiratory failure, unspecified, unspecified whether with hypoxia or hypercapnia (6) Sepsis ICD Codes: A41.9 - Sepsis, unspecified organism Status: Acute Assessment and Plan Remains stable, no new cardiac issues. Stays in SR, no recurrent a fib. Continue current program. Increase activity, continue PT. Problem Qualifiers (1) GI bleed: Qualified Codes: K92.2 - Gastrointestinal hemorrhage, unspecified (2) Sepsis: Qualified Codes: A41.9 - Sepsis, unspecified organism Danis Ernst MD Feb 04, 2018 15:28
--- NOTE | 2018-02-04 19:57 | HHI.PR ---
Subjective Remarks ALWERT NO SOB Objective Vital Signs Date Time Temp Pulse Resp B/P (MAP) Pulse Ox O2 Delivery O2 Flow Rate FiO2 02/04/18 16:00 97.4 84 18 111/71 (84) 100 02/04/18 12:00 96.2 82 18 106/71 (83) 100 02/04/18 08:00 95.8 81 18 114/72 (86) 93 02/04/18 04:00 96.6 73 18 107/69 (82) 92 02/04/18 00:00 96.0 78 18 112/69 (83) 93 02/03/18 20:00 96.3 84 18 119/79 (92) 94 I/O 02/03/18 02/03/18 02/03/18 02/04/18 02/04/18 02/04/18 07:00 15:00 23:00 07:00 15:00 23:00 Intake Total 240 ml 1200 ml 560 ml Output Total 600 ml 950 ml Balance -360 ml 1200 ml -950 ml 560 ml Intake Oral 240 ml 1200 ml 560 ml Drainage Total 600 ml 950 ml # Voids 0 1 # Bowel Movements 0 2 1 1 Result Diagram: 02/02/18 0927 02/02/18 1346 Procedures Paracentesis 01/23/2018. Objective Remarks GENERAL: SKIN: Warm and dry. HEAD: Atraumatic. Normocephalic. EYES: Pupils equal and round. No scleral icterus. No injection or drainage. ENT: No nasal bleeding or discharge. Mucous membranes pink and moist. NECK: Trachea midline. No JVD. CARDIOVASCULAR: Regular rate and rhythm. RESPIRATORY: No accessory muscle use. Clear to auscultation. Breath sounds equal bilaterally. GASTROINTESTINAL: Abdomen soft, non-tender, nondistended. Hepatic and splenic margins not palpable. MUSCULOSKELETAL: Extremities without clubbing, cyanosis, or edema. No obvious deformities. NEUROLOGICAL: Awake and alert. No obvious cranial nerve deficits. Motor grossly within normal limits. Five out of 5 muscle strength in the arms and legs. Normal speech. PSYCHIATRIC: Appropriate mood and affect; insight and judgment normal. Assessment and Plan Assessment and Plan IMPRESSION RESPIRATORY FAILURE, RESOLVED PNA/ SEPSIS, RESOLVED PLAN O2 NEEDEDT PULMONARY TOILET INCREASE ACTIVITY F/U CXRAY Mala Medeiros MD Feb 04, 2018 19:57
[2018-02-05] VITALS: BP 105/72; PULSE 79; RESP 16; TEMP 96.8; O2SAT 92
[2018-02-05] MEDS: metroNIDAZOLE 500 MG TAB PO SCH ×3 (00:46→11:51)
[2018-02-05 04:53] VITALS: BP 115/77; PULSE 74; RESP 16; TEMP 96.2; O2SAT 92
[2018-02-05] MEDS: ARTIFICIAL TEARS OPTH SOLN 15 ML BTL EACH EYE SCH ×2 (06:00→14:00)
[2018-02-05] MEDS: CHLORHEXIDINE 0.12% (ORAL KIT) 15 ML CUP MT SCH (07:51)
[2018-02-05] MEDS: predniSONE 20 MG TAB PO SCH (07:51)
[2018-02-05] MEDS: LACTULOSE SYRUP 20 GM/30 ML CUP PO SCH ×2 (07:51→11:52)
[2018-02-05] MEDS: FOLIC ACID 1 MG TAB PO SCH (07:51)
[2018-02-05] MEDS: THIAMINE HCL 100 MG TAB PO SCH (07:51)
[2018-02-05] MEDS: LANSOPRAZOLE SOLUTAB 30 MG TAB NG SCH (07:51)
[2018-02-05] MEDS: MULTIVITAMIN TAB PO SCH (07:51)
[2018-02-05] MEDS: AMOXICILLIN/CLAVULANATE K 875 MG TAB PO SCH (07:51)
[2018-02-05] MEDS: FLUCONAZOLE 100 MG TAB PO SCH (07:51)
[2018-02-05] MEDS: SODIUM CHLORIDE 0.9% FLUSH 10 ML FLUSH IV FLUSH SCH ×2 (07:52→07:53)
[2018-02-05] MEDS: RESP: BUDESONIDE 0.5 MG/2 ML NEB NEB SCH (07:52)
[2018-02-05 08:00] VITALS: BP 115/71; PULSE 73; RESP 16; TEMP 96.8; O2SAT 92
[2018-02-05] MEDS: RESP: ALBUTEROL 2.5 MG/IPRATROPIUM 0.5 MG NEB (SCH) NEB ×2 (08:00→11:33)
[2018-02-05] MEDS ORDERED: WALKER WHEELS/F1 MIS (09:06)
[2018-02-05] MEDS ORDERED: ALBUMIN 25% INJ 0 ML IV ONE (10:00)
--- NOTE | 2018-02-05 10:37 | RADRPT ---
EXAM DATE/TIME: 02/04/2018 15:51 [facility] COMPARISON: No previous studies available for comparison. INDICATIONS : Ascites. MEDICAL HISTORY : Abdominal pain. SURGICAL HISTORY : Hysterectomy. Appendectomy. Left foot surgery. Back surgery. Eye surgery. ENCOUNTER: Initial ACUITY: 1 week PAIN SCORE: 0/10 LOCATION: Right lower quadrant FLUID: Total volume of 4,000 cc of clear, yellow fluid was removed. Fluid was discarded. Paracentesis was therapeutic only. Post procedure scanning reveals no hematoma or other complication. TECHNIQUE: 1. Ultrasound guidance for abdominal paracentesis. 2. Paracentesis. The risks, benefits, and alternatives to ultrasound guided paracentesis were explained to the patient in detail including the risk of bleeding and infection. Written and verbal informed consent was obt ained. With the patient on the ultrasound table, ultrasound imaging was used to select the most appropriate approach for paracentesis. Overlying skin was prepped and draped in the usual sterile fashion and wi th a local anesthetic, a dermatotomy was made with an 11 blade scalpel. A 6 [place] [id number] ca theter was introduced into the peritoneal cavity and fluid was collected. The patient tolerated the procedure well and left the ultrasound suite in stable condition. CONCLUSION: Uncomplicated ultrasound guided paracentesis. Austen Billy MD on February 05, 2018 at 10:34 Board Certified Radiologist. This report was verified electronically.
--- NOTE | 2018-02-05 11:13 | HHI.PR ---
Objective Vitals Vital Signs Date Time Temp Pulse Resp B/P (MAP) Pulse Ox O2 Delivery O2 Flow Rate FiO2 02/05/18 08:00 96.8 73 16 115/71 (86) 92 02/05/18 04:53 96.2 74 16 115/77 (90) 92 02/05/18 00:00 96.8 79 16 105/72 (83) 92 02/04/18 23:44 94 02/04/18 20:00 96.1 88 16 114/80 (91) 93 02/04/18 16:00 97.4 84 18 111/71 (84) 100 02/04/18 12:00 96.2 82 18 106/71 (83) 100 I/O 02/04/18 02/04/18 02/04/18 02/05/18 02/05/18 02/05/18 07:00 15:00 23:00 07:00 15:00 23:00 Intake Total 560 ml Output Total 950 ml Balance -950 ml 560 ml Intake Oral 560 ml Drainage Total 950 ml # Voids 1 2 # Bowel Movements 1 1 2 Result Diagram: 02/02/18 0927 02/02/18 1346 Objective Remarks GENERAL: Well-developed, well-nourished in no distress SKIN: Warm and dry. CARDIOVASCULAR: Regular rate and rhythm without murmurs, gallops, or rubs. RESPIRATORY: Breath sounds equal bilaterally. No accessory muscle use. GASTROINTESTINAL: Abdomen soft, non-tender with drainage bag containing ascitic fluid MUSCULOSKELETAL: No cyanosis, or edema. BACK: Nontender without obvious deformity. No CVA tenderness. Procedures Paracentesis 01/23/2018. 01/28/18 Right #10 Lao chest tube 01/29 Bronchoscopy, EGD, arterial line placement Date of Insertion: Jan 28, 2018 Line: Central Venous Catheter Side: Left Location: Internal, Jugular A/P Problem List: (1) Alcoholic liver disease ICD Code: K70.9 - Alcoholic liver disease, unspecified (2) Pneumonia ICD Code: J18.9 - Pneumonia, unspecified organism Status: Acute (3) Symptomatic anemia ICD Code: D64.9 - Anemia, unspecified Status: Acute Assessment and Plan Neuro/Psych: Encephalopathy likely metabolic which is improving. Continue CIWA protocol. Patient has been consult status post psychiatry evaluation/ CV: Paroxysmal A. fib with RVR currently normal sinus rhythm. EF 50%. Status post cardiology evaluation. Monitor on telemetry. Not a candidate for anticoagulation secondary to GI bleed Resp: Acute hypercapnic Hypoxic respiratory failure. Resolved. Passed Oxygen walk test Bilateral pleural effusions. Stable status post chest tube placement and removal Community acquired pneumonia. Stable Continue oxygen keep saturation at the 92%, nebulizations, taper steroids and de -escalate antibiotic switch to p.o. Augmentin discontinue cefepime. Flagyl still February 05 and Diflucan until February 09 secondary to UTI GI: Esophageal varices Portal gastropathy Elevated transaminases likely from alcoholic liver disease. Improving Pancreatitis Hypoalbuminemia Hyperammonia CT abdomen/pelvis revealed shrunken liver, gross abdominal ascites. Status post paracentesis 6.6 L removed on 01/23. 6L removed on 01/28. Monitor drainage in collection bag still significant will consult IR for therapeutic paracentesis. Consider diuretics and beta-angely Lansoprazole 30 mg twice daily Lactulose 30 cc every 6 hours for elevated ammonia trending down Hepatitis panel negative. OMI, ASMA negative. Elevated alpha-1 antitrypsin. Negative ceruloplasmin 01/31-formal swallow evaluation successful, patient placed on nectar thickened liquids : Urinary retention. Resolved Heme: Persistent Leukocytosis due to steroid Normocytic anemia. Improved Elevated INR secondary to liver disease Monitor CBC , coags- INR 1.6 on 02/01 no active signs of bleeding WBC elevation-Continue to monitor, Torres, central line, arterial line discontinued Repeat INR ID: Severe sepsis. Resolved Antibiotics the escalated see above PT evaluate and treat Prophylaxis -GI -lansoprazole -DVT -SCD/holding pharmacological prophylaxis in light of elevated INR/upper GI bleed Discharge Planning C vs rehab when ready Problem Qualifiers (1) Pneumonia: Qualified Codes: J18.1 - Lobar pneumonia, unspecified organism Eddi Almanzar MD Feb 05, 2018 11:13
[2018-02-05] MEDS ORDERED: FURO20TA PO (11:17)
[2018-02-05 12:00] VITALS: BP 119/74; PULSE 69; RESP 17; TEMP 96.7; O2SAT 94
[2018-02-05] MEDS ORDERED: LIDOCAINE HCL 1% 20 ML VIAL ONE (12:03)
--- NOTE | 2018-02-05 13:55 | HHI.GIFU ---
Subjective Remarks Sitting up in the chair Tearful, holding son's hand who just arrived from [place] States now she can go home No acute pain or shortness of breath for now, abdomen large, soft with positive fluid wave Objective Vitals I&O Vital Signs Date Time Temp Pulse Resp B/P (MAP) Pulse Ox O2 Delivery O2 Flow Rate FiO2 02/05/18 12:00 96.7 69 17 119/74 (89) 94 02/05/18 08:00 96.8 73 16 115/71 (86) 92 02/05/18 04:53 96.2 74 16 115/77 (90) 92 02/05/18 00:00 96.8 79 16 105/72 (83) 92 02/04/18 23:44 94 02/04/18 20:00 96.1 88 16 114/80 (91) 93 02/04/18 16:00 97.4 84 18 111/71 (84) 100 I/O 02/04/18 02/04/18 02/04/18 02/05/18 02/05/18 02/05/18 07:00 15:00 23:00 07:00 15:00 23:00 Intake Total 560 ml Output Total 950 ml Balance -950 ml 560 ml Intake Oral 560 ml Drainage Total 950 ml # Voids 1 2 # Bowel Movements 1 1 2 Laboratory Date/Time Source Procedure Growth Status 01/29/18 08:19 Blood Peripheral Aerobic Blood Culture - Final NO GROWTH IN 5 DAYS Complete 01/29/18 08:19 Blood Peripheral Anaerobic Blood Culture - Final NO GROWTH IN 5 DAYS Complete 01/29/18 12:35 Fluid Pleural Fluid Gram Stain - Final Complete 01/29/18 12:35 Fluid Pleural Fluid Body Fluid Culture - Final NO GROWTH IN 72 HRS.--AEROBICALLY OR ... Complete 01/28/18 20:20 Bronchial Washings Left Lower Lobe Fungal Smear - Final NO FUNGAL ELEMENTS SEEN. Resulted 01/28/18 20:20 Bronchial Washings Left Lower Lobe Fungal Culture - Preliminary Resulted 01/28/18 18:30 Urine Catheterized Urine Urine Culture - Final [place] Complete Imaging Last Impressions Cyst Biopsy Asp-Paracentesis US 02/05/18 0000 Signed Impressions: Service Date/Time: Sunday, February 04, 2018 15:51 - CONCLUSION: Uncomplicated ultrasound guided paracentesis. Austen Billy MD Chest X-Ray 02/01/18 0000 Signed Impressions: Service Date/Time: Thursday, February 01, 2018 08:50 - CONCLUSION: Removal of lines and tubes with improved lung exam. No evidence of residual pneumothorax. Deanna Feldman MD Renal Ultrasound 01/26/18 0000 Signed Impressions: Service Date/Time: Friday, January 26, 2018 14:43 - CONCLUSION: 1. Unremarkable renal ultrasound. Bladder decompressed by Torres. Ascites. Sina Winchester MD Abdomen/Pelvis CT 01/22/18 0000 Signed Impressions: Service Date/Time: Monday, January 22, 2018 15:07 - CONCLUSION: Small shrunken fatty replaced liver with extensive ascites. Prominent gallbladder.. Desmond Alvarez MD FACR Physical Exam HEENT: normocephalic; atraumatic; pale CHEST: diminished lung sounds without audible rhonchi CARDIAC:RRR ABDOMEN: Soft, large, continues to be distended, bowel sounds soft , Ostomy bag left quadrant with serous fluid EXTREMITIES: No clubbing, cyanosis, or edema. SKIN: pale; no rash; no jaundice. MARKETING ANALYTICS ANALYST: Awake, tearful, answers simple questions appropriately, states she is going home Assessment and Plan Plan Assessment: - Transaminitis- likely secondary to ETOH, given history of 4-5 glasses of wine daily. Reports known history of elevated LFTs, has been told by PCP in the past to stop drinking. Has never had extensive liver work up. Labs currently: AST-116 ALT-32 T bili-4 Ammonia-12. 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 - Elevated lipase- denies history of pancreatitis. - Ascites- S/P Paracentesis with 6.6 L removed. SAAG-1.3 Peritoneal WBC-133. Pt on Levaquin. - Anemia- H/H 6.7/22.6 on admission, now S/P 4 U PRBCs currently 8.6/26.6. - NICOLASA- GFR 41 - Leukocytosis- WBC-13.2 Pt on Levaquin and Flagyl CT abdomen and pelvis W/O IV contrast (01/22) --> Small shrunken fatty replaced liver with extensive ascites. Prominent gallbladder 01/27/18 - s/p EGD found small esophageal varices, no bleeding, portal gastropathy. She is c/o abd pain, is distended and somewhat tense today. renal US 01/26 showed ascites did have paracentesis 01/23/18. cx no growth 72h, cytology benign. HH improving. liver w/u so far unremarkable 01/28/18 abd pain improved. HH mild decrease today, hgb 11.5 no obvious bleeding. pt on bipap now. liver w/u unremarkable thus far gastric antrum path benign 01/29/18 mild drop HH. per RN there was some clots after intubation and OGT placement but that has resolved. No obvious blood in stool. liver w/u unremarkable 02/02/18 GI reconsulted for continued leakage from paracentesis site. 700cc last night, 300cc today. no obvious bleeding. HH improving plan for d/c to rehab soon. d/w RN 02/04/18 still with drainage from paracentesis site. serous fluid. WBC up today 21.8. no fever. 02/05/18, paracentesis noted on 02/04/18, patient has large abdomen with positive fluid wave. Son has come in from [place] patient is stating she can now go home. Spoke with manager of case management to get update on discharge planning. Hemoglobin 13.6, No obvious bleeding noted Plan: Lactulose Flagyl Diflucan Vitamins Bowel regimen as needed Monitor CBC, and labs Notify GI of active bleeding Alcohol abstinence Protonix Supportive care. Might benefit from palliative care consult. GI available for any needs, Pt has been seen and examined by myself and Dr. Pascal and this note is written on her behalf Mary Benz Feb 05, 2018 13:55
[2018-02-05] MEDS ORDERED: PRED20 PO (14:53)
--- NOTE | 2018-02-05 16:11 | HHI.PR ---
Subjective Remarks ALERT NO SOB Objective Vital Signs Date Time Temp Pulse Resp B/P (MAP) Pulse Ox O2 Delivery O2 Flow Rate FiO2 02/05/18 12:00 96.7 69 17 119/74 (89) 94 02/05/18 08:00 96.8 73 16 115/71 (86) 92 02/05/18 04:53 96.2 74 16 115/77 (90) 92 02/05/18 00:00 96.8 79 16 105/72 (83) 92 02/04/18 23:44 94 02/04/18 20:00 96.1 88 16 114/80 (91) 93 I/O 02/04/18 02/04/18 02/04/18 02/05/18 02/05/18 02/05/18 07:00 15:00 23:00 07:00 15:00 23:00 Intake Total 560 ml Output Total 950 ml Balance -950 ml 560 ml Intake Oral 560 ml Drainage Total 950 ml # Voids 1 2 # Bowel Movements 1 1 2 Result Diagram: 02/02/18 0927 02/02/18 1346 Procedures Paracentesis 01/23/2018. Objective Remarks GENERAL: SKIN: Warm and dry. HEAD: Atraumatic. Normocephalic. EYES: Pupils equal and round. No scleral icterus. No injection or drainage. ENT: No nasal bleeding or discharge. Mucous membranes pink and moist. NECK: Trachea midline. No JVD. CARDIOVASCULAR: Regular rate and rhythm. RESPIRATORY: No accessory muscle use. Clear to auscultation. Breath sounds equal bilaterally. GASTROINTESTINAL: Abdomen soft, non-tender, nondistended. Hepatic and splenic margins not palpable. MUSCULOSKELETAL: Extremities without clubbing, cyanosis, or edema. No obvious deformities. NEUROLOGICAL: Awake and alert. No obvious cranial nerve deficits. Motor grossly within normal limits. Five out of 5 muscle strength in the arms and legs. Normal speech. PSYCHIATRIC: Appropriate mood and affect; insight and judgment normal. Assessment and Plan Assessment and Plan IMPRESSION RESPIRATORY FAILURE, RESOLVED PNA/ SEPSIS, RESOLVED PLAN O2 NEEDEDT PULMONARY TOILET INCREASE ACTIVITY WILL SIGN OFF OFFICE I WEEK POST D/C Mala Medeiros MD Feb 05, 2018 16:11
--- NOTE | 2018-02-05 16:44 | HHI.DS ---
Discharge Summary Admission Date Jan 22, 2018 at 16:33 Discharge Date: Feb 05, 2018 Admitting Diagnosis GI bleed, symptomatic anemia, pneumonia, sepsis (1) Alcoholic liver disease ICD Code: K70.9 - Alcoholic liver disease, unspecified Diagnosis: Principal (2) Pneumonia ICD Code: J18.9 - Pneumonia, unspecified organism Diagnosis: Principal Status: Acute (3) Symptomatic anemia ICD Code: D64.9 - Anemia, unspecified Diagnosis: Principal Status: Acute Procedures Paracentesis 01/23/2018. 01/28/18 and 02/05/18 Right #10 Syriac chest tube 01/29 Bronchoscopy, EGD, arterial line placement Brief History - From Admission mid epigastric and left upper quadrant pain about 2-3 days had nasuea vomiting but this was a week ago- about 3 days duration, no black or red it has stopped for [facility] but she cant remeber she only has diclofenac bottle in purse had diarrhea bad after this thus doc [facility] told her to get off antibiotics - 4 more days left no urine symtpoms has vaginal itching post antibiotics therapy never had paracentesis CBC/BMP: 02/02/18 0927 02/02/18 1346 Significant Findings Laboratory Tests Test 02/03/18 11:45 Imaging Last Impressions Cyst Biopsy Asp-Paracentesis US 02/05/18 0000 Signed Impressions: Service Date/Time: Sunday, February 04, 2018 15:51 - CONCLUSION: Uncomplicated ultrasound guided paracentesis. Austen Billy MD Chest X-Ray 02/01/18 0000 Signed Impressions: Service Date/Time: Thursday, February 01, 2018 08:50 - CONCLUSION: Removal of lines and tubes with improved lung exam. No evidence of residual pneumothorax. Deanna Feldman MD Renal Ultrasound 01/26/18 0000 Signed Impressions: Service Date/Time: Friday, January 26, 2018 14:43 - CONCLUSION: 1. Unremarkable renal ultrasound. Bladder decompressed by Torres. Ascites. Sina Winchester MD Abdomen/Pelvis CT 3/7/18 0000 Signed Impressions: Service Date/Time: Monday, January 22, 2018 15:07 - CONCLUSION: Small shrunken fatty replaced liver with extensive ascites. Prominent gallbladder.. Desmond Alvarez MD FACR PE at Discharge GENERAL: Well-developed, well-nourished in no distress SKIN: Warm and dry. CARDIOVASCULAR: Regular rate and rhythm without murmurs, gallops, or rubs. RESPIRATORY: Breath sounds equal bilaterally. No accessory muscle use. GASTROINTESTINAL: Abdomen soft, non-tender with drainage bag containing ascitic fluid MUSCULOSKELETAL: No cyanosis, or edema. BACK: Nontender without obvious deformity. No CVA tenderness. Hospital Course Neuro/Psych: Encephalopathy likely metabolic which is improving. Continue CIWA protocol. Patient has been counselled status post psychiatry evaluation CV: Paroxysmal A. fib with RVR currently normal sinus rhythm. EF 50%. Status post cardiology evaluation. Monitor on telemetry. Not a candidate for anticoagulation secondary to GI bleed Resp: Acute hypercapnic Hypoxic respiratory failure. Resolved. Passed Oxygen walk test Bilateral pleural effusions. Stable status post chest tube placement and removal Community acquired pneumonia. Stable Continue oxygen keep saturation at the 92%, nebulizations, taper steroids and de -escalate antibiotic switched to p.o. Augmentin discontinue cefepime. Flagyl til February 05 and Diflucan until February 09 secondary to UTI GI: Esophageal varices Portal gastropathy Elevated transaminases likely from alcoholic liver disease. Improving Pancreatitis Hypoalbuminemia Hyperammonia CT abdomen/pelvis revealed shrunken liver, gross abdominal ascites. Status post paracentesis 6.6 L removed on 01/23. 6L removed on 01/28 and 4L on . Start lasix. Fluid and salt restriction dw pt and family Lansoprazole 30 mg twice daily Lactulose 30 cc every 6 hours for elevated ammonia trending down Hepatitis panel negative. OMI, ASMA negative. Elevated alpha-1 antitrypsin. Negative ceruloplasmin 01/31-formal swallow evaluation successful, patient placed on nectar thickened liquids : Urinary retention. Resolved Heme: Persistent Leukocytosis due to steroid Normocytic anemia. Improved Elevated INR secondary to liver disease Monitor CBC , coags- INR 1.6 on 02/01 no active signs of bleeding WBC elevation-Continue to monitor, Torres, central line, arterial line discontinued ID: Severe sepsis. Resolved Antibiotics deescalated see above PT recommended HHC Prophylaxis -GI -lansoprazole -DVT -SCD/holding pharmacological prophylaxis in light of elevated INR/upper GI bleed Pt Condition on Discharge: Stable Discharge Disposition: Disch w/ Home Health Serv Discharge Time: > 30 minutes Discharge Instructions DIET: Follow Instructions for: Heart Healthy Diet Speech Therapy-Diet Recommends: Mechanical Soft, [place] Thickened Liquids Activities you can perform: Regular-No Restrictions Activities to Avoid: Driving Follow up Referrals: Gastroenterology - 1 Week PCP Follow-up - 1 Week Pulmonology - 1 Week New Orders: BASIC METABOLIC PROF - 02/10/18 New Medications: Walker with Front Wheels (Walker with Front Wheels) 1 Mis Mis EA .XX DIRECTED, #1 0 Refills Amoxicillin-Clavulanate (Amoxicillin-Clavulanate) 875-125 mg Tab 875 MG PO Q12HR for Infection, #4 TAB stop 02/05/18 not for use in CrCl <30 mL/minute Budesonide Neb (Pulmicort Respules) 0.5 Mg/2 Ml Neb 0.5 MG NEB Q12HR NEB for Breathing Treatment, #60 NEBULE Fluconazole (Diflucan) 100 Mg Tab 100 MG PO DAILY for Infection, #6 TAB stop 02/09/18 Furosemide (Furosemide) 20 Mg Tab 20 MG PO DAILY for ascites, #7 TAB Lansoprazole ODT (Prevacid Solutab ODT) 30 Mg Tab 30 MG NG BID for Manage Heartburn, #60 TAB Mix with 4 ml water before giving via tube. Metronidazole (Flagyl) 500 Mg Tab 500 MG PO Q6HR for Infection, #8 TAB stop 02/05/18 Prednisone (Prednisone) 20 Mg Tab 20 MG PO QD for Control Inflammation, #5 TAB taper -take one pill daily for 3 days then 1/2 pill daily for 4 days then stop Thiamine HCl (Gnp Vitamin B-1) 100 Mg Tab 100 MG PO DAILY for Alcohol Detox, #30 TAB [Lactulose Liq] () 30 ML SYRP 30 ML PO QID for confusion, #1000 ML titrate audrey 3 loose stools per day Eddi Almanzar MD Feb 05, 2018 16:43
--- NOTE | 2018-02-05 17:34 | PD.CARD.PN ---
Subjective Subjective Remarks No CP or SOB, feels fine Objective Vital Signs / I&O Vital Signs Date Time Temp Pulse Resp B/P (MAP) Pulse Ox O2 Delivery O2 Flow Rate FiO2 02/05/18 12:00 96.7 69 17 119/74 (89) 94 02/05/18 08:00 96.8 73 16 115/71 (86) 92 02/05/18 04:53 96.2 74 16 115/77 (90) 92 02/05/18 00:00 96.8 79 16 105/72 (83) 92 02/04/18 23:44 94 02/04/18 20:00 96.1 88 16 114/80 (91) 93 I/O 02/04/18 02/04/18 02/04/18 02/05/18 02/05/18 02/05/18 07:00 15:00 23:00 07:00 15:00 23:00 Intake Total 560 ml Output Total 950 ml Balance -950 ml 560 ml Intake Oral 560 ml Drainage Total 950 ml # Voids 1 2 # Bowel Movements 1 1 2 Physical Exam GENERAL: In NAD. SKIN: Warm and dry. HEAD: Normocephalic. EYES: No scleral icterus. No injection or drainage. NECK: Supple, trachea midline. No JVD or lymphadenopathy. CARDIOVASCULAR: Regular rate and rhythm without murmurs, gallops, or rubs. RESPIRATORY: Breath sounds equal bilaterally. No accessory muscle use. GASTROINTESTINAL: Abdomen soft, non-tender, nondistended. MUSCULOSKELETAL: No cyanosis, or edema. . Imaging Last 24 hours Impressions Cyst Biopsy Asp-Paracentesis US 02/05/18 0000 Signed Impressions: Service Date/Time: Sunday, February 04, 2018 15:51 - CONCLUSION: Uncomplicated ultrasound guided paracentesis. Austen Billy MD Assessment and Plan Problem List: (1) Atrial fibrillation ICD Codes: I48.91 - Unspecified atrial fibrillation (2) GI bleed ICD Codes: K92.2 - Gastrointestinal hemorrhage, unspecified Status: Acute (3) Alcoholic liver disease ICD Codes: K70.9 - Alcoholic liver disease, unspecified (4) Esophageal varices ICD Codes: I85.00 - Esophageal varices without bleeding (5) Respiratory failure ICD Codes: J96.90 - Respiratory failure, unspecified, unspecified whether with hypoxia or hypercapnia (6) Sepsis ICD Codes: A41.9 - Sepsis, unspecified organism Status: Acute Assessment and Plan Remains stable from cardiac standpoint. Stays in SR, no recurrent a fib. Continue current program. DC today as planned. F/u w PCP. Problem Qualifiers (1) GI bleed: Qualified Codes: K92.2 - Gastrointestinal hemorrhage, unspecified (2) Sepsis: Qualified Codes: A41.9 - Sepsis, unspecified organism Danis Ernst MD Feb 05, 2018 17:34
[2018-02-06] MEDS ORDERED: FUROSEMIDE 20 MG TAB PO SCH (09:00)
== END 2018-02-05 16:13 | disposition home health service (06) | DRG 853 ==
LOC: NEPC 12:40 → NEDA 16:33 → HIMN 21:50 → N07B 02-03 00:03
PROVIDERS: ADMIT Internal Medicine; ATTEND Internal Medicine
PROC: 30233N1 Transfusion of Nonautologous Red Blood Cells into Peripheral Vein, Percutaneous Approach (ICD-10-PCS; 2018-01-22)
PROC: 0W9G3ZX Drainage of Peritoneal Cavity, Percutaneous Approach, Diagnostic (ICD-10-PCS; 2018-01-23)
PROC: 0DB68ZX Excision of Stomach, Via Natural or Artificial Opening Endoscopic, Diagnostic (ICD-10-PCS; 2018-01-24)
PROC: 0T9B70Z Drainage of Bladder with Drainage Device, Via Natural or Artificial Opening (ICD-10-PCS; 2018-01-25)
PROC: 0B9J8ZX Drainage of Left Lower Lung Lobe, Via Natural or Artificial Opening Endoscopic, Diagnostic (ICD-10-PCS; principal; 2018-01-28)
PROC: 5A1945Z Respiratory Ventilation, 24-96 Consecutive Hours (ICD-10-PCS; 2018-01-28)
PROC: 05HN33Z Insertion of Infusion Device into Left Internal Jugular Vein, Percutaneous Approach (ICD-10-PCS; 2018-01-28)
PROC: 0BH17EZ Insertion of Endotracheal Airway into Trachea, Via Natural or Artificial Opening (ICD-10-PCS; 2018-01-28)
PROC: 0W9G3ZX Drainage of Peritoneal Cavity, Percutaneous Approach, Diagnostic (ICD-10-PCS; 2018-01-28)
PROC: 04HY32Z Insertion of Monitoring Device into Lower Artery, Percutaneous Approach (ICD-10-PCS; 2018-01-28)
PROC: 0W9930Z Drainage of Right Pleural Cavity with Drainage Device, Percutaneous Approach (ICD-10-PCS; 2018-01-29)
PROC: 0W9G3ZZ Drainage of Peritoneal Cavity, Percutaneous Approach (ICD-10-PCS; 2018-02-04)
DX: A41.9 Sepsis, unspecified organism (principal); K85.90 Acute pancreatitis without necrosis or infection, unspecified; J96.01 Acute respiratory failure with hypoxia; G93.41 Metabolic encephalopathy; J90 Pleural effusion, not elsewhere classified; J18.1 Lobar pneumonia, unspecified organism; N17.9 Acute kidney failure, unspecified; J96.02 Acute respiratory failure with hypercapnia; F05 Delirium due to known physiological condition; I85.00 Esophageal varices without bleeding; D62 Acute posthemorrhagic anemia; K76.6 Portal hypertension; K92.2 Gastrointestinal hemorrhage, unspecified; J98.11 Atelectasis; F10.239 Alcohol dependence with withdrawal, unspecified; K70.31 Alcoholic cirrhosis of liver with ascites; K31.89 Other diseases of stomach and duodenum; E88.09 Other disorders of plasma-protein metabolism, not elsewhere classified; E87.6 Hypokalemia; M06.9 Rheumatoid arthritis, unspecified; J45.909 Unspecified asthma, uncomplicated; F17.210 Nicotine dependence, cigarettes, uncomplicated; Y90.9 Presence of alcohol in blood, level not specified; R74.0 Nonspecific elevation of levels of transaminase and lactic acid dehydrogenase [LDH]; R79.1 Abnormal coagulation profile; N13.9 Obstructive and reflux uropathy, unspecified; E83.39 Other disorders of phosphorus metabolism; R33.9 Retention of urine, unspecified; E83.42 Hypomagnesemia; I48.0 Paroxysmal atrial fibrillation; Z90.49 Acquired absence of other specified parts of digestive tract; Z90.710 Acquired absence of both cervix and uterus; Z80.3 Family history of malignant neoplasm of breast; Z83.3 Family history of diabetes mellitus; T38.0X5A Adverse effect of glucocorticoids and synthetic analogues, initial encounter
CPT/HCPCS: 31500; 31624; 32551; 36430; 36556; 36600; 49082; 49083; 71045; 71046; 74176; 76775; 76937; 80048; 80053; 80074; 80076; 80202; 81001; 82042; 82103; 82140; 82150; 82390; 82550; 82607; 82728; 82746; 82747; 82805; 82945; 82948; 83520; 83540; 83550; 83605; 83615; 83690; 83735; 83880; 83986; 84100; 84132; 84155; 84157; 84425; 84443; 85014; 85018; 85025; 85384; 85610; 85730; 86038; 86255; 86850; 86900; 86901; 86920; 87015; 87040; 87070; 87086; 87102; 87116; 87205; 87206; 87449; 87804; 88112; 88305; 89051; 93005; 93306; 94002; 94003; 94150; 94618; 94640; 94664; 96361; 96365; 96367; 96375; C1729; C9113; J0456; J0692; J0696; J1940; J1956; J2060; J2270; J2405; J2920; J3010; J3370; J3411; J3475; J3480; J7030; J7040; J7050; J7120; J7512; J7613; J7626; P9016; P9045; P9047